=== PATIENT | female | born 1975 | race Caucasian/White ===

== ENCOUNTER → 2018-01-12 14:24 | Outpatient (CLI) | payer MEDICAID, SELFPAY ==
[2018-01-12 14:50] LABS: Abs Immature Grans 0.01 k/cumm (0.0-0.09); Absolute Basophil Count 0.02 k/cumm (0.0-0.2); Absolute Eosinophil Count 0.08 k/cumm (0.0-0.7); Absolute Lymphocyte Count 2.22 k/cumm (1.2-3.4); Absolute Monocyte Count 0.66 k/cumm (0.11-0.7); Absolute Neutrophil Count 5.37 k/cumm (1.2-6.7); Basophils % 0.2; HCT 41.3 % (36.0-46.0); HGB 13.4 g/dL (12.0-15.5); Immature Grans % 0.1; Lymphocytes % 26.6; Mean Corp. HGB Concentration 32.4 g/dL (32.0-36.0); Mean Corpuscular Volume 89.4 fL (80-95); Monocytes % 7.9; Neutrophils % 64.2; Platelet Count 309 x1000/uL (130-400); RBC 4.62 m/cumm (4.00-5.20); RBC Distribution Width 15.2 % (11.7-14.6); White Blood Cell Count 8.36 k/cumm (4.4-10.8)
[2018-01-12 15:49] LABS: ALT 39 U/L (12-78); AST 16 U/L (15-37); Albumin 3.4 g/dL (3.4-5.0); Alkaline Phosphatase 90 U/L (46-116); C-Reactive Protein 2.26 mg/dL (0.0-0.3); CREATININE 0.69 mg/dL (0.55-1.02)
== END ==
PROVIDERS: PCP Family Medicine; Visit Provider Internal Medicine Rheumatology
DX: M05.79 Rheumatoid arthritis with rheumatoid factor of multiple sites without organ or systems involvement (principal); Z79.899 Other long term (current) drug therapy
CPT/HCPCS: 36415; 82040; 82565; 84075; 84450; 84460; 85025; 86140

== ENCOUNTER 2019-05-29 19:33 | Emergency (ER) | payer SELFPAY ==
[2019-05-29 19:39] VITALS: BP 165/68; PULSE 102; RESP 20; TEMP 36.5; O2SAT 97
[2019-05-29 22:31] LABS: Abs Immature Grans 0.02 k/cumm (0.0-0.09); Absolute Basophil Count 0.02 k/cumm (0.0-0.2); Absolute Eosinophil Count 0.11 k/cumm (0.0-0.7); Absolute Lymphocyte Count 2.01 k/cumm (1.2-3.4); Absolute Monocyte Count 0.83 k/cumm (0.11-0.7); Basophils % 0.2; Eosinophils % 1.2; HCT 45.1 % (36.0-46.0); HGB 14.2 g/dL (12.0-15.5); Immature Grans % 0.2 %; Lymphocytes % 21.6; Mean Corp. HGB Concentration 31.5 g/dL (32.0-36.0); Mean Corpuscular Hemoglobin 28.7 pg (27.0-33.0); Mean Corpuscular Volume 91.1 fL (80-95); Mean Platelet Volume 8.9 fL (8.0-11.0); Monocytes % 8.9; Neutrophils % 67.9; Platelet Count 339 x1000/uL (130-400); RBC 4.95 m/cumm (4.00-5.20); White Blood Cell Count 9.29 k/cumm (4.4-10.8)
--- NOTE | 2019-05-29 22:34 | DI.RAD_ITS ---
EXAM: XR CHEST 2V PA LATERAL INDICATION: chest pain. COMPARISON: RIGHT HAND COMPLETE from 03/07/2015 TECHNIQUE: 2D digital imaging was performed. FINDINGS: The exam is limited by the patient's body habitus. The lungs are suboptimally inflated. The heart s ize is within normal limits. The lungs are grossly clear. IMPRESSION: Limited exam. No acute findings.
[2019-05-29 22:46] LABS: ALT 35 U/L (14-59); AST 20 U/L (15-37); Albumin 3.3 g/dL (3.4-5.0); Alkaline Phosphatase 95 U/L (46-116); Anion Gap 7.5 mmol/L (3-11); BUN 11 mg/dL (7-18); Bilirubin, Total 0.5 mg/dL (0.2-1.0); CO2 33.5 mmol/L (21.0-32.0); Calcium 8.9 mg/dL (8.5-10.1); Chloride 103 mmol/L (98-107); Glucose 92 mg/dL (74-106); Potassium 3.8 mmol/L (3.5-5.1); Sodium 144 mmol/L (136-145); Total Protein 7.6 g/dL (6.4-8.2); Troponin I < 0.05 ng/Ml (<0.06)
[2019-05-29 23:05] LABS: D-Dimer 299 ng/mlFEU (<500)
--- NOTE | 2019-05-29 23:09 | DI.VRAD_ITS ---
PROCEDURE INFORMATION: Exam: XR Chest, 2 Views Exam date and time: 05/29/2019 10:38 PM Age: 44 years old Clinical indication: Other: Chest pain TECHNIQUE: Imaging protocol: XR of the chest Views: 2 views. COMPARISON: No relevant prior studies available. FINDINGS: Lungs: Unremarkable. No consolidation. Pleural space: Unremarkable. No pleural effusion. No pneumothorax. Heart/Mediastinum: Unremarkable. No cardiomegaly. Bones/joints: Unremarkable. IMPRESSION: No acute findings. Dictated and Authenticated by: Narayan Anderson MD. Ordering:TIMMY Harmon MD
[2019-05-29] MEDS: Metoprolol 12.5 MG TAB PO (23:31)
[2019-05-29 23:32] VITALS: BP 118/65; PULSE 92; RESP 16; O2SAT 96
[2019-05-30 00:05] VITALS: BP 133/56; PULSE 88; RESP 16; O2SAT 97
[2019-05-30] MEDS: valACYclovir 500 MG TAB (00:21)
--- NOTE | 2019-05-30 00:21 | W.ED.GENAD ---
Discharge Plan Disposition Patient Disposition: HOME Condition: Good Discharge Details Chief Complaint: GenMedical Clinical Impression: Heart palpitations, Canker sore Primary Care Provider: Connie Kemp ED Provider: Eden Wellington Home Meds and New Rx's Prescriptions: New valacyclovir [Valtrex] 1 gram tablet 1,000 mg PO TID Qty: 21 RF: 0 metoprolol succinate 25 mg capsule,sprinkle,ER 24hr 12.5 mg PO DAILY Qty: 15 RF: 0 No Action methotrexate sodium 2.5 mg tablet 2.5 mg PO QWEEK RF: 0 medroxyprogesterone 10 mg tablet 10 mg PO DAILY Qty: 90 RF: 0 Discharge Instructions Additional Instructions: Drink plenty of fluids. Rest activities as tolerated. Your evaluation today is extremely reassuring. Use metoprolol once daily as previously prescribed. Discontinue this medication for any dizziness, lightheadedness, headaches, feeling of syncope or weakness as discussed. Recheck with your primary care doctor in the next 2 to 3 days. Followup with dentist or oral surgeon as discussed. Use valtrex as prescribed. Return for any worsening or concerns sooner if needed Medical Decision Making Is a 44-year-old woman presenting to the emergency room for complaint of a right canker sore on her tongue which is quite bothersome. Patient reports she discontinued her methotrexate as she does get frequent canker sores while taking this medication. Patient reports canker sore persists, some improvement today. Patient reports in the past she has taken medications to help alleviate this canker sore faster, she is requesting medication. Patient is aware that she should be taking her medication and does have a plan to restart her medication as she is noted increased joint pain and swelling and plans to restart her medicine tomorrow she has a new prescription waiting to be picked up. Patient is also complaining of intermittent palpitations for last 2 weeks. She reports this is very similar to her previous experience with PTSD. Patient reports she had a medical emergency resulted in her weight gain then having cardiac evaluation which she felt very traumatic. Patient reports having PTSD from that time. Patient reports a similar presentation with palpitations for which she historically used metoprolol which she felt very helpful, fully relieved her palpitations however she discontinued taking this medication because she did not like taking medications. Patient reports she has not been on this medicine in several years. Patient does report intermittent palpitations with intermittent chest pain. She does report shortness of breath with no specific typical pattern certainly not exertional. Patient does have bilateral distal leg edema which is symmetrical. Patient does have PE risk factors specifically she is obese, on control, does have a history of DVT however this was after surgery. No family history of blood clots. No cancer, or recent travel. No recent surgery. Plan of care check additional troponin and d-dimer as well as baseline labs. Will trial dose of metoprolol. Patient agrees with plan of care. EKG reveals regular rate and rhythm with a heart rate of 85. No ST segment changes. This was reviewed with Dr. Lamas. Patient's labs are ultimately unremarkable for abnormality. Patient symptoms did improve after metoprolol as well as vital signs improved. I do feel comfortable discharging this patient home. Patient is requesting discharge home at this time. Precautions discussed. Metoprolol prescription provided and recommended close follow-up with PCP for continuation of medication. Weight loss discussed, lifestyle modifications discussed. Patient agrees with plan of care. The patient was stable and requested discharge. Prior to discharge, my usual and customary return precautions were reviewed with the patient - this included follow-up instructions and reasons to return to the Emergency Department if conditions worsens, does not improve as expected, or other new concerns arise. HPI General Date/Time Provider Initiated Documentation: 05/29/19 19:51. HPI Narrative: Is a 44-year-old patient presenting for 2 complaints. Patient presents for a canker sore on her right tongue which is been quite bothersome. Patient reports did present for greater than 1 week. Patient is on methotrexate but did discontinue her medication recently for few days because of canker sore but is going to restart her medication as she is noting joint pain and swelling which is becoming bothersome. Patient does report she gets frequent canker sores while taking the medication which was somewhat contributory to her stopping her medication. Patient denies any recent injury or trauma to the mouth. Patient denies fevers or chills. Patient reports no relief with canker sore with conservative treatments in the past she has been prescribed medication to help settle the sore. Patient is reporting right-sided pain radiating toward her right ear. Pain is quite bothersome. Denies any hearing change. Denies any recent upper respiratory symptoms. Second complaint. Patient is reporting 2 weeks of intermittent palpitations. Patient ports history of PTSD for which she did historically take metoprolol. Patient discontinued this medication on her own several years ago. Patient reports she did tolerate the medication without difficulty but stopped only because she does not like taking medication. Patient reports that she has noted intermittent chest pain for the last 2 weeks. She does report some shortness of breath which does not have a specific pattern, denies exertional shortness of breath. Patient denies difficulty breathing. Denies cough. Patient denies nausea, vomiting or ill feeling. Denies reflux symptoms at this time. Patient does report that she has not required PTSD medications quite some time. Patient reports his last 2 weeks her abdomen over previous experience with her anxiety/PTSD. Patient denies any concerns of depression. Patient does report she is been made dating a new diet in the last week. Patient does report she is otherwise active. No history of cancer. She does have a history of DVT after surgery several years ago. Takes no blood thinners. Non-smoker. Is on control. No recent travel. Related Data Home Medications Medication Instructions Recorded Confirmed methotrexate sodium 2.5 mg tablet 2.5 mg PO QWEEK 03/01/19 05/29/19 medroxyprogesterone 10 mg tablet 10 mg PO DAILY #90 tab 03/05/19 05/29/19 metoprolol succinate 12.5 mg PO DAILY #15 cap 05/30/19 valacyclovir [Valtrex] 1,000 mg PO TID #21 tab 05/30/19 Previous Rx's Medication Instructions Recorded medroxyprogesterone 10 mg tablet 10 mg PO DAILY #90 tab 03/05/19 metoprolol succinate 12.5 mg PO DAILY #15 cap 05/30/19 valacyclovir [Valtrex] 1,000 mg PO TID #21 tab 05/30/19 Allergies Allergy/AdvReac Type Severity Reaction Status Date / Time bee Allergy Severe Swelling/Ed Uncoded 05/29/19 19:55 mitzy General Stated Complaint: GenMedical MERI: 3 Review of Systems All systems reviewed & are unremarkable except as noted in HPI and below Constitutional Constitutional: Denies chills, Denies fatigue, Denies fever(s), Denies headache(s) and Denies malaise ENT Ears, Nose, Mouth, and Throat: Denies headache(s) Cardiovascular Cardiovascular: Reports chest pain, Denies diaphoresis, Denies syncope, Reports irregular heart rhythm, Denies lightheadedness, Denies radiating jaw, neck or arm pain, Reports palpitations, Reports dyspnea and Denies dyspnea on exertion Respiratory Respiratory: Denies cough, Reports dyspnea and Denies dyspnea on exertion Gastrointestinal Gastrointestinal: Denies abdominal pain, Denies diarrhea, Denies nausea and Denies vomiting Genitourinary Genitourinary: Denies dysuria Neurologic Neurologic: Denies syncope and Denies headache(s) Endocrine Endocrine: Denies fatigue and Reports palpitations [facility] Medical History BMI 60.0-69.9, adult (Acute) 02/2019. Endometriosis Simple endometrial hyperplasia without atypia (Chronic) 2015. Dx 10/2015. Rx with Medroxyprogesterone 10mg/day. 05/2017. EMBx: atrophic endometrium. 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 Do you feel safe at home: Yes Do you feel safe in your relationship?: Yes History History 3 Para Hx # Term Pregnancies 3 Multiple births Hx # Pregnancies Ectopic pregnancies AB induced Hx Number of Living Children 3 AB spontaneous Exam Narrative Exam Narrative: CONST: Healthy appearing patient, in no acute distress. Well hydrated. Alert and alert. HENMT: Head nomocephalic, normal to inspection. Atraumatic. Hearing grossly normal. External ear canal no erythema or swelling. TM normal bilaterally. Nose normal to inspection. No rhinnorhea. Normal facial exam. Oral mucosa normal. Tounge with a deep canker sore noted to the right side of the tongue. Dentition normal. Normal posterior oropharynx. Uvula midline. EYES: General normal appearance. Alignment normal. Eyelids normal. Conjunctiva normal. Sclera normal. PERRL. NECK: Normal visual inspection. FROM. No lymphadenopathy. Trachea midline. No Midline tenderness. CHEST: Normal insepection of the chest. RESP: Normal respiratory effort. Speaking full sentences. No cough. No wheezing. No retractions. Clear to auscaltation. Breath sound equal and present bilaterally. CARDIO: No JVD. Normal PMI. Regular Rate. Regular Rhythm. Normal peripheral pulses. GI: Normal inspection of abdomen. No distension. Soft. Nontender. Bowel sounds present in all 4 quadrants. No rebound. No gaurding. MUSCULOSKELETAL: Normal Gait. FROM of all extremities. Distal neurovascularly intact. Sensation intact distally. Mild edema bilaterally, symmetrical. PSYCH: Normal affect. Cooperative. Course Vital Signs Vital signs: Vital Signs Temperature 36.5 C 05/29/19 19:39 Pulse 102 H 05/29/19 19:39 Respiratory Rate 20 05/29/19 19:39 Blood Pressure 165/68 H 05/29/19 19:39 Pulse Oximetry 97 05/29/19 19:39 Temperature 36.5 C 05/29/19 19:39 Temperature Source Skin 05/29/19 19:39 Pulse 88 05/30/19 00:05 Respiratory Rate 16 05/30/19 00:05 Respiratory Effort Non-Labored 05/29/19 19:51 Respiratory Depth Normal 05/29/19 19:51 Respiratory Pattern Normal 05/29/19 19:51 Blood Pressure 133/56 L 05/30/19 00:05 Blood Pressure Position Sitting 05/29/19 19:39 Pulse Oximetry 97 05/30/19 00:05 Oxygen Delivery Method Room Air 05/29/19 23:32 Oxygen Flow Rate 0 05/29/19 23:32 Lab/Test Results Lab/Test Results: Laboratory Tests Range/Units 05/29/19 05/29/19 05/29/19 22:23 22:23 22:23 WBC (4.4-10.8) k/cumm 9.29 RBC (4.00-5.20) m/cumm 4.95 Hgb (12.0-15.5) g/dL 14.2 Hct (36.0-46.0) % 45.1 MCV (80-95) fL 91.1 MCH (27.0-33.0) pg 28.7 MCHC (32.0-36.0) g/dL 31.5 L RDW (11.7-14.6) % 15.0 H Plt Count (130-400) x1000/uL 339 MPV (8.0-11.0) fL 8.9 Immature Gran % % 0.2 Neutrophils % 67.9 Lymphocytes % 21.6 Monocytes % 8.9 Eosinophils % 1.2 Basophils % 0.2 Absolute Neutrophils (1.2-6.7) k/cumm 6.30 Absolute Lymphocytes (1.2-3.4) k/cumm 2.01 Absolute Monocytes (0.11-0.7) k/cumm 0.83 H Absolute Eosinophils (0.0-0.7) k/cumm 0.11 Absolute Basophils (0.0-0.2) k/cumm 0.02 D-Dimer (<500) ng/mlFEU 299 Sodium (136-145) mmol/L 144 Potassium (3.5-5.1) mmol/L 3.8 Chloride (98-107) mmol/L 103 Carbon Dioxide (21.0-32.0) mmol/L 33.5 H Anion Gap (3-11) mmol/L 7.5 BUN (7-18) mg/dL 11 Creatinine (0.55-1.02) mg/dL 0.60 Estimated GFR/1.73 m2 (mL/min/1.73m2) >= 60.00 Glucose (74-106) mg/dL 92 Calcium (8.5-10.1) mg/dL 8.9 Total Bilirubin (0.2-1.0) mg/dL 0.5 AST (15-37) U/L 20 ALT (14-59) U/L 35 Alkaline Phosphatase (46-116) U/L 95 Troponin I (<0.06) ng/Ml < 0.05 Total Protein (6.4-8.2) g/dL 7.6 Albumin (3.4-5.0) g/dL 3.3 L Salicylates Acetaminophen Range/Units 05/30/19 05/30/19 00:01 00:02 WBC (4.4-10.8) k/cumm RBC (4.00-5.20) m/cumm Hgb (12.0-15.5) g/dL Hct (36.0-46.0) % MCV (80-95) fL MCH (27.0-33.0) pg MCHC (32.0-36.0) g/dL RDW (11.7-14.6) % Plt Count (130-400) x1000/uL MPV (8.0-11.0) fL Immature Gran % % Neutrophils % Lymphocytes % Monocytes % Eosinophils % Basophils % Absolute Neutrophils (1.2-6.7) k/cumm Absolute Lymphocytes (1.2-3.4) k/cumm Absolute Monocytes (0.11-0.7) k/cumm Absolute Eosinophils (0.0-0.7) k/cumm Absolute Basophils (0.0-0.2) k/cumm D-Dimer (<500) ng/mlFEU Sodium (136-145) mmol/L Cancelled Potassium (3.5-5.1) mmol/L Cancelled Chloride (98-107) mmol/L Cancelled Carbon Dioxide (21.0-32.0) mmol/L Cancelled Anion Gap (3-11) mmol/L Cancelled BUN (7-18) mg/dL Cancelled Creatinine (0.55-1.02) mg/dL Cancelled Estimated GFR/1.73 m2 (mL/min/1.73m2) Cancelled Glucose (74-106) mg/dL Cancelled Calcium (8.5-10.1) mg/dL Cancelled Total Bilirubin (0.2-1.0) mg/dL Cancelled AST (15-37) U/L Cancelled ALT (14-59) U/L Cancelled Alkaline Phosphatase (46-116) U/L Cancelled Troponin I (<0.06) ng/Ml Total Protein (6.4-8.2) g/dL Cancelled Albumin (3.4-5.0) g/dL Cancelled Salicylates Cancelled Acetaminophen Cancelled
== END 2019-05-30 00:15 | disposition home or self-care (01) ==
PROVIDERS: Emergency Provider Physician Assistant; PCP Family Medicine
DX: R00.2 Palpitations (principal); K12.0 Recurrent oral aphthae
CPT/HCPCS: 80053; 93005; 99284; 71046; 80329; 84484; 85025; 85379; 93010; 99283; J3490

== ENCOUNTER 2019-06-23 16:31 | Outpatient (CLI) | payer OTHER, SELFPAY ==
[2019-06-23 17:23] LABS: Abs Immature Grans 0.01 k/cumm (0.0-0.09); Absolute Basophil Count 0.02 k/cumm (0.0-0.2); Absolute Eosinophil Count 0.11 k/cumm (0.0-0.7); Absolute Lymphocyte Count 1.87 k/cumm (1.2-3.4); Absolute Monocyte Count 0.53 k/cumm (0.11-0.7); Absolute Neutrophil Count 5.75 k/cumm (1.2-6.7); Basophils % 0.2; Eosinophils % 1.3; HCT 45.4 % (36.0-46.0); Immature Grans % 0.1 %; Lymphocytes % 22.6; Mean Corp. HGB Concentration 30.8 g/dL (32.0-36.0); Mean Corpuscular Hemoglobin 28.2 pg (27.0-33.0); Mean Corpuscular Volume 91.3 fL (80-95); Mean Platelet Volume 9.1 fL (8.0-11.0); Monocytes % 6.4; Neutrophils % 69.4; Platelet Count 338 x1000/uL (130-400); RBC 4.97 m/cumm (4.00-5.20); RBC Distribution Width 15.6 % (11.7-14.6); White Blood Cell Count 8.29 k/cumm (4.4-10.8)
[2019-06-23 17:38] LABS: ALT 37 U/L (14-59); AST 19 U/L (15-37); Albumin 3.4 g/dL (3.4-5.0); Alkaline Phosphatase 104 U/L (46-116); Anion Gap 7.3 mmol/L (3-11); BUN 9 mg/dL (7-18); Bilirubin, Total 0.4 mg/dL (0.2-1.0); C-Reactive Protein 2.22 mg/dL (0.0-0.3); CO2 31.7 mmol/L (21.0-32.0); CREATININE 0.77 mg/dL (0.55-1.02); Calcium 8.8 mg/dL (8.5-10.1); Chloride 103 mmol/L (98-107); Glucose 104 mg/dL (74-106); Potassium 4.2 mmol/L (3.5-5.1); Sodium 142 mmol/L (136-145); Total Protein 6.9 g/dL (6.4-8.2)
== END 2019-06-23 16:51 ==
PROVIDERS: PCP Family Medicine; Visit Provider Internal Medicine Rheumatology
DX: M05.79 Rheumatoid arthritis with rheumatoid factor of multiple sites without organ or systems involvement (principal); Z79.899 Other long term (current) drug therapy
CPT/HCPCS: 36415; 80053; 85025; 86140

== ENCOUNTER 2020-03-07 01:28 | Outpatient (CLI) | payer OTHER, SELFPAY ==
[2020-03-08 20:43] LABS: COVID-19 RT-PCR Result NEGATIVE (Negative)
== END 2020-03-07 01:48 ==
PROVIDERS: PCP Family Medicine; Visit Provider Nurse Practitioner
DX: G47.33 Obstructive sleep apnea (adult) (pediatric) (principal); Z01.818 Encounter for other preprocedural examination
CPT/HCPCS: U0003

== ENCOUNTER 2020-03-15 11:26 | Outpatient (REF) | payer OTHER, SELFPAY ==
[2020-03-15 19:56] LABS: Abs Immature Grans 0.04 10^3/uL (0.0-0.06); Absolute Basophil Count 0.02 10^3/uL (0.0-0.2); Absolute Lymphocyte Count 1.61 10^3/uL (1.2-3.4); Absolute Monocyte Count 0.68 10^3/uL (0.1-0.8); Absolute Neutrophil Count 6.79 10^3/uL (1.2-6.7); Basophils % 0.2; Eosinophils % 1.1; HCT 44.5 % (36.0-46.0); HGB 14.1 g/dL (11.2-15.7); Immature Grans % 0.4; Lymphocytes % 17.4; MCHC 31.7 % (32.0-36.0); MCV 94.7 fL (80-95); MPV 9.6 fL (8.0-11.0); Monocytes % 7.4; Neutrophils % 73.5; Nucleated RBC 0 %; Platelet Count 306 10^3/uL (130-400); RDW 14.1 % (11.7-14.6); RDW-SD 48.5 fL; WBC 9.24 10^3/uL (4.4-10.8)
[2020-03-15 20:20] LABS: ALT 70 U/L (14-59); AST 34 U/L (15-37); Albumin 3.6 g/dL (3.4-5.0); Alkaline Phosphatase 92 U/L (46-116); Anion Gap 6.3 mmol/L (3-11); BUN 10 mg/dL (7-18); Bilirubin, Total 0.8 mg/dL (0.2-1.0); CO2 29.7 mmol/L (21.0-32.0); Calculated LDL 100 mg/dL (<100); Chloride 105 mmol/L (98-107); Cholesterol 155 mg/dL (<200); Glucose 120 mg/dL (74-106); HDL Cholesterol 31 mg/dL (40-60); Potassium 4.5 mmol/L (3.5-5.1); Sodium 141 mmol/L (136-145); Total Protein 6.9 g/dL (6.4-8.2); Triglyceride 121 mg/dL (<150)
[2020-03-15 20:52] LABS: Hemoglobin A1C 6.2 % (<5.7)
== END 2020-03-15 11:46 ==
LOC: NCHCN 11:26
PROVIDERS: PCP Family Medicine; Visit Provider Family Medicine
DX: M06.9 Rheumatoid arthritis, unspecified (principal); Z13.9 Encounter for screening, unspecified
CPT/HCPCS: 80053; 80061; 83036; 85025

== ENCOUNTER 2020-06-24 19:24 | Emergency (ER) | payer OTHER, SELFPAY ==
[2020-06-24 19:29] VITALS: BP 132/75; PULSE 118; RESP 16; TEMP 36.6; O2SAT 96
[2020-06-24 19:39] VITALS: PULSE 95; O2SAT 98
[2020-06-24] MEDS: Doxycycline Hyclate 100 MG CAP PO ×2 (19:53)
--- NOTE | 2020-06-24 19:53 | ED.GENADUL_ITS ---
Discharge Plan Disposition Patient Disposition: HOME Condition: Good Discharge Details Clinical Impression: Cellulitis, Pressure ulcer Primary Care Provider: Connie Kemp ED Provider: Maria Vasquez Home Meds and New Rx's Prescriptions: New doxycycline hyclate 100 mg tablet 100 mg PO BID 9 Days Qty: 18 RF: 0 Saccharomyces boulardii [Florastor] 250 mg capsule 250 mg PO BID Qty: 14 RF: 0 Continued methotrexate sodium 2.5 mg tablet 2.5 mg PO QWEEK RF: 0 colchicine 0.6 mg capsule 0.6 mg PO DAILY RF: 0 montelukast [Singulair] 10 mg tablet 10 mg PO DAILY RF: 0 loratadine [Claritin] 10 mg tablet 10 mg PO DAILY RF: 0 fluticasone propionate [Flonase Allergy Relief] 50 mcg/actuation spray,suspension 1 spray intranasal DAILY RF: 0 medroxyprogesterone 10 mg tablet 10 mg PO DAILY Qty: 90 RF: 5 valacyclovir [Valtrex] 1 gram tablet 1,000 mg PO TID Qty: 21 RF: 0 metoprolol succinate 25 mg capsule,sprinkle,ER 24hr 12.5 mg PO DAILY Qty: 15 RF: 0 Discharge Instructions Instructions: Cellulitis (ED) Additional Instructions: recheck in 48 hours elevate, antibiotic as prescribed return with fever,spreading redness, worsening pain Medical Decision Making Patient appears well, she does not show any evidence of sepsis, area of cellulitis was marked We will elevate Placed on doxycycline Wound culture obtained Recheck in 48 hours recommended Early return precautions discussed and patient expressed understanding, as she was on Bactrim 2 weeks prior, she was placed on Florastor No clinical evidence of DVT or abscess Pressure ulcer noted with slight surrounding cellulitis without evidence of necrotizing fasciitis Differential Diagnosis Differential Diagnosis: Cellulitis, ulcer, abscess, vasculitis Medical Records Medical records reviewed: Yes I reviewed the patient's medical records. HPI This 45-year-old female with history of rheumatoid arthritis on methotrexate, lipodermatosclerosis, obesity, PCOS, SVT, pressure ulcer, cellulitis presents for of redness to her right lower extremity along the castrejon that started this morning. Patient states he removed her grandmother and noticed redness. The antibiotic been on . She denies eye irritation or pain to the area. She denies fever or chills. Denies history of diabetes. She denies any new calf pain or swelling. She denies any sensation changes additionally. Denies any additional complaints at this time. General Date/Time Provider Initiated Documentation: 06/24/20 19:30 . Related Data Home Medications Medication Instructions Recorded Confirmed methotrexate sodium 2.5 mg tablet 2.5 mg PO QWEEK 03/01/19 06/24/20 metoprolol succinate 12.5 mg PO DAILY #15 cap 05/30/19 06/24/20 valacyclovir [Valtrex] 1,000 mg PO TID #21 tab 05/30/19 06/24/20 medroxyprogesterone 10 mg tablet 10 mg PO DAILY #90 tab 06/10/19 06/24/20 colchicine 0.6 mg capsule 0.6 mg PO DAILY 06/16/20 06/24/20 fluticasone propionate 50 1 spray INTRANASAL DAILY 06/16/20 06/24/20 mcg/actuation nasal spray,suspension loratadine 10 mg tablet 10 mg PO DAILY 06/16/20 06/24/20 montelukast 10 mg tablet 10 mg PO DAILY 06/16/20 06/24/20 Saccharomyces boulardii [Florastor] 250 mg PO BID #14 cap 06/24/20 doxycycline hyclate 100 mg PO BID 9 Days #18 tab 06/24/20 Previous Rx's Medication Instructions Recorded metoprolol succinate 12.5 mg PO DAILY #15 cap 05/30/19 valacyclovir [Valtrex] 1,000 mg PO TID #21 tab 05/30/19 medroxyprogesterone 10 mg tablet 10 mg PO DAILY #90 tab 06/10/19 Saccharomyces boulardii [Florastor] 250 mg PO BID #14 cap 06/24/20 doxycycline hyclate 100 mg PO BID 9 Days #18 tab 06/24/20 Allergies Allergy/AdvReac Type Severity Reaction Status Date / Time fexofenadine [From Alecia] Allergy Severe facial Verified 06/22/20 11:44 swelling bee Allergy Severe Swelling/Ed Uncoded 05/29/19 19:55 mitzy General Stated Complaint: Vascular MERI: 4 Review of Systems Narrative: Review of systems negative x7 aside from indication HPI [facility] Medical History (Updated 06/24/20 @ 19:48 by OSWALDO Augustin) BMI 60.0-69.9, adult 02/2019. Endometriosis Simple endometrial hyperplasia without atypia 2016. Dx 10/2015. Rx with Medroxyprogesterone 10mg/day. 05/2017. EMBx: atrophic endometrium. 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 Do you feel safe at home: Yes Do you feel safe in your relationship?: Yes History History 3 Para Hx # Term Pregnancies 3 Multiple births Hx # Pregnancies Ectopic pregnancies AB induced Hx Number of Living Children 3 AB spontaneous Exam Const General: healthy appearing Chest Chest: normal inspection of the chest Resp Effort & Inspection: normal respiratory effort Auscultation: clear to auscultation bilaterally Cardio Rate: regular rate Rhythm: regular rhythm Other: Distal pulses intact to dorsalis pedis and posterior tibialis bilaterally, sensation intact distally GI Inspection: normal to inspection Other: No tenderness with palpation in all 4, Skin Other: Erythema noted to the anterior castrejon on right lower extremity, ulcer noted, purulence noted, no crepitus, no palpable fluctuance Neuro General: patient alert Course Vital Signs Vital signs: Vital Signs Temperature 36.6 C 06/24/20 19:29 Pulse 118 H 06/24/20 19:29 Respiratory Rate 16 06/24/20 19:29 Blood Pressure 132/75 06/24/20 19:29 Pulse Oximetry 96 06/24/20 19:29 Temperature 36.6 C 06/24/20 19:29 Temperature Source Skin 06/24/20 19:29 Pulse 95 H 06/24/20 19:39 Respiratory Rate 16 06/24/20 19:29 Respiratory Effort 06/24/20 19:34 Blood Pressure 132/75 06/24/20 19:29 Pulse Oximetry 98 06/24/20 19:39 Oxygen Delivery Method Room Air 06/24/20 19:29 Oxygen Flow Rate 0 06/24/20 19:29 Lab/Test Results Lab/Test Results: 06/24/20 19:35 Leg - Front Skin Culture - Pending
== END 2020-06-24 19:55 | disposition home or self-care (01) ==
PROVIDERS: Emergency Provider Physician Assistant; PCP Family Medicine
DX: L03.115 Cellulitis of right lower limb (principal); L89.899 Pressure ulcer of other site, unspecified stage
CPT/HCPCS: 36416; 82962; 87077; 99283; 87070; 87186; 99284

== ENCOUNTER 2020-06-27 10:37 | Outpatient (CLI) | payer OTHER, SELFPAY ==
[2020-06-28 12:47] LABS: COVID-19 RT-PCR UVMMC Result Negative (Negative)
== END 2020-06-27 10:38 | disposition home or self-care (01) ==
LOC: LBO 10:38
PROVIDERS: PCP Family Medicine; Visit Provider Family Medicine
DX: Z20.822 Contact with and (suspected) exposure to COVID-19 (principal)
CPT/HCPCS: U0003

== ENCOUNTER 2020-08-04 01:21 | Outpatient (CLI) | payer OTHER, SELFPAY ==
--- NOTE | 2020-08-04 15:07 | W.NUTCONSULT ---
Date of service: 08/04/20 Time of Service: 15:07 Nutritional Consult ASSESSMENT: Chelsi is a 45 year old morbidly obese female referred to Medical Nutrition Therapy for non healing ulcer on right lower leg. BMI:57, most recent A1c:6.2% indicates prediabetes (03/15/20). Meds include methotrexate for RA. Has gained 20 lbs in last 2 months. Chelsi reports wound started after bug bite last summer Diet recall indicates erradic eating pattern and no micronutrient supplementation. Poor intake of protein, micronutrients and essential fatty acids may be contributing to poor healing. No routine exercise. 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 NUTRITIONAL DIAGNOSIS: Morbid obesity Inadequate nutrient intake for optimal wound healing Prediabetes INTERVENTION: Recommended that Chelsi add 30 grams protein daily with protein shake (whey based) and to supplement diet with 2 chewable multivitamins with iron (flintstones), 500 mg Vit C, 220 mg Zinc Sulfate x 14 days. Reviewed how to follow lower carb diet/ high protien diet with emphasis on lean protein, non starchy vegetables and complex carbs. Encouraged 64 ounces of water daily and to avoid foods/beverages high in simple sugars or foods and processed/convenience foods. Chelsi was engaged. Provided written literature and requested follow up as needed. Time Spent in Nutritional Counseling and Treatment: 30 min
== END 2020-08-04 01:22 | disposition home or self-care (01) ==
LOC: DS 01:21
PROVIDERS: PCP Family Medicine; Visit Provider Dietitian, Registered
DX: E66.01 Morbid (severe) obesity due to excess calories (principal); R73.03 Prediabetes; L97.919 Non-pressure chronic ulcer of unspecified part of right lower leg with unspecified severity; Z68.43 Body mass index [BMI] 50.0-59.9, adult
CPT/HCPCS: 97802

== ENCOUNTER 2020-11-16 09:56 | Outpatient (REF) | payer OTHER, SELFPAY ==
--- NOTE | 2020-11-16 09:15 | PAPFT_PTH ---
PATIENT: Chelsi Hernandez LOC: [facility] U#:[id number] AGE/SX: 45/F ROOM: RE11/16/[address]: YULIA Dickerson : 1975 BED: DIS: 11/16/2020 SPEC #: [id number] RECD: 11/16/20 13:00 STATUS: LETY VALERIO #: [id number] TABBY: 11/16/20 09:[address]: Vero Curry DEPT: [facility] Cytology RECD BY: Maria Bullock ENTERED: 11/16/20 13:00 SP TYPE: PAPFT OTHR DR: Connie Kemp Tissues: 1 - CX/ENDOCX FOR PAP SMEARS Procedures: PAP THIN PREP/UVM Screening HPV DNA PROBE Comments: [id number]
== END 2020-11-16 09:57 | disposition home or self-care (01) ==
LOC: LBN 09:56
PROVIDERS: PCP Family Medicine; Visit Provider Nurse Practitioner Family
DX: Z12.4 Encounter for screening for malignant neoplasm of cervix (principal); Z11.51 Encounter for screening for human papillomavirus (HPV); Z01.419 Encounter for gynecological examination (general) (routine) without abnormal findings
CPT/HCPCS: 88142; 87624

== ENCOUNTER 2020-12-18 00:47 | Outpatient (CLI) | payer OTHER, SELFPAY ==
--- NOTE | 2020-12-18 13:00 | DI.MAMMO_ITS ---
Exam(s) MAMMO SCREENING EXAM: MAMMO SCREENING CLINICAL HISTORY: screening. TECHNIQUE: Bilateral full field digital CC and MLO mammographic images were obtained with 3D tomosyn thesis and utilizing computer aided detection (CAD). COMPARISON: None. This is a baseline mammogram in this 45-year-old patient FINDINGS: There are no CAD designations. There are no spiculated masses nor malignant appearing microcalcification groups. There is no significant architectural distortion nor skin thickening-retraction. IMPRESSION: No radiographic evidence of malignancy. BI-RADS Category 1 - Negative Breast Density - Category B - Scattered areas of fibroglandular density Breast density Category C or D implies that the patient has dense breast tissue. Dense breast tissue can make it harder to find cancer on a mammogram. Dense breast tissue is also associated with an incr eased risk of breast cancer. This information about the result of the mammogram report was provided to the patient to raise their awareness. Use this report when you speak with the patient about their risks for breast cancer, which includes their family history. At that time, you may recommend additional screening tests (Ultrasoun d or MRI) as these tests may add significant information. A negative radiographic report should not delay biopsy if a dominant or clinically suspicious mass is present. Up to ten percent of cancers are not identified on mammography. A negative report may reinforce clinical impression. Adenosis and dense breasts may obscure an underlying neoplasm. False positive reports average 6 to 10%. Patient will receive a letter notifying them of these results.
== END 2020-12-18 01:07 ==
PROVIDERS: PCP Family Medicine; Visit Provider Nurse Practitioner Family
DX: Z12.31 Encounter for screening mammogram for malignant neoplasm of breast (principal); R92.8 Other abnormal and inconclusive findings on diagnostic imaging of breast
CPT/HCPCS: 77063; 77067

== ENCOUNTER 2021-05-21 04:13 | Outpatient (CLI) | payer OTHER, SELFPAY ==
[2021-05-21 17:02] LABS: ALT 67 U/L (14-59); AST 31 U/L (15-37); Albumin 3.6 g/dL (3.4-5.0); Alkaline Phosphatase 100 U/L (46-116); Bilirubin, Direct 0.1 mg/dL (0.0-0.2); Bilirubin, Total 0.5 mg/dL (0.2-1.0); Total Protein 6.9 g/dL (6.4-8.2)
== END 2021-05-21 04:14 | disposition home or self-care (01) ==
LOC: LBO 04:13
PROVIDERS: PCP Family Medicine; Visit Provider Internal Medicine Rheumatology
DX: Z79.899 Other long term (current) drug therapy (principal)
CPT/HCPCS: 36415; 80076

== ENCOUNTER 2021-09-05 16:25 | Outpatient (REF) | payer OTHER, SELFPAY ==
[2021-09-05 18:45] LABS: HGB 13.3 g/dL (11.2-15.7); MCHC 31.7 % (32.0-36.0); MCV 91.7 fL (80-95); MPV 9.3 fL (8.0-11.0); Platelet Count 347 10^3/uL (130-400); RBC 4.58 10^6/uL (3.93-5.22); RDW-SD 47.3 fL; WBC 7.79 10^3/uL (4.4-10.8)
[2021-09-05 19:04] LABS: Hemoglobin A1C 6.1 % (<5.7)
[2021-09-05 19:06] LABS: Albumin 3.3 g/dL (3.4-5.0); Anion Gap 5.7 mmol/L (3-11); CO2 30.3 mmol/L (21.0-32.0); Calcium 8.6 mg/dL (8.5-10.1); Chloride 105 mmol/L (98-107); Potassium 3.7 mmol/L (3.5-5.1); Sodium 141 mmol/L (136-145); Total Protein 6.6 g/dL (6.4-8.2)
[2021-09-05 19:08] LABS: ALT 103 U/L (14-59); AST 51 U/L (15-37); Alkaline Phosphatase 98 U/L (46-116); BUN 8 mg/dL (7-18); Bilirubin, Total 0.5 mg/dL (0.2-1.0); CREATININE 0.8 mg/dL (0.55-1.02); Glucose 92 mg/dL (74-106); TSH (W/Ref FT4) 0.98 uIU/mL (0.36-3.74)
== END 2021-09-05 16:26 | disposition home or self-care (01) ==
LOC: NCHCN 16:25
PROVIDERS: PCP Family Medicine; Visit Provider Family Medicine
DX: Z00.00 Encounter for general adult medical examination without abnormal findings (principal); M06.9 Rheumatoid arthritis, unspecified; R73.03 Prediabetes; E66.9 Obesity, unspecified
CPT/HCPCS: 80053; 85027; 83036; 84443; 86140

== ENCOUNTER 2021-12-10 18:30 | Outpatient (REF) | payer OTHER, SELFPAY ==
[2021-12-10 19:06] LABS: HCT 39.9 % (36.0-46.0); HGB 12.7 g/dL (11.2-15.7); MCH 29.5 pg (27.0-33.0); MCHC 31.8 % (32.0-36.0); MCV 93 fL (80-95); MPV 9.6 fL (8.0-11.0); Platelet Count 328 10^3/uL (130-400); RBC 4.31 10^6/uL (3.93-5.22); RDW 14.3 % (11.7-14.6); RDW-SD 47.8 fL; WBC 7.77 10^3/uL (4.4-10.8)
[2021-12-10 19:08] LABS: Iron 47 ug/dL (50-170); Total Iron Binding Capacity 308 ug/dL (250-450); Transferrin Sat 15 % (15-50)
[2021-12-10 19:20] LABS: ALT 38 U/L (14-59); AST 19 U/L (15-37); Albumin 3.3 g/dL (3.4-5.0); Alkaline Phosphatase 91 U/L (46-116); Anion Gap 4.6 mmol/L (3-11); BUN 13 mg/dL (7-18); Bilirubin, Total 0.5 mg/dL (0.2-1.0); CO2 29.4 mmol/L (21.0-32.0); CREATININE 0.8 mg/dL (0.55-1.02); Calcium 8.7 mg/dL (8.5-10.1); Chloride 104 mmol/L (98-107); Ferritin 161 ng/mL (8-252); Glucose 105 mg/dL (74-106); Sodium 138 mmol/L (136-145); Total Protein 7.1 g/dL (6.4-8.2)
[2021-12-10 19:51] LABS: Hemoglobin A1C 5.9 % (<5.7)
[2021-12-12 10:06] LABS: HBs Antibody, Quant >1000.0 mIU/mL (See Note); Hepatitis B Surface Ab Positive (See Note)
[2021-12-12 10:24] LABS: Hepatitis B Surface Ag Negative (Negative)
[2021-12-12 11:02] LABS: Hepatitis C Ab w Rflx HCV PCR Negative (Negative)
[2021-12-12 11:55] LABS: Hep B Core Antibody Negative (Negative)
[2021-12-12 12:07] LABS: Hep A Total Ab w Rflx IgM Negative (Negative)
== END 2021-12-10 18:31 | disposition home or self-care (01) ==
LOC: NCHCN 18:30
PROVIDERS: PCP Family Medicine; Visit Provider Family Medicine
DX: R73.03 Prediabetes (principal); R79.89 Other specified abnormal findings of blood chemistry; E66.9 Obesity, unspecified; Z11.59 Encounter for screening for other viral diseases; Z01.84 Encounter for antibody response examination
CPT/HCPCS: 80053; 85027; 86704; 86706; 86709; 86803; 87340; 82728; 83036; 83540; 83550

== ENCOUNTER 2022-03-11 10:12 | Outpatient (REF) | payer OTHER, SELFPAY ==
[2022-03-11 15:21] LABS: HCT 42.8 % (36.0-46.0); HGB 14.1 g/dL (11.2-15.7); MCH 29.2 pg (27.0-33.0); MCHC 32.9 % (32.0-36.0); MCV 89 fL (80-95); Platelet Count 324 10^3/uL (130-400); RBC 4.83 10^6/uL (3.93-5.22); RDW-SD 44.9 fL; WBC 9.09 10^3/uL (4.4-10.8)
[2022-03-11 16:27] LABS: ALT 48 U/L (14-59); AST 23 U/L (15-37); Albumin 3.6 g/dL (3.4-5.0); Alkaline Phosphatase 95 U/L (46-116); Anion Gap 7.4 mmol/L (3-11); BUN 10 mg/dL (7-18); Bilirubin, Total 0.7 mg/dL (0.2-1.0); CO2 28.6 mmol/L (21.0-32.0); CREATININE 0.7 mg/dL (0.55-1.02); Calcium 9.2 mg/dL (8.5-10.1); Chloride 105 mmol/L (98-107); Glucose 104 mg/dL (74-106); Sodium 141 mmol/L (136-145); Total Protein 7.8 g/dL (6.4-8.2)
== END 2022-03-11 10:13 | disposition home or self-care (01) ==
LOC: NCHCN 10:12
PROVIDERS: PCP Family Medicine; Visit Provider Family Medicine
DX: M06.9 Rheumatoid arthritis, unspecified (principal)
CPT/HCPCS: 80053; 85027

== ENCOUNTER 2022-07-23 19:08 | Outpatient (REF) | payer OTHER, SELFPAY ==
[2022-07-23 19:35] LABS: HCT 43.6 % (36.0-46.0); MCH 28.9 pg (27.0-33.0); MCHC 32.1 % (32.0-36.0); MCV 90 fL (80-95); MPV 9.2 fL (8.0-11.0); Platelet Count 364 10^3/uL (130-400); RBC 4.84 10^6/uL (3.93-5.22); RDW 14.3 % (11.7-14.6); RDW-SD 46.3 fL; WBC 8.18 10^3/uL (4.4-10.8)
[2022-07-23 19:46] LABS: ALT 51 U/L (14-59); AST 34 U/L (15-37); Albumin 3.4 g/dL (3.4-5.0); Alkaline Phosphatase 89 U/L (46-116); Anion Gap 5.5 mmol/L (3-11); BUN 11 mg/dL (7-18); Bilirubin, Total 0.8 mg/dL (0.2-1.0); CO2 30.5 mmol/L (21.0-32.0); CREATININE 0.8 mg/dL (0.55-1.02); Calcium 9.1 mg/dL (8.5-10.1); Chloride 104 mmol/L (98-107); Estimated GFR 92.54 (mL/min/1.73m2); Glucose 96 mg/dL (74-106); Potassium 4.1 mmol/L (3.5-5.1); Sodium 140 mmol/L (136-145); Total Protein 7.5 g/dL (6.4-8.2)
== END 2022-07-23 19:09 | disposition home or self-care (01) ==
LOC: NCHCN 19:08
PROVIDERS: PCP Family Medicine; Visit Provider Family Medicine
DX: M06.89 Other specified rheumatoid arthritis, multiple sites (principal)
CPT/HCPCS: 80053; 85027

== ENCOUNTER 2022-11-12 21:18 | Outpatient (REF) | payer MEDICAID, SELFPAY ==
[2022-11-12 19:16] LABS: HCT 42.6 % (36.0-46.0); HGB 14.2 g/dL (11.2-15.7); MCHC 33.3 % (32.0-36.0); MCV 90 fL (80-95); MPV 9.5 fL (8.0-11.0); Platelet Count 361 10^3/uL (130-400); RBC 4.74 10^6/uL (3.93-5.22); RDW 14.4 % (11.7-14.6); RDW-SD 47.1 fL
[2022-11-12 19:29] LABS: ALT 41 U/L (14-59); AST 22 U/L (15-37); Albumin 3.6 g/dL (3.4-5.0); Alkaline Phosphatase 86 U/L (46-116); Anion Gap 7.1 mmol/L (3-11); BUN 10 mg/dL (7-18); Bilirubin, Total 0.8 mg/dL (0.2-1.0); CO2 29.9 mmol/L (21.0-32.0); CREATININE 0.7 mg/dL (0.55-1.02); Calcium 9.2 mg/dL (8.5-10.1); Chloride 106 mmol/L (98-107); Estimated GFR 108.62 (mL/min/1.73m2); Glucose 91 mg/dL (74-106); Potassium 4.1 mmol/L (3.5-5.1); Sodium 143 mmol/L (136-145); Total Protein 7.7 g/dL (6.4-8.2)
== END 2022-11-12 21:19 | disposition home or self-care (01) ==
LOC: NCHCN 21:18
PROVIDERS: PCP Family Medicine; Visit Provider Family Medicine
DX: M06.9 Rheumatoid arthritis, unspecified (principal)
CPT/HCPCS: 80053; 85027

== ENCOUNTER 2022-11-25 00:57 | Outpatient (CLI) | payer MEDICAID, SELFPAY ==
--- NOTE | 2022-11-25 | DI.MAMMO_ITS ---
Exam(s) MAMMO SCREENING EXAM: MAMMO SCREENING CLINICAL HISTORY: SCREENING, Z12.39 TECHNIQUE: Mammograms were interpreted according to the usual protocol including computer analysis w [employer] CAD system, tomosynthesis and C-view imaging. COMPARISON: 2020 FINDINGS: The breasts are composed of mainly fatty density , Breast Density category A. No suspicious masses or suspicious microcalcifications are seen. No skin thickening or abnormal axillary lymph nodes are seen. There has been no significant change from prior exams. IMPRESSION: BI-RADS Category 1, Negative mammogram Yearly screening mammography is recommended. Breast Density - Category A, fatty density. A negative radiographic report should not delay biopsy if a dominant or clinically suspicious mass is present. Up to ten percent of cancers are not identified on mammography. A negative report may reinforce clinical impression. Adenosis and dense breasts may obscure an underlying neoplasm. False positive reports average 6 to 10%. Patient will receive a letter notifying them of these results.
== END 2022-11-25 01:17 ==
LOC: DI 00:57
PROVIDERS: PCP Family Medicine; Visit Provider Family Medicine
DX: Z12.31 Encounter for screening mammogram for malignant neoplasm of breast (principal)
CPT/HCPCS: 77063; 77067

== ENCOUNTER 2022-12-20 19:13 | Emergency (ER) | payer MEDICAID, SELFPAY ==
[2022-12-20 19:22] VITALS: BP 122/64; PULSE 114; RESP 16; TEMP 37.8; O2SAT 97
--- NOTE | 2022-12-20 19:30 | DI.RAD_ITS ---
Exam(s) XR CHEST 2V PA LATERAL EXAM: XR CHEST 2V PA LATERAL CLINICAL HISTORY: cough, fever. TECHNIQUE: 2D digital imaging was performed. COMPARISON: CR,XR XR CHEST 2V PA LATERAL from 05/29/2019 FINDINGS: 2 views: Heart size is normal. The mediastinum is not widened. Lungs are clear. No infiltrates nor pleural effusions. IMPRESSION: No acute pulmonary findings. DATA REPOSITORY: RADIATION DOSE DELIVERED:
[2022-12-20] MEDS: Ibuprofen 600 MG TAB PO (20:04)
[2022-12-20] MEDS: Acetaminophen 500 MG TAB 1000 MG PO (20:04)
[2022-12-20] MEDS: Normal Saline 1,000 ML 1000 ML IV (20:08)
[2022-12-20 20:20] LABS: Abs Immature Grans 0.01 10^3/uL (0.0-0.06); Absolute Basophil Count 0.02 10^3/uL (0.0-0.2); Absolute Eosinophil Count 0.03 10^3/uL (0.0-0.7); Absolute Lymphocyte Count 0.58 10^3/uL (1.2-3.4); Absolute Monocyte Count 0.55 10^3/uL (0.1-0.8); Absolute Neutrophil Count 3.32 10^3/uL (1.2-6.7); Basophils % 0.4; Eosinophils % 0.7; HGB 13.8 g/dL (11.2-15.7); Immature Grans % 0.2; Lymphocytes % 12.9; MCH 29.2 pg (27.0-33.0); MCHC 32.9 % (32.0-36.0); MCV 89 fL (80-95); MPV 8.9 fL (8.0-11.0); Monocytes % 12.2; Neutrophils % 73.6; Platelet Count 236 10^3/uL (130-400); RBC 4.72 10^6/uL (3.93-5.22); RDW 14.5 % (11.7-14.6); RDW-SD 47.4 fL; WBC 4.51 10^3/uL (4.4-10.8)
[2022-12-20 20:36] LABS: ALT 54 U/L (14-59); AST 28 U/L (15-37); Albumin 3.7 g/dL (3.4-5.0); Alkaline Phosphatase 91 U/L (46-116); Anion Gap 9.8 mmol/L (3-11); BUN 13 mg/dL (7-18); Bilirubin, Total 0.9 mg/dL (0.2-1.0); CO2 27.2 mmol/L (21.0-32.0); CREATININE 0.8 mg/dL (0.55-1.02); Chloride 102 mmol/L (98-107); Estimated GFR 92.54 (mL/min/1.73m2); Glucose 100 mg/dL (74-106); Potassium 3.8 mmol/L (3.5-5.1); Sodium 139 mmol/L (136-145); Total Protein 7.7 g/dL (6.4-8.2)
[2022-12-20 20:55] LABS: COVID-19 PCR Negative (Negative); Influenza A PCR Negative (Negative); Influenza B PCR Negative (Negative); RSV PCR Negative (Negative)
[2022-12-20 20:56] LABS: Source Nasopharynx
--- NOTE | 2022-12-20 21:00 | ED.GENADUL_ITS ---
Discharge Plan Disposition Patient Disposition: Home Condition: Stable Discharge Details Clinical Impression: Abscess, Bronchitis Primary Care Provider: Connie Kemp ED Provider: Ivanna Waldrop Home Meds and New Rx's Prescriptions: Continued methotrexate sodium 2.5 mg tablet 2.5 mg PO QWEEK Patient Comments: 6 tabs montelukast [Singulair] 10 mg tablet 10 mg PO DAILY loratadine [Claritin] 10 mg tablet 10 mg PO DAILY fluticasone propionate [Flonase Allergy Relief] 50 mcg/actuation sp ray,suspension 1 spray intranasal DAILY Rx Instructions: administer into each nostril medroxyprogesterone 10 mg tablet 10 mg PO DAILY Qty: 90 5RF Rx Instructions: 1 tab PO daily sulfamethoxazole-trimethoprim [Bactrim DS] 800-160 mg tablet 1 tab PO BID budesonide-formoterol [Symbicort] 80-4.5 mcg/actuation HFA aerosol inhaler 1 inh inhalation BID albuterol sulfate [ProAir HFA] 90 mcg/actuation HFA aerosol inhaler 2 puff inhalation Q6H PRN valacyclovir [Valtrex] 1 gram tablet 1,000 mg PO TID Qty: 21 0RF metoprolol succinate 25 mg capsule,sprinkle,ER 24hr 12.5 mg PO DAILY Qty: 15 0RF folic acid 1 mg tablet 1 mg PO DAILY Patient Comments: TAKE 1 TABLET BY MOUTH DAILY Discharge Instructions Instructions: Abscess (ED), Acute Bronchitis (ED) Additional Instructions: Continue antibiotics as previously prescribed Can do warm moist compresses to axilla Referrals: Connie Kemp MD [Primary Care Provider] - Medical Decision Making Patient presents for evaluation of ongoing fever she had I&D of the abscess in her axilla at urgent care and has been on doxycycline for that also has a cough Will obtain IV access blood cultures COVID swab. Wound evaluation not concerning for untreated infection. Will obtain chest x-ray CBC CMP Pro-Dayne. Labs and x-ray reviewed and all unremarkable. Will advise her to continue her doxycycline to complete course as previously directed. Will dispense 2 Tessalon Perles tabs for home use and give prescription if she found those helpful Imaging Data Radiologic Study: Attestation: I personally reviewed and interpreted this imaging study as follows: Imaging: X-Ray My impression: No acute cardiopulmonary findings Lab Data Lab results reviewed: Yes I reviewed the patient's lab results. Lab results narrative: Laboratory Results - last 24 hr 12/20/22 12/20/22 12/20/22 20:05 20:05 20:05 WBC RBC Hgb Hct MCV MCH MCHC RDW Plt Count MPV Immature Gran % Neutrophils % Lymphocytes % Monocytes % Eosinophils % Basophils % Nucleated RBC % Absolute Neutrophils Absolute Lymphocytes Absolute Monocytes Absolute Eosinophils Absolute Basophils Sodium 139 Potassium 3.8 Chloride 102 Carbon Dioxide 27.2 Anion Gap 9.8 BUN 13 Creatinine 0.8 Est GFR (CKD-EPI 2020) 92.54 Glucose 100 Calcium 9.0 Total Bilirubin 0.9 AST 28 ALT 54 Alkaline Phosphatase 91 Total Protein 7.7 Albumin 3.7 Procalcitonin 0.1 COVID-19 Source Nasopharynx SARS-CoV-2 (PCR) Negative Influenza Type A (PCR) Negative Influenza Type B (PCR) Negative RSV (PCR) Negative 12/20/22 20:05 WBC 4.51 RBC 4.72 Hgb 13.8 Hct 42.0 MCV 89 MCH 29.2 MCHC 32.9 RDW 14.5 Plt Count 236 MPV 8.9 Immature Gran % 0.2 Neutrophils % 73.6 Lymphocytes % 12.9 Monocytes % 12.2 Eosinophils % 0.7 Basophils % 0.4 Nucleated RBC % 0.0 Absolute Neutrophils 3.32 Absolute Lymphocytes 0.58 L Absolute Monocytes 0.55 Absolute Eosinophils 0.03 Absolute Basophils 0.02 Sodium Potassium Chloride Carbon Dioxide Anion Gap BUN Creatinine Est GFR (CKD-EPI 2020) Glucose Calcium Total Bilirubin AST ALT Alkaline Phosphatase Total Protein Albumin Procalcitonin COVID-19 Source SARS-CoV-2 (PCR) Influenza Type A (PCR) Influenza Type B (PCR) RSV (PCR) HPI General Mode of arrival: ambulatory . Date/Time Provider Initiated Documentation: 12/20/22 19:28 . Limitations to Documentation: no limitations . Information obtained by: patient . HPI Narrative: Patient presents for evaluation of ongoing fever malaise and cough that she has had for over a month. She was just seen in urgent care and had I&D of an abscess under her right axilla. This has been draining but has slowed down. There is no surrounding erythema. She is on doxycycline and has been taking as prescribed. She feels the abscessed area is getting better but was concerned because she noted a fever again tonight. She has been able to eat and drink without difficulty no nausea vomiting or abdominal pain. Does have malaise and fatigue cough is not productive Related Data Home Medications Medication Instructions Recorded Confirmed methotrexate sodium 2.5 mg tablet 2.5 mg PO QWEEK 03/01/19 12/20/22 metoprolol succinate 25 mg capsule 12.5 mg PO DAILY #15 caps 05/30/19 12/20/22 sprinkle, ext. release 24 hr valacyclovir 1 gram tablet 1,000 mg PO TID #21 tabs 05/30/19 12/20/22 (Valtrex) fluticasone propionate 50 1 spray intranasal DAILY 06/16/20 12/20/22 mcg/actuation nasal spray,suspension (Flonase Allergy Relief) loratadine 10 mg tablet (Claritin) 10 mg PO DAILY 06/16/20 12/20/22 montelukast 10 mg tablet 10 mg PO DAILY 06/16/20 12/20/22 (Singulair) medroxyprogesterone 10 mg tablet 10 mg PO DAILY #90 tabs 02/07/22 12/20/22 albuterol sulfate 90 mcg/actuation 2 puff inhalation Q6H PRN 11/29/22 12/20/22 aerosol inhaler (ProAir HFA) budesonide-formoterol HFA 80 1 inh inhalation BID 11/29/22 12/20/22 mcg-4.5 mcg/actuation aerosol inhaler (Symbicort) sulfamethoxazole 800 1 tab PO BID 11/29/22 12/20/22 mg-trimethoprim 160 mg tablet (Bactrim DS) folic acid 1 mg tablet 1 mg PO DAILY 12/20/22 12/20/22 Previous Rx's Medication Instructions Recorded metoprolol succinate 25 mg capsule 12.5 mg PO DAILY #15 caps 05/30/19 sprinkle, ext. release 24 hr valacyclovir 1 gram tablet 1,000 mg PO TID #21 tabs 05/30/19 (Valtrex) medroxyprogesterone 10 mg tablet 10 mg PO DAILY #90 tabs 02/07/22 Allergies Allergy/AdvReac Type Severity Reaction Status Date / Time fexofenadine [From Alecia] Allergy Severe facial Verified 03/20/22 08:30 swelling bee Allergy Severe Swelling/Ed Uncoded 03/20/22 08:30 mitzy environmental Allergy Uncoded 12/20/22 19:27 General Stated Complaint: GenMedical MERI: 3 Review of Systems All systems reviewed & are unremarkable except as noted in HPI and below PFSH All Active Problems (Updated 12/20/22 @ 21:27 by Ivanna Waldrop NP) Abscess (Acute) Bronchitis (Acute) BMI 50.0-59.9, adult (Acute 06/10/17) Venous ulcer (Acute) ADD (attention deficit disorder) (Acute) SVT (supraventricular tachycardia) (Chronic) Polycystic ovary (Acute) Obesity (Chronic) Lipodermatosclerosis (Acute) Herpes labialis (Acute) Rheumatoid arthritis (Chronic) Dermatitis (Acute) Wound infection (Acute) Venous stasis ulcer (Acute) Dependence on other enabling machines and devices (Acute) Over weight (Acute) Nasal congestion (Acute) Severe sleep apnea (Acute) Eye swelling (Acute) Hives (Acute) Simple endometrial hyperplasia without atypia (Chronic) 2015. Dx 10/2015. Rx with Medroxyprogesterone 10mg/day. 05/2017. EMBx: atrophic endometrium. Medical History (Updated 12/20/22 @ 21:27 by Ivanna Waldrop NP) Abscess of axilla, right Allergic rhinitis Chronic rhinitis (07/14/17) Endometriosis History of delivery of macrosomal infant MARYBETH on CPAP Postnasal drip (07/14/17) Prediabetes Family History Mother Diabetes Uterine cancer Social History (Updated 03/20/22 @ 09:19 by Li Mc MD) Smoking/Tobacco Use Status: Never Smoking risk assessment performed?: Yes Alcohol Intake: current Alcohol Intake frequency: holidays/special occasions only Drug use: Never Substance use type: does not use Household members: children and other Details: Has 11mo foster child. 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 Do you feel safe at home: Yes Do you feel safe in your relationship?: Yes History History 3 Para Hx # Term Pregnancies 3 Multiple births Hx # Pregnancies Ectopic pregnancies AB induced Hx Number of Living Children 3 AB spontaneous Exam Const General: comfortable and no acute distress Nutritional Appearance: obese Orientation: alert, awake and oriented x3 HENMT Head: normal to inspection, normocephalic and atraumatic Mouth: oral mucosae normal Resp Effort & Inspection: normal respiratory effort Auscultation: clear to auscultation bilaterally, no rhonchi and no wheezes Cardio Rate: regular rate Rhythm: regular rhythm Skin Lesions: lesion noted (Surgical incision with no surrounding erythema or drainage) and other (No palpable abscess appreciated) Rashes: no rashes Neuro General: patient alert, patient awake and patient oriented x3 Extrem General: normal to inspection and full ROM Course Vital Signs Vital signs: Vital Signs Temperature 37.8 C H 12/20/22 19:22 Pulse 114 H 12/20/22 19:22 Respiratory Rate 16 12/20/22 19:22 Blood Pressure 122/64 12/20/22 19:22 Pulse Oximetry 97 12/20/22 19:22 Temperature 37.8 C H 12/20/22 19:22 Temperature Source Oral 12/20/22 19:22 Pulse 114 H 12/20/22 19:22 Respiratory Rate 16 12/20/22 19:22 Respiratory Effort Normal 12/20/22 20:11 Respiratory Depth Normal 12/20/22 20:11 Respiratory Pattern Normal 12/20/22 20:11 Blood Pressure 122/64 12/20/22 19:22 Blood Pressure Position Sitting 12/20/22 19:22 Pulse Oximetry 97 12/20/22 19:22 Oxygen Delivery Method Room Air 12/20/22 19:22 Oxygen Flow Rate 0 12/20/22 19:22 Pain Level 0 12/20/22 19:22 Lab/Test Results Lab/Test Results: 12/20/22 20:05 Blood Blood Culture - Pending 12/20/22 19:36 Blood Blood Culture - Pending Laboratory Tests Range/Units 12/20/22 12/20/22 12/20/22 20:05 20:05 20:05 WBC (4.4-10.8) 10^3/uL 4.51 RBC (3.93-5.22) 10^6/uL 4.72 Hgb (11.2-15.7) g/dL 13.8 Hct (36.0-46.0) % 42.0 MCV (80-95) fL 89 MCH (27.0-33.0) pg 29.2 MCHC (32.0-36.0) % 32.9 RDW (11.7-14.6) % 14.5 Plt Count (130-400) 10^3/uL 236 MPV (8.0-11.0) fL 8.9 Immature Gran % 0.2 Neutrophils % 73.6 Lymphocytes % 12.9 Monocytes % 12.2 Eosinophils % 0.7 Basophils % 0.4 Nucleated RBC % (0.0-0.3) % 0.0 Absolute Neutrophils (1.2-6.7) 10^3/uL 3.32 Absolute Lymphocytes (1.2-3.4) 10^3/uL 0.58 L Absolute Monocytes (0.1-0.8) 10^3/uL 0.55 Absolute Eosinophils (0.0-0.7) 10^3/uL 0.03 Absolute Basophils (0.0-0.2) 10^3/uL 0.02 Sodium (136-145) mmol/L 139 Potassium (3.5-5.1) mmol/L 3.8 Chloride (98-107) mmol/L 102 Carbon Dioxide (21.0-32.0) mmol/L 27.2 Anion Gap (3-11) mmol/L 9.8 BUN (7-18) mg/dL 13 Creatinine (0.55-1.02) mg/dL 0.8 Est GFR (CKD-EPI 2020) (mL/min/1.73m2) 92.54 Glucose (74-106) mg/dL 100 Calcium (8.5-10.1) mg/dL 9.0 Total Bilirubin (0.2-1.0) mg/dL 0.9 AST (15-37) U/L 28 ALT (14-59) U/L 54 Alkaline Phosphatase (46-116) U/L 91 Total Protein (6.4-8.2) g/dL 7.7 Albumin (3.4-5.0) g/dL 3.7 COVID-19 Source Nasopharynx SARS-CoV-2 (PCR) (Negative) Negative Influenza Type A (PCR) (Negative) Negative Influenza Type B (PCR) (Negative) Negative RSV (PCR) (Negative) Negative
[2022-12-20 21:02] LABS: Procalcitonin 0.1 ng/mL
--- NOTE | 2022-12-20 21:08 | DI.VRAD_ITS ---
PROCEDURE INFORMATION: Exam: XR Chest Exam date and time: 12/20/2022 8:51 PM Age: 47 years old Clinical indication: Other: Cough, fever TECHNIQUE: Imaging protocol: Radiologic exam of the chest. Views: 2 views. COMPARISON: CR XR CHEST 2V PA LATERAL 05/29/2019 10:34 PM FINDINGS: Lungs: Unremarkable. No consolidation. Pleural spaces: Unremarkable. No pleural effusion. No pneumothorax. Heart/Mediastinum: Unremarkable. No cardiomegaly. Bones/joints: Unremarkable. IMPRESSION: No acute findings. Dictated and Authenticated by: Jaida Harrison MD. Ordering:CANDICE Goncalves MD
[2022-12-20] MEDS: Benzonatate 100 MG CAP PO (21:40)
[2022-12-20 21:58] VITALS: BP 142/75; PULSE 72; RESP 16; TEMP 37.2; O2SAT 96
== END 2022-12-20 22:00 | disposition home or self-care (01) ==
PROVIDERS: Emergency Provider Nurse Practitioner Acute Care; PCP Family Medicine
DX: L02.411 Cutaneous abscess of right axilla (principal); J40 Bronchitis, not specified as acute or chronic
CPT/HCPCS: 36415; 80053; 84145; 87040; 87637; 96360; 99284; 71046; 85025

== ENCOUNTER 2022-12-23 16:04 | Emergency (ER) | payer MEDICAID, SELFPAY ==
[2022-12-23 16:09] VITALS: BP 141/89; PULSE 87; RESP 18; TEMP 37.1; O2SAT 98
--- NOTE | 2022-12-23 16:35 | W.ED.GENAD ---
Discharge Plan Disposition Patient Disposition: Home Condition: Good Discharge Details Clinical Impression: Acute urticaria Primary Care Provider: Connie Kemp ED Provider: Natalya Argueta Home Meds and New Rx's Prescriptions: Continued methotrexate sodium 2.5 mg tablet 2.5 mg PO QWEEK Patient Comments: 6 tabs montelukast [Singulair] 10 mg tablet 10 mg PO DAILY loratadine [Claritin] 10 mg tablet 10 mg PO DAILY fluticasone propionate [Flonase Allergy Relief] 50 mcg/actuation spray,suspension 1 spray intranasal DAILY Rx Instructions: administer into each nostril medroxyprogesterone 10 mg tablet 10 mg PO DAILY Qty: 90 5RF Rx Instructions: 1 tab PO daily budesonide-formoterol [Symbicort] 80-4.5 mcg/actuation HFA aerosol inhaler 1 inh inhalation BID albuterol sulfate [ProAir HFA] 90 mcg/actuation HFA aerosol inhaler 2 puff inhalation Q6H PRN doxycycline hyclate 100 mg tablet 100 mg PO BID metoprolol succinate 25 mg capsule,sprinkle,ER 24hr 12.5 mg PO DAILY Qty: 15 0RF folic acid 1 mg tablet 1 mg PO DAILY Patient Comments: TAKE 1 TABLET BY MOUTH DAILY Discontinued sulfamethoxazole-trimethoprim [Bactrim DS] 800-160 mg tablet 1 tab PO BID Patient Comments: Not taking per med list 12/23/22 valacyclovir [Valtrex] 1 gram tablet 1,000 mg PO TID Qty: 21 0RF Patient Comments: Not taking per pt 12/23/22 Discharge Instructions Instructions: Urticaria (ED) Additional Instructions: Call your primary care doctor tomorrow to schedule an appointment to follow up on your visit today. Take 50mg of benadryl every 6 hours for the next two days. Return to the emergency department for new or worsening symptoms including difficultly breathing, vomiting, diarrhea, lip/tongue swelling, or if you have any other concerns. Referrals: Connie Kemp MD [Primary Care Provider] - Medical Decision Making 47yo F with hx of environmental allergies presenting with hives and lip swelling, unknown exposure, no new medications. Symptoms first started yesterday evening, slowly worsening, now with some lip swelling. No respiratory distress or GI symptoms. Took small dose of benadyrl without significant improvement. Vital signs and physical exam reassuring, nothing on history or exam to suggest anaphylaxis. Will treat with appropriate dose of PO Benadryl as well as cetirizine and prednisone. On reassessment symptoms improving, patient feels well. Reassuring vital signs. Lip swelling minimal, numbness resolved. Given dexamethasone to prevent rebound. Discharged home; discharge instructions including return precautions were reviewed with patient who verbalized understanding. All questions were answered and they are in full agreement with the plan. HPI General Mode of arrival: ambulatory. Date/Time Provider Initiated Documentation: 12/23/22 16:19. Limitations to Documentation: no limitations. Information obtained by: patient. HPI Narrative: 47yo F with hx of environmental allergies presenting with hives and lip swelling, unknown exposure. Symptoms started after a BBQ yesterday, have been worsening. Took 25mg of Benadryl at home without improvment. Right lower lap began to swell and feel numb which prompted presentation to the ED. No nausea, vomiting, diarrhea, abdominal pain, shortness of breath, wheeze, chest pain, tongue swelling, or other concerns. No new medications. Related Data Home Medications Medication Instructions Recorded Confirmed methotrexate sodium 2.5 mg tablet 2.5 mg PO QWEEK 03/01/19 12/23/22 metoprolol succinate 25 mg capsule 12.5 mg PO DAILY #15 caps 05/30/19 12/23/22 sprinkle, ext. release 24 hr fluticasone propionate 50 1 spray intranasal DAILY 06/16/20 12/23/22 mcg/actuation nasal spray,suspension (Flonase Allergy Relief) loratadine 10 mg tablet (Claritin) 10 mg PO DAILY 06/16/20 12/23/22 montelukast 10 mg tablet 10 mg PO DAILY 06/16/20 12/23/22 (Singulair) medroxyprogesterone 10 mg tablet 10 mg PO DAILY #90 tabs 02/07/22 12/23/22 albuterol sulfate 90 mcg/actuation 2 puff inhalation Q6H PRN 11/29/22 12/23/22 aerosol inhaler (ProAir HFA) budesonide-formoterol HFA 80 1 inh inhalation BID 11/29/22 12/23/22 mcg-4.5 mcg/actuation aerosol inhaler (Symbicort) folic acid 1 mg tablet 1 mg PO DAILY 12/20/22 12/23/22 doxycycline hyclate 100 mg tablet 100 mg PO BID 12/23/22 12/23/22 Previous Rx's Medication Instructions Recorded metoprolol succinate 25 mg capsule 12.5 mg PO DAILY #15 caps 05/30/19 sprinkle, ext. release 24 hr medroxyprogesterone 10 mg tablet 10 mg PO DAILY #90 tabs 02/07/22 Allergies Allergy/AdvReac Type Severity Reaction Status Date / Time fexofenadine [From Alecia] Allergy Severe facial Verified 12/23/22 16:15 swelling bee Allergy Severe Swelling/Ed Uncoded 12/23/22 16:15 mitzy environmental Allergy Uncoded 12/23/22 16:15 General Stated Complaint: Allergic MERI: 3 Review of Systems Narrative: see HPI PFSH All Active Problems (Updated 12/23/22 @ 17:54 by Natalya Argueta MD) Acute urticaria (Acute) Cough (Acute) Abscess (Acute) Bronchitis (Acute) BMI 50.0-59.9, adult (Acute 06/10/17) Venous ulcer (Acute) ADD (attention deficit disorder) (Acute) SVT (supraventricular tachycardia) (Chronic) Polycystic ovary (Acute) Obesity (Chronic) Lipodermatosclerosis (Acute) Herpes labialis (Acute) Rheumatoid arthritis (Chronic) Dermatitis (Acute) Wound infection (Acute) Venous stasis ulcer (Acute) Dependence on other enabling machines and devices (Acute) Over weight (Acute) Nasal congestion (Acute) Severe sleep apnea (Acute) Eye swelling (Acute) Hives (Acute) Simple endometrial hyperplasia without atypia (Chronic) 2015. Dx 10/2015. Rx with Medroxyprogesterone 10mg/day. 05/2017. EMBx: atrophic endometrium. Medical History (Updated 12/23/22 @ 17:54 by Natalya Argueta MD) Abscess of axilla, right Allergic rhinitis Chronic rhinitis (07/14/17) Endometriosis History of delivery of macrosomal infant MARYBETH on CPAP Postnasal drip (07/14/17) Prediabetes Family History Mother Diabetes Uterine cancer Social History (Updated 03/20/22 @ 09:19 by Li Mc MD) Smoking/Tobacco Use Status: Never Smoking risk assessment performed?: Yes Alcohol Intake: current Alcohol Intake frequency: holidays/special occasions only Drug use: Never Substance use type: does not use Household members: children and other Details: Has 11mo foster child. 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 Do you feel safe at home: Yes Do you feel safe in your relationship?: Yes History History 3 Para Hx # Term Pregnancies 3 Multiple births Hx # Pregnancies Ectopic pregnancies AB induced Hx Number of Living Children 3 AB spontaneous Exam Narrative Exam Narrative: General: Alert, well appearing, well nourished, in no acute distress. Head: Normocephalic, atraumatic. Right lower lip slightly swollen. Neck: Trachea midline, Neck supple. ENT: MMM. No oropharygeal lesions or exudate. Normal tongue. No intraoral swelling. Cardiac: RRR, no murmurs appreciated Resp: No respiratory distress. CTAB. Normal phonation. Abd: Soft, non-distended, nontender Extremities: No deformities. No peripheral edema. Skin: Diffuse urticaria. Neurologic: GCS 15. Moves all extremities freely against gravity Course Vital Signs Vital signs: Vital Signs Temperature 37.1 C 12/23/22 16:09 Pulse 87 12/23/22 16:09 Respiratory Rate 18 12/23/22 16:09 Blood Pressure 141/89 H 12/23/22 16:09 Pulse Oximetry 98 12/23/22 16:09 Temperature 37.1 C 12/23/22 16:09 Temperature Source Skin 12/23/22 16:09 Pulse 87 12/23/22 16:09 Respiratory Rate 18 12/23/22 16:09 Blood Pressure 141/89 H 12/23/22 16:09 Pulse Oximetry 98 12/23/22 16:09 Oxygen Delivery Method Room Air 12/23/22 16:09 Oxygen Flow Rate 0 12/23/22 16:09 Pain Level 7 12/23/22 16:09
[2022-12-23] MEDS: diphenhydrAMINE 25 MG CAP 50 MG PO (16:57)
[2022-12-23] MEDS: predniSONE 20 MG TAB 40 MG PO (16:57)
[2022-12-23] MEDS: Loratidine 10 MG TAB PO (16:57)
[2022-12-23] MEDS: Dexamethasone 4 MG TAB PO (18:25)
== END 2022-12-23 19:25 | disposition home or self-care (01) ==
PROVIDERS: Emergency Provider Student in an Organized Health Care Education/Training Program; PCP Family Medicine
DX: L50.0 Allergic urticaria (principal); T78.40XA Allergy, unspecified, initial encounter
CPT/HCPCS: 99283; J7512; J8540

== ENCOUNTER 2023-01-03 16:50 | Outpatient (CLI) | payer MEDICAID, SELFPAY ==
[2023-01-08 14:17] LABS: Carmine Dye/Red Dye IgE <0.10 kU/L (<0.35)
== END 2023-01-03 16:51 | disposition home or self-care (01) ==
LOC: LBO 16:50
PROVIDERS: PCP Family Medicine; Visit Provider Otolaryngology Otolaryngology/Facial Plastic Surgery
DX: J30.89 Other allergic rhinitis (principal)
CPT/HCPCS: 36415; 86003

== ENCOUNTER → 2023-02-18 01:30 | Outpatient (CLI) | payer MEDICAID, SELFPAY ==
--- NOTE | 2023-02-18 15:14 | DI.RAD_ITS ---
Exam(s) XR WRIST LT COMPLETE EXAM: XR WRIST LT COMPLETE CLINICAL HISTORY: LT WRIST PAIN, M25.532. TECHNIQUE: 2D digital imaging was performed of the left wrist. Three images were obtained. PA, obl ique and lateral views were obtained. COMPARISON: No priors for comparison. FINDINGS: BONES: No acute fracture is present. No bony destructive lesion is seen. There is an old small well c orticated osseous density at the tip of the ulnar styloid process. JOINTS: The carpal bones are normally aligned. The joint spaces are well maintained. SOFT TISSUE: Normal. IMPRESSION: No acute abnormality. DATA REPOSITORY: RADIATION DOSE DELIVERED:
== END ==
PROVIDERS: PCP Family Medicine; Visit Provider Nurse Practitioner Family
DX: M25.532 Pain in left wrist (principal)
CPT/HCPCS: 73110

== ENCOUNTER 2023-06-12 04:44 | Outpatient (CLI) | payer OTHER, MEDICAID, SELFPAY ==
[2023-06-12 16:17] LABS: HCT 41.6 % (36.0-46.0); HGB 13.6 g/dL (11.2-15.7); MCH 28.9 pg (27.0-33.0); MCHC 32.7 % (32.0-36.0); MCV 89 fL (80-95); MPV 8.9 fL (8.0-11.0); Platelet Count 303 10^3/uL (130-400); RDW-SD 45.1 fL
[2023-06-12 16:25] LABS: Hemoglobin A1C 5.4 % (<5.7)
[2023-06-12 17:06] LABS: ALT 42 U/L (14-59); AST 19 U/L (15-37); Albumin 3.6 g/dL (3.4-5.0); Alkaline Phosphatase 87 U/L (46-116); Anion Gap 6.3 mmol/L (3-11); BUN 15 mg/dL (7-18); Bilirubin, Total 0.6 mg/dL (0.2-1.0); CO2 27.7 mmol/L (21.0-32.0); CREATININE 0.8 mg/dL (0.55-1.02); Calcium 9.5 mg/dL (8.5-10.1); Chloride 105 mmol/L (98-107); Estimated GFR 91.97 (mL/min/1.73m2); Glucose 87 mg/dL (74-106); Potassium 3.7 mmol/L (3.5-5.1); Sodium 139 mmol/L (136-145); Total Protein 7.5 g/dL (6.4-8.2)
== END 2023-06-12 04:45 | disposition home or self-care (01) ==
LOC: LBO 04:44
PROVIDERS: PCP Family Medicine; Visit Provider Family Medicine
DX: Z51.81 Encounter for therapeutic drug level monitoring (principal); R73.03 Prediabetes
CPT/HCPCS: 36415; 80053; 85027; 83036

== ENCOUNTER 2023-12-22 07:03 | Emergency (ER) | payer OTHER, MEDICAID, SELFPAY ==
[2023-12-22 07:04] VITALS: BP 157/63; PULSE 82; RESP 16; TEMP 36.4; O2SAT 99
--- NOTE | 2023-12-22 07:17 | W.ED.GENAD ---
Discharge Plan Disposition Patient Disposition: Home Condition: Stable Discharge Details Clinical Impression: Lumbar back pain Primary Care Provider: Connie Kemp ED Provider: Baljit Gates Home Meds and New Rx's Prescriptions: New cyclobenzaprine 10 mg tablet 10 mg PO TID PRNQty: 20 0RF Continued methotrexate sodium 2.5 mg tablet 2.5 mg PO QWEEK Patient Comments: 6 tabs montelukast [Singulair] 10 mg tablet 10 mg PO DAILY loratadine [Claritin] 10 mg tablet 10 mg PO DAILY fluticasone propionate [Flonase Allergy Relief] 50 mcg/actuation spray,suspension 1 spray intranasal DAILY Rx Instructions: administer into each nostril epinephrine [EpiPen 2-Andres] 0.3 mg/0.3 mL auto-injector 0.3 mg IM Q5-15M PRN (Reason: hypersensitivity reaction) Qty: 2 0RF Rx Instructions: do not exceed 3 doses per episode budesonide-formoterol [Symbicort] 80-4.5 mcg/actuation HFA aerosol inhaler 1 inh inhalation BID albuterol sulfate [ProAir HFA] 90 mcg/actuation HFA aerosol inhaler 2 puff inhalation Q6H PRN medroxyprogesterone 10 mg tablet 10 mg PO DAILY Qty: 90 5RF Rx Instructions: 1 tab PO daily metoprolol succinate 25 mg capsule,sprinkle,ER 24hr 12.5 mg PO DAILY Qty: 15 0RF folic acid 1 mg tablet 1 mg PO DAILY Patient Comments: TAKE 1 TABLET BY MOUTH DAILY HPI General Mode of arrival: ambulatory. Date/Time Provider Initiated Documentation: 12/22/23 07:04. Limitations to Documentation: no limitations. Information obtained by: patient. History of Present Illness 48 year old F presents to the emergency department with the chief complaint of lower back pain, described as moderate, Quality is described as aching, and is localized to the back. Patient reports no radiation. Patient started experiencing this day(s) (2) and it has been constant. No relieving factors improve symptom(s), No exacerbating factors reported . Patient notes no other symptoms.. Patient did receive the following treatments prior to arrival, NSAID Related Data Home Medications ?Medication ?Instructions ?Recorded ?Confirmed methotrexate sodium 2.5 mg tablet 2.5 mg PO QWEEK 03/01/19 12/22/23 metoprolol succinate 25 mg capsule 12.5 mg (1/2 x 25 mg) PO DAILY #15 05/30/19 12/22/23 sprinkle, ext. release 24 hr caps fluticasone propionate 50 1 spray intranasal DAILY 06/16/20 12/22/23 mcg/actuation nasal spray,suspension (Flonase Allergy Relief) loratadine 10 mg tablet (Claritin) 10 mg PO DAILY 06/16/20 12/22/23 montelukast 10 mg tablet 10 mg PO DAILY 06/16/20 12/22/23 (Singulair) albuterol sulfate 90 mcg/actuation 2 puff inhalation Q6H PRN 11/29/22 12/22/23 aerosol inhaler (ProAir HFA) budesonide-formoterol HFA 80 1 inh inhalation BID 11/29/22 12/22/23 mcg-4.5 mcg/actuation aerosol inhaler (Symbicort) folic acid 1 mg tablet 1 mg PO DAILY 12/20/22 12/22/23 epinephrine 0.3 mg/0.3 mL 0.3 mg (0.3 mL) IM Q5-15M PRN 01/03/23 12/22/23 injection, auto-injector (EpiPen hypersensitivity reaction #2 ea 2-Andres) medroxyprogesterone 10 mg tablet 10 mg PO DAILY #90 tabs 02/12/23 12/22/23 cyclobenzaprine 10 mg tablet 10 mg PO TID PRN #20 tabs 12/22/23 Previous Rx's ?Medication ?Instructions ?Recorded metoprolol succinate 25 mg capsule 12.5 mg (1/2 x 25 mg) PO DAILY #15 05/30/19 sprinkle, ext. release 24 hr caps epinephrine 0.3 mg/0.3 mL 0.3 mg (0.3 mL) IM Q5-15M PRN 01/03/23 injection, auto-injector (EpiPen hypersensitivity reaction #2 ea 2-Andres) medroxyprogesterone 10 mg tablet 10 mg PO DAILY #90 tabs 02/12/23 cyclobenzaprine 10 mg tablet 10 mg PO TID PRN #20 tabs 12/22/23 Allergies Allergy/AdvReac Type Severity Reaction Status Date / Time fexofenadine (From Alecia) Allergy Severe facial Verified 12/22/23 07:10 swelling bee Allergy Severe Swelling/Ed Uncoded 12/22/23 07:10 mitzy environmental Allergy Other (See Uncoded 12/22/23 07:10 Comment) General Stated Complaint: Nk/Back Pain MERI: 4 Review of Systems All systems reviewed & are unremarkable except as noted in HPI and below Constitutional Constitutional: Denies chills, Denies fever(s) and Denies weakness Cardiovascular Cardiovascular: Denies chest pain and Denies dyspnea Respiratory Respiratory: Denies dyspnea Gastrointestinal Gastrointestinal: Denies abdominal pain and Denies vomiting Genitourinary Genitourinary: Denies dysuria Integumentary/Breasts Skin/Breast: Denies rash Neurologic Neurologic: Denies weakness Exam Const General: no acute distress Orientation: alert HENMT Head: normal to inspection Ears: external ears normal General nose exam: external nose normal Mouth: moist mucous membranes Eyes General: appearance normal, both eyes and all related structures Neck Neck: normal visual inspection Resp Effort & Inspection: normal respiratory effort and able to speak in complete sentences Cardio Rate: regular rate Back/Spine/Pelvis Back: no CVA tenderness, No mass, No erythema and No warmth Skin General skin exam: no rashes or lesions noted Neuro General: patient alert and patient oriented x3 Extrem General: normal to inspection Psych Mental Status: mental status grossly normal Course Vital Signs Vital signs: Vital Signs Temperature 36.4 C L 12/22/23 07:04 Pulse 82 12/22/23 07:04 Respiratory Rate 16 12/22/23 07:04 Blood Pressure 157/63 H 12/22/23 07:04 Pulse Oximetry 99 12/22/23 07:04 Temperature 36.4 C L 12/22/23 07:04 Temperature Source Temporal Artery Scan 12/22/23 07:04 Pulse 82 12/22/23 07:04 Respiratory Rate 16 12/22/23 07:04 Respiratory Effort Normal 12/22/23 07:08 Blood Pressure 157/63 H 12/22/23 07:04 Blood Pressure Position Sitting 12/22/23 07:04 Pulse Oximetry 99 12/22/23 07:04 Oxygen Delivery Method Room Air 12/22/23 07:04 Oxygen Flow Rate 0 12/22/23 07:04 Pain Level 9 12/22/23 07:09 Medical Decision Making 48-year-old female with a history of SVT, rheumatoid arthritis, comes in with 2 days of nontraumatic lower back pain. She says she was at [facility] and was pushing her kids frequently in her stroller and thinks she may have tweaked her back. She denies any falls, no fevers, no chills, no urinary or bowel dysfunction. No IV drug use. She is alert 9 x 4 on arrival speaking clearly in no distress. She localizes the pain to the right lower lumbar region. There is no midline tenderness and no visible palpable deformities. There is no erythema or warmth. She has no saddle anesthesia and intact distal sensation and pulses. Pain is positional. Her symptoms seem most likely from a lumbar strain versus disc herniation versus muscle spasm. Will have her continue ibuprofen and Tylenol as needed and also provide a muscle relaxer. Will also give her a physical therapy referral. She has no findings on exam or history to suggest cauda equina or spinal epidural abscess. Do not feel any acute imaging or lab work indicated. She will follow-up with her PCP and return precautions given Differential Diagnosis Differential Diagnosis: Muscle spasm, lumbar strain, disc herniation Quality:SDOH Health Related Social Needs: No Data to Display PFSH All Active Problems (Updated 12/22/23 @ 07:20 by Baljit Gates MD) Lumbar back pain (Acute) Angioedema (Acute) Cough (Acute) BMI 50.0-59.9, adult (Acute 06/10/17) Venous ulcer (Acute) ADD (attention deficit disorder) (Acute) SVT (supraventricular tachycardia) (Chronic) Lipodermatosclerosis (Acute) Herpes labialis (Acute) Rheumatoid arthritis (Chronic) Dermatitis (Acute) Venous stasis ulcer (Acute) Eye swelling (Acute) Hives (Acute) Medical History (Updated 12/22/23 @ 07:20 by Baljit Gates MD) Simple endometrial hyperplasia without atypia 2015. Dx 10/2015. Rx with Medroxyprogesterone 10mg/day. 05/2017. EMBx: atrophic endometrium. History of delivery of macrosomal Allergic rhinitis MARYBETH on CPAP Prediabetes Endometriosis Surgical History (Updated 04/07/23 @ 08:54 by Zoe Moreno MD) History of incision and drainage (~01/03/23) Family History Mother Diabetes Uterine cancer Social History Smoking/Tobacco Use Status: Never Smoking risk assessment performed?: Yes Alcohol Intake: current Alcohol Intake frequency: holidays/special occasions only Drug use: Never Substance use type: does not use Household members: children and other Details: Has 11mo foster child. 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 Do you feel safe at home: Yes Do you feel safe in your relationship?: Yes History History 3 Para Hx # Term Pregnancies 3 Multiple births Hx # Pregnancies Ectopic pregnancies AB induced Hx Number of Living Children 3 AB spontaneous
== END 2023-12-22 07:32 | disposition home or self-care (01) ==
LOC: ER 07:41
PROVIDERS: Emergency Provider Emergency Medicine; PCP Family Medicine
DX: M54.50 Low back pain, unspecified (principal); I47.10 Supraventricular tachycardia, unspecified; M06.9 Rheumatoid arthritis, unspecified
CPT/HCPCS: 99283

== ENCOUNTER 2024-01-16 14:22 | Outpatient (CLI) | payer OTHER, MEDICAID, SELFPAY ==
[2024-01-16 13:30] LABS: Abs Immature Grans 0.03 10^3/uL (0.0-0.06); Absolute Basophil Count 0.03 10^3/uL (0.0-0.2); Absolute Eosinophil Count 0.11 10^3/uL (0.0-0.7); Absolute Lymphocyte Count 1.63 10^3/uL (1.2-3.4); Absolute Monocyte Count 0.47 10^3/uL (0.1-0.8); Basophils % 0.4 %; Eosinophils % 1.3 %; HCT 43.4 % (36.0-46.0); HGB 14.1 g/dL (11.2-15.7); Immature Grans % 0.4 %; MCH 29.1 pg (27.0-33.0); MCHC 32.5 % (32.0-36.0); MCV 90 fL (80-95); MPV 8.9 fL (8.0-11.0); Monocytes % 5.8 %; Neutrophils % 72.1 %; Platelet Count 313 10^3/uL (130-400); RBC 4.85 10^6/uL (3.93-5.22); RDW 13.9 % (11.7-14.6); RDW-SD 45.1 fL; WBC 8.17 10^3/uL (4.4-10.8)
[2024-01-16 14:12] LABS: ALT 49 U/L (14-59); AST 19 U/L (15-37); Albumin 3.8 g/dL (3.4-5.0); Alkaline Phosphatase 86 U/L (46-116); Anion Gap 8.2 mmol/L (3-11); BUN 9 mg/dL (7-18); CO2 28.8 mmol/L (21.0-32.0); CREATININE 0.8 mg/dL (0.55-1.02); Calcium 8.9 mg/dL (8.5-10.1); Chloride 103 mmol/L (98-107); Estimated GFR 91.97 (mL/min/1.73m2); Glucose 104 mg/dL (74-106); Potassium 3.6 mmol/L (3.5-5.1); Sodium 140 mmol/L (136-145); Total Protein 7.8 g/dL (6.4-8.2)
--- OUTSIDE RECORDS SUMMARY | 2024-01-16 14:26 | XMS_ITS | Encounter Summary ---
Author Organization [facility] Address [address] [place] [address] Care Team Providers Care Steelscope Operator Name Role Phone Connie Kemp MD Primary Care Provider [phone] Reason for Visit * Reason Comments Follow-up RA. Pt states feelin g good, a little stiff. Call got disconnected-did not say much Encounter Details Date Type Department Care Team ([facility] Contact Info) Description 05/24/2022 9:45 EST Office Visit [facility] Rheumatology [address] [place] [address] Susan Santana MD [address] [place] [address] Rheumatoid arthritis involving multiple sites with positive rheumatoid factor (HCC-CMS) (Primary Dx); Encounter for long-term (current) use of other medications; Rheumatoid arthritis involving multiple sites with positive rheumatoid factor (HCC-CMS); Encounter for long-term (current) use of other medications; Mouth sores Social History Tobacco Use Types Packs/Day Years Used Date Smoking Tobacco: Never Smokeless Tobacco: Never Interpersonal Safety Answer Date Record ed Physically Hurt Never 12/26/2019 Verbally Threaten Not on file 12/26/2019 Sex and Gender Information Value Date Recorded Sex Assigned at Not on file Gender Identity Female 06/23/2019 8:24 EST Sexual Orientation Not on file documented as of this encounter Last Filed Vital Signs Vital Sign Reading Time Taken Comments Blood Pressure - - Pulse - - Temperature - - Respiratory Rate - - Oxygen Saturation - - Inhaled Oxygen Concentration - - Weight - - Height 160 cm (5' 3) 05/24/2022 0927 EST Body Mass Index - - documented in this encounter Functional Status Functional Status Response Date of Assess ment Because of a physical, menta l, or emotional condition, does this person have difficulty doing errands alone such as visiting a doctor's office or shopping? No 03/16/2021 Cognitive Status Response Date of Assessm ent Because of a physical, menta l, or emotional condition, does this person have serious difficulty concentrating, remembering, or making decisions? No 03/16/2021 documented as of this encounter Patient Instructions * Patient Instructions* Susan Santana MD - 05/24/2022 9:45 EST NO changes in meds Labs due in Just before next visit documented in this encounter Ordered Prescriptions Prescription Sig Dispensed Refills Start Date End Da te folic acid (FOLVITE) [address]:Encoun [address] for long-term (current) use of other medications,Mouth sores Take 1 Tablet by mouth daily. 90 Tablet 3 05/24/2022 07/24/2022 methotrexate 2.5 mg tabletIndications:Rheuma toid arthritis involving multiple sites with positive rheumatoid factor (HCC-CMS) Take 6 tablets by mouth once a week. 78 Tablet 1 05/24/2022 07/24/2022 documented in this encounter Progress Notes * Susan Santana MD - 05/24/2022 0945 EST [facility] [place] Today's visit was provided through telemedicine video conferencing: The location of the patient: Home The location of the provider: Office Verbal consent: The concept of ???Telemedicine?? has been described to the patient.Patient has been informed of the anticipated benefits and possible risks. Patient understands the information provided regarding telemedicine, has had the opportunity to ask questions about this information, and all questions have been answered to patient???s satisfaction. Patient consents for the use of telemedicine in his/her medical care and authorizes the transmission of any relevant medical information to providers and their staff involved in patient???s medical or mental health care. Verbal consent obtained by myself or auxiliary staff: yes. Subjective: Chief Complaint(s): Follow-up (RA. Pt states feeling good, a little stiff. Call got disconnected-did not say much) ?? Rheumatoid arthritis +RF, CCP. FANI + Joint pain 2017. Methotrexate ??Lost to follow up from [id number] and due to insurance issues. ?? Asthma ?? Elevated bmi HPI: Chelsi Hernandez reports she is currently unemployed. Very stressful. Trying to get a better job andget her degree. 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 Her RA is ok. Her knees are a little irritated. Tolerates methotrexate Has lost weight. Adopted 13 month old. Very busy with his care. Has lost weight in past year. Not sure why, probably due to being so active RA ok. Left knee sore. Mouth sores ok At goal with RA Please to have improved her blood sugar with weight loss/supplements and diet changes. Main stress is looking for a new job now. ROS No more mouth sores. No sob. Vaccinations, flu shot she thinks/covid 19 I have reviewed patient's tobacco history: reports that she has never smoked. She has never used smokeless tobacco. I have reviewed current problem list and current medications. Objective: Examination: Home Vitals: Ht 160 cm (63) BMI 55.98 kg/m?? Pertinent exam findings: appears well, no wheeze, no rash on visible skin and mood and affect appropriate Data reviewed with patient: labs from February. LFTS wnl/cbc wnl. Labs from 04/2022 mild increase Ast, nl other lft, nl creatinie Assessment & Plan: Chelsi Hernandez is a 47 y.o. female with a history of Seropositive Rheumatoid arthritis on methotrexate 1. Rheumatoid arthritis involving multiple sites with positive rheumatoid factor ([facility] ([facility]) doing well on methotrexate 15 mg/week continue folic acid No mouth sores/at goal 2. Encounter for long-term (current) use of other medications labs due in June cbc, cmp,crp Had covid/flu shots. I spent a total of 23* minutes in discussion with the patient as described in the progress note on this encounter on the the day of this encounter. The following individuals and their role did participate in today's encounter visit: Provider: Susan Santana MD Patient documented in this encounter Plan of Treatment Upcoming Encounters Date Type Department Care Team (Late st Contact Info) Description 04/27/2024 8:45 EST Telemedicine [facility] Rheumatology [address] [place] [address] Susan Santana MD [address] [facility] [address] [place] [phone] documented as of this encounter Visit Diagnoses Diagnosis Rheumatoid arthritis involving multiple sites with positive rheumatoid factor ([facility])- Primary Encounter for long-term (current) use of other medications Mouth sores Other and unspecified diseases of the oral soft tissues documented in this encounter Discontinued Medications Medication Sig Discontinue Reason Start Date End Da te methotrexate 2.5 mg tabletIndications:Rheuma toid arthritis involving multiple sites with positive rheumatoid factor ([facility]) Take 6 tablets by mouth once a week. Reorder 03/19/2022 05/24/2022 folic acid (FOLVITE) [address]oun [address] for long-term (current) use of other medications,Mouth sores Take 1 Tablet by mouth daily. Reorder 09/14/2021 05/24/2022 documented as of this encounter Care Teams Steelscope Operator Relationship Specialty Start Date End Date Connie Kemp MD [address] [place] [phone] PCP - General 06/24/19 documented as of this encounter
--- OUTSIDE RECORDS SUMMARY | 2024-01-16 14:26 | XMS_ITS | Encounter Summary ---
Author Organization [facility] Address [address] [place] [address] Care Team Providers Care Furniture Dipper Name Role Phone Connie Kemp MD Primary Care Provider [phone] Encounter Details Date Type Department Care Team ([facility] Contact Info) Description 11/20/2022 Lab Requisition [facility] Pathology & Laboratory Medicine - [address] [address] Outr Resulting Lab, Provider Social History Tobacco Use Types Packs/Day Years Used Date Smoking Tobacco: Never Smokeless Tobacco: Never Interpersonal Safety Answer Date Record ed Physically Hurt Never 12/26/2019 Verbally Threaten Not on file 12/26/2019 Sex and Gender Information Value Date Recorded Sex Assigned at Not on file Gender Identity Female 06/23/2019 8:24 EST Sexual Orientation Not on file documented as of this encounter Functional Status Functional Status Response [...] No 03/16/2021 documented as of this encounter Plan of Treatment Upcoming Encounters Date Type Department Care Team ([facility] Contact Info) Description 04/27/2024 8:45 EST Telemedicine [facility] Rheumatology [address] [place] [address] Susan Santana MD [address] [facility] [address] [place] [address] documented as of this encounter Procedures Procedure Name Priority Date/Time Associated Diagnosis Comments HOLD SST Today 11/19/2022 15:30 EDT MEASLES IGG AB Today 11/19/2022 15:30 EDT RUBELLA IGG ANTIBODY Today 11/19/2022 15:30 EDT HEPATITIS B SURFACE ANTIBODY Today 11/19/2022 15:30 EDT VARICELLA IGG ANTIBODY Today 11/19/2022 15:30 EDT MUMPS ANTIBODY IGG Today 11/19/2022 15 :30 EDT documented in this encounter Results * HOLD SST (11/19/2022 15:30 EDT) Hold Hold 11/20/2022 18:15 EDT [facility] Blood VENOUS BLOOD / Unknown 11/19/2022 15:30 EDT 11/20/2022 17:14 EDT Provider Outr Resulting Lab LAB INFO SER VICE AND SUPPORT & PHONE RESULT Performing Organization Address City/State/[facility] Co de Phone Number [facility] [address] [place] [address] * HEPATITIS B SURFACE ANTIBODY (11/19/2022 15:30 EDT) Hep B Surface Ab, Quantitative >1,000.0 See Note mIU/mL 11/21/2022 9:41 EDT [facility] Comment: Reference Range for Hep B Surface Ab, Quant: Positive: >= 10.0 mIU/mL Negative: ??< 10.0 mIU/mL Patient is presumed to be immune to infection with Hepatitis B Virus. Hep B Surface Ab, Qualitative Positive See Note 11/21/2022 9:41 EDT [facility] Comment: Reference Range for Hep B Surface Ab, Qual: Unvaccinated: ??Negative Vaccinated: ??Positive Blood VENOUS BLOOD / Unknown 11/19/2022 15:30 EDT 11/20/2022 17:06 EDT Provider Outr Resulting Lab CHEMISTRY & BLOOD GAS ORDERABLES Performing Organization Address [facility] Co de Phone Number [facility] [address] [place] [address] * MEASLES IGG AB (11/19/2022 15:30 EDT) Measles IgG Ab Negative See Note 11/21/2022 10:02 EDT [facility] Comment:Absence of detectabl e measles virus IgG antibodies. A negative result generally indicates that the patient is susceptible to measles. Blood VENOUS BLOOD / Unknown 11/19/2022 15:30 EDT 11/20/2022 17:06 EDT Provider Outr Resulting Lab IMMUNOLOGY A ND SEROLOGY ORDERABLES Performing Organization Address [facility] Co de Phone Number [facility] [address] [place] [address] * VARICELLA IGG ANTIBODY (11/19/2022 15:30 EDT) Varicella IgG Ab Positive See Note 11/21/2022 10:00 EDT [facility] Comment:Presence of detectab le Varicella Zoster virus IgG antibodies. Blood VENOUS BLOOD / Unknown 11/19/2022 15:30 EDT 11/20/2022 17:06 EDT Provider Outr Resulting Lab IMMUNOLOGY A ND SEROLOGY ORDERABLES Performing Organization Address [facility] Co de Phone Number [facility] [address] [place] [address] * MUMPS ANTIBODY IGG (11/19/2022 15:30 EDT) Mumps Antibody IgG Positive See Note 11/21/2022 10:03 EDT [facility] Comment:Presence of detectab le mumps virus IgG antibodies. Blood VENOUS BLOOD / Unknown 11/19/2022 15:30 EDT 11/20/2022 17:06 EDT Provider Outr Resulting Lab IMMUNOLOGY A ND SEROLOGY ORDERABLES Performing Organization Address [facility] Co de Phone Number [facility] [address] [place] [address] * RUBELLA IGG ANTIBODY (11/19/2022 15:30 EDT) Rubella IgG Ab Negative See Note 11/21/2022 10:05 EDT [facility] Comment:Sample is considered negative for IgG antibodies to Rubella virus. A negative result presumes that immunity has not been acquired. If exposure to Rubella virus is suspected despite a negative finding, a second specimen should be collected and tested for Rubella IgG Ab one or two weeks later. Blood VENOUS BLOOD / Unknown 11/19/2022 15:30 EDT 11/20/2022 17:06 EDT Provider Outr Resulting Lab CHEMISTRY & BLOOD GAS ORDERABLES Performing Organization Address [facility] de Phone Number [facility] [address] [place] [address] documented in this encounter Visit Diagnoses Not on filedocumented in this encounter Care Teams Furniture Dipper Relationship Specialty Start Date End Date Connie Kemp MD [address] [place] [phone] PCP - General 06/24/19 documented as of this encounter
--- OUTSIDE RECORDS SUMMARY | 2024-01-16 14:26 | XMS_ITS | Encounter Summary ---
Author Organization [facility] Address [address] [place] [address] Care Team Providers Care Home Aid Name Role Phone Connie Kemp MD Primary Care Provider [phone] Reason for Visit * Reason Onset Date Comments Patient Reminder 01/07/2024 Encounter Details Date Type Department Care Team ([facility] Contact Info) Description 01/07/2024 Telephone [facility] Rhe[facility] [address] [place] [address] Asha Ambrocio RN Patient Reminder Social History Tobacco Use Types Packs/Day Years [...] No 03/16/2021 documented as of this encounter Miscellaneous Notes * Telephone Encounter - Asha Ambrocio RN - 01/07/2024 0906 EDT Patient on list of people who are overdue for [facility] labs-last done 06/12/23. LVM asking patient to get labs done and paper orders faxed to [facility] lab. documented in this encounter Plan of Treatment Upcoming Encounters Date Type Department Care Team (Late st Contact Info) Description 04/27/2024 8:45 EST Telemedicine [facility] Rheumatology [address] [place], [place] [address] Susan Santana MD [address] [facility] [address] [place] [address] documented as of this encounter Visit Diagnoses Not on filedocumented in this encounter Care Teams Home Aid Relationship Specialty Start Date End Date Connie Kemp MD [address] [place] [phone] PCP - General 06/24/19 documented as of this encounter
--- OUTSIDE RECORDS SUMMARY | 2024-01-16 14:26 | XMS_ITS | Encounter Summary ---
Author Organization [facility] Address [address] [place] [address] Care Team Providers Care Hopper Filler Name Role Phone Connie Kemp MD Primary Care Provider Encounter Details Date Type Department Care Team (Late Contact Info) Description 02/03/2023 Abstract [facility] Rheumatology [address] [place] [address] Vandana Wheeler RN Social History Tobacco Use Types Packs/Day Years [...] Encounters Date Type Department Care Team (Late Contact Info) Description 04/27/2024 8:45 EST Telemedicine [facility] Rheumatology [address] [place] [address] Susan Santana MD [address] [facility] [address] [place] [address] documented as of this encounter Procedures Procedure Name Priority Date/Time Associated Diagnosis Comments COMPLETE BLOOD COUNT AND DIFFERENTIAL Routine 12/20/2022 COMPREHENSIVE METABOLIC PANEL (CMP) Routine 12/20/2022 documented in this encounter Results * COMPREHENSIVE METABOLIC PANEL (CMP) (12/20/2022) Pathologist [facility] GFR, Calculated, External 92.54 [facility] Glucose, Serum, External 100 7 - 106 [facility] Albumin, External 3.7 3 - 5 [facility] Total Alkaline Phosphatase, External 91 4 - 116 [facility] ALT, External 54 1 - 59 [facility] AST, External 28 1 - 37 [facility] BUN, External [address] [facility] Calculated Calcium, External [facility] Calcium, External 9 8 - 10.1 [facility] Chloride, External 102 9 - 107 [facility] CO2, External 27.2 21 - 32 [facility] Creatinine, External 0.8 0.5 - 1.02 [facility] Fasting?, External [facility] Potassium, External 3.8 3 - 5.1 [facility] Sodium, External 139 13 - 145 [facility] Total Protein, External 7.7 6 - 8.2 [facility] Bilirubin, Total, External 0.9 0 - 1 [facility] Blood VENOUS BLOOD / Unknown 12/20/2022 Susan Santana MD CHEMISTRY & BLOO D GAS ORDERABLES [facility] * (ABNORMAL) COMPLETE BLOOD COUNT AND DIFFERENTIAL (12/20/2022) Pathologist [facility] WBC, External 4.51 4 - 10.8 [facility] RBC, External 4.72 3.9 - 5.22 [facility] Hemoglobin, External 13.8 11 - 15.7 [facility] HCT, External 42 36 - 46 [facility] MCV, External 89 8 - 95 [facility] MCH, External 29.2 27 - 33 [facility] MCHC, External 32.9 32 - 36 [facility] PLT, External 236 13 - 400 [facility] RDW-CV, External 14.5 11 - 14.6 [facility] Neutrophils, External 73.6 [facility] Lymphocytes, External 12.9 [facility] Monocytes, External 12.2 [facility] Eosinophils, External 0.7 [facility] Basophils, External 0.4 [facility] ABS Neutrophils, External 3.32 1 - 6.7 [facility] Lymphs, External 0.58(A) 1 - 3.4 [facility] Monocytes, External 0.55 0 - 0.8 [facility] Eosinophils, External 0.03 0 - 0.7 [facility] Basophils, External 0.02 0 - 0.2 [facility] Blood VENOUS BLOOD / Unknown 12/20/2022 Susan Santana MD PACKAGES & DNA P ROBE ORDERABLES [facility] documented in this encounter Visit Diagnoses Not on filedocumented in this encounter Care Teams Hopper Filler Relationship Specialty Start Date End Date Connie Kemp MD [address] [place] [phone] PCP - General 06/24/19 documented as of this encounter
--- OUTSIDE RECORDS SUMMARY | 2024-01-16 14:26 | XMS_ITS | Encounter Summary ---
Author Organization [facility] Address [address] [place] [address] Care Team Providers Care Manager Software Name Role Phone Connie Kemp MD Primary Care Provider Reason for Visit * Reason Onset Date Comments Appointment Related 03/14/2022 Encounter Details Date Type Department Care Team ([facility] Contact Info) Description 03/14/2022 Telephone [facility] Rheumatology [address] [place] [address] Susan Santana MD [address] [place] [address] [address] [place] [phone] Appointment Related Social History Tobacco Use Types Packs/Day Years [...] encounter Miscellaneous Notes * Telephone Encounter - Vandana Wheeler RN - 03/19/2022 1138 EDT Patient scheduled for 05/24. * Telephone Encounter - Pat Gregg - 03/19/2022 1121 EDT LM#2 for patient to call back to schedule f/u with CJ * Telephone Encounter - Pat Gregg - 03/14/2022 1354 EDT Images from the original note were not included. Asha Ambrocio, Pat Pulido We received these labs but patient has no follow up scheduled with Dr. Santana. [facility] called her to schedule back in September and she never called back. Do you want to try calling her? Thank you. LM for patient to call back to schedule with CJ. documented in this encounter Plan of Treatment Upcoming Encounters Date Type Department Care Team (Late st Contact Info) Description 04/27/2024 8:45 EST Telemedicine [facility] Rheumatology [address] [place], [place] [phone] Susan Santana MD 130 [facility] [address] [place] [phone] documented as of this encounter Visit Diagnoses Not on filedocumented in this encounter Care Teams Manager Software Relationship Specialty Start Date End Date Connie Kemp MD [address] [place] [phone] PCP - General 06/24/19 documented as of this encounter
--- OUTSIDE RECORDS SUMMARY | 2024-01-16 14:26 | XMS_ITS | Referral Summary ---
Author Organization [facility] Address [address] [place] [address] Care Team Providers Care Carpenter Foreman Name Role Phone Connie Kemp MD Primary Care Provider [phone] Encounters Date Type Department Care Team Description 01/07/2024 Telephone [facility] [place] [address] [place] [address] Asha Ambrocio RN Patient Reminder from Last 3 Months Allergies Active Allergy Reactions Criticality Noted Date Comments Fexofenadine 09/14/2021 Throws up and gets flushed Venom-Honey Bee 08/24/2018 Nausea/vommitting Medications Medication Sig Dispensed Refills Start Date End Date Status cetirizine (ZYRTEC) 10 mg tablet Take 1 Tablet by mouth daily. Active fluticasone propionate (FLONASE) 50 mcg/actuation nasal spray Instill 100 mcg into both nostrils daily. Active ibuprofen (MOTRIN) 600 mg tablet Take 1 Tablet by mouth 3 times daily as needed. Active medroxyPROGESTERone (PROVERA) 10 mg tablet Take 1 Tablet by mouth daily. Active valACYclovir (VALTREX) 1 gram tablet TK 1 T PO QD FOR COLD SORE PREVENTION FOR BREAKTHROUGH 2 TABS EVERY 12 HOURS FOR 2 DOSES 06/14/2019 Active metoprolol XL (TOPROL-XL) 25 mg tablet TAKE ONE-HALF TABLET BY MOUTH DAILY 05/30/2019 Active montelukast (SINGULAIR) 10 mg tablet TAKE 1 TABLET BY MOUTH DAILY NEEDED 06/10/2020 Active UNABLE TO FIND Buproprion and Naltrexone for weight loss ? Active folic acid (FOLVITE) 1 mg tabletIndications:E ncounter for long-term (current) use of other medications Take 1 Tablet by mouth daily. 90 Tablet 3 12/06/2022 Active methotrexate 2.5 mg tabletIndications:R heumatoid arthritis involving multiple sites with positive rheumatoid factor ([facility]) Take 8 Tablets by mouth once a week. 96 Tablet 1 08/25/2023 Active SYMBICORT 80-4.5 mcg/actuation HFA aerosol inhaler inhaler INHALE 1 PUFF BY MOUTH TWICE DAILY AT ONSET FOR UPPER RESPIRATORY INFECTION 11/05/2022 Active EPINEPHrine (EPIPEN) 0.3 mg/0.3 mL injection EVERY 5 TO 15 MINUTES NEEDED. NOT TO EXCEED 3 DOSES PER EPISODE 01/03/2023 Active Active Problems Problem Noted Date Diagnosed Date Rheumatoid arthritis involving multiple joints ( [facility]) 06/14/2020 Rheumatoid arthritis involvi ng multiple sites with positive rheumatoid factor ([facility]) 06/24/2019 Overview: + CCP methotrexate effective Dx 2016 Lost to follow up year of 2018 Obstructive sleep apnea 06/24/2019 Mouth sores 06/24/2019 Social History Tobacco Use Types Packs/Day Years Used Date Smoking Tobacco: Never Smokeless Tobacco: Never Tobacco Cessation:Counseling Given: Not Answered Interpersonal Safety Answer Date Record ed Physically Hurt Never 12/26/2019 Verbally Threaten Not on file 12/26/2019 Sex and Gender Information Value Date Recorded Sex Assigned at Not on file Gender Identity Female 06/23/2019 8:24 EST Sexual Orientation Not on file Last Filed Vital Signs Vital Sign Reading Time Taken Comments Blood Pressure 126/74 07/24/2022 1040 EST Pulse 74 07/24/2022 1040 EST Temperature 36.2 ??C (97.1 ??F) 07/24/2022 1040 EST Respiratory Rate - - Oxygen Saturation - - Inhaled Oxygen Concentration - - Weight 135.6 kg (299 lb) 10/08/2023 1454 EDT Height 160 cm (5' 3) 10/08/2023 1454 EDT Body Mass Index 52.97 10/08/2023 1454 EDT Functional Status Functional Status Response Date of [...] concentrating, remembering, or making decisions? No 03/16/2021 Plan of Treatment Upcoming Encounters Date Type Department Care Team (Late st Contact Info) Description 04/27/2024 8:45 EST Telemedicine [facility] Rheumatology [address] [place] [address] Susan Santana MD 130 [facility] [address] [place] [address] Procedures Procedure Name Priority Date/Time Associated Diagnosis Comments HEPATITIS C AB W REFLEX TO HCV RNA BY PCR Today 12/10/2021 15:23 EDT from Last 3 Months or Most Recently Relevant to Health Maintenance Results * HEPATITIS C AB W REFLEX TO HCV RNA BY PCR (12/10/2021 15:23 EDT) Hep C Antibody Negative Negative 12/12/2021 10:58 EDT [facility] Blood VENOUS BLOOD / Unknown 12/10/2021 15:23 EDT 12/11/2021 16:54 EDT Provider Outr Resulting Lab CHEMISTRY & BLOOD GAS ORDERABLES [facility] [address] [place] [address] from Last 3 Months or Most Recently Relevant to Health Maintenance Care Teams Carpenter Foreman Relationship Specialty Start Date End Date Connie Kemp MD [address] [place] [phone] PCP - General 06/24/19
--- OUTSIDE RECORDS SUMMARY | 2024-01-16 14:26 | XMS_ITS | Encounter Summary ---
Author Organization [facility] Address [address] [place] [address] Care Team Providers Care Electron Beam Welder Name Role Phone Connie Kemp MD Primary Care Provider [phone] Encounter Details Date Type Department Care Team (Late Contact Info) Description 07/24/2022 Abstract [facility] Rheumatology [address] [place] [address] Vandana Wheeler RN Social History Tobacco [...] Contact Info) Description 04/27/2024 8:45 EST Telemedicine [facility] Rheumatology [address] [place] [address] Susan Santana MD 130 [facility] [address] [place] [phone] documented as of this encounter Procedures Procedure Name Priority Date/Time Associated Diagnosis Comments COMPLETE BLOOD COUNT Routine 07/23/2022 COMPREHENSIVE METABOLIC PANEL (CMP) Routine 07/23/2022 documented in this encounter Results * COMPREHENSIVE METABOLIC PANEL (CMP) (07/23/2022) GFR, Calculated, External 92.54 [facility] Glucose, Serum, External 96 74 - 106 [facility] Albumin, External 3.4 3.4 - 5.0 [facility] Total Alkaline Phosphatase, External 89 46 - 116 [facility] ALT, External 51 14 - 59 [facility] AST, External 34 15 - 37 [facility] BUN, External 11 7 - 18 [facility] Calculated Calcium, External [facility] Calcium, External 9.1 8.5 - 10.1 [facility] Chloride, External 104 98 - 107 [facility] CO2, External 30.5 21.0 - 32.0 [facility] Creatinine, External 0.8 0.55 - 1.02 [facility] Fasting?, External [facility] Potassium, External 4.1 3.5 - 5.1 [facility] Sodium, External 140 136 - 145 [facility] Total Protein, External 7.5 6.4 - 8.2 [facility] Bilirubin, Total, External 0.8 0.2 - 1.0 [facility] Blood VENOUS BLOOD / Unknown 07/23/2022 Susan Santana MD CHEMISTRY & BLOO D GAS ORDERABLES [facility] * (ABNORMAL) COMPLETE BLOOD COUNT (07/23/2022) HCT, External 43.6 36.0 - 46.0 [facility] MCH, External 28.9 27.0 - 33.0 [facility] MCV, External 90 80 - 95 [facility] MCHC, External 32.1 32.0 - 36.0 [facility] Hemoglobin, External 14.0 11.2 - 15.7 [facility] WBC, External 8.18 4.4 - 10.8 [facility] RBC, External 4.84 3.93 - 5.22 [facility] PLT, External 364 130 - 400 [facility] RDW-CV, External 14.3 11.7 - 14.6 [facility] Blood VENOUS BLOOD / Unknown 07/23/2022 Susan Santana MD HEMATOLOGY & PF4 ORDERABLES [facility] documented in this encounter Visit Diagnoses Not on filedocumented in this encounter Care Teams Electron Beam Welder Relationship Specialty Start Date End Date Connie Kemp MD [address] [place] [phone] PCP - General 06/24/19 documented as of this encounter
--- OUTSIDE RECORDS SUMMARY | 2024-01-16 14:26 | XMS_ITS | Encounter Summary ---
Author Organization [facility] Address [address] [place] [address] Care Team Providers Care Trimmer Sawyer Name Role Phone Connie Kemp MD Primary Care Provider [phone] Reason for Visit * Reason Onset Date Comments Appointment Related 09/24/2021 Encounter Details Date Type Department Care Team ([facility] st Contact Info) Description 09/24/2021 Telephone [facility] Rheumatology & Immunology - [address] [address] Susan Santana MD [address] [place] [address] [phone] Appointment Related Social History Tobacco Use Types [...] encounter Miscellaneous Notes * Telephone Encounter - Lay Aragon - 09/24/2021 1458 EDT Patient was seen 09/14/[address] Santana. Provider would like follow up: Disposition Notes: Return in about 4 months (around 01/14/2022) for rheumatoid arthritis. documented in this encounter Plan of Treatment Upcoming Encounters Date Type Department Care Team (Late st Contact Info) Description 04/27/2024 8:45 EST Telemedicine [facility] Rheumatology [address] [place], [place] [phone] Susan Santana MD 130 [facility] [address] [place] [address] documented as of this encounter Visit Diagnoses Not on filedocumented in this encounter Care Teams Trimmer Sawyer Relationship Specialty Start Date End Date Connie Kemp MD [address] [place] [phone] PCP - General 06/24/19 documented as of this encounter
--- OUTSIDE RECORDS SUMMARY | 2024-01-16 14:26 | XMS_ITS | Encounter Summary ---
Author Organization [facility] Address [address] [place] [address] Care Team Providers Care Student Teacher Name Role Phone Connie Kemp MD Primary Care Provider [phone] Reason for Visit * Reason Comments Follow-up RA. Pt states feelin g good, figured out flares? Period where right knee hurt t go up stairs but went away-went a few months, was a flare? Has been good for a month now. Back will hurt every now and then. Discuss labs. Allergies bad Encounter Details Date Type Department Care Team (Late st Contact Info) Description 07/24/2022 10:45 EST Office Visit [facility] [address] [place] [address] Susan Santana MD 130 [facility] [address] [place] [address] Rheumatoid arthritis involving multiple sites with positive rheumatoid factor ([facility]) (Primary Dx); Encounter for long-term (current) use of other medications; Knee effusion, right Social History Tobacco Use Types Packs/Day Years [...] - - Weight 135.6 kg (299 lb) 07/24/2022 1040 EST Height 160 cm (5' 3) 07/24/2022 1040 EST Body Mass Index 52.97 07/24/2022 1040 EST documented in this encounter Functional Status Functional [...] * Patient Instructions* Susan Santana MD - 07/24/2022 10:45 EST Increase methotrexate 8 tabs one day a week Folic acid 1 mg a day to prevent mouth sores If knee pain gets worse we could think about injecting it with steroids. documented in this encounter Ordered Prescriptions Prescription Sig Dispensed Refills Start Date End Da te folic acid (FOLVITE) 1 mg tabletIndications:Encoun ter for long-term (current) use of other medications Take 1 Tablet by mouth daily. 90 Tablet 3 07/24/2022 12/06/2022 methotrexate 2.5 mg tabletIndications:Rheuma toid arthritis involving multiple sites with positive rheumatoid factor ([facility]) Take 8 Tablets by mouth once a week. 96 Tablet 2 07/24/2022 12/06/2022 documented in this encounter Progress Notes * Susan Santana MD - 07/24/2022 1045 EST [facility] Follow Up Chief Complaint Patient presents with ??? Follow-up RA. Pt states feeling good, figured out flares? Period where right knee hurt t go up stairs but went away-went a few months, was a flare? Has been good for a month now. Back will hurt every now and then. Discuss labs. Allergies bad Rheumatoid arthritis +RF, CCP. FANI + Joint pain 2017. Methotrexate ??Lost to follow up from [phone] and due to insurance issues. ?? Asthma ?? Elevated bmi ?? HPI: Chelsi Hernandez returns in follow-up of rheumatoid arthritis. She experienced a flareup of herRA. Symptoms included hand pain and stiffness, shoulder pain and stiffness, right knee effusion. Lasted for several months. Increased her methotrexate for a week or 2. Has noted that methotrexate seems to wear off just the day before she takes it. No further oral ulcers. Had laboratory testing drawn. States that she would not want to have her right knee aspirated at this time, however, might consider in the future. Recent illnesses have included norovirus, COVID-19. She has recovered. She is vaccinated. Had to miss work because of illness. Also because of RA. Has not filed [facility] paperwork but will. Morning stiffness - Less than an hour - Painful joints right knee but not too bad today and not bothersome. Weight has gone down by about 50 pounds. Feeling positive about weight loss Allergies include: Alecia [fexofenadine] and Venom-honey bee Current Outpatient Medications Medication ??? cetirizine (ZYRTEC) 10 mg tablet ??? fluticasone propionate (FLONASE) 50 mcg/actuation nasal spray ??? folic acid (FOLVITE) 1 mg tablet ??? ibuprofen (MOTRIN) 600 mg tablet ??? medroxyPROGESTERone (PROVERA) 10 mg tablet ??? methotrexate 2.5 mg tablet ??? metoprolol XL (TOPROL-XL) 25 mg tablet ??? montelukast (SINGULAIR) 10 mg tablet ??? UNABLE TO FIND ??? valACYclovir (VALTREX) 1 gram tablet No current facility-administered medications for this visit. Past Medical History: Diagnosis Date ??? Rheumatoid arthritis involving multiple sites with positive rheumatoid factor ([facility]) ([facility]) 06/24/2019 Social History Tobacco Use ??? Smoking status: Never ??? Smokeless tobacco: Never No melena. No dark stools no heartburn. PHYSICAL EXAMINATION: BP 126/74 (BP Cuff Location: Right arm, BP Cuff Sizes: Adult, large) Pulse 74 Temp 36.2 ??C (97.1 ??F) Ht 160 cm (63) Wt (!) 135.6 kg (299 lb) BMI 52.97 kg/m?? Physical Exam Vitals and nursing note reviewed. Constitutional: Appearance: Normal appearance. HENT: Head: Normocephalic and atraumatic. Nose: Nose normal. Eyes: Conjunctiva/sclera: Conjunctivae normal. Cardiovascular: Rate and Rhythm: Normal rate. Heart sounds: Normal heart sounds. Pulmonary: Effort: Pulmonary effort is normal. No respiratory distress. Breath sounds: Normal breath sounds. No wheezing. Musculoskeletal: Cervical back: Normal range of motion and neck supple. Comments: Boutonniere deformity right third finger. No MCP synovitis. Wrist range of motion preserved. Shoulders tender at end range of motion. Elbows full extension. Right knee moderate effusion decreased extension. Left knee small effusion range of motion preserved. Skin: General: Skin is warm. Comments: No rheumatoid nodules, no psoriasis. Neurological: General: No focal deficit present. Mental Status: She is alert and oriented to person, place, and time. Mental status is at baseline. Psychiatric: Mood and Affect: Mood and affect normal. Thought Content: Thought content normal. Cognition and Memory: Memory normal. Lab Results Component Value Date HGB 14.4 03/16/2021 MCV 91.7 03/16/2021 PLT 284 03/16/2021 RAPID3 SCORES AND INTERPRETATION 07/24/2022 Functional Status 0 Pain Tolerance 1 Global Estimate .5 RAPID3 1.5 Interpretation Near Remission ASSESSMENT AND PLAN Chelsi Hernandez is a 47 y.o. female here in follow up of *seropositive rheumatoid arthritis of multiple joints on methotrexate therapy. 1. Rheumatoid arthritis involving multiple sites with positive rheumatoid factor ([facility]) ([facility]) methotrexate 2.5 mg tablet Methotrexate increased to 8 tabs 1 day a week split dose. Folic acid to mitigate mouth sores. 2. Encounter for long-term (current) use of other medications folic acid (FOLVITE) 1 mg tablet cbc cmp every 4-6 months d/t methotrexate 3. Knee effusion, right Declined aspiration today, reconsider his pain/flare. Patient aware. Impressions, diagnosis, treatment plan were reviewed. Patient questions and concerns were reviewed and answered. Patient agreeable to plan of care and will call if any addition concerns or questions arise. RTC 4 months with labs prior. Susan Santana MD 07/24/2022 11:03 documented in this encounter Plan of Treatment Upcoming Encounters Date Type Department Care Team (Late st Contact Info) Description 04/27/2024 8:45 EST Telemedicine [facility] Rheumatology [address] [place] [address] Susan Santana MD 130 [facility] [address] [place] [phone] documented as of this encounter Visit Diagnoses Diagnosis Rheumatoid arthritis involving multiple sites with positive rheumatoid factor ([facility])- Primary Encounter for long-term (current) use of other medications Knee effusion, right Effusion of lower leg joint documented in this encounter Discontinued Medications Medication Sig Discontinue Reason Start Date End Da te methotrexate 2.5 mg tabletIndications:Rheuma toid arthritis involving multiple sites with positive rheumatoid factor ([facility]) Take 6 tablets by mouth once a week. Reorder 05/24/2022 07/24/2022 folic acid (FOLVITE) 1 mg tabletIndications:Encoun ter for long-term (current) use of other medications,Mouth sores Take 1 Tablet by mouth daily. Reorder 05/24/2022 07/24/2022 documented as of this encounter Care Teams Student Teacher Relationship Specialty Start Date End Date Connie Kemp MD [address] [place] [phone] PCP - General 06/24/19 documented as of this encounter
--- OUTSIDE RECORDS SUMMARY | 2024-01-16 14:26 | XMS_ITS | Encounter Summary ---
Author Organization [facility] Address [address] [place] [address] Care Team Providers Care Ivf Embryologist Name Role Phone Connie Kemp MD Primary Care Provider [phone] Reason for Visit * Reason Onset Date Comments Medications Refill 08/25/2023 Encounter Details Date Type Department Care Team ([facility] st Contact Info) Description 08/25/2023 Telephone [facility] [place] [address] [place] [address] Susan Santana MD [address] [place] [address] [address] [place] [phone] Medications Refill Social History Tobacco Use Types Packs/Day Years [...] No 03/16/2021 documented as of this encounter Ordered Prescriptions Prescription Sig Dispensed Refills Start Date End Da te methotrexate 2.5 mg tabletIndications:Rheumat oid arthritis involving multiple sites with positive rheumatoid factor (HCC-CMS) Take 8 Tablets by mouth once a week. 96 Tablet 1 08/25/2023 documented in this encounter Miscellaneous Notes * Telephone Encounter - Rona Murphy RN - 08/25/2023 1008 EDT Last office visit note reviewed and follow-up visit scheduled. Labs up to date. Refill for methotrexate sent per protocol. * Telephone Encounter - Pat Gregg - 08/25/2023 0925 EDT Patient requesting refill on Methotrexate - she is due today. Would like script sent to [facility]. Patient has been scheduled for f/u on September. documented in this encounter Plan of Treatment Upcoming Encounters Date Type Department Care Team (Late st Contact Info) Description 04/27/2024 8:45 EST Telemedicine [facility] Rheumatology [address] [place] [address] Susan Santana MD [address] [facility] [address] [place] [phone] documented as of this encounter Visit Diagnoses Diagnosis Rheumatoid arthritis involving multiple sites with positive rheumatoid factor (HCC-CMS)- Primary documented in this encounter Discontinued Medications Medication Sig Discontinue Reason Start Date End Da te methotrexate 2.5 mg tabletIndications:Rheuma toid arthritis involving multiple sites with positive rheumatoid factor (HCC-CMS) Take 8 Tablets by mouth once a week. Reorder 12/06/2022 08/25/2023 documented as of this encounter Care Teams Ivf Embryologist Relationship Specialty Start Date End Date Connie Kemp MD [address] [place] [phone] PCP - General 06/24/19 documented as of this encounter
--- OUTSIDE RECORDS SUMMARY | 2024-01-16 14:26 | XMS_ITS | Encounter Summary ---
Author Organization [facility] Address [address] [place] [address] Care Team Providers Care Sem Manager Name Role Phone Connie Kemp MD Primary Care Provider [phone] Reason for Visit * Reason Onset Date Comments Results 12/06/2022 Encounter Details Date Type Department Care Team ([facility] Contact Info) Description 12/06/[address] [facility] Rheumatology [address] [place] [address] Asha Ambrocio RN Results Social History Tobacco Use Types Packs/Day Years [...] Telephone Encounter - Asha Ambrocio RN - 12/06/2022 1144 EDT Labs printed from [facility] and placed in scans. * Telephone Encounter - Asha Ambrocio RN - 12/06/2022 1143 EDT ----- Message from Susan Santana MD sent at 12/06/2022 11:21 EDT ----- Please find recent labs from [facility] in [facility] documented in this encounter Plan of Treatment Upcoming Encounters Date Type Department Care Team (Late st Contact Info) Description 04/27/2024 8:45 EST Telemedicine [facility] Rheumatology [address] [place] [address] Susan Santana MD 130 [facility]- [address] [place] [phone] documented as of this encounter Visit Diagnoses Not on filedocumented in this encounter Care Teams Sem Manager Relationship Specialty Start Date End Date Connie Kemp MD [address] [place] [phone] PCP - General 06/24/19 documented as of this encounter
--- OUTSIDE RECORDS SUMMARY | 2024-01-16 14:26 | XMS_ITS | Encounter Summary ---
Author Organization [facility] Address [address] [place] [address] Care Team Providers Care Manager Web Name Role Phone Connie Kemp MD Primary Care Provider [phone] Encounter Details Date Type Department Care Team ([facility] Contact Info) Description 06/13/2023 Abstract [facility] [place] [address] [place] [address] Rona Murphy RN Social History Tobacco Use Types Packs/Day [...] No 03/16/2021 documented as of this encounter Progress Notes * Rona Murphy, GLADIS - 06/13/2023 1417 EST Entered external labs from [facility]. documented in this encounter Plan of Treatment Upcoming Encounters Date Type Department Care Team (Late Contact Info) Description 04/27/2024 8:45 EST Telemedicine [facility] Rheumatology [address] [place] [address] Susan Santana MD 130 [facility] [address] [place] [address] documented as of this encounter Procedures Procedure Name Priority Date/Time Associated Diagnosis Comments COMPLETE BLOOD COUNT AND DIFFERENTIAL Routine 06/12/2023 COMPREHENSIVE METABOLIC PANEL (CMP) Routine 06/12/2023 documented in this encounter Results * COMPLETE BLOOD COUNT AND DIFFERENTIAL (06/12/2023) WBC, External 10.10 4.4 - 10.8 [facility] RBC, External 4.70 3.93 - 5.22 [facility] Hemoglobin, External 13.6 11.2 - 15.7 % [facility] HCT, External 41.6 36.0 - 46.0 [facility] MCV, External 89 80 - 95 [facility] MCH, External 28.9 27.0 - 33.0 g/dL [facility] MCHC, External 32.7 32.0 - 36.0 g/dL [facility] PLT, External 303 130 - 400 [facility] RDW-CV, External 14.0 11.7 - 14.6 [facility] Neutrophils, External [facility] Lymphocytes, External [facility] Monocytes, External [facility] Eosinophils, External [facility] Basophils, External [facility] ABS Neutrophils, External [facility] ABS Lymphs, External [facility] ABS Monocytes, External [facility] ABS Eosinophils, External [facility] ABS Basophils, External [facility] Blood VENOUS BLOOD / Unknown 06/12/2023 Susan Santana MD PACKAGES & DNA P ROBE ORDERABLES Performing Organization Address City/[facility]/ZIP Co de Phone Number [facility] * COMPREHENSIVE METABOLIC PANEL (CMP) (06/12/2023) GFR, Calculated, External 91.97 [facility] Glucose, Serum, External 87 74 - 106 mg/dL [facility] Albumin, External 3.6 3.4 - 5.0 g/dL [facility] Total Alkaline Phosphatase, External 87 46 - 116 [facility] ALT, External 42 14 - [address] [facility] AST, External 19 15 - 37 U/L [facility] BUN, External 15 7 - 18 mg/dL [facility] Calculated Calcium, External [facility] Calcium, External 9.5 8.5 - 10.1 mg/dL [facility] Chloride, External 105 98 - 107 mmol/L [facility] CO2, External 27.7 21.0 - 32.0 mmol/L [facility] Creatinine, External 0.8 0.55 - 1.02 mg/dL [facility] Fasting?, External [facility] Potassium, External 3.7 3.5 - 5.1 mmol/L [facility] Sodium, External 139 136 - 145 mmol/L [facility] Total Protein, External 7.5 6.4 - 8.2 [facility] Bilirubin, Total, External 0.6 0.2 - 1.0 [facility] Blood VENOUS BLOOD / Unknown 06/12/2023 Susan Santana MD CHEMISTRY & BLOO D GAS ORDERABLES [facility] documented in this encounter Visit Diagnoses Not on filedocumented in this encounter Care Teams Manager Web Relationship Specialty Start Date End Date Connie Kemp MD [address] [place] [phone] PCP - General 06/24/19 documented as of this encounter
--- OUTSIDE RECORDS SUMMARY | 2024-01-16 14:26 | XMS_ITS | Encounter Summary ---
Author Organization [facility] Address [address] [place] [address] Care Team Providers Care Key Account Executive Name Role Phone Connie Kemp MD Primary Care Provider [phone] Reason for Visit * Reason Comments Rheumatoid Arthritis Doing well, lost we ight about 56 pounds and blood sugar has improved. Arthritis is in control. Encounter Details Date Type Department Care Team ([facility] Contact Info) Description 12/06/2022 10:45 EDT Telemedicine [facility] Rheumatology [address] [place] [address] Susan Santana MD [address] [facility] [address] [place] [phone] Rheumatoid arthritis involving multiple sites with positive rheumatoid factor ([facility]) (Primary Dx); Encounter for long-term (current) use of other medications Social History Tobacco Use Types Packs/Day Years [...] by mouth daily. 90 Tablet 3 12/06/2022 methotrexate 2.5 mg tabletIndications:Rheuma toid arthritis involving multiple sites with positive rheumatoid factor ([facility]) Take 8 Tablets by mouth once a week. 96 Tablet 2 12/06/2022 08/25/2023 documented in this encounter Progress Notes * Susan Santana MD - 12/06/2022 1045 EDT [facility] Video Visit Today's visit was provided through [...] or auxiliary staff: yes. Subjective: Chief Complaint(s): Rheumatoid Arthritis (Doing well, lost weight about 56 pounds and blood sugar has improved. Arthritis is in control.) HPI: Chelsi Hernandez is here in follow up of her rheumatoid arthritis She has been stable with regard to her RA. She feels her feet are doing ok. Some edema Knees are ok. Asthma has been stable. She had some flares due to pollution. Had blood tests. She has lost weight, about 56 pounds. Her hemoglobin A1C She has two foster kids. Very busy. I have reviewed patient's tobacco history: reports that she has never smoked. She has never used smokeless tobacco. I have reviewed current problem list and current medications. Objective: Examination: Home Vitals: There were no vitals taken for this visit. Pertinent exam findings: appears well and mood and affect appropriate Data reviewed with patient: last note, last labs from 06/2022 at [facility] Assessment & Plan: Chelsi Hernandez is a 47 y.o. female with a history of seropositive rheumatoid arthritis on methotrexate/ Doing well. Recent significant weight loss has improved lfts/ RA at goal RTC 6 mo video with alan,cmp prior 1. Rheumatoid arthritis involving multiple sites with positive rheumatoid factor ([facility]) ([facility]) methotrexate 2.5 mg tablet Methotrexate increased to 8 tabs 1 day a week split dose. Folic acid to mitigate mouth sores. 2. Encounter for long-term (current) use of other medications folic acid (FOLVITE) 1 mg tablet cbc cmp every 4-6 months d/t methotrexate I spent a total of 23 minutes in discussion with the patient as [...] Description 04/27/2024 8:45 EST Telemedicine [facility] Rheumatology [address] [place] [address] Susan Santana MD 130 [facility] [address] [place] [phone] documented as of this encounter Visit Diagnoses Diagnosis Rheumatoid arthritis involving multiple sites with positive rheumatoid factor ([facility])- Primary Encounter for long-term (current) use of other medications documented in this encounter Discontinued Medications Medication Sig Discontinue Reason Start Date End Da te methotrexate 2.5 mg tabletIndications:Rheuma toid arthritis involving multiple sites with positive rheumatoid factor ([facility]) Take 8 Tablets by mouth once a week. Reorder 07/24/2022 12/06/2022 folic acid (FOLVITE) 1 mg tabletIndications:Encoun ter for long-term (current) use of other medications Take 1 Tablet by mouth daily. Reorder 07/24/2022 12/06/2022 documented as of this encounter Care Teams Key Account Executive Relationship Specialty Start Date End Date Connie Kemp MD [address] [place] [phone] PCP - General 06/24/19 documented as of this encounter
--- OUTSIDE RECORDS SUMMARY | 2024-01-16 14:26 | XMS_ITS | Encounter Summary ---
Author Organization [facility] Address [address] [place] [address] Care Team Providers Care Grade Foreman Name Role Phone Connie Kemp MD Primary Care Provider Encounter Details Date Type Department Care Team (Late Contact Info) Description 09/14/2021 Abstract [facility] Rheumatology [address] [place] [address] Asha Ambrocio RN Social History Tobacco Use Types Packs/Day [...] Contact Info) Description 04/27/2024 8:45 EST Telemedicine [facility] Rheumatology [address] [place] [address] Susan Santana MD 130 [facility] [address] [place] [phone] documented as of this encounter Procedures Procedure Name Priority Date/Time Associated Diagnosis Comments COMPLETE BLOOD COUNT AND DIFFERENTIAL Routine 09/05/2021 C REACTIVE PROTEIN Routine 09/05/2021 TSH Routine 09/05/2021 COMPREHENSIVE METABOLIC PANEL (CMP) Routine 09/05/2021 documented in this encounter Results * TSH (09/05/2021) TSH, External 0.98 0.36 - 3.74 [facility] Blood VENOUS BLOOD / Unknown 09/05/2021 Susan Santana MD CHEMISTRY & BLOO D GAS ORDERABLES [facility] * (ABNORMAL) COMPLETE BLOOD COUNT AND DIFFERENTIAL (09/05/2021) WBC, External 7.79 4.4 - 10.8 [facility] RBC, External 4.58 3.93 - 5.22 [facility] Hemoglobin, External 13.3 11.2 - 15.7 [facility] HCT, External 42.0 36 - 46 [facility] MCV, External 91.7 80 - 95 [facility] MCH, External 29.0 27 - 33 [facility] MCHC, External 31.7(A) 32 - 36 [facility] PLT, External 347 130 - 400 [facility] RDW-CV, External 14.0 11.7 - 14.6 [facility] Neutrophils, External [facility] Lymphocytes, External [facility] Monocytes, External [facility] Eosinophils, External [facility] Basophils, External [facility] ABS Neutrophils, External [facility] ABS Lymphs, External [facility] ABS Monocytes, External [facility] ABS Eosinophils, External [facility] ABS Basophils, External [facility] Blood VENOUS BLOOD / Unknown 09/05/2021 Susan Santana MD PACKAGES & DNA P ROBE ORDERABLES [facility] * (ABNORMAL) COMPREHENSIVE METABOLIC PANEL (CMP) (09/05/2021) Pathologist [facility] GFR, Calculated, External >=60 60 [facility] Glucose, Serum, External 92 74 - 106 [facility] Albumin, External 3.3(A) 3.4 - 5.0 [facility] Total Alkaline Phosphatase, External 98 46 - 116 [facility] ALT, External 103(A) 14 - 59 [facility] AST, External 51(A) 15 - 37 [facility] BUN, External 8 7 - 18 [facility] Calculated Calcium, External [facility] Calcium, External 8.6 8.5 - 10.1 [facility] Chloride, External 105 98 - 107 [facility] CO2, External 30.3 21 - 32 [facility] Creatinine, External 0.8 0.55 - 1.02 [facility] Fasting?, External [facility] Potassium, External 3.7 3.5 - 5.1 [facility] Sodium, External 141 136 - 145 [facility] Total Protein, External 6.6 6.4 - 8.2 [facility] Bilirubin, Total, External 0.5 0.2 - 1.0 [facility] Blood VENOUS BLOOD / Unknown 09/05/2021 Susan Santana MD CHEMISTRY & BLOO D GAS ORDERABLES [facility] * (ABNORMAL) C REACTIVE PROTEIN (09/05/2021) Pathologist [facility] C-Reactive Protein, External 2.60(A) 0.0 - 0.3 mg/dL [facility] Blood VENOUS BLOOD / Unknown 09/05/2021 Susan Santana MD CHEMISTRY & BLOO D GAS ORDERABLES [facility] documented in this encounter Visit Diagnoses Not on filedocumented in this encounter Care Teams Grade Foreman Relationship Specialty Start Date End Date Connie Kemp MD [address] [place] [phone] PCP - General 06/24/19 documented as of this encounter
--- OUTSIDE RECORDS SUMMARY | 2024-01-16 14:26 | XMS_ITS | Encounter Summary ---
Author Organization [facility] Address [address] [place] [address] Care Team Providers Care Life Educator Name Role Phone Connie Kemp MD Primary Care Provider [phone] Encounter Details Date Type Department Care Team (Late Contact Info) Description 03/14/2022 Abstract [facility] Rheumatology [address] [place] [address] Vandana Wheeler RN Social History Tobacco [...] Contact Info) Description 04/27/2024 8:45 EST Telemedicine [facility] Rheumatology [address] [place] [address] Susan Santana MD 130 [facility] [address] [place] [address] documented as of this encounter Procedures Procedure Name Priority Date/Time Associated Diagnosis Comments COMPLETE BLOOD COUNT AND DIFFERENTIAL Routine 03/11/2022 COMPREHENSIVE METABOLIC PANEL (CMP) Routine 03/11/2022 documented in this encounter Results * COMPLETE BLOOD COUNT AND DIFFERENTIAL (03/11/2022) WBC, External 9.09 4.4 - 10.8 [facility] RBC, External 4.83 3.93 - 5.22 [facility] Hemoglobin, External 14.1 11.2 - 15.7 [facility] HCT, External 42.8 36.0 - 46.0 [facility] MCV, External 89 80 - 95 [facility] MCH, External 29.2 27.0 - 33.0 [facility] MCHC, External 32.9 32.0 - 36.0 [facility] PLT, External 324 130 - 400 [facility] RDW-CV, External 14.0 11.7 - 14.6 [facility] Neutrophils, External [facility] Lymphocytes, External [facility] Monocytes, External [facility] Eosinophils, External [facility] Basophils, External [facility] ABS Neutrophils, External [facility] ABS Lymphs, External [facility] Monocytes, External [facility] ABS Eosinophils, External [facility] ABS Basophils, External [facility] Blood VENOUS BLOOD / Unknown 03/11/2022 Susan Santana MD PACKAGES & DNA P MEET ORDERABLES [facility] * COMPREHENSIVE METABOLIC PANEL (CMP) (03/11/2022) GFR, Calculated, External 109.30 [facility] Glucose, Serum, External 104 74 - 106 [facility] Albumin, External 3.6 3.4 - 5.0 [facility] Total Alkaline Phosphatase, External 95 46 - 116 [facility] ALT, External 48 14 - 59 [facility] AST, External 23 15 - 37 [facility] BUN, External 10 7 - 18 [facility] Calculated Calcium, External [facility] Calcium, External 9.2 8.5 - 10.1 [facility] Chloride, External 105 98 - 107 [facility] CO2, External 28.6 21.0 - 32.0 [facility] Creatinine, External 0.7 0.55 - 1.02 [facility] Fasting?, External [facility] Potassium, External 4.0 3.5 - 5.1 [facility] Sodium, External 141 136 - 145 [facility] Total Protein, External 7.8 6.4 - 8.2 [facility] Bilirubin, Total, External 0.7 0.2 - 1.0 [facility] Blood VENOUS BLOOD / Unknown 03/11/2022 Susan Santana MD CHEMISTRY & BLOO D GAS ORDERABLES [facility] documented in this encounter Visit Diagnoses Not on filedocumented in this encounter Care Teams Life Educator Relationship Specialty Start Date End Date Connie Kemp MD [address] [place] [phone] PCP - General 06/24/19 documented as of this encounter
--- OUTSIDE RECORDS SUMMARY | 2024-01-16 14:26 | XMS_ITS | Encounter Summary ---
Author Organization [facility] Address [address] [place] [address] Care Team Providers Care Correctional Case Manager Name Role Phone Connie Kemp MD Primary Care Provider [phone] Encounter Details Date Type Department Care Team ([facility] st Contact Info) Description 11/29/2022 Orders Only [facility] Rheumatology [address] [place] [address] Vandana Wheeler RN Rheumatoid arthritis involving multiple sites with positive rheumatoid factor ([facility]) (Primary Dx); High risk medication use Social History Tobacco Use Types Packs/Day Years [...] as of this encounter Progress Notes * Vandana Wheeler, RN - 11/29/2022 0852 EDT [facility] standing lab orders renewed. documented in this encounter Plan of Treatment Upcoming Encounters Date Type Department Care Team (Late st Contact Info) Description 04/27/2024 8:45 EST Telemedicine [facility] Rheumatology [address] [place] [address] Susan Santana MD 130 [facility] [address] [place] [phone] documented as of this encounter Visit Diagnoses Diagnosis Rheumatoid arthritis involving multiple sites with positive rheumatoid factor ([facility] Primary High risk medication use Encounter for long-term (current) use of other medications documented in this encounter Care Teams Correctional Case Manager Relationship Specialty Start Date End Date Connie Kemp MD [address] [place] [phone] PCP - General 06/24/19 documented as of this encounter
--- OUTSIDE RECORDS SUMMARY | 2024-01-16 14:26 | XMS_ITS | Data Portability ---
Author Organization [facility], [facility] Address [address] [place] [address] Assessment Encounter Date Assessment Date Assessment LastModified by Organization Details LastModified Time 06/16/2023 06/16/2023 The total time devoted to today's encounter, including both the pcnv-oa-zvkz time with the patient and/or family/caregi nicole and fvj-zekh-pu-f steve time I personally spent is 32 minutes. Not available 06/16/2023 16:01:56 Plan of Treatment Reminders Order Date Submit Date Provider Last Modified By Organization Details Last Modified Time Details Appointments Follow Up 20 2024 08:20A M Not available Not available Not available Lab fecal occult blood, immunoass ay, stool 2023 024 [email or web address] [facility], [address], [place], [address], 06/24/2023 16:48:29 Referral sleep medicine referral - she registere d her recalled CPAP machine but has never heard about getting a new one- I believe she is due to be seen. If not due, perhaps your office can help her get her machine replaced, as it is working well. 2023 024 [email or web address] Hidalgo MD, [address], [place], [address], 07/15/2023 14:40:46 Procedures None recorded. Surgeries None recorded. Imaging None recorded. Medication Orders metoprolo l succinate ER 25 mg tablet,ex tended release 24 hr 2023 024 [facility], [address] [place] [address] [place], [address], 06/16/2023 15:57:[address] 10 mg tablet 2023 024 [email or web address] [facility], [address] [place] [address] [place], [address], 09/25/2023 09:58:31 medroxypr ogesteron e 10 mg tablet 2023 024 [facility], [address] [place] [address] [place], [address], 06/16/2023 15:58:02 folic acid 1 mg tablet 2023 024 [facility], [address] [place] [address] [place], [address], 06/16/2023 15:57:40 Patient TargetsNo targets recorded. Patient Instructions Encounter Date Encounter Id Patient Instructions Last Modified By Organization Details Last Modified Time 06/16/2023 [id number] diet [email or web address] Not available 06/16 16:04:18 12/12/2023 [id number] diet [email or web address] Not available 12/11 14:49:52 Reason for Referral Sleep Medicine Referral for Obstructive sleep apnea syndrome she registered her recalled CPAP machine but has never heard about getting a new one- I believe she is due to be seen. If not due, perhaps your office can help her get her machine replaced, as it is working well. Referring Physician: Connie Kemp, Family Medicine, Encounter Date: 06/16/2023 Results Created Date Observation Date Name Description Value Unit Range Abnormal Flag LastModifiedBy Organization Detail LastModifiedTime 06/12/19 24 06/12/2023 HEMOG LOBIN A1C hemoglobin A1C 5.4 % <5.7 Not Available [address] [place], [address] 06/12/2023 16:29:08 06/12/19 24 06/12/2023 COMPL ETE BLOOD COUNT NO DIFF WBC 10.10 10_3/ uL 4.4-10 .8 normal Not Available [address] [place], [address] 06/12/2023 16:34:07 06/12/19 24 06/12/2023 COMPL ETE BLOOD COUNT NO DIFF RBC 4.70 10_6/ uL 3.93-5 .22 normal Not Available [address] [place], [address] 06/12/2023 16:34:07 06/12/19 24 06/12/2023 COMPL ETE BLOOD COUNT NO DIFF HGB 13.6 g/dL 11.2-1 5.7 normal Not Available [address] [place], [address] 06/12/2023 16:34:07 06/12/19 24 06/12/2023 COMPL ETE BLOOD COUNT NO DIFF HCT 41.6 % 36.0-4 6.0 normal Not Available [address] [place], [address] 06/12/2023 16:34:07 06/12/19 24 06/12/2023 COMPL ETE BLOOD COUNT NO DIFF MCV 89 fL 80-95 normal Not Available [address] [place], [address] 06/12/2023 16:34:07 06/12/19 24 06/12/2023 COMPL ETE BLOOD COUNT NO DIFF MCH 28.9 pg 27.0-3 3.0 normal Not Available [address] [place], [address] 06/12/2023 16:34:07 06/12/19 24 06/12/2023 COMPL ETE BLOOD COUNT NO DIFF MCHC 32.7 % 32.0-3 6.0 normal Not Available [address] [place], [address] 06/12/2023 16:34:07 06/12/19 24 06/12/2023 COMPL ETE BLOOD COUNT NO DIFF RDW 14.0 % 11.7-1 4.6 normal Not Available [address] [place], [address] 06/12/2023 16:34:07 06/12/19 24 06/12/2023 COMPL ETE BLOOD COUNT NO DIFF platelet count 303 10_3/ uL 130-40 0 normal Not Available [address] [place], [address] 06/12/2023 16:34:07 06/12/19 24 06/12/2023 COMPL ETE BLOOD COUNT NO DIFF MPV 8.9 fL 8.0-11 .0 normal Not Available [address] [place], [address] 06/12/2023 16:34:07 06/12/19 24 06/12/2023 COMPR EHENS NORAH METAB OLIC PANEL calcium 9.5 mg/dL 8.5-10 .1 normal Not Available [address] [place], [address] 06/12/2023 17:09:08 06/12/19 24 06/12/2023 COMPR EHENS NORAH METAB OLIC PANEL glucose 87 mg/dL 74-106 normal Not Available [address] [place], [address] 06/12/2023 17:09:08 06/12/19 24 06/12/2023 COMPR EHENS NORAH METAB OLIC PANEL BUN 15 mg/dL 7-18 normal Not Available [address], [address] 06/12/2023 17:09:08 06/12/19 24 06/12/2023 COMPR EHENS NORAH METAB OLIC PANEL creatinine 0.8 mg/dL 0.55-1 .02 normal Not Available [address] [place], [address] 06/12/2023 17:09:08 06/12/19 24 06/12/2023 COMPR EHENS NORAH METAB OLIC PANEL estimated GFR 91.97 mL/min /1.73m 2 Not Available [address] [place], [address] 06/12/2023 17:09:08 06/12/19 24 06/12/2023 COMPR EHENS NORAH METAB OLIC PANEL total protein 7.5 g/dL 6.4-8. 2 normal Not Available [address] [place], [address] 06/12/2023 17:09:08 06/12/19 24 06/12/2023 COMPR EHENS NORAH METAB OLIC PANEL albumin 3.6 g/dL 3.4-5. 0 normal Not Available [address] [place], [address] 06/12/2023 17:09:08 06/12/19 24 06/12/2023 COMPR EHENS NORAH METAB OLIC PANEL bilirubin, total 0.6 mg/dL 0.2-1. 0 normal Not Available [address] [place], [address] 06/12/2023 17:09:08 06/12/19 24 06/12/2023 COMPR EHENS NORAH METAB OLIC PANEL alk phos 87 U/L 46-116 normal Not Available [address] [place], [address] 06/12/2023 17:09:08 06/12/19 24 06/12/2023 COMPR EHENS NORAH METAB OLIC PANEL sodium 139 mmol/ L 136-14 5 normal Not Available [address] [place], [address] 06/12/2023 17:09:08 06/12/19 24 06/12/2023 COMPR EHENS NORAH METAB OLIC PANEL potassium 3.7 mmol/ L 3.5-5. 1 normal Not Available [address] [place], [address] 06/12/2023 17:09:08 06/12/19 24 06/12/2023 COMPR EHENS NORAH METAB OLIC PANEL chloride 105 mmol/ L 98-107 normal Not Available [address] [place], [address] 06/12/2023 17:09:08 06/12/19 24 06/12/2023 COMPR EHENS NORAH METAB OLIC PANEL CO2 27.7 mmol/ L 21.0-3 2.0 normal Not Available [address] [place], [address] 06/12/2023 17:09:08 06/12/19 24 06/12/2023 COMPR EHENS NORAH METAB OLIC PANEL anion gap 6.3 mmol/ L 3-11 normal Not Available [address] [place], [address] 06/12/2023 17:09:08 06/12/19 24 06/12/2023 COMPR EHENS NORAH METAB OLIC PANEL AST 19 U/L 15-37 normal Not Available [address] [place], [address] 06/12/2023 17:09:08 06/12/19 24 06/12/2023 COMPR EHENS NORAH METAB OLIC PANEL ALT 42 U/L 14-59 normal Not Available [address], [address] 06/12/2023 17:09:08 06/24/19 24 06/24/2023 fecal occul t blood , immun oassa y, stool iFOB negati ve Not Available [facility] [address], [place], [address], 06/24/2023 13:13:47 Result Notes None recorded. Problems Name Status Onset Date Resolution Date Notes Provider Name and Address Organization Details Recorded Time Attention deficit hyperactivity disorder, predominantly inattentive type Active [address], [place], [address] , [facility]. 4 14:16:25 Supraventricu lar tachycardia Active 2006 well controlled with betablocker MD [address], [place], [address] , [facility]. 3 15:22:24 Past history of complication of , childbirth and/or puerperium Completed 200705/15/2023 macrosomal MD [address], [place], [address] , [facility]. 3 15:16:36 Obesity Active 2007 Trial topirmate in 08/2021- took for only a month, does not appear ever filled the phentermine. MD [address], [place], [address] , [facility] 4 14:54:41 Polycystic ovary syndrome Active 2010 and AUB (abnormal uterine bleeding), [facility], chronic medroxyproges terone MD [address], [place], [address] , [facility] 3 15:23:17 Pain of right wrist Completed 201403/24/2015 02/24/2015 - Comments only - Connie Kemp MD - Consistent with strain, continued to wear splint and use as tolerated, to call for referral to physical therapy if not improving over the last few weeks. Problem Code: M25.531; Problem Code Type: ICD-10; Not Available [facility] 3 04:52:11 Conjunctiviti s Completed 201510/13/2015 Problem Code: H10.9; Problem Code Type: ICD-10; Not Available [facility] 3 04:52:12 Traumatic or non-traumatic injury Completed 201609/15/2016 08/16/2016 - Comments only - Connie Kemp MD - start flexeril, continue advil, referral to PT. Problem Code: T14.8; Problem Code Type: ICD-10; Not Available [facility] 3 04:52:12 Hand pain Completed 201612/28/2016 Problem Code: M79.643; Problem Code Type: ICD-10; Not Available [facility] 3 04:52:12 Pain of right wrist Completed 201612/28/2016 11/28/2016 - Comments only - Connie Kemp MD - and hand pain. Describes transient episode of significant swelling and stiffness, but no persistent am stiffness. Pain in wrist and MCP, but also in PIP joints. Will check labs today as noted below. Continue for now with NSAIDS-tyleno l. Problem Code: M25.531; Problem Code Type: ICD-10; Not Available [facility] 3 04:52:12 Bilateral earache Completed 201612/28/2016 11/28/2016 - Comments only - Connie Kemp MD - Normal exam. No OM or External otitis. Reassurance, avoid qtips in ears. Problem Code: H92.03; Problem Code Type: ICD-10; Not Available [facility] 3 04:52:12 Rheumatoid arthritis Active 2016 Methotrexate- q 6 month-CBC, CMP, CRP. 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 History and presentation consistent with allergic reaction (likely caused by new vitamins). Advised pt to take Zyrtec BID and use symptomatic mgmt (cool compress, avoiding eye makeup). Educated on red flag s/sx requiring emergency care. Problem Code: H57.89; Problem Code Type: ICD-10; Not Available [facility] 3 04:52:13 Obstructive sleep apnea syndrome Active 2019 Uses CPAP MD [address], [place], [address] , [facility] 3 15:17:15 Varicose ulcer of lower extremity Completed 201905/19/2020 05/11/2020 - Comments only - Kirk Langley MD - Ulcer about the same size, though some increased granulation. Discussed should avoid steroid cream to area. I think itch and square-shaped inflammation around wound is local reaction to neomycin in triple abx ointment. Change to just vasoline. Continue compression, bandage, and pentoxifyllin e. If not improving in the next 1-2 months, should refer to wound clinic Problem Code: I83.009; Problem Code Type: ICD-10; Not Available [facility] 3 04:52:13 Screening for disorder Completed 201903/16/2020 Problem Code: Z13.9; Problem Code Type: ICD-10; Not Available [facility] 3 04:52:13 Prediabetes Active 2021 hx of macrosomic , A1C 5.9-6.1 in 2021, normal 10/[address], [place], [address] , [facility]. 3 15:21:29 Screening for malignant neoplasm of breast Completed 202205/15/2023 Problem Code: Z12.39; Problem Code Type: ICD-10; MD [address], [place], [address] , [facility] 3 15:22:09 Abscess of right axilla Completed 202205/15/2023 Problem Code: L02.411; Problem Code Type: ICD-10; MD [address], [place], [address] , [facility] 3 14:55:10 Cough Completed 202201/17/2023 Problem Code: R05.8; Problem Code Type: ICD-10; Not Available [facility] 3 04:52:14 Urticaria Completed 202205/15/2023 01/07/2023 - Comments only - Cassandra Doran [employer] H[employer]ENING [employer]TER - prednisone taper RXd for likely allergic reaction to some type of dye or cartridge filler OTC?nyquil off brand she has appointment already scheduled with [facility] for testing, Dr. Rucker. She will call if things worsen or no improvement on prednisone taper. Problem Code: L50.9; Problem Code Type: ICD-10; CONNIE KEMP MD [address], [place], [address] , [facility] 3 15:22:29 Localized infection of skin AND/OR subcutaneous tissue Completed 202009/05/2021 Problem Code: L08.9; Problem Code Type: ICD-10; Not Available [facility] 3 04:52:14 Eczema Completed 201909/05/2021 Problem Code: L30.9; Problem Code Type: ICD-10; Not Available [facility] 3 04:52:14 Hypertrophic condition of skin Completed 202111/15/2022 Problem Code: L91.8; Problem Code Type: ICD-10; Not Available [facility] 3 04:52:14 Polycystic ovaries Completed 201002/19/2023 Not Available [facility] 3 04:52:15 Snoring Completed 201908/06/2019 Problem Code: R06.83; Problem Code Type: ICD-10; Not Available [facility] 3 04:52:15 Edema Completed 201511/28/2016 Problem Code: R60.9; Problem Code Type: ICD-10; Not Available [facility] 3 04:52:15 Cough Completed 202009/05/2021 Problem Code: R05; Problem Code Type: ICD-10; Not Available [facility] 3 04:52:15 Localized eruption of skin Completed 201611/28/2016 Problem Code: R21; Problem Code Type: ICD-10; Not Available [facility] 3 04:52:15 Traumatic or non-traumatic injury Completed 201405/22/2017 Problem Code: T14.90; Problem Code Type: ICD-10; Not Available [facility] 3 04:52:16 Blood chemistry outside reference range Completed 202111/15/2022 Problem Code: R79.89; Problem Code Type: ICD-10; Not Available [facility] 3 04:52:16 Burn Completed 201706/14/2019 Problem Code: T30.0; Problem Code Type: ICD-10; Not Available [facility] 3 04:52:16 Menometrorrha julianne Completed 201505/22/2017 Not Available [facility] 3 04:52:17 Pelvic and perineal pain Completed 201505/22/2017 Problem Code: R10.2; Problem Code Type: ICD-10; Not Available [facility] 3 04:52:17 Exposure to communicable disease Completed 202009/05/2021 Problem Code: Z20.828; Problem Code Type: ICD-10; Not Available [facility] 3 04:52:17 Traumatic or non-traumatic injury Completed 201611/28/2016 Problem Code: T14.8; Problem Code Type: ICD-10; Not Available [facility] 3 04:52:17 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 3 15:15:52 Pain of left wrist Active 2022 Problem Code: M25.532; Problem Code Type: ICD-10; Not Available [facility] 4 05:34:16 Problem Notes None recorded. Medical Equipment None Reported. Allergies Allergen ID Allergen Name Allergen Category Reaction Reaction Severity Criticality Documentation Date Start Date Code Code System Note Provider Name and Address Organization Details Recorded Time 71277 wasp venoms environme nt Not available Not available Not available 04/04/20232005 80030 RxNorm Aller gyNam e: 'BEE STING S'; Not Available [facility] 3 16:26:22 Medications Name Sig Start Date Stop Date Status Note LastModified by Organization Details LastModified Time cyclobenz aprine 10 mg tablet Take 1 tablet 3 times a day by oral route as needed. 2023 active ER visit #20 given 0 RF Not Available Not Available Not Available furosemid e 40 mg tablet Take 1 tab by mouth daily 06/14 completed Not Available Not Available Not Available medroxypr ogesteron e 10 mg tablet Take 1 tablet every day by oral route. active Not Available Not Available No t Available Augmentin 875 mg-125 mg tablet Take 1 tab by mouth twice daily. 07/07 completed Not Available Not Available Not Available prednison e 10 mg tablet Take 4 tabs for 3 days; then 3 tabs for 3 days , then 2 tabs for 3 days; then 1 tab for 3 days. Take with breakfas t. 05/15 completed Not Available Not Available Not Available doxycycli ne hyclate 100 mg capsule 1 capsule by mouth twice a day 12/24 completed Not Available Not Available Not Available Concerta 18 mg tablet,ex tended release 1tab .daily before noon * 08/25 completed Not Available Not Available Not Available ofloxacin 0.3 % eye drops 1-2 drops four times daily for 5-7 days 09/05 completed Not Available Not Available Not Available valacyclo vir 1 gram tablet 2 gram by mouth every twelve hours 12/17 completed Not Available Not Available Not Available prednison e 20 mg tablet Take by mouth once a day as directed 2 tabs daily x 5 days, then 1 tab daily x 5 days, and disconti nue 12/10 completed Not Available Not Available Not Available phentermi ne 15 mg capsule Take 1 capsule by mouth once a day Fill at Hanna tenorio only, max one capsule daily 12/10 completed Called to pharmacy Not Available Not Available Not Available topiramat e 25 mg tablet Take 1 tablet by mouth twice a day for 2 weeks, then 50 mg BID 09/19 completed Not Available Not Available Not Available triamcino lone acetonide 0.1 % topical cream Apply to skin twice a day 09/05 completed Not Available Not Available Not Available pentoxify lline ER 400 mg tablet,ex tended release one po TID to help wound healing 01/08 completed Not Available Not Available Not Available Aerochamb er MV spacer Use 1 device as directed use with inhaler 06/16 completed Not Available Not Available Not Available methotrex ate sodium 2.5 mg tablet TAKE 8 TABLETS BY MOUTH ONCE A WEEK active Not Available Not Available No t Available Bactroban 2 % topical ointment apply three times a day to rash on chest 06/28 completed Not Available Not Available Not Available Concerta 54 mg tablet,ex tended release 1tab QD 08/25 completed Not Available Not Available Not Available cephalexi n 500 mg capsule Take 1 tablet by mouth four times a day 01/08 completed Not Available Not Available Not Available erythromy katie 5 mg/gram (0.5 %) eye ointment Apply to affected eye(s) every four hours as directed 10/04 completed Not Available Not Available Not Available metoprolo l tartrate 50 mg tablet 1 TAB BID 05/03 completed Not Available Not Available Not Available cephalexi n 500 mg tablet Take 1 tab by mouth four times daily 2020 active Not Available Not Available Not Avai lable folic acid 1 mg tablet Take 1 tablet every day by oral route. active Not Available Not Available No t Available monteluka st 10 mg tablet Take 1 tablet by mouth once a day as needed active Not Available Not Available No t Available metoprolo l succinate ER 25 mg tablet,ex tended release 24 hr Take 0.5 tablets every day by oral route. active Not Available Not Available No t Available epinephri ne 0.3 mg/0.3 mL injection , auto-inje ctor EVERY 5 TO 15 MINUTES NEEDED. NOT TO EXCEED 3 DOSES PER EPISODE active Not Available Not Available No t Available ibuprofen 600 mg tablet 1CAP three times daily 05/22 completed Not Available Not Available Not Available propranol ol 20 mg tablet Take 1 tab twice daily 06/14 completed Not Available Not Available Not Available doxycycli ne hyclate 100 mg tablet Take 1 tab by mouth twice daily 2020 active Not Available Not Available Not Avai lable Bactrim DS 800 mg-160 mg tablet Take 1 tablet by mouth twice a day 12/17 completed Not Available Not Available Not Available Florastor 250 mg capsule take 1 capsule two times a day 2020 active Not Available Not Available Not Avai lable topiramat e 50 mg tablet Take 1 tablet by mouth twice a day 12/10 completed Not Available Not Available Not Available ProAir HFA 90 mcg/actua tion aerosol inhaler 2 puff every four to six hours as directed 2020 active Not Available Not Available Not Avai lable Symbicort 80 mcg-4.5 mcg/actua tion HFA aerosol inhaler INHALE 1 PUFF BY MOUTH TWICE DAILY AT ONSET FOR UPPER RESPIRAT ORY INFECTIO N active Not Available Not Available No t Available Vyvanse 70 mg capsule 1tab daily 02/05 completed Not Available Not Available Not Available Vyvanse 40 mg capsule 1tab daily 01/14 completed Not Available Not Available Not Available Claritin Liqui-Gel [address] Azar Not Available Not Available Not Available colchicin e 0.6 mg capsule Take 1 cap by mouth daily for mouth sores 2019 active Not Available Not Available Not Avai lable Flonase Allergy Relief 50 mcg/actua tion nasal spray,snow pension 1 spray each side 2 times a day [address] Azar Not Available Not Available Not Available BinaxNOW COVID-19 Ag Self Test kit TEST DIRECTED TODAY 06/16 completed Not Available Not Available Not Available Vitals Date Recorded Body height Body mass index (BMI) Body weight Body temperature Respiratory rate Heart rate Systolic blood pressure Diastolic blood pressure Provider Name and Address Organization Details Last Updated DateTime 4 160.02 cm 52.1 kg/m2 100672. 16 g 97.8 [degF] 18 /min 72 /min 120 mm[Hg] 74 mm[Hg] CHAYITO CLEMENTS LPN [facility] 13:55:51 Date Recorded Body height Body mass index (BMI) Body weight Body temperature Respiratory rate Heart rate Systolic blood pressure Diastolic blood pressure Provider Name and Address Organization Details Last Updated DateTime 160.02 cm 53.3 kg/m2 569014. 3 g 98.8 [degF] 16 /min 70 /min 124 mm[Hg] 66 mm[Hg] CHAYITO CLEMENTS LPN [facility] 14:24:36 Social History Question Answer Notes LastModified by Organizat ion Details LastModified Time Tobacco Smoking Status Never Smoker CONNIE KEMP MD [address], [place], [address], [facility] 06/16/2023 14:22:49 What Was The Date Of Your Most Recent Tobacco Screening? 12/12/2023 Information not available 12/12/2023 Has Tobacco Cessation Counseling Been Provided? No Information not available 12/12/2023 Do You Or Have You Ever Used Any Other Forms Of Tobacco Or Nicotine? No Information not available 06/16/2023 Sex: Female Functional Status None recorded. Mental Status None recorded. Family History Relationship Description Onset Age of this Age Resolved Age Notes Father Family history of alcoholism Notes:*Problem: Reviewed 202 0 Mother: alive age 63 Father: alive age 66 many sibs, 3 full, others half sibs through her father. Sisters: 4Brothers: 6 Children: 3 Family History of: Coronary heart disease: Paternal aunt and paternal GM CAD Diabetes mellitus: yes maternal GM Breast cancer: no Colorectal cancer: no Alcoholism: yes Father Medical History No medical history recorded. Gynecological HistoryNo gynecological history recorded. Obstetrics History GPAL:G 0 P 0 0 0 0 Immunizations Vaccine Type Date Status Provider Name and Address Organization Details Recorded Time Tdap 12/10/2021 completed Not Available [facility] 06:14:52 Tdap 03/21/2008 completed Not Available [facility] 06:14:52 Td(adult) unspecified formulation 02/24/1998 completed Not Available [facility] 04/04/2023 06:14:52 Influenza, split virus, quadrivalent, PF 03/13/2018 completed Not Available [facility] 04/04/2023 06:14:52 SARS-COV-2 (COVID-19) vaccine, UNSPECIFIED 06/13/2021 completed Not Available [facility] 04/04/2023 06:14:52 Hep B, unspecified formulation 05/26/1993 completed Not Available [facility] 04/04/2023 06:14:53 Hep B, unspecified formulation 12/24/1994 completed Not Available [facility] 04/04/2023 06:14:53 Hep B, unspecified formulation 03/17/1998 completed Not Available [facility] 04/04/2023 06:14:53 influenza, unspecified formulation 02/15/2011 completed Not Available [facility] 04/04/2023 06:14:53 influenza, unspecified formulation 03/02/2008 completed Not Available [facility] 04/04/2023 06:14:53 MMR 11/28/2022 completed Not Available [facility] 05:31:08 MMR 01/22/2023 completed Not Available [facility] 05:31:08 COVID-19, mRNA, LNP-S, PF, 100 mcg/0.5mL dose or 50 mcg/0.25mL dose 08/17/2020 completed Not Available [facility] 06/06/19 05:31:10 COVID-19, mRNA, LNP-S, PF, 100 mcg/0.5mL dose or 50 mcg/0.25mL dose 09/14/2020 completed Not Available [facility] 06/06/19 05:31:10 Past Encounters Encounter ID Performer Location Encounter Start Date Encounter Closed Date Diagnosis/Indication Diagnosis SNOMED-CT Code [id number] CONNIE KEMP MD [facility] [address] [place] [address] 06/16/2023 13:31:55 06/16/2023 14:45:47 Rheumatoid arthritis 19383410 Obstructiv e sleep apnea syndrome 35449670 Allergic rhinitis 393439 04 Polycystic ovary syndrome [id number] Supraventr icular tachycardia 6343736 Screening for malignant neoplasm of colon 394814662 Obesity [id number] Kiersten Brizuela RN [facility] [address] [place] [address] 06/23/2023 15:15:53 08/05/2023 07:09:08 Screening for malignant neoplasm of colon [id number] CONNIE KEMP MD [facility] [address] [facility] [place] [address] 12/12/2023 14:14:01 12/12/2023 14:51:23 Obesity 156004374 Obstructiv e sleep apnea syndrome 02667382 Health Concerns Section Related Observation LastModified by Organization Detai ls LastModified Time None Recorded Concern Status LastModified by Organization Details LastModified Time None Recorded Advance Directives Directive None Recorded Payers Encounter Date Sequence Insurance Name Policy Number Policy Phan Covered Member ID Phan Member ID Guarantor Name 06/16/2023 1 [employer] (MEDICAID) Chelsi Hernandez [id number] Chelsi Hernandez 06/23/2023 1 [facility] (MEDICAID) Chelsi Hernandez [id number] Chelsi Hernandez 12/12/2023 1 [facility] (MEDICAID) Chelsi Hernandez [id number] Chelsi Hernandez Notes Date Note Type Note Provider Name and Address Organization Details Recorded Time 06/16/2023 text/html HPI Notes: Here for follow up of multiple problems as noted below: Had an infected sebaceous cyst right axillae last summer removed by general surgery. She saw general surgery 04/07/23 for wound care, old incision in her right axilla. They did not feel that she needed another excision. Will request note. ER visit in late November with [facility]- saw Dr. Rucker since then, testing for allergy to red dye was negative. Met with ENT 12/2022 to discuss further allergy testing to consider immunotherapy. She did start her allergy shots, but has had a hard time scheduling them consistently. Hopes to request weekly appt at same time every week... Prediabetes. noted by A1C back in 02/2020, A1C 5.5 in October 2022 and recently still down at 5.4% Has been working on lower carb diet and slow weight loss. Has lost 35 pounds since her high weight 3 years ago. Obstructive sleep apnea-on CPAP. Uses CPAP, but has not had her machine replaced yet... recommended that she call her equipment provider to discuss. Still using her old machine. Rheumatoid arthritis, chronic, 11/2016, very high CCP. Had labs recently and has follow up with rheumatology coming up and q 6 months. Well controlled with the methotrexate. Supraventricular tachycardia. well controlled with betablocker which she will continue. Obesity. Has been losing weight very slowly over the last year or two. Down 40 pounds. Has multiple complications including sleep apnea, venous stasis, and prediabetes. I recommended medication- Used topiramate- phentermine: did not find it helpful. Very busy chasing toddler's. MD [address], [place], [address], [facility]. 06/16/2023 16:04:38 12/12/2023 text/html HPI Notes: Here for follow up of multiple problems as noted below: No new concerns. Everything is going well Two small children 18 months apart, older one is adopted. Second one in the process. She has not contacted the silk trimmer yet about resuming her regular allergy shots. Obesity- weight up a few pounds, but Her clothing is fitting looser. She was taking a supplement that kept her bowels regular, feels that was very helpful, but it was $80 per month so she stopped. Wants to wait on restart phentermine topiramate for now. Very active at [facility] kitchen, and with her two little ones. Very busy, trying to eat something fast in the morning. Has cut back on diaz, several cookies a day at [facility]. Was more intentional in the past. MD [address], [place], [address], [facility]. 12/12/2023 14:55:12 OBGyn Episode No OBEpisode recorded.
--- OUTSIDE RECORDS SUMMARY | 2024-01-16 14:26 | XMS_ITS | Encounter Summary ---
Author Organization [facility] Address [address] [place] [address] Care Team Providers Care Computer Systems Support Specialist Name Role Phone Connie Kemp MD Primary Care Provider [phone] Reason for Visit * Reason Onset Date Comments Medications Refill 03/19/2022 Encounter Details Date Type Department Care Team ([facility] st Contact Info) Description 03/19/[address] [facility] Rheumatology [address] [place] [address] Susan Santana MD [address] [place] [address] [address] [place] [phone] Medications Refill Social History Tobacco Use Types [...] by mouth once a week. 78 Tablet 03/19/2022 05/24/2022 methotrexate 2.5 mg tabletIndications:Rheuma toid arthritis involving multiple sites with positive rheumatoid factor (HCC-CMS) Take 6 tablets by mouth once a week. 72 Tablet 03/19/2022 03/19/2022 documented in this encounter Miscellaneous Notes * Addendum Note - Matt Wheeler RN - 03/19/2022 1537 EDTAddended by: MATT WHEELER on: 03/19/2022 15:37 Modules accepted: Orders * Telephone Encounter - Matt Wheeler RN - 03/19/2022 1129 EDT Received faxed refill request from [facility] for methotrexate. Last visit note reviewed. Labs up todate. No follow up scheduled at this time but is overdue. Attempts made to reach patient to schedule on 03/14. Reached out to patient again and was able to reach her and scheduled her for 05/24. Rx sent as noted to get her to that appointment. documented in this encounter Plan of Treatment Upcoming Encounters Date Type Department Care Team (Late st Contact Info) Description 04/27/2024 8:[address] [facility] Rheumatology [address] [place] [phone] Susan Santana MD [address] [place] [address] [address] [place] [phone] documented as of this encounter Visit Diagnoses Diagnosis Rheumatoid arthritis involving multiple sites with positive rheumatoid factor (HCC-CMS)- Primary documented in this encounter Discontinued Medications Medication Sig Discontinue Reason Start Date End Da te methotrexate 2.5 mg tabletIndications:Rheuma toid arthritis involving multiple sites with positive rheumatoid factor (HCC-CMS) Take 6 tablets by mouth once a week. Reorder 09/14/2021 03/19/2022 methotrexate 2.5 mg tabletIndications:Rheuma toid arthritis involving multiple sites with positive rheumatoid factor ([facility]) Take 6 tablets by mouth once a week. Reorder 03/19/2022 03/19/2022 documented as of this encounter Care Teams Computer Systems Support Specialist Relationship Specialty Start Date End Date Connie Kemp MD [address] [place] [phone] PCP - General 06/24/19 documented as of this encounter
--- OUTSIDE RECORDS SUMMARY | 2024-01-16 14:26 | XMS_ITS | Encounter Summary ---
Author Organization [facility] Address [address] [place] [address] Care Team Providers Care Teacher Cclc Name Role Phone Connie Kemp MD Primary Care Provider [phone] Reason for Visit * Reason Onset Date Comments Medications Refill 07/05/2021 Faxed refill request for MTX from [facility]. Encounter Details Date Type Department Care Team ([facility] st Contact Info) Description 07/05/2021 Refill [facility] Rheumatology [address] [place] [phone] Asha Ambrocoi RN Medications Refill (Faxed refill request for MTX from [facility].) Social History Tobacco Use Types Packs/Day Years [...] by mouth once a week. 72 Tablet 1 07/06/2021 09/14/2021 documented in this encounter Miscellaneous Notes * Telephone Encounter - Asha Ambrocio RN - 07/05/2021 1011 EST DMARD labs done 03/16/21 showed elevated AST and ALT so LFTs were ordered. These were done end of April and are in scans. One liver test is still slightly elevated. I called Chelsi and reminded her that DMARDs area swain end of July with agreement expressed to get them done. Is it OK to refill MTX? Rx pended. documented in this encounter Plan of Treatment Upcoming Encounters Date Type Department Care Team (Late st Contact Info) Description 04/27/2024 8:45 EST Telemedicine [facility] Rheumatology [address] [place], [place] [phone] Susan Santana MD [address] [facility] [address] [place] [phone] documented as of this encounter Visit Diagnoses Diagnosis Rheumatoid arthritis involving multiple sites with positive rheumatoid factor ([facility])- Primary documented in this encounter Discontinued Medications Medication Sig Discontinue Reason Start Date End Da te methotrexate 2.5 mg tabletIndications:Rheuma toid arthritis involving multiple sites with positive rheumatoid factor (HCC-CMS) Take 6 tablets by mouth once a week. Reorder 05/16/2021 07/05/2021 documented as of this encounter Care Teams Teacher Cclc Relationship Specialty Start Date End Date Connie Kemp MD [address] [phone] PCP - General 06/24/19 documented as of this encounter
--- OUTSIDE RECORDS SUMMARY | 2024-01-16 14:26 | XMS_ITS | Encounter Summary ---
Author Organization [facility] Address [address] [place] [address] Care Team Providers Care Tub Rider Name Role Phone Connie Kemp MD Primary Care Provider [phone] Reason for Visit * Reason Comments Follow-up Rheumatoid arthritis Encounter Details Date Type Department Care Team ([facility] st Contact Info) Description 10/08/2023 15:15 EDT Telemedicine [facility] [address] [place] [address] Susan Santana MD [address] [place] [address] [address] [place] [address] Rheumatoid arthritis involving multiple sites with positive rheumatoid factor ([facility]) (Primary Dx); High risk medication use Social [...] Body Mass Index 52.97 10/08/2023 1454 EDT documented in this encounter Functional Status Functional [...] * Patient Instructions* Susan Santana MD - 10/08/2023 15:15 EDT No changes in meds Labs due later this month or next month and every 3 -4 months Order will be sent to [facility] lab for you. Get a flu shot this fall and get a covid shot this fall See you in 6 months, call if you have problems with your RA documented in this encounter Progress Notes * Susan Santana MD - 10/08/2023 1515 EDT [facility] Video Visit Today's visit was provided through [...] auxiliary staff: yes. Subjective: Chief Complaint(s): Follow-up (Rheumatoid arthritis) HPI: Chelsi Hernandez is here in follow up of her rheumatoid arthritis She has been stable with regard to her RA. She feels her feet are doing ok. Some edema No swelling. ON her feet all day at work. Knees are ok. Asthma has been stable. She had some flares due to pollution. Had blood tests. She has lost a lot of weight under 300 pounds and feeling well. She feels that she is doing better Got COVID and had an asthma exacerbation. ROS She has not had any mouth sores Doing ok one canker sores Often exposed to viral agents due to being around her young children. . I have reviewed patient's tobacco history: reports that she has never smoked. She has never used smokeless tobacco. I have reviewed current problem list and current medications. Social -works at [facility] -adopting foster son soon -non smoker non drinker Objective: Examination: Home Vitals: Ht 160 cm (63) Wt (!) 135.6 kg (299 lb) BMI 52.97 kg/m?? Pertinent exam findings: appears well and mood and affect appropriate No synovitis and normal rom in mcps and wrists. Data reviewed with patient: last note, last labs from 06/2022 at [facility] Assessment & Plan: Chelsi Hernandez is a 48 y.o. female with a history of seropositive rheumatoid arthritis on methotrexate/ Doing well. Recent significant weight loss has improved lfts/ RA at goal RTC 6 mo video with cbc,cmp prior 1. Rheumatoid arthritis involving multiple sites with positive rheumatoid factor ([facility]) 2. High risk medication use I spent a total of 23 minutes [...] Contact Info) Description 04/27/2024 8:45 EST Telemedicine [facility] Rheumatology [address] [place], [place] [address] Susan Santana MD [address] [facility] [address] [place] [address] Scheduled Orders Name Type Priority Associated Diagnoses Orde r Schedule COMPLETE BLOOD COUNT AND DIFFERENTIAL Lab Routine Rheumatoid arthritis involving multiple sites with positive rheumatoid factor (HCC-CMS) High risk medication use 3 months for 4 Occurrences starting 10/08/2023 until 10/07/2024 COMPREHENSIVE METABOLIC PANEL (CMP) Lab Routine Rheumatoid arthritis involving multiple sites with positive rheumatoid factor (HCC-CMS) High risk medication use 3 months for 4 Occurrences starting 10/08/2023 until 10/07/2024 documented as of this encounter Visit Diagnoses Diagnosis Rheumatoid arthritis involving multiple sites with positive rheumatoid factor ([facility])- Primary High risk medication use Encounter for long-term (current) use of other medications documented in this encounter Historical Medications * This list may reflect changes made after this encounter. Medication Sig Dispensed Refills Start Date End Date EPINEPHrine (EPIPEN) 0.3 mg/0.3 mL injection EVERY 5 TO 15 MINUTES NEEDED. NOT TO EXCEED 3 DOSES PER EPISODE 01/03/2023 SYMBICORT 80-4.5 mcg/actuation HFA aerosol inhaler inhaler INHALE 1 PUFF BY MOUTH TWICE DAILY AT ONSET FOR UPPER RESPIRATORY INFECTION 11/05/2022 added in this encounter Care Teams Tub Rider Relationship Specialty Start Date End Date Connie Kemp MD [address] [place] [phone] PCP - General 06/24/19 documented as of this encounter
--- OUTSIDE RECORDS SUMMARY | 2024-01-16 14:26 | XMS_ITS | Encounter Summary ---
Author Organization [facility] Address [address] [place] [address] Care Team Providers Care Tugboat Operator Name Role Phone Connie Kemp MD Primary Care Provider [phone] Reason for Visit * Reason Comments Follow-up RA - pt states she i s pain free most of the time, but when the barametric pressure drops her back and hands hurt. Encounter Details Date Type Department Care Team ([facility] Contact Info) Description 09/14/2021 8:15 EDT Telemedicine [facility] Rheumatology [address] [place] [address] Susan Santana MD [address] [facility] [place] [address] Rheumatoid arthritis involving multiple sites with positive rheumatoid factor (HCC-CMS) (HCC) (Primary Dx); Encounter for long-term (current) use of other medications; Cough; Mouth sores Social History Tobacco Use Types [...] - Inhaled Oxygen Concentration - - Weight 143.3 kg (316 lb) 09/14/2021 0758 EDT Height 160 cm (5' 3) 09/14/2021 0758 EDT Body Mass Index 55.98 09/14/2021 0758 EDT documented in this encounter Functional Status [...] * Patient Instructions* Susan Santana MD - 09/14/2021 8:15 EDT Over the counter folic acid could help with mouth sores especially if they are a side effect of themethotrexate Continue the methotrexate See you in 4 months with labs before (labs are cbc, cmp) documented in this encounter Ordered Prescriptions Prescription Sig Dispensed Refills Start Date End Da te folic acid (FOLVITE) 1 mg tablet[address]:Encoun ter for long-term (current) use of other medications,Mouth sores Take 1 Tablet by mouth daily. 90 Tablet 3 09/14/2021 05/24/2022 methotrexate 2.5 mg tabletIndications:Rheuma toid arthritis involving multiple sites with positive rheumatoid factor ([facility]) Take 6 tablets by mouth once a week. 72 Tablet 1 09/14/2021 03/19/2022 documented in this encounter Progress Notes * Susan Santana MD - 09/14/2021 0815 EDT [facility] Telephone Visit Today's visit was provided via telephone audio only. The location of the patient: Home The location of the provider: Office Verbal consent: The concept of ???Telemedicine?? has been described to the patient. Patient has been informed of the anticipated benefits and possible risks. Patient understands the information provided regarding telemedicine, has had the opportunity to ask questions about this information, and all questions havebeen answered to patient???s satisfaction. Patient consents for the use of telemedicine in his/her medical care and authorizes the transmission of any relevant medical information to providers and their staff involved in patient???s medical or mental health care. Verbal consent obtained by myself or auxiliary staff: yes. I have determined that an audio-only visit is appropriate due to: Internet access or other technical issue Subjective: Chief Complaint(s): Follow-up (RA - pt states she is pain free most of the time, but when the barametric pressure drops her back and hands hurt.) ?? Rheumatoid arthritis +RF, CCP. FANI + Joint pain 2016. Methotrexate ??Lost to follow up from [phone] and due to insurance issues. Asthma Morbid Obesity -starting buproprion/naltrexone ?? HPI: Chelsi Hernandez reports she has been unwell Rheumatoid arthritis -continue 15 mg once a week methotrexate -RA feels stable -mouth sores ok -no swollen joints -at goal with joint pain Mouth sores -colchicine helps too costly -will add folic acid, maybe get otc as cost an issue at time with meds. COVID in fall. Persistent cough. Then had covid again in Jun 2021. Caught from foster baby is 5 months old. He is often sick Cough x 2 months. Has an inhaler. Starting the inhalers Allergies bad right now. Chest feels tight Forgets inhalers Trying to lose weight -buproprion and naltrexone. -dropped weight eating less/ PCP managing. Foster mom -baby is with her indefinitely I have reviewed patient's tobacco history: reports that she has never smoked. She has never used smokeless tobacco. I have reviewed current problem list and current medications. Objective: Examination: Home Vitals: Ht 160 cm (63) Wt (!) 143.3 kg (316 lb) BMI 55.98 kg/m?? Pertinent exam findings: mood and affect appropriate and occasional tight cough. Fluent speech Data reviewed with patient: prior note, labs from [facility], medication list. Assessment & Plan: Chelsi Hernandez is a 46 y.o. female with a history of seropositive rheumatoid arthritis of multiplejoints on methotrexate 1. Rheumatoid arthritis involving multiple sites with positive rheumatoid factor ([facility]) ([facility]) methotrexate 2.5 mg tablet COMPLETE BLOOD COUNT AND DIFFERENTIAL COMPREHENSIVE METABOLIC PANEL (CMP) Continue methotrexate 6 tabs one day a week RA at goal Labs cbc, cmp ok when reviewed on phone, will request labs from [facility] 2. Encounter for long-term (current) use of other medications folic acid (FOLVITE) 1 mg tablet COMPLETE BLOOD COUNT AND DIFFERENTIAL COMPREHENSIVE METABOLIC PANEL (CMP) cbc cmp every 3 months d/t methotrexate 3. Cough seeing pcp regularly for this condition. will talk with pcp after this visit 4. Mouth sores folic acid (FOLVITE) 1 mg tablet add folic acid ? improve her mouth sores. Return in 4 months. Patient initiated phone contact with the office: yes. Patient is an established patient (parent, guardian) yes. E/M provided within previous 7 days for same medical assessment: no Anticipate E/M service within 24hrs or next available urgent appointment no. This visit was conducted by telephone. A total of 23 minutes was spent on this encounter on the dayof this encounter. documented in this encounter Plan of Treatment Upcoming Encounters Date Type Department Care Team (Late st Contact Info) Description 04/27/2024 8:45 EST Telemedicine [facility] Rheumatology [address] [place], [place] [phone] Susan Santana MD [address] [place] [address] [address] [place] [phone] documented as of this encounter Visit Diagnoses Diagnosis Rheumatoid arthritis involving multiple sites with positive rheumatoid factor ([facility])- Primary Encounter for long-term (current) use of other medications Cough Mouth sores Other and unspecified diseases of the oral soft tissues documented in this encounter Discontinued Medications Medication Sig Discontinue Reason Start Date End Da te colchicine (COLCRYS) 0.6 mg tabletIndications:Mout h sores Take 1 Tablet by mouth daily. Take daily for mouth sore prevention. Patient Stopped Taking 04/03/2021 09/14/2021 methotrexate 2.5 mg tabletIndications:Rheu matoid arthritis involving multiple sites with positive rheumatoid factor ([facility]) Take 6 tablets by mouth once a week. Reorder 07/06/2021 09/14/2021 documented as of this encounter Historical Medications * This list may reflect changes made after this encounter. Medication Sig Dispensed Refills Start Date End Date UNABLE TO FIND Buproprion and Naltrexone for weight loss ? added in this encounter Care Teams Tugboat Operator Relationship Specialty Start Date End Date Connie Kemp MD [address] [place] [phone] PCP - General 06/24/19 documented as of this encounter
--- OUTSIDE RECORDS SUMMARY | 2024-01-16 14:26 | XMS_ITS | Encounter Summary ---
Author Organization [facility] Address [address] [place] [address] Care Team Providers Care Studio Model Name Role Phone Connie Kemp MD Primary Care Provider [phone] Encounter Details Date Type Department Care Team ([facility] Contact Info) Description 12/11/2021 Lab Requisition [facility] Pathology & Laboratory Medicine - [address] [address] Outr Resulting Lab, Provider Social History Tobacco [...] Upcoming Encounters Date Type Department Care Team ([facility] Contact Info) Description 04/27/2024 8:45 EST Telemedicine [facility] [place] [address] [place] [address] Susan Santana MD [address] [facility] [address] [place] [address] documented as of this encounter Procedures Procedure Name Priority Date/Time Associated Diagnosis Comments HOLD SST Today 12/10/2021 15:23 EDT HOLD SST Today 12/10/2021 15:23 EDT HOLD SST Today 12/10/2021 15:23 EDT HEPATITIS C AB W REFLEX TO HCV RNA BY PCR Today 12/10/2021 15:23 EDT HEPATITIS A TOTAL ANTIBODY W REFLEX Today 12/10/2021 15:23 EDT HEPATITIS B CORE ANTIBODY (TOTAL) Today 12/10/2021 15:23 EDT HEPATITIS B SURFACE ANTIBODY Today 12/10/2021 15:23 EDT HEPATITIS B SURFACE ANTIGEN Today 12/10/2021 15:23 EDT documented in this encounter Results * HOLD SST (12/10/2021 15:23 EDT) Hold Hold 12/11/2021 18:01 EDT [facility] Blood VENOUS BLOOD / Unknown 12/10/2021 15:23 EDT 12/11/2021 16:54 EDT Provider Outr Resulting Lab LAB INFO SER VICE AND SUPPORT & PHONE RESULT [facility] [address] [place] [address] * HOLD SST (12/10/2021 15:23 EDT) Hold Hold 12/11/2021 18:01 EDT [facility] Blood VENOUS BLOOD / Unknown 12/10/2021 15:23 EDT 12/11/2021 16:54 EDT Provider Outr Resulting Lab LAB INFO SER VICE AND SUPPORT & PHONE RESULT [facility] [address] [place] [address] * HOLD SST (12/10/2021 15:23 EDT) Hold Hold 12/11/2021 18:15 EDT [facility] Blood VENOUS BLOOD / Unknown 12/10/2021 15:23 EDT 12/11/2021 17:09 EDT Provider Outr Resulting Lab LAB INFO SER VICE AND SUPPORT & PHONE RESULT Performing Organization Address [facility] de Phone Number [facility] [address] [place] [address] * HEPATITIS B SURFACE ANTIBODY (12/10/2021 15:23 EDT) Pathologist [facility] Hep B Surface Ab, Quantitative >1,000.0 See Note mIU/mL 12/12/2021 10:02 EDT [facility] Comment: Reference Range for Hep B Surface Ab, Quant: Positive: >= 10.0 mIU/mL Negative: ??< 10.0 mIU/mL Patient is presumed to be immune to infection with Hepatitis B Virus. Hep B Surface Ab, Qualitative Positive See Note 12/12/2021 10:02 EDT [facility] Comment: Reference Range for Hep B Surface Ab, Qual: Unvaccinated: ??Negative Vaccinated: ??Positive Blood VENOUS BLOOD / Unknown 12/10/2021 15:23 EDT 12/11/2021 16:54 EDT Provider Outr Resulting Lab CHEMISTRY & BLOOD GAS ORDERABLES Performing Organization Address [facility] [place]/[facility]/ZIP Co de Phone Number [facility] [address] [place] [address] * HEPATITIS B CORE ANTIBODY (TOTAL) (12/10/2021 15:23 EDT) Pathologist [facility] Hepatitis B Core Ab, Total Negative Negative 12/12/2021 11:50 EDT [facility] Blood VENOUS BLOOD / Unknown 12/10/2021 15:23 EDT 12/11/2021 16:54 EDT Provider Outr Resulting Lab CHEMISTRY & BLOOD GAS ORDERABLES Performing Organization Address City/[facility]/ZIP Co de Phone Number [facility] [address] [place] [address] * HEPATITIS B SURFACE ANTIGEN (12/10/2021 15:23 EDT) Hep B Surface Ag Negative Negative 12/12/2021 10:20 EDT [facility] Blood VENOUS BLOOD / Unknown 12/10/2021 15:23 EDT 12/11/2021 16:54 EDT Provider Outr Resulting Lab CHEMISTRY & BLOOD GAS ORDERABLES Performing Organization Address [facility] [place]/[facility] Co de Phone Number [facility] [address] [place] [address] * HEPATITIS C AB W REFLEX TO HCV RNA BY PCR (12/10/2021 15:23 EDT) Hep C Antibody Negative Negative 12/12/2021 10:58 EDT [facility] Blood VENOUS BLOOD / Unknown 12/10/2021 15:23 EDT 12/11/2021 16:54 EDT Provider Outr Resulting Lab CHEMISTRY & BLOOD GAS ORDERABLES Performing Organization Address City/[facility] Co de Phone Number [facility] [address] [place] [address] * HEPATITIS A TOTAL ANTIBODY W REFLEX (12/10/2021 15:23 EDT) Hepatitis A Antibody, Total Negative Negative 12/12/2021 12:02 EDT [facility] Blood VENOUS BLOOD / Unknown 12/10/2021 15:23 EDT 12/11/2021 16:54 EDT Narrative [facility] - 12/12/2021 12:02 EDT The result of this assay can be falsely elevated (Positive) due to the consumption of Biotin. Provider Outr Resulting Lab CHEMISTRY & BLOOD GAS ORDERABLES [facility] [address] [place] [address] documented in this encounter Visit Diagnoses Not on filedocumented in this encounter Care Teams Studio Model Relationship Specialty Start Date End Date Connie Kemp MD [address] [place] [phone] PCP - General 06/24/19 documented as of this encounter
--- OUTSIDE RECORDS SUMMARY | 2024-01-16 14:26 | XMS_ITS | Clinical Summary ---
Author Organization [facility] Address [address] [place] [address] Care Team Providers Care Aluminum Fabrication Supervisor Name Role Phone Connie Kemp MD Primary Care Provider [phone] Allergies Active Allergy Reactions Criticality Noted Date [...] Date Rheumatoid arthritis involving multiple joints ( [facility]) 06/14/2020 Rheumatoid arthritis involvi ng multiple sites with positive rheumatoid factor ([facility]) 06/24/2019 Overview: + CCP methotrexate effective Dx 2017 Lost to follow up year 2018 Obstructive sleep apnea 06/24/2019 Mouth sores 06/24/2019 Encounters Date Type Department Care Team Description 01/07/2024 Telephone [facility] Rheumatology [address] [place] [address] Asha Ambrocio RN Patient Reminder from Last 3 Months Medical History Medical History Date Comments Rheumatoid arthritis involvi ng multiple sites with positive rheumatoid factor ([facility]) 06/24/2019 Social History Tobacco Use Types Packs/Day Years Used Date Smoking Tobacco: Never Smokeless Tobacco: Never Tobacco Cessation:Counseling Given: Not Answered Interpersonal Safety Answer Date Record ed Physically Hurt Never 12/26/2019 Verbally Threaten Not on file 12/26/2019 Sex and Gender Information Value Date Recorded Sex Assigned at Not on file Gender Identity Female 06/23/2019 8:24 EST Sexual Orientation Not on file Obstetrics History Last Filed Vital Signs Vital Sign Reading [...] Body Mass Index 52.97 10/08/2023 1454 EDT Plan of Treatment Upcoming Encounters Date Type Department Care Team (Late st Contact Info) Description 04/27/2024 8:45 EST Telemedicine [facility] Rheumatology [address] [place] [address] Susan Santana MD 130 [facility] [address] [place] [phone] Health Maintenance Due Date Last Done Comments Hepatitis B Vaccine (1 of 3 - 19+ 3-dose series) 04/13 COVID-19 Vaccine (2022- season) 2023 Hepatitis C Screen Completed 12/10/2021 Procedures Procedure Name Priority Date/Time Associated Diagnosis Comments HEPATITIS C AB W REFLEX TO HCV RNA BY PCR Today 12/10/2021 15:23 EDT from Last 3 Months or Most Recently Relevant to Health Maintenance Results * HEPATITIS C AB W REFLEX TO HCV RNA BY PCR (12/10/2021 15:23 EDT) Hep C Antibody Negative Negative 12/12/2021 10:58 EDT [facility] Blood VENOUS BLOOD / Unknown 12/10/2021 15:23 EDT 12/11/2021 16:54 EDT Provider Outr Resulting Lab CHEMISTRY & BLOOD GAS ORDERABLES [facility] [address] [place] [address] from Last 3 Months or Most Recently Relevant to Health Maintenance Care Teams Aluminum Fabrication Supervisor Relationship Specialty Start Date End Date Connie Kemp MD [address] [place] [phone] PCP - General 06/24/19
--- OUTSIDE RECORDS SUMMARY | 2024-01-16 14:26 | XMS_ITS | Encounter Summary ---
Author Organization [facility] Address [address] [place] [address] Care Team Providers Care Pre Certification Specialist Name Role Phone Connie Kemp MD Primary Care Provider [phone] Encounter Details Date Type Department Care Team ([facility] Contact Info) Description 11/20/2022 Lab Requisition [facility] Pathology & Laboratory Medicine - [address] [address] Outr Resulting Lab, Provider Social History Tobacco [...] Upcoming Encounters Date Type Department Care Team ([facility] Contact Info) Description 04/27/2024 8:45 EST Telemedicine [facility] [place] [address] [place] [address] Susan Santana MD 130 [facility] [address] [place] [address] documented as of this encounter Procedures Procedure Name Priority Date/Time Associated Diagnosis Comments QUANTIFERON MITOGEN (PERFORMABLE) Today 11/19/2022 15:30 EDT QUANTIFERON TB2 (PERFORMABLE) Today 11/19/2022 15:30 EDT QUANTIFERON TB1 (PERFORMABLE) Today 11/19/2022 15:30 EDT QUANTIFERON NIL (PERFORMABLE) Today 11/19/2022 15:30 EDT QUANTIFERON INTERPRETATION (PERFORMABLE) Today 11/19/2022 15:30 EDT QUANTIFERON TB GOLD PLUS Routine 11/19/2022 15:30 EDT documented in this encounter Results * QUANTIFERON INTERPRETATION (PERFORMABLE) (11/19/2022 15:30 EDT) Quantiferon Interpretation Negative Negative 11/21/2022 12:54 EDT [facility] Comment:No interferon-gamma response to M. tuberculosis antigens was detected. ??Infection with M. tuberculosis is unlikely. A single negative result does not exclude infection with M. tuberculosis. ??In patients at high risk for M. tuberculosis infection, a second test should be considered. TB1 Ag minus Nil 0.01 IU/ml 11/22/19 12:54 EDT [facility] TB2 Ag minus Nil 0.02 IU/mL 11/22/19 12:54 EDT [facility] Blood VENOUS BLOOD / Unknown 11/19/2022 15:30 EDT 11/21/2022 12:52 EDT Narrative [facility] - 11/21/2022 12:54 EDT Results were obtained with the [employer] QuantiFERON-TB Gold Plus CLIA. New platform in use 01/31/2021 Provider Outr Resulting Lab IMMUNOLOGY A ND SEROLOGY ORDERABLES [facility] [address] [place] [address] * QUANTIFERON MITOGEN (PERFORMABLE) (11/19/2022 15:30 EDT) Blood VENOUS BLOOD / Unknown 11/19/2022 15:30 EDT 11/20/2022 17:07 EDT Provider Outr Resulting Lab IMMUNOLOGY A ND SEROLOGY ORDERABLES Performing Organization Address [facility] Co de Phone Number [facility] [address] [place] [address] * QUANTIFERON TB2 (PERFORMABLE) (11/19/2022 15:30 EDT) Blood VENOUS BLOOD / Unknown 11/19/2022 15:30 EDT 11/20/2022 17:07 EDT Provider Outr Resulting Lab IMMUNOLOGY A ND SEROLOGY ORDERABLES Performing Organization Address City/[facility] Co de Phone Number [facility] [address] [place] [address] * QUANTIFERON TB1 (PERFORMABLE) (11/19/2022 15:30 EDT) Blood VENOUS BLOOD / Unknown 11/19/2022 15:30 EDT 11/20/2022 17:07 EDT Provider Outr Resulting Lab IMMUNOLOGY A ND SEROLOGY ORDERABLES Performing Organization Address City/[facility] Co de Phone Number [facility] [address] [place] [address] * QUANTIFERON NIL (PERFORMABLE) (11/19/2022 15:30 EDT) Blood VENOUS BLOOD / Unknown 11/19/2022 15:30 EDT 11/20/2022 17:07 EDT Provider Outr Resulting Lab IMMUNOLOGY A ND SEROLOGY ORDERABLES Performing Organization Address City/[facility] Co de Phone Number [facility] [address] [place] [address] documented in this encounter Visit Diagnoses Not on filedocumented in this encounter Care Teams Pre Certification Specialist Relationship Specialty Start Date End Date Connie Kemp MD [address] [place] [phone] PCP - General 06/24/19 documented as of this encounter
--- OUTSIDE RECORDS SUMMARY | 2024-01-16 14:27 | XMS_ITS | Encounter Summary ---
Author Organization [facility] Address [address] [place] [address] Care Team Providers Care Gasoline Catalyst Operator Name Role Phone Unavailable Primary Care Provider Unavailabl e Encounter Details Date Type Department Care Team (Late Contact Info) Description 09/20/2003 Results Only [facility] - Map conversion [address] [place] [address] Tod Monroe [phone] [place] [address] Social History Tobacco Use Types Packs/Day Years Used Date Smoking Tobacco: Never Assessed Sex and Gender Information Value Date Recorded Sex Assigned at Not on file Gender Identity Female 06/23/2019 8:24 EST Sexual Orientation Not on file documented as of this encounter Plan of Treatment Upcoming Encounters Date Type Department Care Team (Late Contact Info) Description 04/27/2024 8:45 EST Telemedicine [facility] Rheumatology [address] [place] [phone] Susan Santana MD [address] [place] [address] [address] [place] [phone] documented as of this encounter Procedures Procedure Name Priority Date/Time Associated Diagnosis Comments CYTOPATHOLOGY Routine 09/20/2003 0:00 EDT documented in this encounter Results * CYTOPATHOLOGY (09/20/2003 0:00 EDT) Pathology Report: CYTOPATHOLOGY REPORT Reports generated via electronic interface contain original data; however they are lacking the format of the original report. Caution should be taken when reading/interpreti ng unformatted reports. Name: ? CHELSI HERNANDEZ ? Accession #: ? [id number] : ? 1975 (Age: 28) ??F ?Collect Date: ? 09/20/2003 Location: ? [facility] ? Receive Date: ? 09/22/2003 Provider: ?TOD MONROE CNM Copy to: ? Specimen/Source: ?ThinPrep Pap Test, Cervix/Endocervix Last Menstrual Period: ? 09/15/02 Hormonal/Contracep tive Status: ? Yes: Ortho Evia patch Previous Gynecologic Pathology: ? Benign cellular changes: Other: ? HPVA - HPV testing requested if ASC-US on the current ThinPrep Pap test. Additional clinical information: 08/29/03 Unsatisfactory ? SPECIMEN ADEQUACY ? Satisfactory for Evaluation - transformation zone component present GENERAL CATEGORIZATION ? Negative for Intraepithelial Lesion or Malignancy ? Document reviewed and electronically signed by: ? ABRIL Yan(ASCP) ? Report Date: ??09/26/2003 10:40 End of Report [facility] 09/20/2003 09/22/2003 Tod Monroe CNM PATHOLOGY ORDERABLES [facility] [address] [place] [address] documented in this encounter Visit Diagnoses Not on filedocumented in this encounter
--- OUTSIDE RECORDS SUMMARY | 2024-01-16 14:27 | XMS_ITS | Encounter Summary ---
Author Organization [facility] Address [address] [place] [address] Care Team Providers Care Coil Repair Technician Name Role Phone Unavailable Primary Care Provider Unavailabl e Encounter Details Date Type Department Care Team (Late Contact Info) Description 06/03/2000 Results Only [facility] - Map conversion [address] [place] [address] Tod Monroe [phone] [place] [address] Social History Tobacco Use Types Packs/Day Years Used Date Smoking Tobacco: Never Assessed Sex and Gender Information Value Date Recorded Sex Assigned at Not on file Gender Identity Female 06/23/2019 8:24 EST Sexual Orientation Not on file documented as of this encounter Plan of Treatment Upcoming Encounters Date Type Department Care Team (Late Contact Info) Description 04/27/2024 8:45 EST Telemedicine [facility] Rheumatology [address] [place] [phone] Susan Santana MD [address] [place] [address] [address] [place] [phone] documented as of this encounter Procedures Procedure Name Priority Date/Time Associated Diagnosis Comments CYTOPATHOLOGY Routine 06/03/2000 0:00 EST documented in this encounter Results * CYTOPATHOLOGY (06/03/2000 0:00 EST) Pathology Report: CYTOPATHOLOGY REPORT Reports generated via electronic interface contain original data; however they are lacking the format of the original report. Caution should be taken when reading/interpreti ng unformatted reports. Name: ? HCELSI HERNANDEZ ? Accession #: ? [id number] : ? 1975 (Age: 25) ??F ?Collect Date: ? 06/03/2000 Location: ? [facility] ? Receive Date: ? 06/05/2000 Provider: ?TOD MONROE CNM Copy to: ? Specimen/Source: ?ThinPrep Pap Test, Cervix/Endocervix Last Menstrual Period: ? 07/11/99 Menstrual/Pregnanc y Status: ? Post Previous Gynecologic Pathology: ? Benign cellular changes: X1 pap ? SPECIMEN ADEQUACY ? Satisfactory for evaluation. GENERAL CATEGORIZATION ? Within Normal Limits ? Document reviewed and electronically signed by: ? ABRIL Romo(ASCP) ? Report Date: ??06/06/2000 08:20 End of Report [facility] 06/03/2000 06/05/2000 Tod Monroe CNM PATHOLOGY ORDERABLES [facility] [address] [place] [address] documented in this encounter Visit Diagnoses Not on filedocumented in this encounter
--- OUTSIDE RECORDS SUMMARY | 2024-01-16 14:27 | XMS_ITS | Encounter Summary ---
Author Organization [facility] Address [address] [place] [address] Care Team Providers Care Staff Nurse Name Role Phone Connie Kemp MD Primary Care Provider [phone] Encounter Details Date Type Department Care Team ([facility] st Contact Info) Description 05/16/[address] [facility] Rheumatology [address] [place] [address] Asha Ambrocio RN Rheumatoid arthritis involving multiple sites with positive rheumatoid factor ([facility]) ([facility]) (Primary Dx) Social History Tobacco Use Types Packs/Day Years [...] involving multiple sites with positive rheumatoid factor ([facility]) Take 6 tablets by mouth once a week. 24 Tablet 05/16/2021 07/05/2021 documented in this encounter Progress Notes * Asha Ambrocio RN - 05/16/[address] Santana' reply to Chelsi with understanding expressed. Hepatic function test [facility] and she will get them done CHARLES. One month supply of MTX sent to [email or web address] in [facility]. documented in this encounter Plan of Treatment Upcoming Encounters Date Type Department Care Team (Late st Contact Info) Description 04/27/2024 8:[address] [facility] Rheumatology [address] [place] [address] Susan Santana MD 130 [facility] [address] [place] [phone] documented as of this encounter Visit Diagnoses Diagnosis Rheumatoid arthritis involving multiple sites with positive rheumatoid factor ([facility])- Primary documented in this encounter Discontinued Medications Medication Sig Discontinue Reason Start Date End Da te methotrexate 2.5 mg tabletIndications:Rheuma toid arthritis involving multiple sites with positive rheumatoid factor ([facility]) Take 6 tablets by mouth once a week. Reorder 11/30/2020 05/16/2021 documented as of this encounter Care Teams Staff Nurse Relationship Specialty Start Date End Date Connie Kemp MD [address] [place] [phone] PCP - General 06/24/19 documented as of this encounter
--- OUTSIDE RECORDS SUMMARY | 2024-01-16 14:27 | XMS_ITS | Encounter Summary ---
Author Organization Health system Address [address] [place] [address] Care Team Providers Care Veterans' Coordinator Name Role Phone Unavailable Primary Care Provider Unavailabl e Encounter Details Date Type Department Care Team (Late st Contact Info) Description 2009 Orders Only [facility] Laboratory Services - [facility] [address] [place], [place] [phone] Connie Kemp MD [address] [phone] Social History Tobacco Use Types Packs/Day Years Used Date Smoking Tobacco: Never Assessed Sex and Gender Information Value Date Recorded Sex Assigned at Not on file Gender Identity Female 06/23/2019 8:24 EST Sexual Orientation Not on file documented as of this encounter Plan of Treatment Upcoming Encounters Date Type Department Care Team (Late Contact Info) Description 04/27/2024 8:45 EST Telemedicine [facility] [place] [address] [place], [place] [phone] Susan Santana MD 130 [facility] [address] [place] [phone] documented as of this encounter Procedures Procedure Name Priority Date/Time Associated Diagnosis Comments HPV DETECTION, HIGH RISK TYPES Routine 2009 23:58 EST CYTOPATHOLOGY Routine 2009 0:00 EST documented in this encounter Results * HUMAN PAPILLOMA VIRUS DNA TEST (2009 23:58 EST) Specimen Description Cervix, ThinPrep vial [facility] Result Negative for HPV types 16, 18, 31, 33, 35, 39, 45, 51, 52, 56, 58, 59, and 68. [facility] Report Status Final 04/25/2009 [facility] 2009 23:5 8 EST 04/17/2009 23:58 EST Connie Kemp MD MICROBIOLOGY - GENER AL ORDERABLES Performing Organization Address City/State/[facility] Co de Phone Number [facility] [address] [place] [address] * CYTOPATHOLOGY (2009 0:00 EST) Pathology Report: CYTOPATHOLOGY REPORT ? Reports generated via electronic interface contain original data; ? however they are lacking the format of the original report. ? Caution should be taken when reading/interpreti ng unformatted reports. ? Name: ? CHELSI HERNANDEZ ? Accession #: ? [id number] ? : ? 1975 (Age: 34) ??F ?Collect Date: ? 2009 ? Location: ? [facility] ? Receive Date: ? 2009 ? Provider: ?CONNIE TYRONE MD ? Copy to: ? Specimen/Source: ?Pap Test, Cervix/Endocervix, ThinPrep Imaging System ? with manual evaluation ? Last Menstrual Period: ? 11/09 ? Hormonal/Contracep tive Status: ? Provera ? Tubal ligation: BTL ? Other: ? HPVDX - HPV testing requested regardless of diagnosis on current ThinPrep Pap ?? test. ? SPECIMEN ADEQUACY ? Satisfactory for Evaluation ? - transformation zone component present ? GENERAL CATEGORIZATION ? Negative for Intraepithelial Lesion or Malignancy ? INTERPRETATION ? Shift in roque present suggestive of bacterial vaginosis. ? Document reviewed and electronically signed by: ? Kristal Wilton, [place](ASCP) ? Report Date: ??04/17/2009 08:52 ? End of Report ? [facility] 2009 2009 Connie Kemp MD PATHOLOGY ORDERABLES [facility] [address] [place] [address] documented in this encounter Visit Diagnoses Not on filedocumented in this encounter
--- OUTSIDE RECORDS SUMMARY | 2024-01-16 14:27 | XMS_ITS | Encounter Summary ---
Author Organization [facility] Address [address] [place] [address] Care Team Providers Care Energy Professional Name Role Phone Connie Kemp MD Primary Care Provider [phone] Reason for Visit * Reason Onset Date Comments Medications Refill 08/02/2020 Refill reques t from [facility] for Colchicine 0.6mg Encounter Details Date Type Department Care Team ([facility] st Contact Info) Description 08/02/2020 Refill [facility] Rheumatology [address], [place] [address] Vandana Wheeler, RN Medications Refill (Refill request from [facility] for Colchicine 0.6mg) Social History Tobacco Use Types Packs/Day Years Used Date Smoking Tobacco: Never Smokeless Tobacco: Never Interpersonal Safety Answer Date Record ed Physically Hurt Never 12/26/2019 Verbally Threaten Not on file 12/26/2019 Sex and Gender Information Value Date Recorded Sex Assigned at Not on file Gender Identity Female 06/23/2019 8:24 EST Sexual Orientation Not on file documented as of this encounter Ordered Prescriptions Prescription Sig Dispensed Refills Start Date End Da te colchicine (COLCRYS) 0.6 mg tabletIndications:Mouth sores Take 1 Tab by mouth daily. Take daily for mouth sore prevention. 30 Tab 5 08/02/2020 04/03/2021 documented in this encounter Miscellaneous Notes * Telephone Encounter - Vandana Wheeler RN - 08/02/2020 1200 EST Last visit note reviewed and follow up noted. Refill sent as noted. documented in this encounter Plan of Treatment Upcoming Encounters Date Type Department Care Team (Late st Contact Info) Description 04/27/2024 8:45 EST Telemedicine [facility] Rheumatology [address] [place] [address] Susan Santana MD [address] [facility] [address] [place] [phone] documented as of this encounter Visit Diagnoses Diagnosis Mouth sores- Primary Other and unspecified diseases of the oral soft tissues documented in this encounter Discontinued Medications Medication Sig Discontinue Reason Start Date End Da te colchicine (COLCRYS) 0.6 mg tabletIndications:Mouth sores Take 1 Tab by mouth daily. Take daily for mouth sore prevention. Reorder 11/25/2019 08/02/2020 documented as of this encounter Care Teams Energy Professional Relationship Specialty Start Date End Date Connie Kemp MD [address] [place] [phone] PCP - General 06/24/19 documented as of this encounter
--- OUTSIDE RECORDS SUMMARY | 2024-01-16 14:27 | XMS_ITS | Encounter Summary ---
Author Organization [facility] Address [address] [place] [address] Care Team Providers Care Civil Engineer In Training Name Role Phone Connie Kemp MD Primary Care Provider [phone] Encounter Details Date Type Department Care Team (Late Contact Info) Description 03/07/2020 Lab Requisition [facility] Pathology & Laboratory Medicine - [address] [phone] Outr Resulting Lab, Provider Social History Tobacco [...] Upcoming Encounters Date Type Department Care Team ([facility] Contact Info) Description 04/27/2024 8:45 EST Telemedicine [facility] Rheumatology [address] [place], [place] [address] Susan Santana MD [address] [facility] [address] [place] [address] documented as of this encounter Procedures Procedure Name Priority Date/Time Associated Diagnosis Comments DO NOT ORDER STANDALONE - BROAD COVID TEST Today 03/07/2020 9:52 EDT COVID-19 TESTING Routine 03/07/2020 9:52 EDT documented in this encounter Results * DO NOT ORDER STANDALONE - BROAD COVID TEST (03/07/2020 9:52 EDT) COVID-19 rt-PCR Result NEGATIVE Negative 03/08/2020 17:45 EDT [facility] Comment: 2019-novel Coronavirus (2019-nCoV) not detected by the qRT-PCR assay. Consider testing for other respiratory viruses or re-collecting for 2019-nCoV testing. Note: Optimum timing for peak viral levels during infections caused by 2019-nCoV have not been determined. Collection of multiple specimens from the same patient may be necessary to detect the virus. Limitations Positive results are indicative of active infection with SARS-CoV-2 but do not rule out bacterial infection or co-infection with other viruses. The agent detected may not be the definite cause of disease. In addition, detection of viral RNA may not indicate the presence of infectious virus or that SARS-CoV-2 is the causative agent for clinical symptoms. Negative results do not preclude SARS-CoV-2 infection and should not be used as the sole basis for patient management decisions. Negative results must be combined with clinical observations, patient history, and epidemiological information. False negative results may also occur if amplification inhibitors are present in the specimen or if inadequate numbers of organisms are present in the specimen. Optimum specimen types and timing for peak viral levels during infections caused by SARS-CoV-2 have not been fully determined. Collection of multiple specimens (types and time points) from the same patient may be necessary to detect the virus. The test was validated for use with upper respiratory specimens obtained via nasopharyngeal or oropharyngeal swabs in VTM, UTM, M4, M5, M6, saline, and MTM media. The performance of this test has not been established for other specimens. Specimens collected using other FDA recommended Specimen Collection Materials listed in the FDA COVID-19 Diagnostic [employer] communication (August 19, 2019) are processed with the caveat that they were not all validated for use with this test and the result must be interpreted in this context. Furthermore, a false negative results may occur if a specimen is improperly collected, transported or handled. If the virus mutates in the RT-PCR target region, SARS-CoV-2 may not be detected or may be detected less predictably. Inhibitors or other types of interference may produce a false negative result. An interference study evaluating the effect of common cold medications was not performed. This test is not FDA-cleared but its performance characteristics were established by our CLIA-certified, CAP-accredited, high complexity laboratory in accordance with CLIA regulations, [employer] [place] (CAP) guidelines (Aug 12, 2019), and FDA guidance (Jul 24, 2019). This test is only for use under the Food and Drug Administration's Emergency Use Authorization. Swab ENTIRE NASOPHARYNX / Unknown 03/07/2020 9:52 EDT 03/07/2020 16:52 EDT Provider Outr Resulting Lab MICROBIOLOGY - GENERAL ORDERABLES [facility] [place], [place] * COVID-19 TESTING (03/07/2020 9:52 EDT) COVID-19 rt-PCR Result NEGATIVE Negative 03/08/2020 20:37 EDT [facility] Comment: 2019-novel Coronavirus (2019-nCoV) not detected by the qRT-PCR assay. Consider testing for other respiratory viruses or re-collecting for 2019-nCoV testing. Note: Optimum timing for peak viral levels during infections caused by 2019-nCoV have not been determined. Collection of multiple specimens from the same patient may be necessary to detect the virus. Limitations Positive results are indicative of active infection with SARS-CoV-2 but do not rule out bacterial infection or co-infection with other viruses. The agent detected may not be the definite cause of disease. In addition, detection of viral RNA may not indicate the presence of infectious virus or that SARS-CoV-2 is the causative agent for clinical symptoms. Negative results do not preclude SARS-CoV-2 infection and should not be used as the sole basis for patient management decisions. Negative results must be combined with clinical observations, patient history, and epidemiological information. False negative results may also occur if amplification inhibitors are present in the specimen or if inadequate numbers of organisms are present in the specimen. Optimum specimen types and timing for peak viral levels during infections caused by SARS-CoV-2 have not been fully determined. Collection of multiple specimens (types and time points) from the same patient may be necessary to detect the virus. The test was validated for use with upper respiratory specimens obtained via nasopharyngeal or oropharyngeal swabs in VTM, UTM, M4, M5, M6, saline, and MTM media. The performance of this test has not been established for other specimens. Specimens collected using other FDA recommended Specimen Collection Materials listed in the FDA COVID-19 [employer] communication (August 19, 2019) are processed with the caveat that they were not all validated for use with this test and the result must be interpreted in this context. Furthermore, a false negative results may occur if a specimen is improperly collected, transported or handled. If the virus mutates in the RT-PCR target region, SARS-CoV-2 may not be detected or may be detected less predictably. Inhibitors or other types of interference may produce a false negative result. An interference study evaluating the effect of common cold medications was not performed. This test is not FDA-cleared but its performance characteristics were established by our CLIA-certified, CAP-accredited, high complexity laboratory in accordance with CLIA regulations, College of [place] [employer] (CAP) guidelines (Aug 12, 2019), and FDA guidance (Jul 24, 2019). This test is only for use under the Food and Drug Administration's Emergency Use Authorization. Performing Lab [facility] [place] 03/08/2020 20:37 EDT [facility] Swab 03/07/2020 9:52 EDT 03/07/2020 16:52 EDT Provider Outr Resulting Lab MICROBIOLOGY - GENERAL ORDERABLES [facility] [address] [place] [address] [facility] [place], [place] documented in this encounter Visit Diagnoses Not on filedocumented in this encounter Care Teams Civil Engineer In Training Relationship Specialty Start Date End Date Connie Kemp MD [address] [place] [phone] PCP - General 06/24/19 documented as of this encounter
--- OUTSIDE RECORDS SUMMARY | 2024-01-16 14:27 | XMS_ITS | Encounter Summary ---
Author Organization [facility] Address [address] [place] [address] Care Team Providers Care Space Sciences Director Name Role Phone Unavailable Primary Care Provider Gerard e Encounter Details Date Type Department Care Team (Late st Contact Info) Description 01/15/2007 Results Only [facility] [address] [place] [address] Vero Curry, [facility] [address] [place] [address] Social History Tobacco Use Types Packs/Day Years Used Date Smoking Tobacco: Never Assessed Sex and Gender Information Value Date Recorded Sex Assigned at Not on file Gender Identity Female 06/23/2019 8:24 EST Sexual Orientation Not on file documented as of this encounter Plan of Treatment Upcoming Encounters Date Type Department Care Team (Late st Contact Info) Description 04/27/2024 8:45 EST Telemedicine [facility] Rheumatology [address] [place] [address] Susan Santana MD [address] [facility] [address] [place] [phone] documented as of this encounter Procedures Procedure Name Priority Date/Time Associated Diagnosis Comments CYTOPATHOLOGY Routine 01/15/2007 0:00 EDT documented in this encounter Results * CYTOPATHOLOGY (01/15/2007 0:00 EDT) Pathology Report: CYTOPATHOLOGY REPORT Reports generated via electronic interface contain original data; however they are lacking the format of the original report. Caution should be taken when reading/interpreti ng unformatted reports. Name: ? CHELSI HERNANDEZ ? Accession #: ? [id number] : ? 1975 (Age: 31) ??F ?Collect Date: ? 01/15/2007 Location: ? [facility] ? Receive Date: ? 01/16/2007 Provider: ?VERO ROQUEP Copy to: ? Specimen/Source: ?ThinPrep Pap Test, Cervix/Endocervix, processed on [employer] ThinPrep Imaging System, with manual evaluation Last Menstrual Period: ? 12/15/06 Previous Gynecologic Pathology: ? Benign cellular changes: Other: ? HPVA - HPV testing requested if ASC-US on the current ThinPrep Pap test. ? SPECIMEN ADEQUACY ? Satisfactory for Evaluation - transformation zone component present GENERAL CATEGORIZATION ? Negative for Intraepithelial Lesion or Malignancy INTERPRETATION ? Shift in roque present suggestive of bacterial vaginosis. ? Document reviewed and electronically signed by: ? ABRIL Dockery(ASCP) ? Report Date: ??01/21/2007 12:40 End of Report [facility] 01/15/2007 01/16/2007 Vero Curry FORM DRAFTER PATHOLOGY ORDERABLES [facility] [address] [place] [address] documented in this encounter Visit Diagnoses Not on filedocumented in this encounter
--- OUTSIDE RECORDS SUMMARY | 2024-01-16 14:27 | XMS_ITS | Encounter Summary ---
Author Organization [facility] Address [address] [place] [address] Care Team Providers Care Tower Director Name Role Phone Unknown, Provider Primary Care Provider [phone] Encounter Details Date Type Department Care Team (Late Contact Info) Description 11/08/2015 Results Only [facility] [phone] Stalin Ayers MD [address] [place] [address] Social History Tobacco Use Types Packs/Day Years Used Date Smoking Tobacco: Never Assessed Sex and Gender Information Value Date Recorded Sex Assigned at Not on file Gender Identity Female 06/23/2019 8:24 EST Sexual Orientation Not on file documented as of this encounter Plan of Treatment Upcoming Encounters Date Type Department Care Team (Late Contact Info) Description 04/27/2024 8:45 EST Telemedicine [facility] Rheumatology [address] [place], [place] [phone] Susan Santana MD [address] [facility] [address] [place] [address] documented as of this encounter Procedures Procedure Name Priority Date/Time Associated Diagnosis Comments SURGICAL PATHOLOGY Routine 11/08/2015 8:54 EDT documented in this encounter Results * SURGICAL PATHOLOGY (11/08/2015 8:54 EDT) Pathology Report: SURGICAL PATHOLOGY REPORT Reports generated via electronic interface contain original data; however they are lacking the format of the original report. Caution should be taken when reading/interpret ing unformatted reports. Name: ? ASHLEY, CHELSI F ? Accession #: ? [id number] ? : ? 1975 (Age: 40) ??F ? Collect Date: ? 11/08/2015 ? Location: ? [facility] ? Receive Date: ? 11/08/2015 ? Provider: STALIN AYERS MD Copy to: ROSE HANSEN MD ? Final Pathologic Diagnosis: ENDOMETRIUM, BIOPSY: - ??Simple hyperplasia without atypia. Document reviewed and electronically signed by: CHIKA KOLB MD Report ??Date: 11/10/2015 11:34 By the signature above, the attending physician certifies that he/she has personally conducted a gross and/or microscopic examination of the described specimens and rendered or confirmed the above diagnosis. Specimen(s) Received: Endometrial biopsy Clinical History: Secondary amenorrhea Gross Description: ? Received in formalin labelled with proper patient identification (initials A, T) and endometrial bx is an aggregate of hare-pink soft, membranous tissue (2.5 x 1.4 x 0.6 cm). The specimen is submitted entirely in 1 and 2. 11/09/2015 10:18 AM End of Report [facility] 11/08/2015 8:54 EDT 11/08/2015 8:54 EDT Stalin Ayers MD PATHOLOGY ORDERABLES [facility] [address] [place] [address] documented in this encounter Visit Diagnoses Not on filedocumented in this encounter Care Teams Tower Director Relationship Specialty Start Date End Date Unknown, Provider, PCP - General 04/16/15 06/23/19 documented as of this encounter
--- OUTSIDE RECORDS SUMMARY | 2024-01-16 14:27 | XMS_ITS | Encounter Summary ---
Author Organization [facility] Address [address] [place] [address] Care Team Providers Care Attorney Recruiter Name Role Phone Unavailable Primary Care Provider Unavailabl e Encounter Details Date Type Department Care Team (Late st Contact Info) Description 07/28/2002 Results Only [facility] conversion [address] [place] [address] Eduardo Carrillo MD [address] [place] [address] Social History Tobacco Use Types Packs/Day Years Used Date Smoking Tobacco: Never Assessed Sex and Gender Information Value Date Recorded Sex Assigned at Not on file Gender Identity Female 06/23/2019 8:24 EST Sexual Orientation Not on file documented as of this encounter Plan of Treatment Upcoming Encounters Date Type Department Care Team (Late Contact Info) Description 04/27/2024 8:45 EST Telemedicine [facility] Rheumatology [address] [place], [place] [phone] Susan Santana MD [address] [facility] [address] [place] [phone] documented as of this encounter Procedures Procedure Name Priority Date/Time Associated Diagnosis Comments CYTOPATHOLOGY Routine 07/28/2002 0:00 EST documented in this encounter Results * CYTOPATHOLOGY (07/28/2002 0:00 EST) Pathology Report: CYTOPATHOLOGY REPORT Reports generated via electronic interface contain original data; however they are lacking the format of the original report. Caution should be taken when reading/interpreti ng unformatted reports. Name: ? CHELSI HERNANDEZ F ? Accession #: ? [id number] : ? 1975 (Age: 27) ??F ?Collect Date: ? 07/28/2002 Location: ? [facility] ? Receive Date: ? 07/30/2002 Provider: ?EDUARDO CARRILLO MD Copy to: ? Specimen/Source: ?ThinPrep Pap Test, Cervix/Endocervix Last Menstrual Period: ? 07/24/02 Hormonal/Contracep tive Status: ? Control Pills ? SPECIMEN ADEQUACY ? Satisfactory for Evaluation - transformation zone component present GENERAL CATEGORIZATION ? Negative for Intraepithelial Lesion or Malignancy ? Document reviewed and electronically signed by: ? ABRIL Yan(ASCP) ? Report Date: ??08/02/2002 11:38 End of Report [facility] 07/28/2002 07/30/2002 Eduardo Carrillo MD PATHOLOGY ORDERABLES [facility] [address] [place] [address] documented in this encounter Visit Diagnoses Not on filedocumented in this encounter
--- OUTSIDE RECORDS SUMMARY | 2024-01-16 14:27 | XMS_ITS | Encounter Summary ---
Author Organization [facility] Address [address] [place] [address] Care Team Providers Care Recreation Programmer Name Role Phone Connie Kemp MD Primary Care Provider [phone] Encounter Details Date Type Department Care Team ([facility] st Contact Info) Description 03/19/[address] [facility] Rheumatology [address] [place] [address] Alla Spangler RN Encounter for long-term (current) use of other medications (Primary Dx) Social History Tobacco Use Types [...] as of this encounter Progress Notes * Alla Spangler RN - 03/19/2021 1441 EDT Liver panel ordered for in 1 month. documented in this encounter Plan of Treatment Upcoming Encounters Date Type Department Care Team (Late st Contact Info) Description 04/27/2024 8:45 EST Telemedicine [facility] Rheumatology [address] [place], [place] [address] Susan Santana MD [address] [facility] [address] [place] [phone] documented as of this encounter Visit Diagnoses Diagnosis Encounter for long-term (current) use of other medications- Primary documented in this encounter Care Teams Recreation Programmer Relationship Specialty Start Date End Date Connie Kemp MD [address] [place] [phone] PCP - General 06/24/19 documented as of this encounter
--- OUTSIDE RECORDS SUMMARY | 2024-01-16 14:27 | XMS_ITS | Encounter Summary ---
Author Organization [facility] Address [address] [place] [address] Care Team Providers Care Degreasing Solution Reclaimer Name Role Phone Unknown, Provider Primary Care Provider [phone] Encounter Details Date Type Department Care Team (Latest Contact Info) Description 11/08/2015 11:30 EDT - 11/08/2015 23:59 EDT Hospital Encounter [address] [address] Unknown, Provider, Discharge Disposition: Home or Self Care Social History Tobacco Use Types Packs/Day Years Used Date Smoking Tobacco: Never Assessed Sex and Gender Information Value Date Recorded Sex Assigned at Not on file Gender Identity Female 06/23/2019 8:24 EST Sexual Orientation Not on file documented as of this encounter Discharge Disposition Disposition Code Departure Means Destination Home or Self Assisted documented in this encounter Plan of Treatment Upcoming Encounters Date Type Department Care Team (Late st Contact Info) Description 04/27/2024 8:45 EST Telemedicine [facility] Rheumatology [address] [place], [place] [address] Susan Santana MD [address] [facility] [address] [place] [address] documented as of this encounter Visit Diagnoses Not on filedocumented in this encounter Care Teams Degreasing Solution Reclaimer Relationship Specialty Start Date End Date Unknown, ProviderMD PCP - General 04/16/15 06/23/19 documented as of this encounter
--- OUTSIDE RECORDS SUMMARY | 2024-01-16 14:27 | XMS_ITS | Encounter Summary ---
Author Organization [facility] Address [facility] [place] [address] Care Team Providers Care Gas Truck Driver Name Role Phone Connie Kemp MD Primary Care Provider [phone] Reason for Visit * Reason Comments Skin Check * Consultation (Routine) - Specialty Diagnoses / Procedures Referred By Kenny walsh Referred To Contact Dermatology Diagnoses Venous stasis dermatitis Procedures Venous Stasis Dermatitis Connie Kemp MD [address] [place] [id number] Percy Morillo MD [address] [place] [address], [place] [address] Referral ID Status Reason Start Date Expiration Date V isits Requested Visits Authorized [id number] 06/03/2017 06/03/2018 1 1 Encounter Details Date Type Department Care Team (Late st Contact Info) Description 11/07/2017 10:00 AM EDT Office Visit Dermatology at [address] [phone] Percy Morillo MD [address] [place] [address], [place] [address] Lipodermatosclerosis Social History Tobacco Use Types Packs/Day Years Used Date Smoking Tobacco: Never Smokeless Tobacco: Never Sex and Gender Information Value Date Recorded Sex Assigned at Not on file Gender Identity Not on file Sexual Orientation Not on file documented as of this encounter Progress Notes * Percy Morillo MD - 11/07/2017 10:00 AM EDT Problem: Bilateral medial lower calf dermatitis and induration Chelsi is a 42-year-old woman who for many months now has had a slightly sore but very indurated red dermatitis on the medial lower calves bilaterally. She is referred in consultation by Dr. Connie Kemp. 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 She is on her feet much of the day. She has 3 children ages 11, 14 and 17, and states that when not at work she is often at softball practice. She is not diabetic but does have rheumatoid arthritis and back in January 2070 was started methotrexate for her rheumatoid arthritis. She is overweight. She has been treated as contact dermatitis of both shinsand October 2015 with both Lasix and triamcinolone. History of DVT in the right posterior popliteal fossa area after the of her last child a daughter 11 years ago. Physical examination reveals a pleasant 42-year-old woman who has firm indurated plaques with the long axis oriented vertically on the bilateral lower calves of her legs. There is no breakdown or ulceration. The minimally tender to palpation today. Her legs have an inverted champagne bottle like shape to them. There is only minimal perhaps trace edema present today. The plaque size of both legs is about equal, they are each about 2 x 6 cm in size Assessment and plan: Lipodermatosclerosis 1. Encourage patient to avoid standing too much in one place. This is a part of her job at work however. 2. When possible and seated, keep legs elevated to aid in circulation. 3. Strongly recommend that we begin Trental 4 mg taking 1 p.o. 3 times daily specimen 90 with 2 refills will call this in to [facility] try and help with circulation and reduce her lipodermatosclerosis. 4. Reassured this is not cysts cellulitis. Is not allergic contact dermatitis. Encouraged exercise weight loss, and minimizing salt in her diet. Reassured her also it is not related to rheumatoid arthritis is not due to her methotrexate. Cc: Connie Kemp MD documented in this encounter Plan of Treatment Not on file documented as of this encounter Visit Diagnoses Diagnosis Lipodermatosclerosis Panniculitis of other sites documented in this encounter Care Teams Gas Truck Driver Relationship Specialty Start Date End Date Connie Kemp MD [address] [place] [address] PCP - General Family Medicine 11/07/17 documented as of this encounter
--- OUTSIDE RECORDS SUMMARY | 2024-01-16 14:27 | XMS_ITS | Encounter Summary ---
Author Organization [facility] Address [address] [place] [address] Care Team Providers Care Regional Airline Pilot Name Role Phone Unknown, Provider Primary Care Provider [phone] Encounter Details Date Type Department Care Team ([facility] Contact Info) Description 06/10/2017 Results Only [facility] [phone] Stalin Ayers MD [address] [place] [address] Social History Tobacco Use Types Packs/Day Years Used Date Smoking Tobacco: Never Assessed Sex and Gender Information Value Date Recorded Sex Assigned at Not on file Gender Identity Female 06/23/2019 8:24 EST Sexual Orientation Not on file documented as of this encounter Plan of Treatment Upcoming Encounters Date Type Department Care Team (Late Contact Info) Description 04/27/2024 8:45 EST Telemedicine [facility] Rheumatology [address] [place], [place] [phone] Susan Santana MD [address] [facility] [address] [place] [address] documented as of this encounter Procedures Procedure Name Priority Date/Time Associated Diagnosis Comments SURGICAL PATHOLOGY Routine 06/10/2017 8:26 EST documented in this encounter Results * SURGICAL PATHOLOGY (06/10/2017 8:26 EST) Pathology Report: SURGICAL PATHOLOGY REPORT Reports generated via electronic interface contain original data; however they are lacking the format of the original report. Caution should be taken when reading/interpret ing unformatted reports. Name: ? ASHLEY, CHELSI F ? Accession #: ? [id number] ? : ? 1975 (Age: 42) ??F ? Collect Date: ? 06/10/2017 ? Location: ? [facility] ? Receive Date: ? 06/11/2017 ? Provider: STALIN AYERS MD Copy to: ROSE HANSEN MD ? Final Pathologic Diagnosis: ENDOMETRIUM, BIOPSY: - Predominantly mucus and fragment of benign endocervical tissue. - Strips of atrophic endometrium. Document reviewed and electronically signed by: KINGS OCONNOR MD Report ??Date: 06/12/2017 11:05 By the signature above, the attending physician certifies that he/she has personally conducted a gross and/or microscopic examination of the described specimens and rendered or confirmed the above diagnosis. 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 daily Gross Description: ? Received in formalin labelled with proper patient identification (initials A, T) and endometrial biopsy is an aggregate of blood tinged lobulated mucus (2.8 x 2.3 x 0.7 cm). Submitted in toto in 1-3. Ivanna Espana 06/11/2017 9:34 AM End of Report [facility] 06/10/2017 8:26 EST 06/11/2017 8:26 EST Stalin Ayers MD PATHOLOGY ORDERABLES [facility] [address] [place] [address] documented in this encounter Visit Diagnoses Not on filedocumented in this encounter Care Teams Regional Airline Pilot Relationship Specialty Start Date End Date Unknown, Provider, PCP - General 04/16/15 06/23/19 documented as of this encounter
--- OUTSIDE RECORDS SUMMARY | 2024-01-16 14:27 | XMS_ITS | Encounter Summary ---
Author Organization [facility] Address [address] [place] [address] Care Team Providers Care Clinical Documentation Specialist Name Role Phone Unavailable Primary Care Provider Unavailabl e Encounter Details Date Type Department Care Team (Late st Contact Info) Description 08/25/2014 Results Only [facility] Services - [facility] [address] [place] [phone] Connie Hansen MD [address] [address] Social History Tobacco Use Types [...] Description 04/27/2024 8:45 EST Telemedicine [facility] - [facility] Rheumatology [address] [place], [place] [phone] Susan Santana MD [address] [facility] [address] [place] [phone] documented as of this encounter Procedures Procedure Name Priority Date/Time Associated Diagnosis Comments PAP TEST- RESULT ONLY Routine 08/25/2014 0:00 EDT documented in this encounter Results * PAP TEST- RESULT ONLY (08/25/2014 0:00 EDT) Pathology Report: CYTOPATHOLOGY REPORT Reports generated via electronic interface contain original data; however they are lacking the format of the original report. Caution should be taken when reading/interpreti ng unformatted reports. Name: ? CHELSI HERNANDEZ ? Accession #: ? [id number] ? : ? 1975 (Age: 39) ??F ?Collect Date: ? 08/25/2014 ? Location: ? [facility] ? Receive Date: ? 08/26/2014 ? Provider: CONNIE HANSEN MD Copy to: ? Final Report SPECIMEN ADEQUACY ? Satisfactory for Evaluation - transformation zone component present GENERAL CATEGORIZATION ? Negative for Intraepithelial Lesion or Malignancy ?? Specimen/Source: ??Pap Test, Cervix/Endocervix, ThinPrep Imaging System with manual evaluation Document reviewed and electronically signed by: ? ABRIL Simpson(ASCP) ? Report ??Date: 09/05/2014 14:04 HPV with Pap Test ? Date Ordered: ? 09/05/2014 ? Status: ?? Signed Out ?Date Complete: ? 09/07/2014 ? By: ??System Interface ? Date Reported: ? 09/07/2014 ? Interpretation RESULT: Negative for HPV. No E6 or E7 mRNA is detected from HPV types 16,18,31,33,35, 39,45,51,52,56,58, 59,66, and 68 by container packer operator mediated amplification. Comments Document reviewed and electronically signed by: ? System Interface ? Report date: 09/07/2014 By the signature above, the attending physician certifies that he/she has personally conducted a gross and/or microscopic examination of the described specimens and rendered or confirmed the above diagnosis. End of Report [facility] 08/25/2014 08/26/2014 Connie Hansen MD PATHOLOGY ORDERABLES [facility] [address] [place] [address] documented in this encounter Visit Diagnoses Not on filedocumented in this encounter
--- OUTSIDE RECORDS SUMMARY | 2024-01-16 14:27 | XMS_ITS | Encounter Summary ---
Author Organization [facility] Address [address] [place] [address] Care Team Providers Care Rubber Factory Worker Name Role Phone Unavailable Primary Care Provider Unavailabl e Encounter Details Date Type Department Care Team (Late st Contact Info) Description 02/02/2001 Results Only [facility] conversion [address] [place] [address] Eduardo Carrillo MD [address] [place] [address] Social History Tobacco Use Types Packs/Day Years Used Date Smoking Tobacco: Never Assessed Sex and Gender Information Value Date Recorded Sex Assigned at Not on file Gender Identity Female 06/23/2019 8:24 EST Sexual Orientation Not on file documented as of this encounter Plan of Treatment Upcoming Encounters Date Type Department Care Team (Late Contact Info) Description 04/27/2024 8:45 EST Telemedicine [facility] Rheumatology [address] [place], [place] [phone] Susan Santana MD [address] [facility] [address] [place] [phone] documented as of this encounter Procedures Procedure Name Priority Date/Time Associated Diagnosis Comments SURGICAL PATHOLOGY Routine 02/02/2001 0:00 EDT documented in this encounter Results * SURGICAL PATHOLOGY (02/02/2001 0:00 EDT) Pathology Report: SURGICAL PATHOLOGY REPORT Reports generated via electronic interface contain original data; however they are lacking the format of the original report. Caution should be taken when reading/interpreti ng unformatted reports. Name: ? CHELSI HERNANDEZ F ? Accession #: ? [id number] ? : ? 1975 (Age: 25) ??F ? Collect Date: ? 02/02/2001 ? Location: ? [facility] ? Receive Date: ? 02/02/2001 ? Provider: EDUARDO CARRILLO MD Copy to: KATHY TANNER MD ? Final Pathologic Diagnosis: A. ?Endometrium, curettage: 1. ?Scant fragments of endocervical tissue. B. ?Soft tissue, left pelvic sidewall, excision: 1. ?Fibroadipose tissue with focal, chronic inflammation and reactive changes. Document reviewed and electronically signed by: Chente Campuzano MD Report ??Date: 02/04/2001 17:14 By the signature above, the attending physician certifies that he/she has personally conducted a gross and/or microscopic examination of the described specimens and rendered or confirmed the above diagnosis. Specimen(s) Received: A. ?Endometrial curettings B. ?Left pelvic sidewall Clinical History: ? Recurrent pelvic pain Gross Description: ? Received in formalin labelled David and endometrial curettings are multiple fragments of hare-white, focally hemorrhagic soft tissue and mucus. ??The specimen measures approximately 0.25 cc in aggregate. ??The specimen is submitted entirely as (A). Received in formalin labelled David and left pelvic sidewall is a 1.0 x 1.0 x 0.5 cm fragment of hare-white focally hemorrhagic soft tissue. ??The specimen is submitted intact as (B). ??(Dr. Nelson)/tmg End of Report [facility] 02/02/2001 02/02/2001 15: 20 EDT Eduardo Carrillo MD PATHOLOGY ORDERABLES [facility] [address] [place] [address] documented in this encounter Visit Diagnoses Not on filedocumented in this encounter
--- OUTSIDE RECORDS SUMMARY | 2024-01-16 14:27 | XMS_ITS | Encounter Summary ---
Author Organization [facility] Address [address] [place] [address] Care Team Providers Care Deli Cutter Slicer Name Role Phone Unavailable Primary Care Provider Gerard e Encounter Details Date Type Department Care Team (Late st Contact Info) Description 09/21/2004 Results Only [facility] conversion [address] [place] [address] Vero Curry, [facility] [address] [place] [address] Social History Tobacco Use Types Packs/Day Years Used Date Smoking Tobacco: Never Assessed Sex and Gender Information Value Date Recorded Sex Assigned at Not on file Gender Identity Female 06/23/2019 8:24 EST Sexual Orientation Not on file documented as of this encounter Plan of Treatment Upcoming Encounters Date Type Department Care Team (Late st Contact Info) Description 04/27/2024 8:45 EST Telemedicine [facility] Rheumatology [address] [place] [phone] Susan Santana MD [address] [facility] [address] [place] [phone] documented as of this encounter Procedures Procedure Name Priority Date/Time Associated Diagnosis Comments CYTOPATHOLOGY Routine 09/21/2004 0:00 EDT documented in this encounter Results * CYTOPATHOLOGY (09/21/2004 0:00 EDT) Pathology Report: CYTOPATHOLOGY REPORT Reports generated via electronic interface contain original data; however they are lacking the format of the original report. Caution should be taken when reading/interpreti ng unformatted reports. Name: ? CHELSI HERNANDEZ ? Accession #: ? [id number] : ? 1975 (Age: 29) ??F ?Collect Date: ? 09/21/2004 Location: ? [facility] ? Receive Date: ? 09/25/2004 Provider: ?VERO ROQEUP Copy to: ? Specimen/Source: ?ThinPrep Pap Test, Cervix/Endocervix Last Menstrual Period: ? 09/17/04 Previous Gynecologic Pathology: ? Benign cellular changes: Other: ? HPVA - HPV testing requested if ASC-US on the current ThinPrep Pap test. Additional clinical information: 01, 02, 03, 04 paps negative ? SPECIMEN ADEQUACY ? Satisfactory for Evaluation - transformation zone component present GENERAL CATEGORIZATION ? Negative for Intraepithelial Lesion or Malignancy ? Document reviewed and electronically signed by: ? Ning Jaramillo, SCT(ASCP) ? Report Date: ??10/01/2004 14:33 End of Report [facility] 09/21/2004 09/25/2004 Vero Curry BPM SOLUTION ARCHITECT PATHOLOGY ORDERABLES [facility] [address] [place] [address] documented in this encounter Visit Diagnoses Not on filedocumented in this encounter
--- OUTSIDE RECORDS SUMMARY | 2024-01-16 14:27 | XMS_ITS | Encounter Summary ---
Author Organization [facility] Address [address] [place] [address] Care Team Providers Care Audiovisual Technician Name Role Phone Connie Kemp MD Primary Care Provider Reason for Visit * Reason Onset Date Comments Medications Refill 04/03/2021 Encounter Details Date Type Department Care Team ([facility] st Contact Info) Description 04/03/2021 Refill [facility] Rheumatology [address] [place] [address] Alla Spangler, RN Medications Refill Social History Tobacco Use Types [...] (COLCRYS) 0.6 mg tabletIndications:Mouth sores Take 1 Tablet by mouth daily. Take daily for mouth sore prevention. 30 Tablet 5 04/03/2021 09/14/2021 documented in this encounter Miscellaneous Notes * Telephone Encounter - Alla Spangler RN - 04/03/2021 1022 EST Refill Colchicine sent to [email or web address] per faxed request. documented in this encounter Plan of Treatment Upcoming Encounters Date Type Department Care Team (Late st Contact Info) Description 04/27/2024 8:45 EST Telemedicine [facility] Rheumatology [address] [place], [place] [phone] Susan Santana MD [address] [facility] [address] [place] [address] documented as of this encounter Visit Diagnoses Diagnosis Mouth sores- Primary Other and unspecified diseases of the oral soft tissues documented in this encounter Discontinued Medications Medication Sig Discontinue Reason Start Date End Da te colchicine (COLCRYS) 0.6 mg tabletIndications:Mouth sores Take 1 Tab by mouth daily. Take daily for mouth sore prevention. Reorder 08/02/2020 04/03/2021 documented as of this encounter Care Teams Audiovisual Technician Relationship Specialty Start Date End Date Connie Kemp MD [address] [place] [phone] PCP - General 06/24/19 documented as of this encounter
--- OUTSIDE RECORDS SUMMARY | 2024-01-16 14:27 | XMS_ITS | Encounter Summary ---
Author Organization [facility] Address [address] [place] [address] Care Team Providers Care Sap Pp Consultant Name Role Phone Unavailable Primary Care Provider Unavailabl e Encounter Details Date Type Department Care Team (Late Contact Info) Description 03/07/2004 Results Only [facility] - Map conversion [address] [place] [address] Sheldon Hess MD [address] [place] [address] Social History Tobacco Use Types Packs/Day Years Used Date Smoking Tobacco: Never Assessed Sex and Gender Information Value Date Recorded Sex Assigned at Not on file Gender Identity Female 06/23/2019 8:24 EST Sexual Orientation Not on file documented as of this encounter Plan of Treatment Upcoming Encounters Date Type Department Care Team (Late Contact Info) Description 04/27/2024 8:45 EST Telemedicine [facility] Rheumatology [address] [place], [place] [address] Susan Santana MD [address] [facility] [address] [place] [phone] documented as of this encounter Procedures Procedure Name Priority Date/Time Associated Diagnosis Comments SURGICAL PATHOLOGY Routine 03/07/2004 0:00 EDT documented in this encounter Results * SURGICAL PATHOLOGY (03/07/2004 0:00 EDT) Pathology Report: SURGICAL PATHOLOGY REPORT Reports generated via electronic interface contain original data; however they are lacking the format of the original report. Caution should be taken when reading/interpreti ng unformatted reports. Name: ? CHELSI HERNANDEZ ? Accession #: ? [id number] ? : ? 1975 (Age: 28) ??F ? Collect Date: ? 03/07/2004 ? Location: ? [facility] ? Receive Date: ? 03/08/2004 ? Provider: SHELDON HESS MD Copy to: KATHY TAPIA MD ? Final Pathologic Diagnosis: ? Gallbladder, cholecystectomy: - Chronic cholecystitis. - Cholelithiasis. Document reviewed and electronically signed by: Sher Kaplan MD Report ??Date: 03/12/2004 17:33 By the signature above, the attending physician certifies that he/she has personally conducted a gross and/or microscopic examination of the described specimens and rendered or confirmed the above diagnosis. Specimen(s) Received: ? Gallbladder Clinical History: ? Cholelithiasis Gross Description: ? Received in formalin labelled Stacy is a 9.2 cm in length by 2.6 cm in diameter gallbladder with two transmural defects, one of which is located at the fundus and the other within the body, both averaging 0.8 cm in greatest dimension. ??The serosa is hare-pink to purple, glistening, and displays focal fibrinous adhesions. ??The lumen is impacted with numerous (greater than 50) mixed yellow-black multifaceted choleliths ranging from 0.2 to 1.5 cm in greatest dimension, several of which are located subjacent to the cystic duct and appear to obstruct the 0.1 cm in length by less than 0.1 cm in diameter cystic duct. ??The mucosa is diffusely trabeculated and discolored green-pink. ??The wall averages 0.3 cm in thickness. ??A outside industrial sales representative section of the fundus to include transmural defect, body, and cystic duct margin (en face) is submitted in one cassette. ??(Jacobo Shook)/[facility] End of Report [facility] 03/07/2004 03/08/2004 15: 10 EDT Sheldon Hess MD PATHOLOGY ORDERABLE [facility] [address] [place] [address] documented in this encounter Visit Diagnoses Not on filedocumented in this encounter
--- OUTSIDE RECORDS SUMMARY | 2024-01-16 14:27 | XMS_ITS | Encounter Summary ---
Author Organization [facility] Address [address] [place] [address] Care Team Providers Care Muck Operator Name Role Phone Unavailable Primary Care Provider Gerard e Encounter Details Date Type Department Care Team (Late st Contact Info) Description 10/10/1999 Results Only [facility] conversion [address] [place] [address] Vero Curry, [facility] [address] [place] [address] Social History Tobacco Use Types Packs/Day Years Used Date Smoking Tobacco: Never Assessed Sex and Gender Information Value Date Recorded Sex Assigned at Not on file Gender Identity Female 06/23/2019 8:24 EST Sexual Orientation Not on file documented as of this encounter Plan of Treatment Upcoming Encounters Date Type Department Care Team (Late st Contact Info) Description 04/27/2024 8:45 EST Telemedicine [facility] Rheumatology [address] [place] [phone] Susan Santana MD [address] [facility] [address] [place] [phone] documented as of this encounter Procedures Procedure Name Priority Date/Time Associated Diagnosis Comments CYTOPATHOLOGY Routine 10/10/1999 0:00 EDT documented in this encounter Results * CYTOPATHOLOGY (10/10/1999 0:00 EDT) Pathology Report: CYTOPATHOLOGY REPORT Reports generated via electronic interface contain original data; however they are lacking the format of the original report. Caution should be taken when reading/interpreti ng unformatted reports. Name: ? CHELSI HERNANDEZ ? Accession #: ? [id number] : ? 1975 (Age: 24) ??F ?Collect Date: ? 10/10/1999 Location: ? [facility] ? Receive Date: ? 10/12/1999 Provider: ?VERO CURRY H[facility] PORTER Copy to: ? Specimen/Source: ?ThinPrep Pap Test, Cervix/Endocervix Last Menstrual Period: ? 07/11/99 Menstrual/Pregnanc y Status: ? SPECIMEN ADEQUACY ? Satisfactory for evaluation. GENERAL CATEGORIZATION ? Benign Cellular Changes DESCRIPTIVE DIAGNOSIS ? Fungal organisms present morphologically consistent with Heather species. ? Document reviewed and electronically signed by: ? ABRIL Pang(ASCP) ? Report Date: ??10/16/1999 10:36 End of Report [facility] 10/10/1999 10/12/1999 Vero Curry HALL PORTER PATHOLOGY ORDERABLES [facility] [address] [place] [address] documented in this encounter Visit Diagnoses Not on filedocumented in this encounter
--- OUTSIDE RECORDS SUMMARY | 2024-01-16 14:27 | XMS_ITS | Encounter Summary ---
Author Organization [facility] Address [address] [place] [address] Care Team Providers Care Shipping And Receiving Supervisor Name Role Phone Unavailable Primary Care Provider Unavailabl e Encounter Details Date Type Department Care Team (Late st Contact Info) Description 06/23/2001 Results Only [facility] - Maple conversion [address] [place] [address] Eduardo Carrillo MD [address] [place] [address] Social History Tobacco Use Types Packs/Day Years Used Date Smoking Tobacco: Never Assessed Sex and Gender Information Value Date Recorded Sex Assigned at Not on file Gender Identity Female 06/23/2019 8:24 EST Sexual Orientation Not on file documented as of this encounter Plan of Treatment Upcoming Encounters Date Type Department Care Team (Late Contact Info) Description 04/27/2024 8:45 EST Telemedicine [facility] Rheumatology [address] [place], [place] [address] Susan Santana MD [address] [facility] [address] [place] [phone] documented as of this encounter Procedures Procedure Name Priority Date/Time Associated Diagnosis Comments CYTOPATHOLOGY Routine 06/23/2001 0:00 EST documented in this encounter Results * CYTOPATHOLOGY (06/23/2001 0:00 EST) Pathology Report: CYTOPATHOLOGY REPORT Reports generated via electronic interface contain original data; however they are lacking the format of the original report. Caution should be taken when reading/interpreti ng unformatted reports. Name: ? CHELSI HERNANDEZ F ? Accession #: ? [id number] : ? 1975 (Age: 26) ??F ?Collect Date: ? 06/23/2001 Location: ? [facility] ? Receive Date: ? 06/25/2001 Provider: ?EDUARDO CARRILLO MD Copy to: ? Specimen/Source: ?ThinPrep Pap Test, Cervix/Endocervix Last Menstrual Period: ? 06/04/00 Hormonal/Contracep tive Status: ? Depo-Provera ? SPECIMEN ADEQUACY ? Satisfactory for Evaluation - transformation zone component present GENERAL CATEGORIZATION ? Negative for Intraepithelial Lesion or Malignancy ? Document reviewed and electronically signed by: ? Ning Jaramillo, SCT(ASCP) ? Report Date: ??06/26/2001 14:10 End of Report [facility] 06/23/2001 06/25/2001 Eduardo Carrillo MD PATHOLOGY ORDERABLES [facility] [address] [place] [address] documented in this encounter Visit Diagnoses Not on filedocumented in this encounter
--- OUTSIDE RECORDS SUMMARY | 2024-01-16 14:27 | XMS_ITS | Encounter Summary ---
Author Organization [facility] Address [address] [place] [address] Care Team Providers Care Health Facilities Surveyor Name Role Phone Unavailable Primary Care Provider Unavailabl e Encounter Details Date Type Department Care Team (Late Contact Info) Description 12/06/2005 Results Only [facility] - Map conversion [address] [place] [address] Tod Monroe [id number] [place] [address] Social History Tobacco Use Types [...] 8:45 EST Telemedicine [facility] Rheumatology [address] [place] [phone] Susan Santana MD [address] [place] [address] [address] [place] [phone] documented as of this encounter Procedures Procedure Name Priority Date/Time Associated Diagnosis Comments CYTOPATHOLOGY Routine 12/06/2005 0:00 EDT documented in this encounter Results * CYTOPATHOLOGY (12/06/2005 0:00 EDT) Pathology Report: CYTOPATHOLOGY REPORT Reports generated via electronic interface contain original data; however they are lacking the format of the original report. Caution should be taken when reading/interpreti ng unformatted reports. Name: ? CHELSI HERNANDEZ ? Accession #: ? [id number] : ? 1975 (Age: 30) ??F ?Collect Date: ? 12/06/2005 Location: ? [facility] ? Receive Date: ? 12/10/2005 Provider: ?TOD MONROE CNM Copy to: ? Specimen/Source: ?ThinPrep Pap Test, Cervix/Endocervix, processed on [facility] ThinPrep Imaging System, with manual evaluation Last Menstrual Period: ? 10/13/05 Menstrual/Pregnanc y Status: ? Previous Gynecologic Pathology: ? Benign cellular changes: Other: ? HPVA - HPV testing requested if ASC-US on the current ThinPrep Pap test. ? SPECIMEN ADEQUACY ? Satisfactory for Evaluation - transformation zone component present GENERAL CATEGORIZATION ? Negative for Intraepithelial Lesion or Malignancy ? Document reviewed and electronically signed by: ? ABRIL Simpson(ASCP) ? Report Date: ??12/11/2005 11:17 End of Report [facility] 12/06/2005 12/10/2005 Tod Monroe CNM PATHOLOGY ORDERABLES [facility] [address] [place] [address] documented in this encounter Visit Diagnoses Not on filedocumented in this encounter
--- OUTSIDE RECORDS SUMMARY | 2024-01-16 14:27 | XMS_ITS | Encounter Summary ---
Author Organization [facility] Address [address] [place] [address] Care Team Providers Care Canine Enforcement Officer Name Role Phone Connie Kemp MD Primary Care Provider [phone] Reason for Visit * Reason Comments Follow-up Patient is feeling w ell today Encounter Details Date Type Department Care Team ([facility] Contact Info) Description 06/24/2019 11:15 EST Office Visit [facility] Rheumatology [address] [place] [address] Susan Santana MD [address] [facility] [address] [place] [address] Rheumatoid arthritis involving multiple sites with positive rheumatoid factor ([facility]) (Primary Dx); High risk medication use; Mouth sores Social History Tobacco Use Types Packs/Day Years Used Date Smoking Tobacco: Never Smokeless Tobacco: Never Sex and Gender Information Value Date Recorded Sex Assigned at Not on file Gender Identity Female 06/23/2019 8:24 EST Sexual Orientation Not on file documented as of this encounter Last Filed Vital Signs Vital Sign Reading Time Taken Comments Blood Pressure 130/68 06/24/2019 1122 EST Pulse 83 06/24/2019 1122 EST Temperature - - Respiratory Rate - - Oxygen Saturation - - Inhaled Oxygen Concentration - - Weight 149.7 kg (330 lb) 06/24/2019 1122 EST Height 160 cm (5' 3) 06/24/2019 1122 EST Body Mass Index 58.46 06/24/2019 1122 EST documented in this encounter Patient Instructions * Patient Instructions* Susan Santana MD - 06/24/2019 11:15 EST Continue methotrexate at 6 pills once a week Add colchicine 0.6 mg a day for mouth sores if the valcyclovir does not clear up all ulcers for good within 2 weeks Please have your dentist look at the sore on your tongue, it looks unusual for a canker sore or medication caused sore. Labs at [facility] every 3 months. documented in this encounter Ordered Prescriptions Prescription Sig Dispensed Refills Start Date End Da te colchicine (COLCRYS) 0.6 mg tabletIndications:Mouth sores Take 1 Tab by mouth daily. Take daily for mouth sore prevention. 30 Tab 3 06/24/2019 11/25/2019 documented in this encounter Progress Notes * Susan Santana MD - 06/24/2019 1115 EST Division of Rheumatology and Clinical Immunology Chief Complaint Patient presents with ??? Follow-up Patient is feeling well today Rheumatoid arthritis ? +RF, CCP. FANI + Joint pain 2017. Methotrexate ?Lost to follow up from [id number] and due to insurance issues. HPI: Has been without insurance for A year. Has not been able to afford medications.Was taking methotrexate intermittently. Restarted in ER visit for joint pain and flare. On 6 tabs once a week for last month, er started. Has been having a hard time sorting RA. Feels might have MARYBETH Mouth sores are problem. Not from methotrexate Thinks marybeth causing lots of symptoms anusha fatigue/edema Headaches also Recently exposed to flu. No benefit from folic acid for mouth sores. Added valcyclovir for oral ulcers. ? Helpful. Current Outpatient Medications: cetirizine (ZYRTEC) 10 mg tablet fluticasone propionate (FLONASE) 50 mcg/actuation nasal spray ibuprofen (MOTRIN) 600 mg tablet medroxyPROGESTERone (PROVERA) 10 mg tablet methotrexate 2.5 mg tablet metoprolol XL (TOPROL-XL) 25 mg tablet valACYclovir (VALTREX) 1 gram tablet No current facility-administered medications for this visit. Allergies include: Venom-honey bee Past Medical History: Diagnosis Date ??? Rheumatoid arthritis involving multiple sites with positive rheumatoid factor ([facility]) 06/24/2019 No past surgical history on file. ROS Negative except as in hpi. Complete 12 point ros obtained- see scans for pertinent positive and negatives on intake sheet. PHYSICAL EXAMINATION: BP 130/68 (BP Cuff Sizes: Adult, large) Pulse 83 Ht 160 cm (63) Wt (!) 149.7 kg (330 lb) BMI 58.46 kg/m?? Physical Exam Pleasant well-appearing woman Eyes no injection. Oropharynx: There is a large ulcer at the base of the right tongue with some granulation tissue no buccal mucosal ulcers her dentition is good. Neck range of motion preserved chest clear to auscultation cardiac regular rate and rhythm abdomen is obese and soft with no tenderness. Joint examination subluxation of the MCPs with prominent ulnar styloids but no synovitis elbows tender at end range ofmotion with a flexion contracture on the left shoulder range of motion within normal limits hips and knees unremarkable metatarsal subluxation with tenderness. Skin: Dependent edema without skin breakdown in lower extremities no rheumatoid nodules her neurologic normal gait fluent speech and her affect is pleasant and appropriate Patient states that she had blood work drawn at [facility] yesterday, call placed to request these labs at the time of the visit visualization of results pending at the time of this dictation. LABS Done at [facility] yesterday. Patient is a 44-year-old woman with seropositive CCP positive rheumatoid arthritis. She has been lost to follow-up due to insurance concerns. It sounds as if her methotrexate has been ordered and monitored by providers and the [facility] region. Labs are drawn yesterday. Rheumatoid arthritis: Continue methotrexate 15 mg 1 day a week. Joints are stable Mouth sore: Not typical for those related to autoimmune disease or of those related to use of methotrexate. There appears to be some granulation tissue question if this is deep-seated infection, Dino's that should be considered. Also malignancy cannot be excluded. If this wound does not heal up I have strongly encouraged the patient to be seen in her dentist office for further expert intervention -Valacyclovir may be helping symptoms -She could certainly try colchicine, however, again I think this is atypical for a mouth sore from autoimmune disease or from methotrexate and counseled the patient of this impression High risk medication: Awaiting results from CBC, CMP drawn yesterday. Importance of every 3-month CBC and CMP emphasized. Patient Instructions Continue methotrexate at 6 pills once a week Add colchicine 0.6 mg a day for mouth sores if the valcyclovir does not clear up all ulcers for good within 2 weeks Please have your dentist look at the sore on your tongue, it looks unusual for a canker sore or medication caused sore. Labs at [facility] every 3 months. Chelsi was seen today for follow-up. Diagnoses and all orders for this visit: Rheumatoid arthritis involving multiple sites with positive rheumatoid factor ([facility]) - methotrexate 2.5 mg tablet; Take 15 mg by mouth once a week. (taking 6 tabs once a week) High risk medication use Mouth sores - colchicine (COLCRYS) 0.6 mg tablet; Take 1 Tab by mouth daily. Take daily for mouth sore prevention. Other orders - cetirizine (ZYRTEC) 10 mg tablet; Take 10 mg by mouth daily. - fluticasone propionate (FLONASE) 50 mcg/actuation nasal spray; Instill 100 mcg into both nostrilsdaily. - ibuprofen (MOTRIN) 600 mg tablet; Take 600 mg by mouth 3 times daily as needed. - medroxyPROGESTERone (PROVERA) 10 mg tablet; Take 10 mg by mouth daily. - valACYclovir (VALTREX) 1 gram tablet; TK 1 T PO QD FOR COLD SORE PREVENTION FOR BREAKTHROUGH 2 TABS EVERY 12 HOURS FOR 2 DOSES - metoprolol XL (TOPROL-XL) 25 mg tablet; TAKE ONE-HALF TABLET BY MOUTH DAILY Impressions, diagnosis, treatment plan were reviewed. Patient questions and concerns were reviewed and answered. Patient agreeable to plan of care and will call if any addition concerns or questions arise. Susan Santana MD 06/24/2019 11:29 documented in this encounter Plan of Treatment Upcoming Encounters Date Type Department Care Team (Late st Contact Info) Description 04/27/2024 8:45 EST Telemedicine [facility] Rheumatology [address], [place] [address] Susan Santana MD [address] [facility] [address] [place] [phone] documented as of this encounter Visit Diagnoses Diagnosis Rheumatoid arthritis involving multiple sites with positive rheumatoid factor ([facility])- Primary High risk medication use Encounter for long-term (current) use of other medications Mouth sores Other and unspecified diseases of the oral soft tissues documented in this encounter Historical Medications * This list may reflect changes made after this encounter. Medication Sig Dispensed Refills Start Date End Date metoprolol XL (TOPROL-XL) 25 mg tablet TAKE ONE-HALF TABLET BY MOUTH DAILY 05/30/2019 valACYclovir (VALTREX) 1 gram tablet TK 1 T PO QD FOR COLD SORE PREVENTION FOR BREAKTHROUGH 2 TABS EVERY 12 HOURS FOR 2 DOSES 06/14/2019 medroxyPROGESTERone (PROVERA) 10 mg tablet Take 1 Tablet by mouth daily. ibuprofen (MOTRIN) 600 mg tablet Take 1 Tablet by mouth 3 times daily as needed. fluticasone propionate (FLONASE) 50 mcg/actuation nasal spray Instill 100 mcg into both nostrils daily. cetirizine (ZYRTEC) 10 mg tablet Take 1 Tablet by mouth daily. methotrexate 2.5 mg tabletIndications:Rheu matoid arthritis involving multiple sites with positive rheumatoid factor ([facility]) Take 15 mg by mouth once a week. (taking 6 tabs once a week) 06/28/2019 added in this encounter Care Teams Canine Enforcement Officer Relationship Specialty Start Date End Date Connie Kemp MD [address] [place] [phone] PCP - General 06/24/19 documented as of this encounter
--- OUTSIDE RECORDS SUMMARY | 2024-01-16 14:27 | XMS_ITS | Clinical Summary ---
Author Organization [facility] Address [address] [facility] [place] [address] Care Team Providers Care Timber Hewer Name Role Phone Connie Kemp MD Primary Care Provider [phone] Allergies No known active allergies Medications Medication Sig Dispensed Refills Start Date End Date Status metHOTREXate 2.5 mg Tablet Take 2.5 mg by mouth once a week. Take (6) six tablets weekely Active folic acid (FOLVITE) 1 mg Tablet Take 1 mg by mouth daily as needed (take every day except day of MTX dosing). Active pentoxifylline (TRENTAL) 400 mg Tablet Sustained Release Take one tablet three times daily with meals 90 tablet 2 11/07/2017 Active Social History Tobacco Use Types Packs/Day Years Used Date Smoking Tobacco: Never Smokeless Tobacco: Never Sex and Gender Information Value Date Recorded Sex Assigned at Not on file Gender Identity Not on file Sexual Orientation Not on file Plan of Treatment Health Maintenance Due Date Last Done Comments CT Colonography 1977 Colonoscopy 1975 Colorectal Cancer Screening 1975 FIT DNA 1975 FIT 1975 Sigmoidoscopy (10 year) with FIT yearly 1975 Sigmoidoscopy 1975 HIV screen 1995 Hepatitis C Screening 1995 Hepatitis B vaccine (0-59 yrs) (1) 1996 Tdap adult 1996 Tetanus vaccine 1996 HPV test 2007 PAP Smear 2007 Breast Cancer Share Decision Needed 2017 Breast Cancer screening 2017 Covid-19 Vaccine ( - 2022-24 season) 2023 Influenza (Flu) vaccine (1 o f 1 - Influenza standard series) 01/25/2024 Care Teams Timber Hewer Relationship Specialty Start Date End Date Connie Kemp MD [facility] [address] [place] [address] PCP - General Family Medicine 11/07/17
--- OUTSIDE RECORDS SUMMARY | 2024-01-16 14:27 | XMS_ITS | Encounter Summary ---
Author Organization [facility] Address [address] [place] [address] Care Team Providers Care Associate Faculty Name Role Phone Connie Kemp MD Primary Care Provider [phone] Reason for Visit * Reason Onset Date Comments Medications Refill 11/30/2020 Faxed refill request for MTX from [facility]. Encounter Details Date Type Department Care Team ([facility] Contact Info) Description 11/30/2020 Refill [facility] Rheumatology [address] [place] [phone] Asha Ambrocio RN Medications Refill (Faxed refill request for MTX from [facility].) Social History Tobacco Use Types Packs/Day Years [...] multiple sites with positive rheumatoid factor ([facility]) Take 6 tablets by mouth once a week. 72 Tablet 1 11/30/2020 05/16/2021 documented in this encounter Miscellaneous Notes * Telephone Encounter - Asha Ambrocio RN - 11/30/2020 9627 EDT Last visit note reviewed; follow up noted and labs up to date. Refill sent as noted. documented in this encounter Plan of Treatment Upcoming Encounters Date Type Department Care Team (Late st Contact Info) Description 04/27/2024 8:45 EST Telemedicine [facility] Rheumatology [address] [place] [address] Susan Santana MD [address] [facility] [address] [place] [phone] documented as of this encounter Visit Diagnoses Diagnosis Rheumatoid arthritis involving multiple sites with positive rheumatoid factor ([facility])- Primary documented in this encounter Discontinued Medications Medication Sig Discontinue Reason Start Date End Da te methotrexate 2.5 mg tabletIndications:Rheuma toid arthritis involving multiple sites with positive rheumatoid factor ([facility]) Take 6 tablets by mouth once a week. Reorder 06/20/2020 11/30/2020 documented as of this encounter Care Teams Associate Faculty Relationship Specialty Start Date End Date Connie Kemp MD [address] [place] [phone] PCP - General 06/24/19 documented as of this encounter
--- OUTSIDE RECORDS SUMMARY | 2024-01-16 14:27 | XMS_ITS | Encounter Summary ---
Author Organization [facility] Address One [facility] [place] [address] Care Team Providers Care Metal Fabricator Helper Name Role Phone Connie Kemp MD Primary Care Provider [phone] Encounter Details Date Type Department Care Team (Late st Contact Info) Description 11/07/2017 Refill Dermatology at [address] [place] [address] Miroslava Casiano, PIPING SUPERVISOR Social History Tobacco Use Types Packs/Day Years Used Date Smoking Tobacco: Never Smokeless Tobacco: Never Sex and Gender Information Value Date Recorded Sex Assigned at Not on file Gender Identity Not on file Sexual Orientation Not on file documented as of this encounter Plan of Treatment Not on file documented as of this encounter Visit Diagnoses Not on filedocumented in this encounter Care Teams Metal Fabricator Helper Relationship Specialty Start Date End Date Connie Kemp MD [facility] [address] [place] [address] PCP - General Family Medicine 11/07/17 documented as of this encounter
--- OUTSIDE RECORDS SUMMARY | 2024-01-16 14:27 | XMS_ITS | Encounter Summary ---
Author Organization [facility] Address [address] [place] [address] Care Team Providers Care Ux Engineer Name Role Phone Connie Kemp MD Primary Care Provider [phone] Encounter Details Date Type Department Care Team ([facility] Contact Info) Description 06/27/2020 Lab Requisition [facility] Pathology & Laboratory Medicine - [address] [phone] Outr Resulting Lab, Provider Social History Tobacco [...] Upcoming Encounters Date Type Department Care Team ([facility] Contact Info) Description 04/27/2024 8:45 EST Telemedicine [facility] Rheumatology [address] [place] [address] Susan Santana MD [address] [facility] [address] [place] [address] documented as of this encounter Procedures Procedure Name Priority Date/Time Associated Diagnosis Comments ZZCOVID-19 TEST [facility] PCR Today 06/27/2020 10:41 EST COVID-19 TESTING Routine 06/27/2020 10:4 1 EST documented in this encounter Results * COVID-19 TEST [facility] PCR (06/27/2020 10:41 EST) Swab ENTIRE NASOPHARYNX / Unknown 06/27/2020 10:41 EST 06/27/2020 15:57 EST Provider Outr Resulting Lab MICROBIOLOGY - GENERAL ORDERABLES Performing Organization Address [facility] Co de Phone Number [facility] [address] [place] [address] * COVID-19 TESTING (06/27/2020 10:41 EST) COVID-19 rt-PCR Result Negative Negative 06/28/2020 12:38 EST [facility] Comment: This test has not been FDA cleared or approved. This test has been authorized by FDA under an EUA for use by authorized laboratories. This test has been authorized only for detection of nucleic acid from 2019-nCoV, not for any other viruses or pathogens. This test is only authorized for the duration of the declaration that circumstances exist justifying the authorization of emergency use of in vitro diagnostic tests for detection and/or diagnosis of 2019-nCoV under section 564(b)(1) of Act, 21 U.S.C ?? 360bbb-3(b) (1), unless the authorization is terminated or revoked sooner. Negative results do not preclude 2019-nCoV infection and should not be used as the sole basis for treatment or other patient management decisions. Negative results must be combined with clinical observations, patient history, and epidemiological information. Testing was performed using the hazel SARS-CoV-2 assay ([facility] on the Hazel 6800 System Performing Lab Hazel [address] [facility] 06/28/2020 12:38 EST [facility] Swab 06/27/2020 10:4 1 EST 06/27/2020 15:57 EST Provider Outr Resulting Lab MICROBIOLOGY - GENERAL ORDERABLES Performing Organization Address City/[facility]/ZIP Co de Phone Number [facility] [address] [place] [address] documented in this encounter Visit Diagnoses Not on filedocumented in this encounter Care Teams Ux Engineer Relationship Specialty Start Date End Date Connie Kemp MD [address] [place] [phone] PCP - General 06/24/19 documented as of this encounter
--- OUTSIDE RECORDS SUMMARY | 2024-01-16 14:27 | XMS_ITS | Encounter Summary ---
Author Organization [facility] Address [address] [place] [address] Care Team Providers Care Stenographer Secretary Name Role Phone Connie Kemp MD Primary Care Provider [phone] Reason for Visit * Reason Onset Date Comments Medications Refill 11/25/2019 Received a fa xed refill [facility] Encounter Details Date Type Department Care Team ([facility] Contact Info) Description 11/25/2019 Refill [facility] Rheumatology [address] [place] [id number] Asha Ambrocio RN Medications Refill (Received a faxed refill request for colchicine from [email or web address] in [facility]) Social History Tobacco Use Types Packs/Day Years [...] for mouth sore prevention. 30 Tab 5 11/25/2019 08/02/2020 documented in this encounter Miscellaneous Notes * Telephone Encounter - Asha Ambrocio RN - 11/25/2019 5247 EDT Last visit note reviewed and follow up noted 12/23/19. Refill sent as noted. documented in this encounter Plan of Treatment Upcoming Encounters Date Type Department Care Team ([facility] Contact Info) Description 04/27/2024 8:45 EST Telemedicine [facility] [address] [place] [address] Susan Santana MD [address] [facility] [address] [place] [phone] documented as of this encounter Visit Diagnoses Diagnosis Mouth sores- Primary Other and unspecified diseases of the oral soft tissues documented in this encounter Discontinued Medications Medication Sig Discontinue Reason Start Date End Da te colchicine (COLCRYS) 0.6 mg tabletIndications:Mouth sores Take 1 Tab by mouth daily. Take daily for mouth sore prevention. Reorder 06/24/2019 11/25/2019 documented as of this encounter Care Teams Stenographer Secretary Relationship Specialty Start Date End Date Connie Kemp MD [address] [place] [phone] PCP - General 06/24/19 documented as of this encounter
--- OUTSIDE RECORDS SUMMARY | 2024-01-16 14:27 | XMS_ITS | Encounter Summary ---
Author Organization [facility] Address [address] [place] [address] Care Team Providers Care Headlight Adjuster Name Role Phone Connie Kemp MD Primary Care Provider [phone] Encounter Details Date Type Department Care Team ([facility] Contact Info) Description 06/14/2020 Abstract [facility] Rheumatology [address] [place] [address] Susan Santana MD [address] [place] [address] [phone] Social History Tobacco Use Types Packs/Day Years [...] Upcoming Encounters Date Type Department Care Team ([facility] Contact Info) Description 04/27/2024 8:45 EST Telemedicine [facility] Rheumatology [address] [place] [address] Susan Santana MD [address] [place] [address] [phone] documented as of this encounter Procedures Procedure Name Priority Date/Time Associated Diagnosis Comments COMPLETE BLOOD COUNT AND DIFFERENTIAL Routine 03/15/2020 HEMOGLOBIN A1C Routine 03/15/2020 LIPID PROFILE (INCLUDES CHOLESTEROL, TRIGLYCERIDES, HDL, LDL) Routine 03/15/2020 COMPREHENSIVE METABOLIC PANEL (CMP) Routine 03/15/2020 documented in this encounter Results * (ABNORMAL) LIPID PROFILE (INCLUDES CHOLESTEROL, TRIGLYCERIDES, HDL, LDL) (03/15/2020) Cholesterol, External 155 200 Triglycerides, External 121 150 HDL, External 31(A) 40 - 60 LDL, External 100 100 Chol/HDL Ratio, External Fasting?, External Blood VENOUS BLOOD / Unknown 03/15/2020 Historical Provider CHEMISTRY & BLOOD GAS ORDERABLES * (ABNORMAL) COMPREHENSIVE METABOLIC PANEL (CMP) (03/15/2020) GFR, Calculated, External 60 Glucose, Serum, External 120(A) 74 - 106 Albumin, External 3.6 3.4 - 5.0 Total Alkaline Phosphatase, External 92 46 - 116 ALT, External 70(A) 14 - 59 AST, External 34 15 - 37 BUN, External 10 7 - 18 Calculated Calcium, External Calcium, External 9.0 8.5 - 10.1 Chloride, External 105 98 - 107 CO2, External 29.7 21.0 - 32.0 Creatinine, External 0.70 0.55 - 1.02 Fasting?, External Potassium, External 4.5 3.5 - 5.1 Sodium, External 141 136 - 145 Total Protein, External Bilirubin, Total, External 0.8 0.2 - 1.0 Anion Gap 6.3 3 - 11 mmol/L Blood VENOUS BLOOD / Unknown 03/15/2020 Historical Provider CHEMISTRY & BLOOD GAS ORDERABLES * (ABNORMAL) HEMOGLOBIN A1C (03/15/2020) Hemoglobin A1C, External 6.2(A) 5.7 Est Avg Glucose, External Blood VENOUS BLOOD / Unknown 03/15/2020 Historical Provider CHEMISTRY & BLOOD GAS ORDERABLES * (ABNORMAL) COMPLETE BLOOD COUNT AND DIFFERENTIAL (03/15/2020) WBC, External 9.24 4.4 - 10.8 RBC, External 4.70 3.93 - 5.22 Hemoglobin, External 14.1 11.2 - 15.7 HCT, External 44.5 36.0 - 46.0 MCV, External 94.7 80 - 95 MCH, External 30.0 27.0 - 33.0 MCHC, External 31.7(A) 32.0 - 36.0 PLT, External 306 130 - 400 RDW-CV, External 14.1 11.7 - 14.6 Neutrophils, External 73.5 Lymphocytes, External 17.4 Monocytes, External 7.4 Eosinophils, External 1.1 Basophils, External 0.2 ABS Neutrophils, External 6.79(A) 1.2 - 6.7 ABS Lymphs, External 1.61 1.2 - 3.4 ABS Monocytes, External 0.68 0.1 - 0.8 ABS Eosinophils, External 0.10 0.0 - 0.7 ABS Basophils, External 0.02 0.0 - 0.2 Blood VENOUS BLOOD / Unknown 03/15/2020 Historical Provider PACKAGES & DNA MO OBE ORDERABLES documented in this encounter Visit Diagnoses Not on filedocumented in this encounter Care Teams Headlight Adjuster Relationship Specialty Start Date End Date Connie Kemp MD [address] [place] [phone] PCP - General 06/24/19 documented as of this encounter
--- OUTSIDE RECORDS SUMMARY | 2024-01-16 14:27 | XMS_ITS | Encounter Summary ---
Author Organization [facility] Address [address] [place] [address] Care Team Providers Care Healthcare Interpreter Name Role Phone Connie Kemp MD Primary Care Provider [phone] Encounter Details Date Type Department Care Team (Late Contact Info) Description 06/28/2019 Orders Only [facility] Rheumatology [address] [place] [address] Alla Spangler RN Rheumatoid arthritis involving multiple sites with positive rheumatoid factor ([facility]) (Primary Dx) Social History Tobacco Use Types [...] rheumatoid factor ([facility]) Take 6 tablets by mouth once a week. 72 Tab 1 06/28/2019 12/27/2019 documented in this encounter Progress Notes * Alla Spangler RN - 06/28/2019 1150 EST Faxed refill request from [facility].Last visit notes reviewed and follow up noted and [facility] labs done.refill sent as noted. documented in this encounter Plan of Treatment Upcoming Encounters Date Type Department Care Team (Late Contact Info) Description 04/27/2024 8:45 EST Telemedicine [facility] Rheumatology [address] [place] [address] Susan Santana MD [address] [facility] [address] [place] [phone] documented as of this encounter Visit Diagnoses Diagnosis Rheumatoid arthritis involving multiple sites with positive rheumatoid factor ([facility])- Primary documented in this encounter Discontinued Medications Medication Sig Discontinue Reason Start Date End Da te methotrexate 2.5 mg tabletIndications:Rheumat oid arthritis involving multiple sites with positive rheumatoid factor ([facility]) Take 15 mg by mouth once a week. (taking 6 tabs once a week) Reorder 06/28/2019 documented as of this encounter Care Teams Healthcare Interpreter Relationship Specialty Start Date End Date Connie Kemp MD [address] [place] [phone] PCP - General 06/24/19 documented as of this encounter
--- OUTSIDE RECORDS SUMMARY | 2024-01-16 14:27 | XMS_ITS | Encounter Summary ---
Author Organization [facility] Address [address] [place] [address] Care Team Providers Care Insurance Verifier Name Role Phone Unavailable Primary Care Provider Unavailabl e Encounter Details Date Type Department Care Team (Late st Contact Info) Description 08/07/2006 Results Only [facility] conversion [address] [place] [address] Sorin High MD [address] [facility] [address] [place] [phone] Social History Tobacco Use Types Packs/Day Years Used Date Smoking Tobacco: Never Assessed Sex and Gender Information Value Date Recorded Sex Assigned at Not on file Gender Identity Female 06/23/2019 8:24 EST Sexual Orientation Not on file documented as of this encounter Plan of Treatment Upcoming Encounters Date Type Department Care Team (Late st Contact Info) Description 04/27/2024 8:[address] [facility] Rheumatology [address] [place], [place] [phone] Susan Santana MD 130 [facility] [address] [place] [phone] documented as of this encounter Procedures Procedure Name Priority Date/Time Associated Diagnosis Comments SURGICAL PATHOLOGY Routine 08/07/2006 0:00 EDT documented in this encounter Results * SURGICAL PATHOLOGY (08/07/2006 0:00 EDT) Pathology Report: SURGICAL PATHOLOGY REPORT Reports generated via electronic interface contain original data; however they are lacking the format of the original report. Caution should be taken when reading/interpreti ng unformatted reports. Name: ? CHELSI HERNANDEZ ? Accession #: ? [id number] ? : ? 1975 (Age: 31) ??F ? Collect Date: ? 08/07/2006 ? Location: ? [facility] ? Receive Date: ? 08/08/2006 ? Provider: SORIN HIGH MD Copy to: DEE WAGNERGERARDO CNM ? Final Pathologic Diagnosis: A. ?Fallopian tube, right, salpingectomy: 1. ?Full cross section demonstrated. 2. ? Benign Walthard's rest. B. ?Fallopian tube, left, salpingectomy: 1. ?Full cross section demonstrated. Document reviewed and electronically signed by: Luis M Geiger MD Report ??Date: 08/12/2006 14:38 By the signature above, the attending physician certifies that he/she has personally conducted a gross and/or microscopic examination of the described specimens and rendered or confirmed the above diagnosis. Specimen(s) Received: A. ?Rt tube B. ? Lt tube Clinical History: ? Term failure to progress Gross Description: ? Received in formalin labelled David and tube is a 6.0 cm in length by 0.5 cm in diameter fallopian tube which has light hare to hare-red fimbria at one end. ??Sections of the fallopian tube are unremarkable and two cross sections as well as a longitudinal section of the fimbriated end are submitted as (A). Received in formalin labelled David and Lt tube is a 4.0 cm in length by 0.5 cm in diameter portion of fallopian tube which has hare-red fimbria at one end. Sections of the fallopian tube are unremarkable, one cross section as well as a longitudinal section of the fimbriated end are submitted as (B). (Byron Rosado)/mpl End of Report [facility] 08/07/2006 08/08/2006 0:5 8 EDT Sorin High MD PATHOLOGY ORDERABLES [facility] [address] [place] [address] documented in this encounter Visit Diagnoses Not on filedocumented in this encounter
--- OUTSIDE RECORDS SUMMARY | 2024-01-16 14:27 | XMS_ITS | Encounter Summary ---
Author Organization [facility] Address [address] [place] [address] Care Team Providers Care Reverse Unit Operator Name Role Phone Unknown, Provider Primary Care Provider [phone] Encounter Details Date Type Department Care Team (Latest Contact Info) Description 06/10/2017 10:14 EST - 06/10/2017 23:59 EST Hospital Encounter [address] [address] Unknown, Provider, Discharge Disposition: Home or Self Care Social History Tobacco Use Types Packs/Day Years Used Date Smoking Tobacco: Never Assessed Sex and Gender Information Value Date Recorded Sex Assigned at Not on file Gender Identity Female 06/23/2019 8:24 EST Sexual Orientation Not on file documented as of this encounter Discharge Disposition Disposition Code Departure Means Destination Home or Self Half-Way documented in this encounter Plan of Treatment Upcoming Encounters Date Type Department Care Team (Late st Contact Info) Description 04/27/2024 8:45 EST Telemedicine [facility] Rheumatology [address] [place] [address] Susan Santana MD [address] [facility] [address] [place] [phone] documented as of this encounter Visit Diagnoses Not on filedocumented in this encounter Care Teams Reverse Unit Operator Relationship Specialty Start Date End Date Unknown, ProviderMD PCP - General 04/16/15 06/23/19 documented as of this encounter
--- OUTSIDE RECORDS SUMMARY | 2024-01-16 14:27 | XMS_ITS | Encounter Summary ---
Author Organization [facility] Address [address] [place] [address] Care Team Providers Care Elementary Assistant Teacher Name Role Phone Connie Kemp MD Primary Care Provider [phone] Encounter Details Date Type Department Care Team ([facility] st Contact Info) Description 12/27/2019 Orders Only [facility] Rheumatology [address] [place] [address] Alla Spangler RN Rheumatoid arthritis involving multiple sites with positive rheumatoid factor ([facility]) (Primary Dx) Social History Tobacco Use Types [...] involving multiple sites with positive rheumatoid factor ([facility]) Take 6 tablets by mouth once a week. 72 Tab 1 12/27/2019 06/20/2020 documented in this encounter Progress Notes * Alla Spangler RN - 12/27/2019 1617 EDT Called pt and LMTCB on 12/28/2019 and 12/29/2019. * Alla Spangler RN - 12/27/2019 1617 EDT Called pt and LM reminder # 3 that she needs labs before refill Methotrexate.Called [facility] and let them know as well. documented in this encounter Plan of Treatment Upcoming Encounters Date Type Department Care Team (Late st Contact Info) Description 04/27/2024 8:45 EST Telemedicine [facility] Rheumatology [address] [place], [place] [phone] Susan Santana MD [address] [facility] [address] [place] [phone] documented as of this encounter Visit Diagnoses Diagnosis Rheumatoid arthritis involving multiple sites with positive rheumatoid factor ([facility])- Primary documented in this encounter Discontinued Medications Medication Sig Discontinue Reason Start Date End Da te methotrexate 2.5 mg tabletIndications:Rheuma toid arthritis involving multiple sites with positive rheumatoid factor ([facility]) Take 6 tablets by mouth once a week. Reorder 06/28/2019 12/27/2019 documented as of this encounter Care Teams Elementary Assistant Teacher Relationship Specialty Start Date End Date Connie Kemp MD [address] [phone] PCP - General 06/24/19 documented as of this encounter
--- OUTSIDE RECORDS SUMMARY | 2024-01-16 14:27 | XMS_ITS | Encounter Summary ---
Author Organization [facility] Address [address] [place] [address] Care Team Providers Care Wallpaper Cleaner Name Role Phone Unavailable Primary Care Provider Unavailabl e Encounter Details Date Type Department Care Team (Late st Contact Info) Description 02/15/2011 Results Only [facility] Laboratory Services - [facility] [address] [place], [place] [address] Connie Kemp MD [address] [phone] Social History Tobacco Use Types Packs/Day Years Used Date Smoking Tobacco: Never Assessed Sex and Gender Information Value Date Recorded Sex Assigned at Not on file Gender Identity Female 06/23/2019 8:24 EST Sexual Orientation Not on file documented as of this encounter Plan of Treatment Upcoming Encounters Date Type Department Care Team (Late Contact Info) Description 04/27/2024 8:45 EST Telemedicine [facility] Rheumatology [address] [place], [place] [phone] Susan Santana MD [address] [facility] [address] [place] [phone] documented as of this encounter Procedures Procedure Name Priority Date/Time Associated Diagnosis Comments PAP TEST- RESULT ONLY Routine 02/15/2011 0:00 EDT documented in this encounter Results * PAP TEST- RESULT ONLY (02/15/2011 0:00 EDT) Pathology Report: CYTOPATHOLOGY REPORT ? Reports generated via electronic interface contain original data; ? however they are lacking the format of the original report. ? Caution should be taken when reading/interpreti ng unformatted reports. ? Name: ? CHELSI HERNANDEZ F ? Accession #: ? [id number] ? : ? 1975 (Age: 35) ??F ?Collect Date: ? 02/15/2011 ? Location: ? [facility] ? Receive Date: ? 02/18/2011 ? Provider: CONNEI TYRONE MD ? Copy to: ? Final Report ? SPECIMEN ADEQUACY ? Satisfactory for Evaluation ? - transformation zone component present ? - scant squamous epithelial component ? GENERAL CATEGORIZATION ? Negative for Intraepithelial Lesion or Malignancy ? Hormonal/Contracep tive status: Intrauterine device: ??provera 2007 ? Specimen/Source: ??Pap Test, Cervix/Endocervix, ThinPrep Imaging System with ? manual evaluation ? Document reviewed and electronically signed by: ? Jakob Maxwell, [place](ASCP) ? Report ??Date: 02/22/2011 08:39 ? HPV with Pap Test ? Date Ordered: ? 02/22/2011 ? Status: ?? Signed Out ?Date Complete: ? 02/26/2011 ? By: ??System Interface ? Date Reported: ? 02/26/2011 ? Interpretation ? RESULT: Negative for HPV types 16, 18, 31, 33, 35, 39, 45, 51, 52, ? 56, 58, 59, and 68. ? Comments ? Document reviewed and electronically signed by: ? System Interface ? Report date: 02/26/2011 ? By the signature above, the attending physician certifies that he/she has ? personally conducted a gross and/or microscopic examination of the described ? specimens and rendered or confirmed the above diagnosis. ? End of Report ? BROOKE PHAN 02/15/2011 02/18/2011 Connie Kemp MD PATHOLOGY ORDERABLES Performing Organization Address City/State/[facility] Co de Phone Number [facility] [address] [place] [address] documented in this encounter Visit Diagnoses Not on filedocumented in this encounter
--- OUTSIDE RECORDS SUMMARY | 2024-01-16 14:27 | XMS_ITS | Encounter Summary ---
Author Organization [facility] Address [address] [place] [address] Care Team Providers Care Stain Dipper Name Role Phone Connie Kemp MD Primary Care Provider [phone] Reason for Visit * Reason Comments Follow-up RA; states has no pa in but has stiffness. Encounter Details Date Type Department Care Team ([facility] st Contact Info) Description 03/16/2021 13:45 EDT Office Visit [facility] Rheumatology [address] [place] [address] Susan Santana MD [address] [facility] [address] [place] [address] Rheumatoid arthritis involving multiple sites with positive rheumatoid factor (HCC-CMS) (HCC) (Primary Dx); High risk medication use; Vaccine counseling Social History Tobacco Use Types Packs/Day Years [...] Sign Reading Time Taken Comments Blood Pressure 110/76 03/16/2021 1356 EDT Pulse 80 03/16/2021 1356 EDT Temperature 36.7 ??C (98 ??F) 03/16/2021 1356 EDT Respiratory Rate - - Oxygen Saturation - - Inhaled Oxygen Concentration - - Weight 149.7 kg (330 lb) 03/16/2021 1356 EDT Height 160 cm (5' 3) 03/16/2021 1356 EDT Body Mass Index 58.46 03/16/2021 1356 EDT documented in this encounter Functional Status [...] * Patient Instructions* Susan Santana MD - 03/16/2021 13:45 EDT Get labs today please Recommend a covid booster Hold the methotrexate the week after you get your booster Continue the colchicine as needed for mouth sores. documented in this encounter Progress Notes * Susan Santana MD - 03/16/2021 1345 EDT Division of Rheumatology and Clinical Immunology Chief Complaint Patient presents with ??? Follow-up RA; states has no pain but has stiffness. Rheumatoid arthritis ? +RF, CCP. FANI + Joint pain 2017. Methotrexate ?Lost to follow up from [id number] and due to insurance issues. 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 Had a flare of RA. Has been compliant with methotrexate. Her mouth sores are resolved with colchicine. Uses PRN Overdue for labs, will get them today No sob, Vision not as good, seeing optho Ulcer on right lower leg, healed, sees vascular No RA flares ? Does she need covid booster ? Will she respond Has DUB, may need hysterectomy. Sort of nervous, will probably schedule soon. Currently RA seems controlled tolerates meds and would like refills. Overdue for labs but states she will get them at [facility] today AM stiffness less than 30-minute Current Outpatient Medications Medication ??? cetirizine (ZYRTEC) 10 mg tablet ??? colchicine (COLCRYS) 0.6 mg tablet ??? fluticasone propionate (FLONASE) 50 mcg/actuation nasal spray ??? ibuprofen (MOTRIN) 600 mg tablet ??? medroxyPROGESTERone (PROVERA) 10 mg tablet ??? methotrexate 2.5 mg tablet ??? metoprolol XL (TOPROL-XL) 25 mg tablet ??? montelukast (SINGULAIR) 10 mg tablet ??? valACYclovir (VALTREX) 1 gram tablet No current facility-administered medications for this visit. Allergies include: Venom-honey bee Past Medical History: Diagnosis Date ??? Rheumatoid arthritis involving multiple sites with positive rheumatoid factor ([facility]) ([facility]) 06/24/2019 No past surgical history on file. ROS Negative except as in hpi. Complete 12 point ros obtained- see scans for pertinent positive and negatives on intake sheet. PHYSICAL EXAMINATION: BP 110/76 Pulse 80 Temp 36.7 ??C (98 ??F) Ht 160 cm (63) Wt (!) 149.7 kg (330 lb) BMI 58.46 kg/m?? Physical Exam Pleasant well-appearing woman Eyes no injection. Oropharynx: No ulcers Neck range of motion preserved chest clear to auscultation cardiac regular rate and rhythm abdomen is obese and soft with no tenderness. Joint examination subluxation of the MCPs with prominent ulnar styloids but no synovitis elbows tender at end range of motion with a flexion contracture on the left elbow Shoulder range of motion is normal/knees unremarkable feet metatarsal subluxation with tenderness. Skin: Dependent edema without skin breakdown in lower extremities no rheumatoid nodules neurologic normal gait fluent speech and her affect is pleasant and appropriate Patient is a 45-year-old woman with seropositive CCP positive rheumatoid arthritis. RA She has been lost to follow-up due to insurance concerns. It sounds as if her methotrexate has beenordered and monitored by providers and the [facility] region Rheumatoid arthritis: Continue methotrexate 15 mg 1 day a week. Joints are stable Mouth sore: Has resolved, colchicine was beneficial. Keeps a supply for recurrence. Question phenomenon associated with autoimmune disease i.e. rheumatoid arthritis. High risk medication: Awaiting results from CBC, CMP drawn today. Importance of every 4-month CBC and CMP emphasized. 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 There are no diagnoses linked to this encounter. Impressions, diagnosis, treatment plan were reviewed. Patient questions and concerns were reviewed and answered. Patient agreeable to plan of care and will call if any addition concerns or questions arise. Susan Santana MD 03/16/2021 14:01 documented in this encounter Plan of Treatment Upcoming Encounters Date Type Department Care Team (Late st Contact Info) Description 04/27/2024 8:45 EST Telemedicine [facility] Rheumatology [address] [place] [address] Susan Santana MD [address] [facility] [address] [place] [address] documented as of this encounter Procedures Procedure Name Priority Date/Time Associated Diagnosis Comments COMPLETE BLOOD COUNT WITH DIFFERENTIAL (AUTO) Routine 03/16/2021 14:35 EDT Rheumatoid arthritis involving multiple sites with positive rheumatoid factor ([facility]) (HCC) C REACTIVE PROTEIN Routine 03/16/2021 14 :35 EDT Rheumatoid arthritis involving multiple sites with positive rheumatoid factor ([facility]) (HCC) COMPREHENSIVE METABOLIC PANEL (CMP) Routine 03/16/2021 14:35 EDT Rheumatoid arthritis involving multiple sites with positive rheumatoid factor ([facility]) ([facility]) documented in this encounter Results * (ABNORMAL) C REACTIVE PROTEIN (03/16/2021 14:35 EDT) C-Reactive Protein 10.9(H) <10.0 mg/L 03/16/2021 15:16 EDT [facility] 03/16/2021 14:3 5 EDT 03/16/2021 14:35 EDT Susan Santana MD CHEMISTRY & BLOO D GAS ORDERABLES [facility] [address] [place] [address] * (ABNORMAL) COMPREHENSIVE METABOLIC PANEL (CMP) (03/16/2021 14:35 EDT) Albumin % 4.2 3.4 - 4.9 g/dL 03/16/2021 15:16 [facility] ALKALINE PHOSPHATASE - [facility] 85 38 - 126 U/L 03/16/2021 15:16 [facility] BILIRUBIN TOTAL 0.9 0.2 - 1.3 mg/dL 03/16/2021 15:16 [facility] BUN - [facility] 9(L) 10 - 26 mg/dL 03/16/2021 15:16 [facility] CALCIUM - [facility] 9.1 8.5 - 10.5 mg/dL 03/16/2021 15:16 [facility] Chloride 106 96 - 110 mmol/L 03/16/2021 15:16 [facility] CO2 Total 28 22 - 32 mEq/L 03/16/2021 15:16 [facility] CREATININE 0.57 0.52 - 1.04 mg/dL 03/16/2021 15:16 [facility] eGFR >60 03/16/2021 15:16 [facility] Comment: Chronic renal impairment is defined as GFR <60 Multiply result by 1.210 for patients. eGFR calculated using the IDMS-traceable MDRD Study Equation. ??(effective 03/28/2014) Anion Gap 7 0 - 18 03/16/2021 15:16 [facility] GLUCOSE - [facility] 143(H) 70 - 100 mg/dL 03/16/2021 15:16 [facility] Potassium 4.0 3.5 - 5.0 mEq/L 03/16/2021 15:16 [facility] Sodium 141 136 - 145 mEq/L 03/16/2021 15:16 [facility] TOTAL PROTEIN - [facility] 6.8 6.2 - 8.2 gm/dL 03/16/2021 15:16 [facility] SGOT/AST - [facility] 61(H) 14 - 36 U/L 03/16/2021 15:16 EDT [facility] SGPT/ALT - [facility] 72(H) 0 - 35 U/L 15:16 [facility] 03/16/2021 14:3 5 EDT 03/16/2021 14:35 EDT Susan Santana MD CHEMISTRY & BLOO D GAS ORDERABLES [facility] [address] [place] [address] * COMPLETE BLOOD COUNT WITH DIFFERENTIAL (AUTO) (03/16/2021 14:35 EDT) ABSOLUTE NEUTROPHIL COUN - [facility] 6.4 2.2 - 8.85 10e3/uL 03/16/2021 15:03 [facility] BASO # - [facility] 0.05 0.01 - 0.11 10e/uL 03/16/2021 15:03 [facility] BASO % - [facility] 1 0 - 2 % 03/16/2021 15:03 [facility] EOS # - [facility] 0.10 0.03 - 0.61 10e3/ul 03/16/2021 15:03 [facility] EOS % - [facility] 1 0 - 5 % 03/16/2021 15:03 [facility] GRAN % - [facility] 67.0 40 - 80 % 03/16/2021 15:03 [facility] HEMATOCRIT - [facility] 43.0 34.9 - 44.4 % 03/16/2021 15:03 [facility] HEMOGLOBIN - [facility] 14.4 11.6 - 15.2 g/dl 03/16/2021 15:03 [facility] IG# - [facility] 0.03 0 - 0.7 10e3/uL 03/16/2021 15:03 [facility] IG% - [facility] 0.3 0 - 0.9 % 03/[facility] - [facility] 2.5 1.09 - 3.3 10e3/ul 03/16/2021 15:03 [facility] LYMPH% - [facility] 26.7 20 - 40 % 03/16/2021 15:03 [facility] MEAN CORPUSCULAR HGB - [facility] 30.7 26.7 - 33.3 pg 03/16/2021 15:03 [facility] MEAN CORPUSCULAR HGB CONC - [facility] 33.5 32.1 - 35.9 g/dL 03/16/2021 15:03 [facility] MEAN CELL VOLUME - [facility] 91.7 81 - 98 fl 03/16/2021 15:03 [facility] MONO # - [facility] 0.4 0.1 - 0.8 10e3/uL 03/16/2021 15:03 [facility] MONO% - [facility] 4.5 0 - 12 % 03/16/2021 15:03 [facility] PLATELET COUNT 284 141 - 377 10e3/ul 03/16/2021 15:03 [facility] RED BLOOD COUNT - [facility] 4.69 3.86 - 5.04 10e6/ul 03/16/2021 15:03 [facility] RED CELL DISTRI WIDTH - [facility] 13.9 <14.7 % 03/16/2021 15:03 [facility] WHITE BLOOD COUNT - [facility] 9.5 4.0 - 12.4 10e3/ul 03/16/2021 15:03 [facility] 03/16/2021 14:3 5 EDT 03/16/2021 14:36 EDT Susan Santana MD HEMATOLOGY & PF4 ORDERABLES [facility] [address] [place] [address] documented in this encounter Visit Diagnoses Diagnosis Rheumatoid arthritis involving multiple sites with positive rheumatoid factor ([facility])- Primary High risk medication use Encounter for long-term (current) use of other medications Vaccine counseling Other specified counseling documented in this encounter Discontinued Medications Medication Sig Discontinue Reason Start Date End Da te pentoxifylline (TRENTAL) 400 mg CR tablet Take 400 mg by mouth 2 times daily. For wound Therapy completed 07/15/2020 03/16/2021 documented as of this encounter Care Teams Stain Dipper Relationship Specialty Start Date End Date Connie Kemp MD [address] [place] [phone] PCP - General 06/24/19 documented as of this encounter
--- OUTSIDE RECORDS SUMMARY | 2024-01-16 14:27 | XMS_ITS | Encounter Summary ---
Author Organization [facility] Address [address] [place] [address] Care Team Providers Care Alteration Tailor Apprentice Name Role Phone Connie Kemp MD Primary Care Provider [phone] Reason for Visit * Reason Onset Date Comments Orders (Non Pre-visit) 05/22/2021 Encounter Details Date Type Department Care Team ([facility] Contact Info) Description 05/22/2021 Telephone [facility] Rheumatology [address] [place] [address] Vandana Wheeler RN Orders (Non Pre-visit) Social History Tobacco Use Types Packs/Day Years [...] Telephone Encounter - Vandana Wheeler RN - 05/22/2021 1205 EST DM[facility] standing labs ordered. documented in this encounter Plan of Treatment Upcoming Encounters Date Type Department Care Team (Late st Contact Info) Description 04/27/2024 8:45 EST Telemedicine [facility] Rheumatology [address] [place] [address] Susan Santana MD [address] [facility] [address] [place] [phone] documented as of this encounter Visit Diagnoses Diagnosis Rheumatoid arthritis involving multiple sites with positive rheumatoid factor ([facility])- Primary documented in this encounter Care Teams Alteration Tailor Apprentice Relationship Specialty Start Date End Date Connie Kemp MD [address] [place] [phone] PCP - General 06/24/19 documented as of this encounter
--- OUTSIDE RECORDS SUMMARY | 2024-01-16 14:27 | XMS_ITS | Encounter Summary ---
Author Organization [facility] Address [address] [place] [address] Care Team Providers Care Petroleum Terminal Plant Operator Name Role Phone Connie Kemp MD Primary Care Provider [phone] Reason for Visit * Reason Onset Date Comments Medication Management 06/24/2019 Pharmacist called with a question about the instructions for use of colchicine Encounter Details Date Type Department Care Team ([facility] st Contact Info) Description 06/24/2019 Telephone [facility] Rheumatology [address] [place] [address] Asha Ambrocio RN Medication Management (Pharmacist called with a question about the instructions for use of colchicine) Social History Tobacco Use Types Packs/Day Years Used Date Smoking Tobacco: Never Smokeless Tobacco: Never Sex and Gender Information Value Date Recorded Sex Assigned at Not on file Gender Identity Female 06/23/2019 8:24 EST Sexual Orientation Not on file documented as of this encounter Miscellaneous Notes * Telephone Encounter - Asha Ambrocio RN - 06/24/2019 1530 EST [facility] with Dr. Santana' reply. * Telephone Encounter - Susan Santana MD - 06/24/2019 1518 EST Tell the pharmacist that the instructions are correct and that colchicine is commonly used for mouth sores related to autoimmune diseases. * Telephone Encounter - Asha Ambrocio RN - 06/24/2019 1415 EST The pharmacist called for clarification because the instructions on the colchicine Rx say to use asneeded for mouth sores. She wants to make sure that those instructions came with the correct prescription because they came with the colchicine. documented in this encounter Plan of Treatment Upcoming Encounters Date Type Department Care Team (Late st Contact Info) Description 04/27/2024 8:45 EST Telemedicine [facility] Rheumatology [address] [place], [place] [phone] Susan Santana MD [address] [facility] [address] [place] [address] documented as of this encounter Visit Diagnoses Not on filedocumented in this encounter Care Teams Petroleum Terminal Plant Operator Relationship Specialty Start Date End Date Connie Kemp MD [address] [phone] PCP - General 06/24/19 documented as of this encounter
--- OUTSIDE RECORDS SUMMARY | 2024-01-16 14:27 | XMS_ITS | Encounter Summary ---
Author Organization [facility] Address [address] [place] [address] Care Team Providers Care Fitness Assistant Name Role Phone Connie Kemp MD Primary Care Provider [phone] Reason for Visit * Reason Onset Date Comments Medications Refill 06/20/2020 Encounter Details Date Type Department Care Team ([facility] st Contact Info) Description 06/20/2020 Telephone [facility] Rheumatology [address] [place] [address] Alla Spangler RN Medications Refill Social History Tobacco Use [...] involving multiple sites with positive rheumatoid factor ([facility]) Take 6 tablets by mouth once a week. 72 Tab 1 06/20/2020 11/30/2020 documented in this encounter Miscellaneous Notes * Telephone Encounter - lAla Spangler RN - 06/20/2020 1019 EST Standing orders faxed to [facility] as they do not have any recent labs since February,they are unsure whythey faxed those to us last week. Called pt and she will get her labs done when she has an appointment with a provider at [facility]. Pt scheduled a F/U for Friday09/08/2020 at 11:45 with you. Update for you, Thank you * Telephone Encounter - Susan Santana MD - 06/20/2020 0927 EST Refills for methotrexate with current sig one month and 2 refills only as she is almost due for labs again, those are from February She follows up in 4 months * Telephone Encounter - Alla Spangler RN - 06/20/2020 0829 EST Faxed refill request from [facility] for MTX Labs done. No F/U specified in last visit note. Please advise on F/U , Thank you documented in this encounter Plan of Treatment Upcoming Encounters Date Type Department Care Team (Late st Contact Info) Description 04/27/2024 8:45 EST Telemedicine [facility] Rheumatology [address] [place], [place] [phone] Susan Santana MD [address] [facility] [address] [place] [phone] documented as of this encounter Visit Diagnoses Diagnosis Rheumatoid arthritis involving multiple sites with positive rheumatoid factor ([facility])- Primary documented in this encounter Discontinued Medications Medication Sig Discontinue Reason Start Date End Da te methotrexate 2.5 mg tabletIndications:Rheuma toid arthritis involving multiple sites with positive rheumatoid factor ([facility]) Take 6 tablets by mouth once a week. Reorder 12/27/2019 06/20/2020 documented as of this encounter Care Teams Fitness Assistant Relationship Specialty Start Date End Date Connie Kemp MD [facility] [address] [phone] PCP - General 06/24/19 documented as of this encounter
--- OUTSIDE RECORDS SUMMARY | 2024-01-16 14:27 | XMS_ITS | Encounter Summary ---
Author Organization [facility] Address [address] [place] [address] Care Team Providers Care Laminating Press Operator Name Role Phone Connie Kemp MD Primary Care Provider [phone] Reason for Visit * Reason Onset Date Comments Medications Refill 05/16/2021 [facility] Encounter Details Date Type Department Care Team (Late Contact Info) Description 05/16/2021 Telephone [facility] Rheumatology [address] [place] [address] Asha Ambrocio RN Medications Refill (Faxed ref[facility]TX [facility] Social History Tobacco Use Types [...] Telephone Encounter - Asha Ambrocio RN - 05/16/2021 1123 EST Last visit note reviewed and follow up noted 08/2021. Labs done 03/16/21 have elevated AST and ALT. How would you like to proceed with this MTX refill? Thank you. documented in this encounter Plan of Treatment Upcoming Encounters Date Type Department Care Team (Late st Contact Info) Description 04/27/2024 8:45 EST Telemedicine [facility] Rheumatology [address] [place], [place] [phone] Susan Santana MD [address] [facility] [address] [place] [phone] documented as of this encounter Visit Diagnoses Not on filedocumented in this encounter Care Teams Laminating Press Operator Relationship Specialty Start Date End Date Connie Kemp MD [address] [place] [phone] PCP - General 06/24/19 documented as of this encounter
--- OUTSIDE RECORDS SUMMARY | 2024-01-16 14:27 | XMS_ITS | Encounter Summary ---
Author Organization [facility] Address [address] [place] [address] Care Team Providers Care Clay Stain Mixer Name Role Phone Connie Kemp MD Primary Care Provider [phone] Reason for Visit * Reason Comments Follow-up Things are going wel jackie Had her first flare a couple weeks ago, lasted 1-2 weeks. Feeling better now Encounter Details Date Type Department Care Team ([facility] Contact Info) Description 12/23/2019 13:15 EDT Office Visit [facility] Rheumatology [address] [place] [address] Susan Santana MD [address] [facility] [address] [place] [address] High risk medication use (Primary Dx); Mouth sores; Rheumatoid arthritis involving multiple sites with positive rheumatoid factor ([facility]) Social History Tobacco Use Types Packs/Day Years Used Date Smoking Tobacco: Never Smokeless Tobacco: Never Sex and Gender Information Value Date Recorded Sex Assigned at Not on file Gender Identity Female 06/23/2019 8:24 EST Sexual Orientation Not on file documented as of this encounter Last Filed Vital Signs Vital Sign Reading Time Taken Comments Blood Pressure 112/64 12/23/2019 1314 EDT Pulse - - Temperature - - Respiratory Rate - - Oxygen Saturation - - Inhaled Oxygen Concentration - - Weight - - Height 160 cm (5' 3) 12/23/2019 1314 EDT Body Mass Index - - documented in this encounter Patient Instructions * Patient Instructions* Susan Santana MD - 12/23/2019 13:15 EDT Colchicine as needed for mouth sores Continue methotrexate at same dose Prednisone in case of emergency documented in this encounter Ordered Prescriptions Prescription Sig Dispensed Refills Start Date End Da te predniSONE (DELTASONE) 5 mg tabletIndications:Rheumato id arthritis involving multiple sites with positive rheumatoid factor ([facility]) Take 2 Tabs by mouth daily for 5 days, THEN 1 Tab daily for 5 days. 15 Tab 12/23/2019 01/02/2020 documented in this encounter Progress Notes * Susan Santana MD - 12/23/2019 4105 EDT Division of Rheumatology and Clinical Immunology Chief Complaint Patient presents with ??? Follow-up Things are going well. Had her first flare a couple weeks ago, lasted 1-2 weeks. Feeling better now Rheumatoid arthritis ? +RF, CCP. FANI + Joint pain 2017. Methotrexate ?Lost to follow up from [id number] and due to insurance issues. 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 Had a flare of RA. Has been compliant with methotrexate. Her mouth sores are resolved with colchicine. Has not had to restart it. Flare of RA was hand swelling and stiffness. Lost about a week. Currently RA seems controlled tolerates meds and would like refills. Overdue for labs but states she will get them just as soon as she gets home. AM stiffness less than 30-minute Current Outpatient Medications: cetirizine (ZYRTEC) 10 mg tablet colchicine (COLCRYS) 0.6 mg tablet fluticasone propionate (FLONASE) 50 mcg/actuation nasal spray ibuprofen (MOTRIN) 600 mg tablet medroxyPROGESTERone (PROVERA) 10 mg tablet methotrexate 2.5 mg tablet metoprolol XL (TOPROL-XL) 25 mg tablet valACYclovir (VALTREX) 1 gram tablet No current facility-administered medications for this visit. Allergies include: Venom-honey bee Past Medical History: Diagnosis Date ??? Rheumatoid arthritis involving multiple sites with positive rheumatoid factor ([facility]) 06/24/2019 No past surgical history on file. ROS Negative except as in hpi. Complete 12 point ros obtained- see scans for pertinent positive and negatives on intake sheet. PHYSICAL EXAMINATION: BP 112/64 (BP Cuff Sizes: Adult, large) Ht 160 cm (63) BMI 58.46 kg/m?? Physical Exam Pleasant well-appearing woman Eyes no injection. Oropharynx: Ulcer on tongue is healed completely. There is some loss of pulp of tongue. No drainage. Neck range of motion preserved chest clear to auscultation cardiac regular rate and rhythm abdomen is obese and soft with no tenderness. Joint examination subluxation of the MCPs with prominent ulnarstyloids but no synovitis elbows tender at end range of motion with a flexion contracture on the left shoulder range of motion is normal/knees unremarkable feet metatarsal subluxation with tenderness. Skin: Dependent edema without skin breakdown in lower extremities no rheumatoid nodules neurologic normal gait fluent speech and her affect is pleasant and appropriate Patient states she is overdue for labs but promises to get them done at [facility] on her way home. Labs from May 2019 CRP 2.22 hemoglobin and CBC within normal limits LFTs within normal limits Patient is a 44-year-old woman with seropositive CCP positive rheumatoid arthritis. She has been lost to follow-up due to insurance concerns. It sounds as if her methotrexate has been ordered and monitored by providers and the [facility] region. Labs are due aware of importance of getting them. Rheumatoid arthritis: Continue methotrexate 15 mg 1 day a week. Joints are stable, single flareup due to stress. Prednisone burst and taper as needed Mouth sore: Has resolved, colchicine was beneficial. Keeps a supply for recurrence. Question phenomenon associated with autoimmune disease i.e. rheumatoid arthritis. High risk medication: Awaiting results from CBC, CMP drawn yesterday. Importance of every 4-month CBC and CMP emphasized. Chelsi was seen today for follow-up. Diagnoses and all orders for this visit: High risk medication use - COMPLETE BLOOD COUNT AND DIFFERENTIAL; Future - COMPREHENSIVE METABOLIC PANEL (CMP); Future Mouth sores Comments: Colchicine as needed. Rheumatoid arthritis involving multiple sites with positive rheumatoid factor ([facility]) Comments: Methotrexate continues Prednisone for flares as needed. Orders: - COMPLETE BLOOD COUNT AND DIFFERENTIAL; Future - COMPREHENSIVE METABOLIC PANEL (CMP); Future - C REACTIVE PROTEIN; Future - predniSONE (DELTASONE) 5 mg tablet; Take 2 Tabs by mouth daily for 5 days, THEN 1 Tab daily for 5days. Impressions, diagnosis, treatment plan were reviewed. Patient questions and concerns were reviewed and answered. Patient agreeable to plan of care and will call if any addition concerns or questions arise. Susan Santana MD 12/23/2019 13:29 documented in this encounter Plan of Treatment Upcoming Encounters Date Type Department Care Team (Late st Contact Info) Description 04/27/2024 8:45 EST Telemedicine [facility] Rheumatology [address] [place] [address] Susan Santana MD [address] [facility] [address] [place] [address] documented as of this encounter Visit Diagnoses Diagnosis High risk medication use- Primary Encounter for long-term (current) use of other medications Mouth sores Other and unspecified diseases of the oral soft tissues Rheumatoid arthritis involving multiple sites with positive rheumatoid factor ([facility]) documented in this encounter Care Teams Clay Stain Mixer Relationship Specialty Start Date End Date Connie Kemp MD [address] [place] [phone] PCP - General 06/24/19 documented as of this encounter
--- OUTSIDE RECORDS SUMMARY | 2024-01-16 14:27 | XMS_ITS | Encounter Summary ---
Author Organization [facility] Address [address] [place] [address] Care Team Providers Care Newscast Director Name Role Phone Connie Kemp MD Primary Care Provider [phone] Encounter Details Date Type Department Care Team (Late Contact Info) Description 06/29/2019 Abstract [facility] Rheumatology [address] [place] [address] Susan Santana MD [address] [place] [phone] Social History Tobacco Use Types Packs/Day Years Used Date Smoking Tobacco: Never Smokeless Tobacco: Never Sex and Gender Information Value Date Recorded Sex Assigned at Not on file Gender Identity Female 06/23/2019 8:24 EST Sexual Orientation Not on file documented as of this encounter Plan of Treatment Upcoming Encounters Date Type Department Care Team ([facility] Contact Info) Description 04/27/2024 8:45 EST Telemedicine [facility] Rheumatology [address] [place] [address] Susan Santana MD [address] [place] [address] [address] documented as of this encounter Procedures Procedure Name Priority Date/Time Associated Diagnosis Comments COMPLETE BLOOD COUNT AND DIFFERENTIAL Routine 06/23/2019 C REACTIVE PROTEIN Routine 06/23/2019 COMPREHENSIVE METABOLIC PANEL (CMP) Routine 06/23/2019 documented in this encounter Results * (ABNORMAL) COMPLETE BLOOD COUNT AND DIFFERENTIAL (06/23/2019) Pathologist [facility] WBC, External 8.29 4.4 - 10.8 [facility] RBC, External 4.97 4.00 - 5.20 [facility] Hemoglobin, External 14.0 12.0 - 15.5 [facility] HCT, External 45.4 36.0 - 46.0 [facility] MCV, External 91.3 80 - 95 [facility] MCH, External 28.2 27.0 - 33.0 [facility] MCHC, External 28.2(A) 32.0 - 36.0 [facility] PLT, External 338 130 - 400 [facility] RDW-CV, External 15.6(A) 11.7 - 14.6 [facility] Neutrophils, External 69.4 [facility] Lymphocytes, External 22.6 [facility] Monocytes, External 6.4 [facility] Eosinophils, External 1.3 [facility] Basophils, External 0.2 [facility] ABS Neutrophils, External 5.75 1.2 - 6.7 [facility] ABS Lymphs, External 1.87 1.2 - 3.4 [facility] ABS Monocytes, External 0.53 0.11 - 0.7 [facility] ABS Eosinophils, External 0.11 0.0 - 0.7 [facility] ABS Basophils, External 0.02 0.0 - 0.2 [facility] Blood VENOUS BLOOD / Unknown 06/23/2019 Susan Santana MD PACKAGES & DNA Avinash DSOUZA ORDERABLES [facility] * COMPREHENSIVE METABOLIC PANEL (CMP) (06/23/2019) Pathologist [facility] GFR, Calculated, External >60 [facility] Glucose, Serum, External 104 74 - 106 [facility] Albumin, External 3.4 3.4 - 5.0 [facility] Total Alkaline Phosphatase, External 104 46 - 116 [facility] ALT, External 37 15 - 59 [facility] AST, External 19 15 - 37 [facility] BUN, External 9 7 - 18 [facility] Calculated Calcium, External [facility] Calcium, External 8.8 8.5 - 10.1 [facility] Chloride, External 103 98 - 107 [facility] CO2, External 31.7 21.0 - 32.0 [facility] Creatinine, External 0.77 0.55 - 1.02 [facility] Fasting?, External [facility] Potassium, External 4.2 3.5 - 5.1 [facility] Sodium, External 142 136 - 145 [facility] Total Protein, External 6.9 6.4 - 8.2 [facility] Bilirubin, Total, External 0.4 0.2 - 1.0 [facility] Blood VENOUS BLOOD / Unknown 06/23/2019 Susan Santana MD CHEMISTRY & BLOO D GAS ORDERABLES [facility] * (ABNORMAL) C REACTIVE PROTEIN (06/23/2019) C-Reactive Protein, External 2.22(A) 0.0 - 0.3 [facility] Blood VENOUS BLOOD / Unknown 06/23/2019 Susan Santana MD CHEMISTRY & BLOO D GAS ORDERABLES [facility] documented in this encounter Visit Diagnoses Not on filedocumented in this encounter Care Teams Newscast Director Relationship Specialty Start Date End Date Connie Kemp MD [address] [place] [phone] PCP - General 06/24/19 documented as of this encounter
--- OUTSIDE RECORDS SUMMARY | 2024-01-16 14:27 | XMS_ITS | Encounter Summary ---
Author Organization [facility] Address [address] [place] [address] Care Team Providers Care Blade Worker Name Role Phone Unavailable Primary Care Provider Unavailabl e Encounter Details Date Type Department Care Team (Late Contact Info) Description 08/29/2003 Results Only [facility] - Map conversion [address] [place] [address] Tod [place] [id number] [place] [address] Social History Tobacco Use Types [...] 8:45 EST Telemedicine [facility] Rheumatology [address] [place] [phone] Susan Santana MD [address] [place] [address] [address] [place] [phone] documented as of this encounter Procedures Procedure Name Priority Date/Time Associated Diagnosis Comments CYTOPATHOLOGY Routine 08/29/2003 0:00 EDT documented in this encounter Results * CYTOPATHOLOGY (08/29/2003 0:00 EDT) Pathology Report: CYTOPATHOLOGY REPORT Reports generated via electronic interface contain original data; however they are lacking the format of the original report. Caution should be taken when reading/interpreti ng unformatted reports. Name: ? CHELSI HERNANDEZ ? Accession #: ? [id number] : ? 1975 (Age: 28) ??F ?Collect Date: ? 08/29/2003 Location: ? [facility] ? Receive Date: ? 08/30/2003 Provider: ?TOD MONROE CNM Copy to: ? Specimen/Source: ?ThinPrep Pap Test, Cervix/Endocervix Last Menstrual Period: ? 09/15/02 Menstrual/Pregnanc y Status: ? Post Previous Gynecologic Pathology: ? Benign cellular changes: , 2000, 2001, 2002 Negative Other: ? HPVA - HPV testing requested if ASC-US on the current ThinPrep Pap test. ? SPECIMEN ADEQUACY ? Unsatisfactory for Evaluation, - insufficient numbers of squamous epithelial cells (less than 10% of expected cellularity) GENERAL CATEGORIZATION ? Specimen processed and examined, but unsatisfactory for evaluation of epithelial abnormality. Recommend repeat Pap test or further follow up, as clinically indicated. ? Document reviewed and electronically signed by: ? Ning Jaramillo, SCT(ASCP) ? Report Date: ??09/01/2003 15:40 End of Report [facility] 08/29/2003 08/30/2003 Tod MARTI PATHOLOGY ORDERABLES [facility] [address] [place] [address] documented in this encounter Visit Diagnoses Not on filedocumented in this encounter
--- OUTSIDE RECORDS SUMMARY | 2024-01-16 14:27 | XMS_ITS | Encounter Summary ---
Author Organization [facility] Address [address] [place] [address] Care Team Providers Care Lawn Care Professional Name Role Phone Connie Kemp MD Primary Care Provider [phone] Reason for Visit * Reason Comments Rheumatoid Arthritis Encounter Details Date Type Department Care Team ([facility] st Contact Info) Description 06/14/2020 11:15 EST Telemedicine [facility] Rheumatology [address] [place] [address] Susan Santana MD [address] [facility] [address] [place] [address] Rheumatoid arthritis involving multiple sites with positive rheumatoid factor ([facility]) (Primary Dx); High risk medication use; Vaccine [...] on file documented as of this encounter Patient Instructions * Patient Instructions* Susan Santana MD - 06/14/2020 11:15 EST Methotrexate to continue Agree with wound consult documented in this encounter Progress Notes * Susan Santana MD - 06/14/2020 1111 EST [facility] Tele[place] Verbal consent: The concept of ???Telemedicine?? has [...] or auxiliary staff: yes. Subjective: Chief Complaint(s): RA follow up HPI: Mouth sores are better. New problem leg ulcer. Started with bug bites. Slowly healing. She is goingto see surgery. Feels offended that people keep telling her to lose weight. She knows she is overweight but also feels she needs help with ulcer. It is possible there may be a varicose vein leading to the symptoms. Her RA has been stable. She promises she will get labs done, she is a bit overdue for these. Mouth sores finally healed. She also is taking pentoxifylline and antibiotics for her leg ulcer. 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 She is afraidto get the COVID-19 vaccine but her daughter got it did well so now she might reconsider it Started with bug bite on lower leg. Had to start on med for Has been on med for an infection and ulcer on her right anterior lower leg. Sore is slowly healing. I have reviewed patient's tobacco history: reports that she has never smoked. She has never used smokeless tobacco. I have reviewed current problem list and current medications. ROS: ROS Objective: Examination: Home Vitals: There were no vitals taken for this visit. Pertinent exam findings: speaking in full sentences, no audible wheeze and mood and affect appropriate Data reviewed with patient: Reviewed and/or ordered active problem list, medication list, social history, notes from last encounter, lab results tests Assessment & Plan: 45-year-old woman with rheumatoid arthritis. Rheumatoid arthritis -Continue methotrexate -Labs reviewed, no concerns Nonhealing wound lower leg Venous stasis issues -Agree with surgical consult -Do not think methotrexate is interfering with healing, defer to wound cost consultant. High risk medication -Labs every 3 months Vaccine counseling -Strongly recommend COVID-19 vaccine, patient is precontemplative but will probably receive vaccinewhen offered Patient initiated phone contact with the office: yes. Patient is an established patient (parent, guardian) yes. E/M provided within previous 7 days for same medical assessment: no Anticipate E/M service within 24hrs or next available urgent appointment no. This visit was conducted by telephone. A total of 31 with > 50% counseling. minutes was spent on this encounter on the day of this encounter. documented in this encounter Plan of Treatment Upcoming Encounters Date Type Department Care Team (Late st Contact Info) Description 04/27/2024 8:45 EST Telemedicine [facility] Rheumatology [address] [place] [address] Susan Santana MD [address] [facility] [address] [place] [phone] documented as of this encounter Visit Diagnoses Diagnosis Rheumatoid arthritis involving multiple sites with positive rheumatoid factor ([facility])- Primary High risk medication use Encounter for long-term (current) use of other medications Vaccine counseling Other specified counseling documented in this encounter Historical Medications * This list may reflect changes made after this encounter. Medication Sig Dispensed Refills Start Date End Date montelukast (SINGULAIR) 10 mg tablet TAKE 1 TABLET BY MOUTH DAILY NEEDED 06/10/2020 pentoxifylline (TRENTAL) 400 mg CR tablet Take 400 mg by mouth 2 times daily. For wound 07/15/2020 03/16/2021 added in this encounter Care Teams Lawn Care Professional Relationship Specialty Start Date End Date Connie Kemp MD [address] [place] [phone] PCP - General 06/24/19 documented as of this encounter
--- OUTSIDE RECORDS SUMMARY | 2024-01-16 14:27 | XMS_ITS | Encounter Summary ---
Author Organization [facility] Address [address] [place] [address] Care Team Providers Care Cutter Operator Asbestos Shingle Name Role Phone Connie Kemp MD Primary Care Provider [phone] Encounter Details Date Type Department Care Team ([facility] Contact Info) Description 11/17/2020 Lab Requisition [facility] Pathology & Laboratory Medicine - [address] [address] Vero Curry, [address] [phone] Encounter for other general examination Social History Tobacco Use Types Packs/Day Years [...] Info) Description 04/27/2024 8:45 EST Telemedicine [facility] Rheumatology [address] [place] [address] Susan Santana MD [address] [facility] [address] [place] [address] documented as of this encounter Procedures Procedure Name Priority Date/Time Associated Diagnosis Comments PAP TEST Today 11/16/2020 9:15 EDT Encounter for other general examination HPV DNA DETECTION WITH GENOTYPING, PCR Today 11/16/2020 9:15 EDT Encounter for other general examination documented in this encounter Results * HUMAN PAPILLOMAVIRUS (HPV) DETECTION-HIGH RISK TYPES (11/16/2020 9:15 EDT) HPV other High Risk types, PCR Negative Negative 12/01/2020 15:43 EDT [facility] Comment:No E6 or E7 mRNA is detected from HPV types 16,18,31,33,35,39,45,51,52,56,58,59,66, and 68 by item processor mediated amplification. Papanicolaou smear specimen (specimen) CERVIX UTERI STRUCTURE / Unknown 11/16/2020 9:15 EDT 11/30/2020 10:27 EDT Vero Curry ITEM PROCESSOR MICROBIOLOGY - GENER AL ORDERABLES [facility] [address] [place] [id number] * PAP TEST (11/16/2020 9:15 EDT) Specimens A. Cervix and/or Endocervix , ThinPrep Imaging System with Manual Evaluation 12/01/2020 15:43 EDT [facility] Specimen Adequacy Satisfactory for Evaluation - transformation zone component present 12/01/2020 15:43 T [facility] General Categorization Negative for intraepithelial lesion or malignancy 12/01/2020 15:43 [facility] Attestation . 12/01/2020 15:43 [facility] at 1542 Clinical History See below 12/02/19 15:43 T [facility] HPV The result for the Human Papillomavirus (HPV) Detection-High Risk Types is Negative. No E6 or E7 mRNA is detected from HPV types 16,18,31,33,35,39 ,45,51,52,56,58,5 9,66, and 68 by item processor mediated amplification.Jaylyn maldonado was performed on specimen [id number] and was resulted on 12/01/2020 1456 EDT by MAGGIE, LAB INSTRUMENT RESULTS IN 12/01/2020 15:43 EDT [facility] Performing Lab [facility] 12/01/2020 15:43 EDT [facility] Scanned Images 12/01/2020 15:43 EDT [facility] Papanicolaou smear specimen (specimen) CERVIX UTERI STRUCTURE / Unknown 11/16/2020 9:15 EDT 11/17/2020 15:47 EDT Vero Curry ITEM PROCESSOR PATHOLOGY ORDERABLES [facility] [address] [place] [address] documented in this encounter Visit Diagnoses Diagnosis Encounter for other general examination documented in this encounter Care Teams Cutter Operator Asbestos Shingle Relationship Specialty Start Date End Date Connie Kemp MD [address] [place] [phone] PCP - General 06/24/19 documented as of this encounter
== END 2024-01-16 14:23 | disposition home or self-care (01) ==
LOC: LBO 14:23
PROVIDERS: PCP Family Medicine; Referring Provider Internal Medicine Rheumatology; Visit Provider Internal Medicine Rheumatology
DX: M05.79 Rheumatoid arthritis with rheumatoid factor of multiple sites without organ or systems involvement (principal); Z79.899 Other long term (current) drug therapy
CPT/HCPCS: 36415; 80053; 85025

== ENCOUNTER 2024-03-22 15:52 | Outpatient (CLI) | payer OTHER, MEDICAID, SELFPAY ==
--- NOTE | 2024-03-22 | DI.RAD_ITS ---
Exam(s) XR CHEST 2V PA LATERAL EXAM: XR CHEST 2V PA LATERAL CLINICAL HISTORY: Cough, R05.9. TECHNIQUE: 2D digital imaging was performed. COMPARISON: CR,XR XR CHEST 2V PA LATERAL from 12/20/2022 FINDINGS: 2 views: Heart size is normal. The mediastinum is not widened. Lungs are clear. No infiltrates nor pleural effusions. IMPRESSION: No acute pulmonary findings. DATA REPOSITORY: RADIATION DOSE DELIVERED:
== END 2024-03-22 16:12 ==
LOC: DI 15:54
PROVIDERS: PCP Family Medicine; Visit Provider Nurse Practitioner Family
DX: R05.9 Cough, unspecified (principal)
CPT/HCPCS: 71046

== ENCOUNTER 2024-03-27 17:09 | Emergency (ER) | payer OTHER, MEDICAID, SELFPAY ==
[2024-03-27 17:11] VITALS: BP 139/88; PULSE 110; RESP 20; TEMP 37.8; O2SAT 98
--- NOTE | 2024-03-27 17:15 | DI.RAD_ITS ---
Exam(s) XR PORTABLE CHEST AP EXAM: XR PORTABLE CHEST AP CLINICAL HISTORY: sob, cough TECHNIQUE: 2D digital imaging was performed. COMPARISON: No exams were available for comparison FINDINGS: Lungs are suboptimally inflated. LUNGS: Clear. No pleural abnormality seen. HEART: Normal size. AORTA: Normal diameter. BONES: Unremarkable for age. Soft tissues: Unremarkable. IMPRESSION: No acute findings. DATA REPOSITORY: RADIATION DOSE DELIVERED:
[2024-03-27 17:46] VITALS: BP 139/88; PULSE 110; RESP 20; TEMP 37.8; O2SAT 98
[2024-03-27 17:50] VITALS: PULSE 110; RESP 20; O2SAT 98
[2024-03-27] MEDS: Acetaminophen 500 MG TAB 1000 MG PO (17:50)
[2024-03-27] MEDS: Albuterol/Ipratropium 3 ML UPD VIAL UPD (17:50)
--- NOTE | 2024-03-27 18:08 | DI.VRAD_ITS ---
PROCEDURE INFORMATION: Exam: XR Chest Exam date and time: 03/27/2024 5:49 PM Age: 48 years old Clinical indication: Cough TECHNIQUE: Imaging protocol: Radiologic exam of the chest. Views: 1 view. Other technique: Portable exam. COMPARISON: CR XR CHEST 2V PA LATERAL 03/22/2024 4:02 PM FINDINGS: Lungs: The lungs are slightly hypoinflated. Pleural spaces: Unremarkable. No pleural effusion. No pneumothorax. Heart/Mediastinum: Mild cardiomegaly. Bones/joints: Unremarkable. IMPRESSION: No evidence for acute abnormality in the chest. Dictated and Authenticated by: Ivone Muir MD. Ordering:OFELIA Simons MD
[2024-03-27 18:09] LABS: BE (Venous) 7 mmol/L (-2-3); HCO3 (Venous) 32 mmol/L (23-28); Lactate 1.5 mmol/L (0.6-1.4); O2 Sat (Venous) 46 %; TCO2 (Venous) 29 mmol/L (24-29); pCO2 (Venous) 51 mmHg (41-51); pH (Venous) 7.41 (7.31-7.41); pO2 (Venous) 26 mmHg
[2024-03-27 18:13] LABS: Abs Immature Grans 0.05 10^3/uL (0.0-0.06); Absolute Basophil Count 0.03 10^3/uL (0.0-0.2); Absolute Eosinophil Count 0.03 10^3/uL (0.0-0.7); Absolute Lymphocyte Count 0.78 10^3/uL (1.2-3.4); Absolute Monocyte Count 0.62 10^3/uL (0.1-0.8); Absolute Neutrophil Count 5.88 10^3/uL (1.2-6.7); Basophils % 0.4 %; Eosinophils % 0.4 %; HCT 39.2 % (36.0-46.0); HGB 12.8 g/dL (11.2-15.7); Immature Grans % 0.7 %; Lymphocytes % 10.6 %; MCH 29.4 pg (27.0-33.0); MCHC 32.7 % (32.0-36.0); MCV 90 fL (80-95); MPV 8.7 fL (8.0-11.0); Monocytes % 8.4 %; Neutrophils % 79.5 %; Platelet Count 203 10^3/uL (130-400); RBC 4.36 10^6/uL (3.93-5.22); RDW 15.5 % (11.7-14.6); RDW-SD 49.8 fL; WBC 7.39 10^3/uL (4.4-10.8)
[2024-03-27 18:29] LABS: ALT 78 U/L (14-59); AST 25 U/L (15-37); Albumin 3.2 g/dL (3.4-5.0); Alkaline Phosphatase 96 U/L (46-116); Anion Gap 6.7 mmol/L (3-11); BUN 8 mg/dL (7-18); Bilirubin, Total 0.93 mg/dL (0.2-1.0); CO2 32.3 mmol/L (21.0-32.0); CREATININE 0.9 mg/dL (0.55-1.02); Calcium 8.7 mg/dL (8.5-10.1); Chloride 104 mmol/L (98-107); Estimated GFR 79.85 (mL/min/1.73m2); Glucose 108 mg/dL (74-106); Potassium 3.5 mmol/L (3.5-5.1); Sodium 143 mmol/L (136-145)
[2024-03-27 19:07] LABS: Procalcitonin 0.1 ng/mL
[2024-03-27] MEDS: Benzonatate 100 MG CAP PO (19:43)
[2024-03-27] MEDS: levoFLOXacin 500 MG, levoFLOXacin 250 MG 750 MG PO (19:43)
[2024-03-27] MEDS: methylPREDNISolone SUCC 125 MG VIAL IVP (19:43)
--- NOTE | 2024-03-27 19:46 | ED.GENADUL_ITS ---
Discharge Plan Disposition Patient Disposition: Home Condition: Good Discharge Details Clinical Impression: Bronchitis Primary Care Provider: Connie Kemp ED Provider: Ronak Rodriguez Home Meds and New Rx's Prescriptions: New prednisone 20 mg tablet 20 mg PO DAILY Qty: 42 0RF Rx Instructions: Take 3 tablets daily for 7 days, followed by 2 tablets daily for 7 days, followed by 1 tablet daily for 7 days. benzonatate 100 mg capsule 100 mg PO TID Qty: 30 0RF levofloxacin 750 mg tablet 750 mg PO DAILY Qty: 10 0RF No Action methotrexate sodium 2.5 mg tablet 2.5 mg PO QWEEK Patient Comments: 6 tabs montelukast [Singulair] 10 mg tablet 10 mg PO DAILY loratadine [Claritin] 10 mg tablet 10 mg PO DAILY fluticasone propionate [Flonase Allergy Relief] 50 mcg/actuation spray,suspension 1 spray intranasal DAILY Rx Instructions: administer into each nostril epinephrine [EpiPen 2-Andres] 0.3 mg/0.3 mL auto-injector 0.3 mg IM Q5-15M PRN (Reason: hypersensitivity reaction) Qty: 2 0RF Rx Instructions: do not exceed 3 doses per episode budesonide-formoterol [Symbicort] 80-4.5 mcg/actuation HFA aerosol inhaler 1 inh inhalation BID albuterol sulfate [ProAir HFA] 90 mcg/actuation HFA aerosol inhaler 2 puff inhalation Q6H PRN medroxyprogesterone 10 mg tablet 10 mg PO DAILY Qty: 90 5RF Rx Instructions: 1 tab PO daily cyclobenzaprine 10 mg tablet 10 mg PO TID PRNQty: 20 0RF metoprolol succinate 25 mg capsule,sprinkle,ER 24hr 12.5 mg PO DAILY Qty: 15 0RF folic acid 1 mg tablet 1 mg PO DAILY Patient Comments: TAKE 1 TABLET BY MOUTH DAILY Discharge Instructions Instructions: Acute bronchitis Additional Instructions: Although your chest x-ray is negative for any evidence of pneumonia, because of your immunocompromise status with methotrexate, your persistent symptoms, your fever, I am concerned for potential bacterial bronchitis or pneumonia. Please continue to take the Symbicort inhaler, 2 puffs every 12 hours, we will be continuing her steroids with a tapered dosing strategy. Please take the Tessalon Perles as have been successful for you in the past. Please take the levofloxacin as prescribed. As we discussed together there is a potential side effect of causing tendon irritation or damage, if you do notice any pain or tenderness in your Achilles or tendon areas, please stop the medication and follow-up immediately with your medical practitioner. Please avoid any aggressive sports or quick physical movement activities while on the antibiotic. If you notice any worsening of your symptoms, or any new symptoms such as vomiting, diarrhea, fever, chills, shortness of breath, chest pain, numbness, weakness, or fainting , please return immediately to the emergency department for reevaluation. Please follow up with your primary care provider as soon as possible for reassessment and reevaluation. As always, it was a pleasure participating in your medical care today. Referrals: Connie Kemp MD [Primary Care Provider] - [facility] General Date/Time Provider Initiated Documentation: 03/27/24 17:27 . HPI Narrative: This is a pleasant 48-year-old female with a past medical history of bronchitis and asthma, ADD, hyperal dermatosclerosis, rheumatoid arthritis on methotrexate, who presents today for evaluation of cough. Patient states that about 10 days ago she developed a mild cough, she was seen by her primary care provider 6 days ago and was started on azithromycin and prednisone as well as Symbicort inhaler and albuterol. Chest x-ray was performed at that time was negative. Patient states that she noticed some mild improvement while on the steroids antibiotics but it notably worsened as soon as the antibiotics finished and the steroids finished. She presents today with continued cough, fever, chills. She denies any chest pain. She denies any urinary pain nausea vomiting or diarrhea. No neck pain or neck stiffness. No other complaints at this time. Related Data Home Medications ?Medication ?Instructions ?Recorded ?Confirmed methotrexate sodium 2.5 mg tablet 2.5 mg PO QWEEK 03/01/19 03/27/24 metoprolol succinate 25 mg capsule 12.5 mg (1/2 x 25 mg) PO DAILY #15 05/30/19 03/27/24 sprinkle, ext. release 24 hr caps fluticasone propionate 50 1 spray intranasal DAILY 06/16/20 03/27/24 mcg/actuation nasal spray,suspension (Flonase Allergy Relief) loratadine 10 mg tablet (Claritin) 10 mg PO DAILY 06/16/20 03/27/24 montelukast 10 mg tablet 10 mg PO DAILY 06/16/20 03/27/24 (Singulair) albuterol sulfate 90 mcg/actuation 2 puff inhalation Q6H PRN 11/29/22 03/27/24 aerosol inhaler (ProAir HFA) budesonide-formoterol HFA 80 1 inh inhalation BID 11/29/22 03/27/24 mcg-4.5 mcg/actuation aerosol inhaler (Symbicort) folic acid 1 mg tablet 1 mg PO DAILY 12/20/22 03/27/24 epinephrine 0.3 mg/0.3 mL 0.3 mg (0.3 mL) IM Q5-15M PRN 01/03/23 03/27/24 injection, auto-injector (EpiPen hypersensitivity reaction #2 ea 2-Andres) medroxyprogesterone 10 mg tablet 10 mg PO DAILY #90 tabs 02/12/23 03/27/24 cyclobenzaprine 10 mg tablet 10 mg PO TID PRN #20 tabs 12/22/23 03/27/24 benzonatate 100 mg capsule 100 mg PO TID #30 caps 03/27/24 levofloxacin 750 mg tablet 750 mg PO DAILY #10 tabs 03/27/24 prednisone 20 mg tablet 20 mg PO DAILY #42 tabs 03/27/24 Previous Rx's ?Medication ?Instructions ?Recorded metoprolol succinate 25 mg capsule 12.5 mg (1/2 x 25 mg) PO DAILY #15 05/30/19 sprinkle, ext. release 24 hr caps epinephrine 0.3 mg/0.3 mL 0.3 mg (0.3 mL) IM Q5-15M PRN 01/03/23 injection, auto-injector (EpiPen hypersensitivity reaction #2 ea 2-Andres) medroxyprogesterone 10 mg tablet 10 mg PO DAILY #90 tabs 02/12/23 cyclobenzaprine 10 mg tablet 10 mg PO TID PRN #20 tabs 12/22/23 benzonatate 100 mg capsule 100 mg PO TID #30 caps 03/27/24 levofloxacin 750 mg tablet 750 mg PO DAILY #10 tabs 03/27/24 prednisone 20 mg tablet 20 mg PO DAILY #42 tabs 03/27/24 Allergies Allergy/AdvReac Type Severity Reaction Status Date / Time fexofenadine (From Alecia) Allergy Severe facial Verified 03/27/24 17:16 swelling bee Allergy Severe Swelling/Ed Uncoded 03/27/24 17:16 mitzy environmental Allergy Other (See Uncoded 03/27/24 17:16 Comment) General Stated Complaint: RespSymp MERI: 3 Review of Systems All systems reviewed & are unremarkable except as noted in HPI and below Exam Narrative Exam Narrative: 1.Const: Well-nourished, Well-developed, appearing stated age 2.Eyes: PERRL, no conjunctival injection, and symmetrical lids. 3.ENT: Atraumatic external nose and ears. Moist MM. Neck: Symmetric, trachea midline, No thyromegaly. 4.CVS: +S1/S2, Peripheral pulses 2+ and equal in all extremities. Brisk capillary refill in all extremities. 5.RESP: Unlabored respiratory effort. Mild crackles in left lower lung field 6.GI: Soft, Nontender/Nondistended, No hepatosplenomegaly. No guarding or rebound. 7.MSK: Normocephalic/Atraumatic, Extremities w/o deformity or ttp No cyanosis or clubbing, Normal movement of all extremities 8.Skin: Warm, Dry. No rashes or lesions. 9.Neuro: surgical supply assistant II-XII grossly intact. Sensation grossly intact, no focal neurologic deficits. 10.Psych: (AAO) x3. Appropriate mood and affect Course Vital Signs Vital signs: Vital Signs Temperature 37.8 C H 03/27/24 17:11 Pulse 110 H 03/27/24 17:11 Respiratory Rate 20 03/27/24 17:11 Blood Pressure 139/88 03/27/24 17:11 Pulse Oximetry 98 03/27/24 17:11 Temperature 37.8 C H 03/27/24 17:46 Temperature Source Oral 03/27/24 17:46 Pulse 110 H 03/27/24 17:50 Respiratory Rate 20 03/27/24 17:50 Respiratory Effort Short of Breath 03/27/24 17:45 Blood Pressure 139/88 03/27/24 17:46 Blood Pressure Position Sitting 03/27/24 17:46 Pulse Oximetry 98 03/27/24 17:50 Oxygen Delivery Method Room Air 03/27/24 17:50 Oxygen Flow Rate 0 03/27/24 17:50 Pain Level 0 03/27/24 17:46 Lab/Test Results Lab/Test Results: 03/27/24 17:56 Blood Blood Culture - Pending 03/27/24 18:07 Blood Blood Culture - Pending Laboratory Tests Range/Units 03/27/24 03/27/24 18:02 18:07 WBC (4.4-10.8) 10^3/uL 7.39 RBC (3.93-5.22) 10^6/uL 4.36 Hgb (11.2-15.7) g/dL 12.8 Hct (36.0-46.0) % 39.2 MCV (80-95) fL 90 MCH (27.0-33.0) pg 29.4 MCHC (32.0-36.0) % 32.7 RDW (11.7-14.6) % 15.5 H Plt Count (130-400) 10^3/uL 203 MPV (8.0-11.0) fL 8.7 Immature Gran % % 0.7 Neutrophils % % 79.5 Lymphocytes % % 10.6 Monocytes % % 8.4 Eosinophils % % 0.4 Basophils % % 0.4 Nucleated RBC % (0.0-0.3) % 0.0 Absolute Neutrophils (1.2-6.7) 10^3/uL 5.88 Absolute Lymphocytes (1.2-3.4) 10^3/uL 0.78 L Absolute Monocytes (0.1-0.8) 10^3/uL 0.62 Absolute Eosinophils (0.0-0.7) 10^3/uL 0.03 Absolute Basophils (0.0-0.2) 10^3/uL 0.03 VBG pH (7.31-7.41) 7.41 VBG pCO2 (41-51) mmHg 51 VBG pO2 mmHg 26 VBG HCO3 (23-28) mmol/L 32 H VBG Total CO2 (24-29) mmol/L 29 VBG O2 Saturation % 46 VBG Base Excess (-2-3) mmol/L 7 H VBG Lactate (0.6-1.4) mmol/L 1.5 H Sodium (136-145) mmol/L 143 Potassium (3.5-5.1) mmol/L 3.5 Chloride (98-107) mmol/L 104 Carbon Dioxide (21.0-32.0) mmol/L 32.3 H Anion Gap (3-11) mmol/L 6.7 BUN (7-18) mg/dL 8 Creatinine (0.55-1.02) mg/dL 0.9 Est GFR (CKD-EPI 2020) (mL/min/1.73m2) 79.85 Glucose (74-106) mg/dL 108 H Calcium (8.5-10.1) mg/dL 8.7 Total Bilirubin (0.2-1.0) mg/dL 0.93 AST (15-37) U/L 25 ALT (14-59) U/L 78 H Alkaline Phosphatase (46-116) U/L 96 Total Protein (6.4-8.2) g/dL 7.0 Albumin (3.4-5.0) g/dL 3.2 L Procalcitonin ng/mL 0.1 Medical Decision Making This is a pleasant 48-year-old female with a past medical history of bronchitis and asthma, ADD, hyperal dermatosclerosis, rheumatoid arthritis on methotrexate, who presents today for evaluation of cough. Patient states that about 10 days ago she developed a mild cough, she was seen by her primary care provider 6 days ago and was started on azithromycin and prednisone as well as Symbicort inhaler and albuterol. Chest x-ray was performed at that time was negative. Patient states that she noticed some mild improvement while on the steroids antibiotics but it notably worsened as soon as the antibiotics finished and the steroids finished. She presents today with continued cough, fever, chills. She denies any chest pain. She denies any urinary pain nausea vomiting or diarrhea. No neck pain or neck stiffness. No other complaints at this time. Exam demonstrates coughing female, mildly tachycardic, febrile, no calf tenderness, no pitting edema in the lower extremities. No recent long trips surgeries or procedures. Patient is not on any control. She is not on any MIKAELA or ARB. With the patient's fever and chills and cough I am concerned for pneumonia. There certainly could be a viral component, however bacterial etiology is high in concern. We will get blood cultures, repeat chest x-ray, test for flu COVID and RSV, monitor closely and reassess. 8 PM Laboratory workup has returned, no significant white count or bandemia. Mild lymphopenia. COVID flu and RSV are negative though. VBG is stable. Electrolytes normal, procalcitonin is only 0.1. Chest x-ray was read as negative by virtual radiology. However with the patient's immunocompromise state, positive crackles on exam, her fever and persistent symptomatology while being on methotrexate, I do feel that we have to abide by caution, and continue antibacterial treatment in this scenario as my concern for potential bacterial etiology is certainly higher given her immunocompromise status. I had a long discussion with her regarding risks and benefits of different antibiotics, but I feel that levofloxacin would give broader coverage, continue to cover for atypicals, as well as other concerning pulmonary etiologies. I discussed the red flags and risks associated with tendinopathy's, patient understands and will monitor her symptoms closely. We will recommend continuation of her Symbicort, will do a prolonged steroid course with taper, will give Tessalon Perles, and recommend close outpatient follow-up. Patient otherwise stable. At time of discharge patient continues to show no hypoxemia, heart rate is improved. We will give a dose of steroids here, as well as Tessalon Perle here the first antibiotic dose. Discussed red flags for which to return. I have extensively reviewed the treatment plan and discharge instructions with the patient. I have addressed all patient concerns at this time. The patient was made aware of what symptoms to monitor for that would warrant a return to the emergency department. Discussed the plan with the patient, they demonstrate verbal understanding and agreement with our assessment and plan at this time. The documentation in this chart was dictated using [employer] dictation software. Please excuse any dictation errors. Quality:SDOH Health Related Social Needs: No Data to Display PFSH All Active Problems Bronchitis (Acute) Angioedema (Acute) Cough (Acute) BMI 50.0-59.9, adult (Acute 06/10/17) Venous ulcer (Acute) ADD (attention deficit disorder) (Acute) SVT (supraventricular tachycardia) (Chronic) Lipodermatosclerosis (Acute) Herpes labialis (Acute) Rheumatoid arthritis (Chronic) Dermatitis (Acute) Venous stasis ulcer (Acute) Eye swelling (Acute) Hives (Acute) Medical History Simple endometrial hyperplasia without atypia 2016. Dx 10/2015. Rx with Medroxyprogesterone 10mg/day. 05/2017. EMBx: atrophic endometrium. History of delivery of macrosomal infant Allergic rhinitis MARYBETH on CPAP Prediabetes Endometriosis Surgical History History of incision and drainage (~01/03/23) Family History Mother Diabetes Uterine cancer Social History Smoking/Tobacco Use Status: Never Smoking risk assessment performed?: Yes Alcohol Intake: current Alcohol Intake frequency: holidays/special occasions only Drug use: Never Substance use type: does not use Household members: children and other Details: Has 11mo foster child. 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 Do you feel safe at home: Yes Do you feel safe in your relationship?: Yes History History 3 Para Hx # Term Pregnancies 3 Multiple births Hx # Pregnancies Ectopic pregnancies AB induced Hx Number of Living Children 3 AB spontaneous
[2024-03-27 20:02] VITALS: BP 126/60; PULSE 75; RESP 18; O2SAT 95
[2024-03-27 20:04] LABS: COVID-19 PCR Negative (Negative); Influenza A PCR Negative (Negative); Influenza B PCR Negative (Negative); RSV PCR Negative (Negative)
[2024-03-27 20:06] LABS: Source Nasopharynx
== END 2024-03-27 20:06 | disposition home or self-care (01) ==
PROVIDERS: Emergency Provider Student in an Organized Health Care Education/Training Program; PCP Family Medicine
DX: J20.9 Acute bronchitis, unspecified (principal)
CPT/HCPCS: 36415; 80053; 82805; 84145; 87040; 87637; 94640; 96374; 99284; 71045; 83605; 85025; J2919; J7620

== ENCOUNTER 2024-04-25 12:41 | Emergency (ER) | payer OTHER, MEDICAID, SELFPAY ==
[2024-04-25 12:43] VITALS: BP 138/81; PULSE 96; RESP 14; TEMP 36.8; O2SAT 96
--- NOTE | 2024-04-25 13:15 | DI.RAD_ITS ---
Exam(s) XR CHEST 2V PA LATERAL EXAM: XR CHEST 2V PA LATERAL CLINICAL HISTORY: cough TECHNIQUE: 2D digital imaging was performed of the chest. Two images were obtained. PA and lateral views were obtained. COMPARISON: CR,XR XR PORTABLE CHEST AP from 03/27/2024 FINDINGS: MEDIASTINUM: Normal. HEART: Normal. PULMONARY VASCULATURE: Normal. LUNGS: Clear. PLEURAL SPACE: No pleural effusion or pneumothorax. BONE:Within normal limits for the patient's age. OTHER FINDINGS:Normal. IMPRESSION: No acute pulmonary findings. DATA REPOSITORY: RADIATION DOSE DELIVERED:
--- NOTE | 2024-04-25 13:30 | W.ED.GENAD ---
Discharge Plan Disposition Patient Disposition: Home Discharge Details Clinical Impression: Cough Primary Care Provider: Connie Kemp ED Provider: Dominga Thompson Home Meds and New Rx's Prescriptions: New promethazine 6.25 mg/5 mL syrup 12.5 mg PO Q6H PRN (Reason: cough) Qty: 120 0RF benzonatate 100 mg capsule 100 mg PO TID PRN (Reason: cough) Qty: 30 0RF No Action methotrexate sodium 2.5 mg tablet 2.5 mg PO QWEEK Patient Comments: 6 tabs montelukast [Singulair] 10 mg tablet 10 mg PO DAILY loratadine [Claritin] 10 mg tablet 10 mg PO DAILY fluticasone propionate [Flonase Allergy Relief] 50 mcg/actuation spray,suspension 1 spray intranasal DAILY Rx Instructions: administer into each nostril epinephrine [EpiPen 2-Andres] 0.3 mg/0.3 mL auto-injector 0.3 mg IM Q5-15M PRN (Reason: hypersensitivity reaction) Qty: 2 0RF Rx Instructions: do not exceed 3 doses per episode budesonide-formoterol [Symbicort] 80-4.5 mcg/actuation HFA aerosol inhaler 1 inh inhalation BID albuterol sulfate [ProAir HFA] 90 mcg/actuation HFA aerosol inhaler 2 puff inhalation Q6H PRN medroxyprogesterone 10 mg tablet 10 mg PO DAILY Qty: 90 5RF Rx Instructions: 1 tab PO daily metoprolol succinate 25 mg capsule,sprinkle,ER 24hr 12.5 mg PO DAILY Qty: 15 0RF folic acid 1 mg tablet 1 mg PO DAILY Patient Comments: TAKE 1 TABLET BY MOUTH DAILY Discharge Instructions Additional Instructions: Flu COVID testing are negative. Chest x-ray is unremarkable and does not reveal any signs of pneumonia. There is no indication for antibiotics today cough medication has been sent to the pharmacy for you to brain picker Continue using albuterol inhaler with spacer, 2 puffs every 4 hours Your symptoms are likely secondary to viral infection, but please follow-up with your PCP if they persist, you may need for further pulmonary testing HPI General Date/Time Provider Initiated Documentation: 04/25/24 12:49. Limitations to Documentation: no limitations. Information obtained by: patient. HPI Narrative: 49-year-old female with past medical history of angioedema, rheumatoid arthritis, obesity presents for evaluation of cough. Patient reports that she has been sick for the last few months. Was evaluated in the emergency department about a month ago. At that time she had already done and azithromycin course. And chest rate x-ray in the emergency department that day was negative, but she was prescribed levofloxacin. She does report some mild improvement in her symptoms but over the last week symptoms have returned. She reports a constant hacking cough. She coughed so hard that her head hurts and she pees a little bit. She reports that she has taken Mucinex and DayQuil without any relief. Denies any fever. No one else in the home is sick. She reports that she is using the Symbicort twice daily and occasionally she will use the albuterol. Related Data Home Medications ?Medication ?Instructions ?Recorded ?Confirmed methotrexate sodium 2.5 mg tablet 2.5 mg PO QWEEK 03/01/19 04/25/24 metoprolol succinate 25 mg capsule 12.5 mg (1/2 x 25 mg) PO DAILY #15 05/30/19 04/25/24 sprinkle, ext. release 24 hr caps fluticasone propionate 50 1 spray intranasal DAILY 06/16/20 04/25/24 mcg/actuation nasal spray,suspension (Flonase Allergy Relief) loratadine 10 mg tablet (Claritin) 10 mg PO DAILY 06/16/20 04/25/24 montelukast 10 mg tablet 10 mg PO DAILY 06/16/20 04/25/24 (Singulair) albuterol sulfate 90 mcg/actuation 2 puff inhalation Q6H PRN 11/29/22 04/25/24 aerosol inhaler (ProAir HFA) budesonide-formoterol HFA 80 1 inh inhalation BID 11/29/22 04/25/24 mcg-4.5 mcg/actuation aerosol inhaler (Symbicort) folic acid 1 mg tablet 1 mg PO DAILY 12/20/22 04/25/24 epinephrine 0.3 mg/0.3 mL 0.3 mg (0.3 mL) IM Q5-15M PRN 01/03/23 04/25/24 injection, auto-injector (EpiPen hypersensitivity reaction #2 ea 2-Andres) medroxyprogesterone 10 mg tablet 10 mg PO DAILY #90 tabs 02/12/23 04/25/24 benzonatate 100 mg capsule 100 mg PO TID PRN cough #30 caps 04/25/24 promethazine 6.25 mg/5 mL oral 12.5 mg (10 mL) PO Q6H PRN cough 04/25/24 syrup #120 mL Previous Rx's ?Medication ?Instructions ?Recorded metoprolol succinate 25 mg capsule 12.5 mg (1/2 x 25 mg) PO DAILY #15 05/30/19 sprinkle, ext. release 24 hr caps epinephrine 0.3 mg/0.3 mL 0.3 mg (0.3 mL) IM Q5-15M PRN 01/03/23 injection, auto-injector (EpiPen hypersensitivity reaction #2 ea 2-Andres) medroxyprogesterone 10 mg tablet 10 mg PO DAILY #90 tabs 02/12/23 benzonatate 100 mg capsule 100 mg PO TID PRN cough #30 caps 04/25/24 promethazine 6.25 mg/5 mL oral 12.5 mg (10 mL) PO Q6H PRN cough 04/25/24 syrup #120 mL Allergies Allergy/AdvReac Type Severity Reaction Status Date / Time fexofenadine (From Alecia) Allergy Severe facial Verified 04/25/24 12:47 swelling bee Allergy Severe Swelling/Ed Uncoded 04/25/24 12:47 mitzy environmental Allergy Other (See Uncoded 04/25/24 12:47 Comment) General Stated Complaint: RespSymp MERI: 5 Exam Narrative Exam Narrative: Review of Systems: All systems reviewed & are unremarkable except as noted in HPI and below Obese, no acute distress Afebrile NCAT PERRL, normal conjunctiva RRR no murmur Unlabored respiratory effort good air movement clear bilaterally no wheezing or crackles Nondistended abdomen Extremities w/o edema Course Vital Signs Vital signs: Vital Signs Temperature 36.8 C 04/25/24 12:43 Pulse 96 H 04/25/24 12:43 Respiratory Rate 14 04/25/24 12:43 Blood Pressure 138/81 04/25/24 12:43 Pulse Oximetry 96 04/25/24 12:43 Temperature 36.8 C 04/25/24 12:43 Temperature Source Oral 04/25/24 12:43 Pulse 96 H 04/25/24 12:43 Respiratory Rate 14 04/25/24 12:43 Respiratory Effort Normal, Non-Labored 04/25/24 13:02 Respiratory Depth Normal 04/25/24 13:02 Blood Pressure 138/81 04/25/24 12:43 Blood Pressure Position Sitting 04/25/24 12:43 Pulse Oximetry 96 04/25/24 12:43 Oxygen Delivery Method Room Air 04/25/24 12:43 Oxygen Flow Rate 0 04/25/24 12:43 Pain Level 0 04/25/24 12:43 Medical Decision Making Emergent evaluation of persistent cough. Patient does have a history of rheumatoid arthritis and is on methotrexate. Reports flu and COVID testing were negative today. She does have some history of allergic type symptoms and takes montelukast, Symbicort and albuterol as Flonase. She does not have any signs of respiratory distress or concern for increased work of breathing. Her pulmonary exam is within normal limits. Will get chest x-ray to evaluate for consolidative process. The [facility] Chest x-ray reviewed and independently interpreted: No consolidative process. Heart size normal. I do not feel that an additional round of antibiotics would be indicated at this time. I will prescribe some additional cough medications for symptom relief. Recommend close follow-up with PCP if symptoms or not improving, may need further pulmonary testing. At this time discharged in good condition. Quality:SDOH Health Related Social Needs: No Data to Display PFSH All Active Problems (Updated 04/25/24 @ 14:13 by Dominga Thompson MD) Bronchitis (Acute) Angioedema (Acute) Cough (Acute) BMI 50.0-59.9, adult (Acute 06/10/17) Venous ulcer (Acute) ADD (attention deficit disorder) (Acute) SVT (supraventricular tachycardia) (Chronic) Lipodermatosclerosis (Acute) Herpes labialis (Acute) Rheumatoid arthritis (Chronic) Dermatitis (Acute) Venous stasis ulcer (Acute) Eye swelling (Acute) Hives (Acute) Medical History Simple endometrial hyperplasia without atypia 2015. Dx 10/2015. Rx with Medroxyprogesterone 10mg/day. 05/2017. EMBx: atrophic endometrium. History of delivery of macrosomal Allergic rhinitis MARYBETH on CPAP Prediabetes Endometriosis Surgical History History of incision and drainage (~01/03/23) Family History Mother Diabetes Uterine cancer Social History Smoking/Tobacco Use Status: Never Smoking risk assessment performed?: Yes Alcohol Intake: current Alcohol Intake frequency: holidays/special occasions only Drug use: Never Substance use type: does not use Household members: children and other Details: Has 11mo foster child. 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 Do you feel safe at home: Yes Do you feel safe in your relationship?: Yes History History 3 Para Hx # Term Pregnancies 3 Multiple births Hx # Pregnancies Ectopic pregnancies AB induced Hx Number of Living Children 3 AB spontaneous
== END 2024-04-25 14:14 | disposition home or self-care (01) ==
PROVIDERS: Emergency Provider Emergency Medicine; PCP Family Medicine
DX: R05.1 Acute cough (principal); M06.9 Rheumatoid arthritis, unspecified; T78.3XXA Angioneurotic edema, initial encounter
CPT/HCPCS: 99283; 71046; 99284

== ENCOUNTER 2024-04-28 08:20 | Emergency (ER) | payer OTHER, MEDICAID, SELFPAY ==
[2024-04-28] VITALS (10 sets, daily range): BP systolic 103–213; BP diastolic 45–111; PULSE 84–96; RESP 13–27; TEMP 36.5; O2SAT 94–99
--- NOTE | 2024-04-28 08:45 | DI.US_ITS ---
Exam(s) US LOWER EXTREMITY VENOUS RT EXAM: US LOWER EXTREMITY VENOUS RT CLINICAL HISTORY: popliteal swelling and pain. TECHNIQUE: Lower extremity venous ultrasound performed using grayscale, color-flow, and spectral Do ppler analysis. COMPARISON: No exams were available for comparison FINDINGS: The common femoral, femoral and popliteal veins demonstrate normal compressibility, augmentation, and color Doppler. The posterior tibial and peroneal veins are patent. The greater saphenous vein shows a focal area of thrombosis 10 cm from the saphenofemoral junction measuring approximately 5 cm in le ngth. There is also thrombosed varicose vein, branch off of saphenous vein, in the medial thigh exte nding down to the proximal calf, approximately 25 cm in length. No hematoma or Melendez's cyst is seen . Calf edema. IMPRESSION: Focal area of thrombosis in the greater saphenous vein. Thrombosed varicose vein in the mid thigh th rough proximal calf. No evidence of DVT. DATA REPOSITORY:
[2024-04-28 09:13] LABS: Abs Immature Grans 0.01 10^3/uL (0.0-0.06); Absolute Basophil Count 0.03 10^3/uL (0.0-0.2); Absolute Eosinophil Count 0.03 10^3/uL (0.0-0.7); Absolute Lymphocyte Count 1.33 10^3/uL (1.2-3.4); Absolute Monocyte Count 0.33 10^3/uL (0.1-0.8); Absolute Neutrophil Count 2.24 10^3/uL (1.2-6.7); Basophils % 0.8 %; Eosinophils % 0.8 %; HCT 37.2 % (36.0-46.0); HGB 11.8 g/dL (11.2-15.7); Immature Grans % 0.3 %; Lymphocytes % 33.5 %; MCH 29.6 pg (27.0-33.0); MCHC 31.7 % (32.0-36.0); MCV 94 fL (80-95); MPV 8.5 fL (8.0-11.0); Monocytes % 8.3 %; Neutrophils % 56.3 %; Platelet Count 250 10^3/uL (130-400); RBC 3.98 10^6/uL (3.93-5.22); RDW 17.9 % (11.7-14.6); RDW-SD 61.5 fL; WBC 3.97 10^3/uL (4.4-10.8)
--- NOTE | 2024-04-28 09:30 | DI.CT_ITS ---
Exam(s) CT CHEST PE CTA EXAM: CT CHEST PE CTA CLINICAL HISTORY: persistent sob, cough, extensive superficial throm. TECHNIQUE: Imaging Protocol: Axial CT angiography was performed with multi-slice acquisition and mu lti-planar reconstructions as well as axial, coronal and sagittal MIP reconstructions. Computer aided detection (CAD) was utilized. CONTRAST MATERIAL: Intravenous: Omnipaque 350 Contrast volume:100 ml COMPARISON: No exams were available for comparison FINDINGS: The exam is limited by patient body habitus and suboptimal opacification of pulmonary arteries. Pulmonary Arteries: No evidence of filling defect to suggest pulmonary emboli. Mediastinum and Marilyn: No dominant adenopathy or fluid collection. Pulmonary parenchyma: Limited evaluation due to expiratory changes. No consolidation or dominant ann surable mass. Pleura: No effusion or pneumothorax. Heart: The heart is not dilated. No coronary artery calcifications are seen. Aorta: Thoracic aorta non-dilated. No dissection. Upper abdomen: No acute findings. The liver and spleen appear enlarged. Status post cholecystect myah. Bones: Unremarkable for age. Tubes, Catheters, and Lines: None Soft tissues: Unremarkable. IMPRESSION: Limited exam. No evidence of pulmonary embolism or other acute abnormality. RADIATION DOSE DELIVERED: 426.96mGy.cm Total DLP DATA REPOSITORY: All CT scans at this facility are submitted to the National Radiology Data Registry (NRDR) Dose Index Registry (DIR) with the [employer] ([employer]). RADIATION OPTIMIZATION: All CT scans at this facility use at least one of these dose optimization te chniques: automated exposure control; mA and/or kV adjustment per patient size (includes targeted exa ms where dose is matched to clinical indication); or iterative reconstruction.
[2024-04-28 09:38] LABS: ALT 52 U/L (14-59); AST 34 U/L (15-37); Albumin 2.8 g/dL (3.4-5.0); Alkaline Phosphatase 81 U/L (46-116); Anion Gap 6.9 mmol/L (3-11); BUN 8 mg/dL (7-18); Bilirubin, Total 0.93 mg/dL (0.2-1.0); CO2 28.1 mmol/L (21.0-32.0); CREATININE 0.9 mg/dL (0.55-1.02); Calcium 8.5 mg/dL (8.5-10.1); Chloride 108 mmol/L (98-107); Estimated GFR 79.35 (mL/min/1.73m2); Glucose 140 mg/dL (74-106); Potassium 4.2 mmol/L (3.5-5.1); Sodium 143 mmol/L (136-145); Total Protein 6.3 g/dL (6.4-8.2)
[2024-04-28] MEDS: Normal Saline - Diluent 50 ML VIAL IJ (09:57)
[2024-04-28] MEDS: Omnipaque 350 MG/ML 500 ML BTL-Imaging package 100 ML IJ (09:58)
--- NOTE | 2024-04-28 15:21 | ED.GENADUL_ITS ---
Discharge Plan Disposition Patient Disposition: Home Condition: Stable Discharge Details Clinical Impression: Superficial thrombophlebitis Primary Care Provider: Connie Kemp ED Provider: Maria Vasquez Home Meds and New Rx's Prescriptions: New Shayna DVT-PE Treat 30D Start 5 mg (74 tabs) tablets,dose pack See Rx Instructions .ROUTE .COMPLEX Qty: 74 0RF Rx Instructions: orally per package directions budesonide-formoterol [Symbicort] 160-4.5 mcg/actuation HFA aerosol inhaler 2 puff inhalation Q12H Qty: 10.2 0RF dexamethasone 4 mg tablet 4 mg PO DAILY Qty: 5 0RF Rx Instructions: take 1 tablet every other day for 8 days, followed by 2 mg( 1/2 tablet ) every other day Continued methotrexate sodium 2.5 mg tablet 2.5 mg PO QWEEK Patient Comments: 6 tabs montelukast [Singulair] 10 mg tablet 10 mg PO DAILY loratadine [Claritin] 10 mg tablet 10 mg PO DAILY fluticasone propionate [Flonase Allergy Relief] 50 mcg/actuation spray,suspension 1 spray intranasal DAILY Rx Instructions: administer into each nostril epinephrine [EpiPen 2-Andres] 0.3 mg/0.3 mL auto-injector 0.3 mg IM Q5-15M PRN (Reason: hypersensitivity reaction) Qty: 2 0RF Rx Instructions: do not exceed 3 doses per episode budesonide-formoterol [Symbicort] 80-4.5 mcg/actuation HFA aerosol inhaler 1 inh inhalation BID albuterol sulfate [ProAir HFA] 90 mcg/actuation HFA aerosol inhaler 2 puff inhalation Q6H PRN medroxyprogesterone 10 mg tablet 10 mg PO DAILY Qty: 90 5RF Rx Instructions: 1 tab PO daily metoprolol succinate 25 mg capsule,sprinkle,ER 24hr 12.5 mg PO DAILY Qty: 15 0RF folic acid 1 mg tablet 1 mg PO DAILY Patient Comments: TAKE 1 TABLET BY MOUTH DAILY promethazine 6.25 mg/5 mL syrup 12.5 mg PO Q6H PRN (Reason: cough) Qty: 120 0RF benzonatate 100 mg capsule 100 mg PO TID PRN (Reason: cough) Qty: 30 0RF Discharge Instructions Instructions: Apixaban Additional Instructions: You are taking a blood thinner called Eliquis as you have a large superficial blood clot in your leg and in your varicose vein on the right, there is no evidence of a blood clot in your lung which is great The Eliquis can make you bleed you should use caution while walking outside especially in the winter, if you hit your head you should be evaluated immediately Do not take nonsteroidal anti-inflammatories such as ibuprofen or Motrin with this medication, you may take Tylenol as needed for pain We are also increasing your Symbicort to 160 mcg, I called in the prescription Dr. Kemp wants to see you in 1 week Please return earlier should you have new or worsening complaints Referrals: Connie Kemp MD [Primary Care Provider] - 1 week Discharge Data Discharge Date/Time-TO BE ENTERED AT DEPARTURE: 04/28/24 12:52 HPI General Date/Time Provider Initiated Documentation: 04/28/24 08:25 . HPI Narrative: This 49-year-old female with history of rheumatoid arthritis presents with a swollen right lower extremity which started several days prior to arrival. Here history of a varicose vein in this area. States it has not been swollen and red like this before. Denies any chest pain or shortness of breath but has had upper respiratory symptoms for 8 weeks despite a course of prednisone and antibiotics. Patient denies any history of recent flights, surgeries, long drives or known history of coagulopathy. She is immunosuppressed from methotrexate which she takes for her rheumatoid arthritis and she has been relatively controlled in terms of this. Denies any trauma to the affected extremity. Related Data Home Medications ?Medication ?Instructions ?Recorded ?Confirmed methotrexate sodium 2.5 mg tablet 2.5 mg PO QWEEK 03/01/19 04/28/24 metoprolol succinate 25 mg capsule 12.5 mg (1/2 x 25 mg) PO DAILY #15 05/30/19 04/28/24 sprinkle, ext. release 24 hr caps fluticasone propionate 50 1 spray intranasal DAILY 06/16/20 04/28/24 mcg/actuation nasal spray,suspension (Flonase Allergy Relief) loratadine 10 mg tablet (Claritin) 10 mg PO DAILY 06/16/20 04/28/24 montelukast 10 mg tablet 10 mg PO DAILY 06/16/20 04/28/24 (Singulair) albuterol sulfate 90 mcg/actuation 2 puff inhalation Q6H PRN 11/29/22 04/28/24 aerosol inhaler (ProAir HFA) budesonide-formoterol HFA 80 1 inh inhalation BID 11/29/22 04/28/24 mcg-4.5 mcg/actuation aerosol inhaler (Symbicort) folic acid 1 mg tablet 1 mg PO DAILY 12/20/22 04/28/24 epinephrine 0.3 mg/0.3 mL 0.3 mg (0.3 mL) IM Q5-15M PRN 01/03/23 04/28/24 injection, auto-injector (EpiPen hypersensitivity reaction #2 ea 2-Andres) medroxyprogesterone 10 mg tablet 10 mg PO DAILY #90 tabs 02/12/23 04/28/24 benzonatate 100 mg capsule 100 mg PO TID PRN cough #30 caps 04/25/24 04/28/24 promethazine 6.25 mg/5 mL oral 12.5 mg (10 mL) PO Q6H PRN cough 04/25/24 04/28/24 syrup #120 mL apixaban 5 mg (74 tabs) tablets in See Rx Instructions PO .COMPLEX 04/28/24 a dose pack (Novitaz DVT-PE Treat #74 dose pk 30D Start) budesonide-formoterol HFA 160 2 puff inhalation Q12H #10.2 grams 04/28/24 mcg-4.5 mcg/actuation aerosol inhaler (Symbicort) dexamethasone 4 mg tablet 4 mg PO DAILY #5 tabs 04/28/24 Previous Rx's ?Medication ?Instructions ?Recorded metoprolol succinate 25 mg capsule 12.5 mg (1/2 x 25 mg) PO DAILY #15 05/30/19 sprinkle, ext. release 24 hr caps epinephrine 0.3 mg/0.3 mL 0.3 mg (0.3 mL) IM Q5-15M PRN 01/03/23 injection, auto-injector (EpiPen hypersensitivity reaction #2 ea 2-Andres) medroxyprogesterone 10 mg tablet 10 mg PO DAILY #90 tabs 02/12/23 benzonatate 100 mg capsule 100 mg PO TID PRN cough #30 caps 04/25/24 promethazine 6.25 mg/5 mL oral 12.5 mg (10 mL) PO Q6H PRN cough 04/25/24 syrup #120 mL apixaban 5 mg (74 tabs) tablets in See Rx Instructions PO .COMPLEX 04/28/24 a dose pack (Eliquis DVT-PE Treat #74 dose pk 30D Start) budesonide-formoterol HFA 160 2 puff inhalation Q12H #10.2 grams 04/28/24 mcg-4.5 mcg/actuation aerosol inhaler (Symbicort) dexamethasone 4 mg tablet 4 mg PO DAILY #5 tabs 04/28/24 Allergies Allergy/AdvReac Type Severity Reaction Status Date / Time fexofenadine (From Alecia) Allergy Severe facial Verified 04/25/24 12:47 swelling bee Allergy Severe Swelling/Ed Uncoded 04/25/24 12:47 mitzy environmental Allergy Other (See Uncoded 04/25/24 12:47 Comment) General Stated Complaint: Vascular MERI: 3 Exam Narrative Exam Narrative: 49-year-old female alert and oriented, no acute distress presenting with right lower extremity swelling and pain. Right lower extremity with palpable induration a varicosity in the popliteal region with swelling distally to the calf, neurovascularly intact, lungs clear to auscultation, cardiac rate rhythm regular, alert and oriented times Course Vital Signs Vital signs: Vital Signs Temperature 36.5 C 04/28/24 08:26 Pulse 93 H 04/28/24 08:26 Respiratory Rate 16 04/28/24 08:26 Blood Pressure 103/45 L 04/28/24 08:26 Pulse Oximetry 94 04/28/24 08:26 Temperature 36.5 C 04/28/24 08:26 Temperature Source Temporal Artery Scan 04/28/24 08:26 Pulse 84 04/28/24 12:46 Pulse 91 H 04/28/24 09:03 Respiratory Rate 16 04/28/24 12:46 Respiratory Effort Normal, Non-Labored 04/28/24 08:37 Respiratory Depth Normal 04/28/24 08:37 Respiratory Pattern Normal 04/28/24 08:37 Blood Pressure 128/73 04/28/24 12:46 Blood Pressure Mean 104 04/28/24 09:02 Blood Pressure Position Sitting 04/28/24 08:26 Pulse Oximetry 99 04/28/24 12:46 Oxygen Delivery Method Room Air 04/28/24 08:26 Oxygen Flow Rate 0 04/28/24 08:26 Pain Level 0 04/28/24 08:37 Comment 6/10 when touched 04/28/24 08:26 Lab/Test Results Lab/Test Results: Laboratory Tests Range/Units 04/28/24 09:05 WBC (4.4-10.8) 10^3/uL 3.97 L RBC (3.93-5.22) 10^6/uL 3.98 Hgb (11.2-15.7) g/dL 11.8 Hct (36.0-46.0) % 37.2 MCV (80-95) fL 94 MCH (27.0-33.0) pg 29.6 MCHC (32.0-36.0) % 31.7 L RDW (11.7-14.6) % 17.9 H Plt Count (130-400) 10^3/uL 250 MPV (8.0-11.0) fL 8.5 Immature Gran % % 0.3 Neutrophils % % 56.3 Lymphocytes % % 33.5 Monocytes % % 8.3 Eosinophils % % 0.8 Basophils % % 0.8 Nucleated RBC % (0.0-0.3) % 0.0 Absolute Neutrophils (1.2-6.7) 10^3/uL 2.24 Absolute Lymphocytes (1.2-3.4) 10^3/uL 1.33 Absolute Monocytes (0.1-0.8) 10^3/uL 0.33 Absolute Eosinophils (0.0-0.7) 10^3/uL 0.03 Absolute Basophils (0.0-0.2) 10^3/uL 0.03 Sodium (136-145) mmol/L 143 Potassium (3.5-5.1) mmol/L 4.2 Chloride (98-107) mmol/L 108 H Carbon Dioxide (21.0-32.0) mmol/L 28.1 Anion Gap (3-11) mmol/L 6.9 BUN (7-18) mg/dL 8 Creatinine (0.55-1.02) mg/dL 0.9 Est GFR (CKD-EPI 2020) (mL/min/1.73m2) 79.35 Glucose (74-106) mg/dL 140 H Calcium (8.5-10.1) mg/dL 8.5 Total Bilirubin (0.2-1.0) mg/dL 0.93 AST (15-37) U/L 34 ALT (14-59) U/L 52 Alkaline Phosphatase (46-116) U/L 81 Total Protein (6.4-8.2) g/dL 6.3 L Albumin (3.4-5.0) g/dL 2.8 L Medical Decision Making Complex 49-year-old female with a right lower extremity swelling, ultrasound shows evidence of superficial thrombophlebitis approximately 5 cm. Patient with varicose vein which has 25 cm of thrombus. Per radiology interpretation and my review. At this time given extensive clot burden, patient requires anticoagulation with Eliquis, I think the benefit outweighs the risk at this point. Diagnostic labs are reassuring. I also ordered a CTA of patient's chest as she does have extensive superficial thrombus with persistent upper respiratory symptoms. Eliquis initiated, Symbicort changed to 160 mcg after discussion with patient's PCP, Dr. Kemp. She will follow-up with patient and ensure that Eliquis is continued. She will also follow-up regarding respiratory status although I will place a referral to pulmonology at this point. This time patient has stable vitals speaking complete sentences and is in no acute distress. Return precautions reviewed and patient expressed understanding. Quality:SDOH Health Related Social Needs: No Data to Display PFSH All Active Problems (Updated 04/28/24 @ 11:46 by OSWALDO Augustin) Superficial thrombophlebitis (Acute) Angioedema (Acute) Cough (Acute) BMI 50.0-59.9, adult (Acute 06/10/17) Venous ulcer (Acute) ADD (attention deficit disorder) (Acute) SVT (supraventricular tachycardia) (Chronic) Lipodermatosclerosis (Acute) Herpes labialis (Acute) Rheumatoid arthritis (Chronic) Dermatitis (Acute) Venous stasis ulcer (Acute) Eye swelling (Acute) Hives (Acute) Medical History Simple endometrial hyperplasia without atypia 2015. Dx 10/2015. Rx with Medroxyprogesterone 10mg/day. 05/2017. EMBx: atrophic endometrium. History of delivery of macrosomal infant Allergic rhinitis MARYBETH on CPAP Prediabetes Endometriosis Surgical History History of incision and drainage (~01/03/23) Family History Mother Diabetes Uterine cancer Social History Smoking/Tobacco Use Status: Never Smoking risk assessment performed?: Yes Alcohol Intake: current Alcohol Intake frequency: holidays/special occasions only Drug use: Never Substance use type: does not use Household members: children and other Details: Has 11mo foster child. 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 Do you feel safe at home: Yes Do you feel safe in your relationship?: Yes History History 3 Para Hx # Term Pregnancies 3 Multiple births Hx # Pregnancies Ectopic pregnancies AB induced Hx Number of Living Children 3 AB spontaneous
== END 2024-04-28 12:52 | disposition home or self-care (01) ==
PROVIDERS: Emergency Provider Physician Assistant; PCP Family Medicine
DX: I82.811 Embolism and thrombosis of superficial veins of right lower extremity (principal); I83.891 Varicose veins of right lower extremity with other complications; M06.9 Rheumatoid arthritis, unspecified; Z79.631 Long term (current) use of antimetabolite agent
CPT/HCPCS: 71275; 80053; 99285; 85025; 93971

== ENCOUNTER 2024-07-02 00:47 | Outpatient (CLI) | payer MEDICAID, SELFPAY ==
--- NOTE | 2024-07-02 | DI.US_ITS ---
Exam(s) US LOWER EXTREMITY VENOUS RT EXAM: US LOWER EXTREMITY VENOUS RT CLINICAL HISTORY: Superficial vein thrombosis, I82.813; f/u rt-sided GSV and superficial vein. TECHNIQUE: Lower extremity venous ultrasound performed using grayscale, color-flow, and spectral Do ppler analysis. COMPARISON: US US LOWER EXTREMITY VENOUS RT from 04/28/2024 FINDINGS: The common femoral, femoral and popliteal veins demonstrate normal compressibility, augmentation, and color Doppler. The posterior tibial and peroneal veins are patent. The previously noted thrombus in the greater saphenous vein has resolved. There has been no signific ant change in the thrombosed varicose vein extending on from mid thigh through popliteal region to th e lateral calf approximate 25 cm in length. No hematoma or Melendez's cyst is seen. IMPRESSION: Resolution of greater saphenous vein thrombosis. Persistent thrombosis of a varicose vein branching off saphenous vein. No evidence of DVT. DATA REPOSITORY:
== END 2024-07-02 01:07 ==
LOC: DI 00:47
PROVIDERS: PCP Family Medicine; Visit Provider Family Medicine
DX: I82.813 Embolism and thrombosis of superficial veins of lower extremities, bilateral (principal)
CPT/HCPCS: 93971

== ENCOUNTER 2024-07-05 14:09 | Outpatient (CLI) | payer MEDICAID, SELFPAY ==
[2024-07-05 14:21] LABS: Abs Immature Grans 0.02 10^3/uL (0.0-0.06); Absolute Basophil Count 0.04 10^3/uL (0.0-0.2); Absolute Eosinophil Count 0.12 10^3/uL (0.0-0.7); Absolute Monocyte Count 0.72 10^3/uL (0.1-0.8); Absolute Neutrophil Count 4.31 10^3/uL (1.2-6.7); Basophils % 0.5 %; Eosinophils % 1.6 %; HGB 13.4 g/dL (11.2-15.7); Immature Grans % 0.3 %; Lymphocytes % 31.5 %; MCH 30.3 pg (27.0-33.0); MCHC 32.7 % (32.0-36.0); MCV 93 fL (80-95); MPV 8.3 fL (8.0-11.0); Monocytes % 9.5 %; Neutrophils % 56.6 %; Platelet Count 297 10^3/uL (130-400); RBC 4.42 10^6/uL (3.93-5.22); RDW 14.6 % (11.7-14.6); RDW-SD 48.9 fL; WBC 7.61 10^3/uL (4.4-10.8)
[2024-07-05 14:34] LABS: ALT 53 U/L (14-59); AST 23 U/L (15-37); Albumin 3.6 g/dL (3.4-5.0); Alkaline Phosphatase 87 U/L (46-116); Anion Gap 4.1 mmol/L (3-11); BUN 15 mg/dL (7-18); Bilirubin, Total 0.78 mg/dL (0.2-1.0); CO2 29.9 mmol/L (21.0-32.0); Chloride 107 mmol/L (98-107); Estimated GFR 69.93 (mL/min/1.73m2); Glucose 99 mg/dL (74-106); Potassium 3.8 mmol/L (3.5-5.1); Sodium 141 mmol/L (136-145); Total Protein 7.4 g/dL (6.4-8.2)
[2024-07-05 14:46] LABS: D-Dimer 339 ng/mlFEU (<500)
== END 2024-07-05 14:10 | disposition home or self-care (01) ==
LOC: LBO 14:10
PROVIDERS: Internal Medicine Rheumatology; PCP Family Medicine; Visit Provider Family Medicine
DX: I82.813 Embolism and thrombosis of superficial veins of lower extremities, bilateral (principal); M05.79 Rheumatoid arthritis with rheumatoid factor of multiple sites without organ or systems involvement; Z79.899 Other long term (current) drug therapy
CPT/HCPCS: 36415; 80053; 85025; 85379

== ENCOUNTER 2024-07-18 09:11 | Emergency (ER) | payer MEDICAID, SELFPAY ==
[2024-07-18 09:17] VITALS: BP 112/50; PULSE 81; RESP 18; TEMP 36.7; O2SAT 98
--- NOTE | 2024-07-18 09:23 | W.ED.GENAD ---
Discharge Plan Disposition Patient Disposition: Home Condition: Stable Discharge Details Clinical Impression: Contact dermatitis and other eczema due to other chemical products Primary Care Provider: Connie Kemp ED Provider: Zuleima Morales Home Meds and New Rx's Prescriptions: New prednisone 20 mg tablet 40 mg PO DAILY 5 Days Qty: 10 0RF Rx Instructions: Take 2 tablets by mouth daily for the next 5 days famotidine [Pepcid] 40 mg tablet 40 mg PO DAILY 5 Days Qty: 5 0RF Rx Instructions: Please take 1 tablet by mouth daily for the next 5 days Continued methotrexate sodium 2.5 mg tablet 2.5 mg PO QWEEK Patient Comments: 6 tabs montelukast [Singulair] 10 mg tablet 10 mg PO DAILY loratadine [Claritin] 10 mg tablet 10 mg PO DAILY fluticasone propionate [Flonase Allergy Relief] 50 mcg/actuation spray,suspension 1 spray intranasal DAILY Rx Instructions: administer into each nostril epinephrine [EpiPen 2-Andres] 0.3 mg/0.3 mL auto-injector 0.3 mg IM Q5-15M PRN (Reason: hypersensitivity reaction) Qty: 2 0RF Rx Instructions: do not exceed 3 doses per episode budesonide-formoterol [Symbicort] 80-4.5 mcg/actuation HFA aerosol inhaler 1 inh inhalation BID albuterol sulfate [ProAir HFA] 90 mcg/actuation HFA aerosol inhaler 2 puff inhalation Q6H PRN medroxyprogesterone 10 mg tablet 10 mg PO DAILY Qty: 90 5RF Rx Instructions: 1 tab PO daily metoprolol succinate 25 mg capsule,papo,ER 24hr 12.5 mg PO DAILY Qty: 15 0RF folic acid 1 mg tablet 1 mg PO DAILY Patient Comments: TAKE 1 TABLET BY MOUTH DAILY promethazine 6.25 mg/5 mL syrup 12.5 mg PO Q6H PRN (Reason: cough) Qty: 120 0RF benzonatate 100 mg capsule 100 mg PO TID PRN (Reason: cough) Qty: 30 0RF Eliquis DVT-PE Treat 30D Start 5 mg (74 tabs) tablets,dose pack See Rx Instructions .ROUTE .COMPLEX Qty: 74 0RF Rx Instructions: orally per package directions budesonide-formoterol [Symbicort] 160-4.5 mcg/actuation HFA aerosol inhaler 2 puff inhalation Q12H Qty: 10.2 0RF dexamethasone 4 mg tablet 4 mg PO DAILY Qty: 5 0RF Rx Instructions: take 1 tablet every other day for 8 days, followed by 2 mg( 1/2 tablet ) every other day Discharge Instructions Instructions: Contact dermatitis, Chemical Exposure to the Skin ED Additional Instructions: Please use the prednisone and Pepcid daily for the next 5 days. Apply hydrocortisone cream up to 3 times daily as needed. You may also take Zyrtec or Claritin or similar during the day for less sedation. topical Benadryl cream you can apply which you can get [id number]. Please continue to take Benadryl 1 or 2 tablets every 6-8 hours as needed if the Claritin and Zyrtec are not controlling the itching. Do not take them altogether. Return to the ER for any trouble breathing, throat swelling or any other further concerns likes facial swelling. Follow up with primary care provider in 3-5 days. Return to ED sooner if any worsening or concerns. Thank you for allowing us to care for you today. Referrals: Connie Kemp MD [Primary Care Provider] - 1 week Discharge Data Discharge Date/Time-TO BE ENTERED AT DEPARTURE: 07/18/24 10:26 HPI General Mode of arrival: ambulatory. Date/Time Provider Initiated Documentation: 07/18/24 09:19. Limitations to Documentation: no limitations. Information obtained by: patient, RN notes reviewed and old records reviewed. HPI Narrative: Patient is the mother of an infant we are seen here in the emergency department with a chief complaint of rash and itching to her right upper extremity and abdomen since . Patient reports that she believes she is having allergic reaction to some hand belt and link shop supervisor solution that she dipped her arm into. She denies any throat swelling, wheezing or trouble breathing. She has been using Benadryl and hydrocortisone with little to no relief. No hives noted. She does have a papular rash noted to her right arm and anterior abdomen. Related Data Home Medications ?Medication ?Instructions ?Recorded ?Confirmed methotrexate sodium 2.5 mg tablet 2.5 mg PO QWEEK 03/01/19 04/28/24 metoprolol succinate 25 mg capsule 12.5 mg (1/2 x 25 mg) PO DAILY #15 05/30/19 04/28/24 sprinkle, ext. release 24 hr caps fluticasone propionate 50 1 spray intranasal DAILY 06/16/20 04/28/24 mcg/actuation nasal spray,suspension (Flonase Allergy Relief) loratadine 10 mg tablet (Claritin) 10 mg PO DAILY 06/16/20 04/28/24 montelukast 10 mg tablet 10 mg PO DAILY 06/16/20 04/28/24 (Singulair) albuterol sulfate 90 mcg/actuation 2 puff inhalation Q6H PRN 11/29/22 04/28/24 aerosol inhaler (ProAir HFA) budesonide-formoterol HFA 80 1 inh inhalation BID 11/29/22 04/28/24 mcg-4.5 mcg/actuation aerosol inhaler (Symbicort) folic acid 1 mg tablet 1 mg PO DAILY 12/20/22 04/28/24 epinephrine 0.3 mg/0.3 mL 0.3 mg (0.3 mL) IM Q5-15M PRN 01/03/23 04/28/24 injection, auto-injector (EpiPen hypersensitivity reaction #2 ea 2-Andres) medroxyprogesterone 10 mg tablet 10 mg PO DAILY #90 tabs 02/12/23 04/28/24 benzonatate 100 mg capsule 100 mg PO TID PRN cough #30 caps 04/25/24 04/28/24 promethazine 6.25 mg/5 mL oral 12.5 mg (10 mL) PO Q6H PRN cough 04/25/24 04/28/24 syrup #120 mL apixaban 5 mg (74 tabs) tablets in See Rx Instructions PO .COMPLEX 04/28/24 a dose pack (Q.branch DVT-PE Treat #74 dose pk 30D Start) budesonide-formoterol HFA 160 2 puff inhalation Q12H #10.2 grams 04/28/24 mcg-4.5 mcg/actuation aerosol inhaler (Symbicort) dexamethasone 4 mg tablet 4 mg PO DAILY #5 tabs 04/28/24 famotidine 40 mg tablet (Pepcid) 40 mg PO DAILY Allergy 5 days #5 07/18/24 tabs prednisone 20 mg tablet 40 mg (2 x 20 mg) PO DAILY Allergy 07/18/24 5 days #10 tabs Previous Rx's ?Medication ?Instructions ?Recorded metoprolol succinate 25 mg capsule 12.5 mg (1/2 x 25 mg) PO DAILY #15 05/30/19 sprinkle, ext. release 24 hr caps epinephrine 0.3 mg/0.3 mL 0.3 mg (0.3 mL) IM Q5-15M PRN 01/03/23 injection, auto-injector (EpiPen hypersensitivity reaction #2 ea 2-Andres) medroxyprogesterone 10 mg tablet 10 mg PO DAILY #90 tabs 02/12/23 benzonatate 100 mg capsule 100 mg PO TID PRN cough #30 caps 04/25/24 promethazine 6.25 mg/5 mL oral 12.5 mg (10 mL) PO Q6H PRN cough 04/25/24 syrup #120 mL apixaban 5 mg (74 tabs) tablets in See Rx Instructions PO .COMPLEX 04/28/24 a dose pack (Q.branch DVT-PE Treat #74 dose pk 30D Start) budesonide-formoterol HFA 160 2 puff inhalation Q12H #10.2 grams 04/28/24 mcg-4.5 mcg/actuation aerosol inhaler (Symbicort) dexamethasone 4 mg tablet 4 mg PO DAILY #5 tabs 04/28/24 famotidine 40 mg tablet (Pepcid) 40 mg PO DAILY Allergy 5 days #5 07/18/24 tabs prednisone 20 mg tablet 40 mg (2 x 20 mg) PO DAILY Allergy 07/18/24 5 days #10 tabs Allergies Allergy/AdvReac Type Severity Reaction Status Date / Time fexofenadine (From Alecia) Allergy Severe facial Verified 07/18/24 09:23 swelling bee Allergy Severe Swelling/Ed Uncoded 07/18/24 09:23 mitzy environmental Allergy Other (See Uncoded 07/18/24 09:23 Comment) General Stated Complaint: RashLesion MERI: 4 Review of Systems All systems reviewed & are unremarkable except as noted in HPI and below Integumentary/Breasts Skin/Breast: Reports pruritus and Reports rash Exam Resp Effort & Inspection: normal respiratory effort and able to speak in complete sentences Auscultation: clear to auscultation bilaterally Cardio Rate: regular rate Rhythm: regular rhythm Heart Sounds: S1 normal and S2 normal Skin Rashes: rashes noted (Right arm abdomen, right hand) maculopapular rash right posterior multiple locations arrangement clustered, borders raised and irregular, color red, distribution and surface dry Trauma: no lacerations or abrasions Wounds: no wounds Hair: normal Nails: normal Course Vital Signs Vital signs: Vital Signs Temperature 36.7 C 07/18/24 09:17 Pulse 81 07/18/24 09:17 Respiratory Rate 18 07/18/24 09:17 Blood Pressure 112/50 L 07/18/24 09:17 Pulse Oximetry 98 07/18/24 09:17 Temperature 36.7 C 07/18/24 09:17 Pulse 81 07/18/24 09:17 Respiratory Rate 18 07/18/24 09:17 Blood Pressure 112/50 L 07/18/24 09:17 Pulse Oximetry 98 07/18/24 09:17 Medical Decision Making Patient is the mother of an infant we are seen here in the emergency department with a chief complaint of rash and itching to her right upper extremity and abdomen since . Patient reports that she believes she is having allergic reaction to some hand belt and link shop supervisor solution that she dipped her arm into. She denies any throat swelling, wheezing or trouble breathing. She has been using Benadryl and hydrocortisone with little to no relief. No hives noted. She does have a papular rash noted to her right arm and anterior abdomen. Patient given Pepcid and prednisone here and hydrocortisone topical cream. Patient feeling better prior to discharge. Prescription sent to [facility]. Instructed on taking Benadryl if needed or Zyrtec or Claritin during the day given return instructions verbalized understanding. This text was generated using [employer] system, please disregard any oddities of phrase or misspellings. Medical Records Medical records reviewed: Yes I reviewed the patient's medical records. Quality:[facility] Health Related Social Needs: No Data to Display PFSH All Active Problems (Updated 07/18/24 @ 09:50 by Zuleima Morales NP) Contact dermatitis and other eczema due to other chemical products (Acute) Angioedema (Acute) Cough (Acute) BMI 50.0-59.9, adult (Acute 06/10/17) Venous ulcer (Acute) ADD (attention deficit disorder) (Acute) SVT (supraventricular tachycardia) (Chronic) Lipodermatosclerosis (Acute) Herpes labialis (Acute) Rheumatoid arthritis (Chronic) Dermatitis (Acute) Venous stasis ulcer (Acute) Eye swelling (Acute) Hives (Acute) Medical History Simple endometrial hyperplasia without atypia 2016. Dx 10/2015. Rx with Medroxyprogesterone 10mg/day. 05/2017. EMBx: atrophic endometrium. History of delivery of macrosomal infant Allergic rhinitis MARYBETH on CPAP Prediabetes Endometriosis Surgical History History of incision and drainage (~01/03/23) Family History Mother Diabetes Uterine cancer Social History Smoking/Tobacco Use Status: Never Smoking risk assessment performed?: Yes Alcohol Intake: current Alcohol Intake frequency: holidays/special occasions only Drug use: Never Substance use type: does not use Household members: children and other Details: Has 11mo foster child. 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 Do you feel safe at home: Yes Do you feel safe in your relationship?: Yes History History 3 Para Hx # Term Pregnancies 3 Multiple births Hx # Pregnancies Ectopic pregnancies AB induced Hx Number of Living Children 3 AB spontaneous
[2024-07-18] MEDS: Hydrocortisone 1% CR 30 GM TUBE TP (09:54)
[2024-07-18] MEDS: predniSONE 20 MG TAB 60 MG PO (09:54)
[2024-07-18] MEDS: Famotidine 20 MG TAB 40 MG PO (09:54)
== END 2024-07-18 10:26 | disposition home or self-care (01) ==
PROVIDERS: Emergency Provider Registered Nurse Emergency; PCP Family Medicine
DX: L23.5 Allergic contact dermatitis due to other chemical products (principal)
CPT/HCPCS: 99283; J7512

== ENCOUNTER 2024-08-04 15:54 | Outpatient (REF) | payer MEDICAID, SELFPAY | END 2024-08-04 15:55 | disposition home or self-care (01) | LOC: LBN 15:54 | PROVIDERS: PCP Family Medicine; Visit Provider Obstetrics & Gynecology | DX: R10.9 Unspecified abdominal pain (principal) | CPT/HCPCS: 87086 ==

== ENCOUNTER 2024-08-06 12:15 | Outpatient (REF) | payer MEDICAID, SELFPAY ==
--- NOTE | 2024-08-06 09:00 | PAPFT_PTH ---
PATIENT: Chelsi Hernandez LOC: [facility] U#:[id number] AGE/SX: 49/F ROOM: RE08/06/[address]: Swetha Laughlin MD : [id number] BED: DIS: 08/06/2024 SPEC #: [id number] RECD: 08/06/24 13:05 STATUS: LETY RERajendra #: [id number] TABBY: 08/06/24 09:[address]: Swetha Laughlin DEPT: [facility] Cytology RECD BY: Maria Bullock ENTERED: 08/06/24 13:06 SP TYPE: PAPFT OTHR DR: Connie Kemp Tissues: 1 - CX/ENDOCX FOR PAP SMEARS Procedures: PAP THIN PREP/UVM Screening HPV DNA PROBE Comments: [id number] (HPV 16 & 18/45)
== END 2024-08-06 12:16 | disposition home or self-care (01) ==
LOC: LBN 12:15
PROVIDERS: PCP Family Medicine; Visit Provider Obstetrics & Gynecology
DX: N94.9 Unspecified condition associated with female genital organs and menstrual cycle (principal); Z12.4 Encounter for screening for malignant neoplasm of cervix; Z01.419 Encounter for gynecological examination (general) (routine) without abnormal findings
CPT/HCPCS: 88142; 87480; 87510; 87624; 87660

== ENCOUNTER 2024-10-08 00:02 | Outpatient (CLI) | payer MEDICAID, SELFPAY ==
--- NOTE | 2024-10-08 06:45 | DI.MAMMO_ITS ---
Exam(s) MAMMO SCREENING EXAM: MAMMO SCREENING CLINICAL HISTORY: screening,Z12.31. TECHNIQUE: Bilateral full field digital CC and MLO mammographic images were obtained with 3D tomosyn thesis and utilizing computer aided detection (CAD). COMPARISON: Prior mammograms were reviewed. FINDINGS: There has been no significant change in the appearance and distribution of the fibroglandular tissue. There are no CAD designations. There are no new spiculated masses nor malignant appearing microcalcification groups. There is no significant architectural distortion nor skin thickening-retraction. IMPRESSION: No radiographic evidence of malignancy. BI-RADS Category 1 - Negative Breast Density - Category B - There are scattered areas of fibroglandular density. Breast density Category C or D implies that the patient has dense breast tissue. Dense breast tissue can make it harder to find cancer on a mammogram. Dense breast tissue is also associated with an incr eased risk of breast cancer. This information about the result of the mammogram report was provided to the patient to raise their awareness. Use this report when you speak with the patient about their risks for breast cancer, which includes their family history. At that time, you may recommend additional screening tests (Ultrasoun d or MRI) as these tests may add significant information. A negative radiographic report should not delay biopsy if a dominant or clinically suspicious mass is present. Up to ten percent of cancers are not identified on mammography. A negative report may reinforce clinical impression. Adenosis and dense breasts may obscure an underlying neoplasm. False positive reports average 6 to 10%. Patient will receive a letter notifying them of these results.
== END 2024-10-08 00:22 ==
LOC: DI 00:02
PROVIDERS: PCP Family Medicine; Visit Provider Obstetrics & Gynecology
DX: Z12.31 Encounter for screening mammogram for malignant neoplasm of breast (principal); R92.323 Mammographic fibroglandular density, bilateral breasts
CPT/HCPCS: 77063; 77067

== ENCOUNTER 2024-11-12 01:13 | Outpatient (CLI) | payer MEDICAID, SELFPAY ==
[2024-11-12 14:22] LABS: Abs Immature Grans 0.02 10^3/uL (0.0-0.06); Absolute Basophil Count 0.05 10^3/uL (0.0-0.2); Absolute Eosinophil Count 0.11 10^3/uL (0.0-0.7); Absolute Lymphocyte Count 3.37 10^3/uL (1.2-3.4); Absolute Monocyte Count 0.71 10^3/uL (0.1-0.8); Absolute Neutrophil Count 5.29 10^3/uL (1.2-6.7); Basophils % 0.5 %; Eosinophils % 1.2 %; HCT 40.8 % (36.0-46.0); HGB 13.4 g/dL (11.2-15.7); Immature Grans % 0.2 %; Lymphocytes % 35.3 %; MCH 29.5 pg (27.0-33.0); MCHC 32.8 % (32.0-36.0); MCV 90 fL (80-95); MPV 8.8 fL (8.0-11.0); Monocytes % 7.4 %; Neutrophils % 55.4 %; Platelet Count 277 10^3/uL (130-400); RBC 4.55 10^6/uL (3.93-5.22); RDW 13.5 % (11.7-14.6); RDW-SD 44.2 fL; WBC 9.55 10^3/uL (4.4-10.8)
[2024-11-12 15:40] LABS: ALT 45 U/L (14-59); AST 19 U/L (15-37); Albumin 3.5 g/dL (3.4-5.0); Alkaline Phosphatase 96 U/L (46-116); Anion Gap 8.6 mmol/L (3-11); BUN 14 mg/dL (7-18); Bilirubin, Total 0.6 mg/dL (0.2-1.0); C-Reactive Protein 1.24 mg/dL (<or=0.5); CO2 28.4 mmol/L (21.0-32.0); CREATININE 0.7 mg/dL (0.55-1.02); Chloride 105 mmol/L (98-107); Estimated GFR 107.28 (mL/min/1.73m2); Glucose 96 mg/dL (74-106); Potassium 3.8 mmol/L (3.5-5.1); Sodium 142 mmol/L (136-145); Total Protein 7.3 g/dL (6.4-8.2)
== END 2024-11-12 01:14 | disposition home or self-care (01) ==
LOC: LBO 01:14
PROVIDERS: PCP Family Medicine; Visit Provider Internal Medicine Rheumatology
DX: M05.79 Rheumatoid arthritis with rheumatoid factor of multiple sites without organ or systems involvement (principal); Z79.899 Other long term (current) drug therapy
CPT/HCPCS: 36415; 80053; 85025; 86140

== ENCOUNTER 2025-03-04 13:36 | Outpatient (REF) | payer MEDICAID, SELFPAY ==
[2025-03-04 17:29] LABS: HCT 41.4 % (36.0-46.0); HGB 13.6 g/dL (11.2-15.7); MCH 28.8 pg (27.0-33.0); MCHC 32.9 % (32.0-36.0); MCV 88 fL (80-95); MPV 9.9 fL (8.0-11.0); Platelet Count 258 10^3/uL (130-400); RBC 4.72 10^6/uL (3.93-5.22); RDW 13.6 % (11.7-14.6); RDW-SD 43.7 fL; WBC 10.14 10^3/uL (4.4-10.8)
[2025-03-04 17:55] LABS: ALT 44 U/L (14-59); AST 17 U/L (15-37); Albumin 3.5 g/dL (3.4-5.0); Alkaline Phosphatase 90 U/L (46-116); Anion Gap 9.0 mmol/L (3-11); BUN 14 mg/dL (7-18); Bilirubin, Total 0.9 mg/dL (0.2-1.0); CO2 28.0 mmol/L (21.0-32.0); Calcium 8.7 mg/dL (8.5-10.1); Calculated LDL 95 mg/dL (<100); Chloride 103 mmol/L (98-107); Cholesterol 149 mg/dL (<200); Estimated GFR 116.34 (mL/min/1.73m2); Glucose 84 mg/dL (74-106); HDL Cholesterol 40 mg/dL (>or=50); Potassium 4.1 mmol/L (3.5-5.1); Sodium 140 mmol/L (136-145); Total Protein 7.1 g/dL (6.4-8.2); Triglyceride 74 mg/dL (<150)
[2025-03-04 17:57] LABS: Hemoglobin A1C 5.3 % (<5.7)
[2025-03-04 18:31] LABS: C-Reactive Protein 4.27 mg/dL (<or=0.5)
== END 2025-03-04 13:37 | disposition home or self-care (01) ==
LOC: NCHCN 13:36
PROVIDERS: PCP Family Medicine; Visit Provider Family Medicine
DX: M06.9 Rheumatoid arthritis, unspecified (principal); R73.03 Prediabetes
CPT/HCPCS: 80053; 80061; 85027; 83036; 86140